=== PATIENT | female | born 1955 | race Caucasian/White ===

== ENCOUNTER 2016-04-28 10:25 | Inpatient (IN) | payer BC ==
[~2016-04-28] VITALS: Ht 157.5 cm; Wt 73.2 kg
[~2016-04-28 10:25] MED LIST: ALBU6.7H INH; CLEAPOW6 PO; GABA300C3 PO; IPRAAER INH; NORC7.5T PO; PERI8.6T PO; SYNT112T PO; VANC1CAP6 PO
[2016-04-28 10:29] VITALS: BP 138/64; PULSE 119; RESP 18; TEMP 98.4; O2SAT 96
[2016-04-28] MEDS ORDERED: SODIUM CHLOR 0.9% 1000 ML INJ 1,000 ML IV SCH (10:47)
[2016-04-28] MEDS ORDERED: ALBU6.7H INH (10:48)
[2016-04-28] MEDS ORDERED: HYDR-3583 PO (10:48)
[2016-04-28] MEDS ORDERED: GABA600T PO (10:48)
[2016-04-28] MEDS ORDERED: IPRAAER INH (10:48)
[2016-04-28] MEDS ORDERED: METH5TAB PO (10:50)
[2016-04-28] MEDS ORDERED: DRON5CAP PO (10:50)
[2016-04-28] MEDS ORDERED: METO10TA PO (10:52)
[2016-04-28] MEDS ORDERED: SODIUM CHLORIDE 0.9% FLUSH 5 ML FLUSH IVF PRN (11:00)
[2016-04-28] MEDS ORDERED: MORPHINE SULFATE 4 MG/ML INJ IV PUSH ONE ×2 (11:00→13:15)
[2016-04-28 11:21] LABS: AUTOMATED NEUTROPHIL # 7.4 TH/MM3 (1.8-7.7); BASOPHIL % 0.2 % (0.0-2.0); EOSINOPHIL % 0.1 % (0.0-4.0); HEMATOCRIT 32.6 % (35.0-46.0); HEMO FLAGS DIFF FINAL; LYMPHOCYTE # 0.2 TH/MM3 (1.0-4.8); MEAN CORPUSCULAR HEMOGLOBIN 25.9 PG (27.0-34.0); MEAN CORPUSCULAR HGB CONC 31.6 % (32.0-36.0); MONO % 1.8 % (0.0-8.0); NEUT % 94.9 % (16.0-70.0); PLATELET COUNT 318 TH/MM3 (150-450); RED BLOOD COUNT 3.97 MIL/MM3 (4.00-5.30); RED CELL DISTRIBUTION WIDTH 20.2 % (11.6-17.2); WHITE BLOOD COUNT 7.8 TH/MM3 (4.0-11.0)
[2016-04-28 11:37] LABS: APTT (PATIENT) 33.4 SEC (24.3-30.1); INTERNATIONAL NORMALIZED RATIO 1.2 RATIO; PROTHROMBIN TIME - PATIENT 13.6 SEC (9.8-11.6)
[2016-04-28 11:38] LABS: ANION GAP 11 MEQ/L (5-15); AST (GOT) 115 U/L (15-37); BICARBONATE 22.8 MEQ/L (21.0-32.0); BLOOD UREA NITROGEN 36 MG/DL (7-18); CHLORIDE 109 MEQ/L (98-107); GLOMERULAR FILTRATION RATE 67 ML/MIN (>89); POTASSIUM 3.8 MEQ/L (3.5-5.1); SODIUM (NA) 143 MEQ/L (136-145)
[2016-04-28 11:41] LABS: ALKALINE PHOSPHATASE 460 U/L (45-117); ALT (GPT) 17 U/L (10-53); TOTAL BILIRUBIN ADULT 0.6 MG/DL (0.2-1.0)
--- NOTE | 2016-04-28 11:47 | PD ---
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 Pires as well as Dr. Lawrence, here for evaluation of abdominal pain. The patient reports chronic abdominal pain, however pain has worsened today. Pain is diffuse, constant, severe. She has had nausea but no vomiting. She has had several episodes of loose bowel movements. She was recently diagnosed with C. difficile colitis and recently finished her course of oral vancomycin. No fevers. History of bowel distraction with colonic stent. 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) Cardiovascular Problems: Yes (HTN) Chemotherapy: Yes (04/25/16) COPD: Yes Cerebrovascular Accident: No Diabetes: No Diminished Hearing: No Endocrine: Yes (HYPOTHYROIDISM) Gastrointestinal Disorders: No GERD: No Glaucoma: No Genitourinary: Yes Hepatitis: No Hiatal Hernia: No Hypertension: No Immune Disorder: No Implanted Vascular Access Dvce: Yes Kidney Stones: No Musculoskeletal: No Neurologic: Yes (NEUROPATHY POST CHEMO) Psychiatric: No Reproductive: No Respiratory: Yes (COPD) Migraines: No Radiation Therapy: No Renal Failure: Yes (ACUTE RENAL FAILURE) Seizures: No Sleep Apnea: No Thyroid Disease: Yes (HYPO) Tetanus Vaccination: Unknown Influenza Vaccination: No ?: Not Tubal Ligation: Yes Past Surgical History Abdominal Surgery: Yes (INCISIONAL HERNIA REPAIR 11/2007, exp lap c lysis of adhesions) AICD: No Arteriovenous Shunt: No Body Medical Devices: INFUSAPORT R CHEST Cardiac Surgery: No Ear Surgery: No Endocrine Surgery: No Eye Surgery: No Genitourinary Surgery: Yes (BIALTERAL URETERAL STENT PLACEMENT) Gynecologic Surgery: Yes (HYSTERECTOMY WITH BEATRIZ S & O - 2005, pelvic tumor removal) Hysterectomy: Yes Insulin Pump: No Joint Replacement: No Neurologic Surgery: No Oral Surgery: No Pacemaker: No Thoracic Surgery: No Other Surgery: Yes (BTL, HERNIA REPAIR(), LYMHNODECTOMY AUG 11, drain placed, removed abd '16) Social History Alcohol Use: No Tobacco Use: No Substance Use: No Allergies-Medications (Allergen,Severity, Reaction): Coded Allergies: Carboplatin (Verified Allergy, Severe, RASH WITH ITCHING, RED FACE, POUNDING IN EARS, 04/28/16) Cisplatin (Verified Allergy, Severe, RASH, ITCHING, RED FACE,DIFFICULTY BREATHING, 04/28/16) Penicillin (Verified Allergy, Severe, SWELLING in joints, 04/28/16) Joint pain *MDRO Multi-Drug Resistant Organism (Verified Adverse Reaction, Unknown, 04/28/16) MRSA (abdomen wound) - 2005 MRSA PCR negative 07/09/2015 & 07/14/15. Cleared per Infection Control. Reported Meds & Prescriptions Reported Meds & Active Scripts Active Reported Metoclopramide (Metoclopramide HCl) 10 Mg Tab 10 Mg PO Q8HR Methadone (Methadone HCl) 5 Mg Tab 5 Mg PO BID Dronabinol 5 Mg Cap 5 Mg PO BID Hydrocodone-Acetaminophen 10-325 mg Tab 1 Tab PO Q4H PRN Gabapentin 600 Mg Tab 600 Mg PO TID PRN Combivent Respimat Inh (Ipratropium-Albuterol Inh) 20-100 Longterm/Act Aero 2 Puff INH BID Proventil Hfa 6.7 GM Inh (Albuterol Sulfate) 90 Mcg/Act Aer 1 Puff INH Q4H PRN Review of Systems Except as stated in HPI: all other systems reviewed are Neg Physical Exam Narrative GENERAL: Well-developed, well-nourished, no acute distress. SKIN: Warm and dry. HEAD: Atraumatic. Normocephalic. EYES: Pupils equal and round. No scleral icterus. No injection or drainage. ENT: Mucous membranes pink and dry. NECK: Trachea midline. No JVD. CARDIOVASCULAR: Regular rate and rhythm. RESPIRATORY: No accessory muscle use. Clear to auscultation. Breath sounds equal bilaterally. GASTROINTESTINAL: Abdomen soft, mildly distended, diffusely tender without peritoneal signs. MUSCULOSKELETAL: No obvious deformities. No clubbing. No cyanosis. No edema. NEUROLOGICAL: Awake and alert. No obvious cranial nerve deficits. Motor grossly within normal limits. Normal speech. PSYCHIATRIC: Appropriate mood and affect; insight and judgment normal. Data Data Last Documented VS Vital Signs Date Time Temp Pulse Resp B/P Pulse Ox O2 Delivery O2 Flow Rate FiO2 04/28/16 10:29 98.4 119 18 138/64 96 Orders Complete Blood Count With Diff (04/28/16 10:47) Comprehensive Metabolic Panel (04/28/16 10:47) Lipase (04/28/16 10:47) Lactic Acid (04/28/16 10:47) Prothrombin Time / Inr (Pt) (04/28/16 10:47) Act Partial Throm Time (Ptt) (04/28/16 10:47) Urinalysis - C+S If Indicated (04/28/16 10:47) Ct Abd/Pel W Iv Contrast(Rout) (04/28/16 10:47) Iv Access Insert/Monitor (04/28/16 10:47) Ecg Monitoring (04/28/16 10:47) Oximetry (04/28/16 10:47) Morphine Inj (Morphine Inj) (04/28/16 11:00) Sodium Chlor 0.9% 1000 Ml Inj (Ns 1000 M (04/28/16 10:47) Sodium Chloride 0.9% Flush (Ns Flush) (04/28/16 11:00) C Diff Toxin Pcr (04/28/16 10:47) Iohexol 350 Inj (Omnipaque 350 Inj) (04/28/16 12:31) Morphine Inj (Morphine Inj) (04/28/16 13:15) Labs Laboratory Tests Test 04/28/16 11:05 White Blood Count 7.8 TH/MM3 Red Blood Count 3.97 MIL/MM3 Hemoglobin 10.3 GM/DL Hematocrit 32.6 % Mean Corpuscular Volume 82.0 FL Mean Corpuscular Hemoglobin 25.9 PG Mean Corpuscular Hemoglobin 31.6 % Concent Red Cell Distribution Width 20.2 % Platelet Count 318 TH/MM3 Mean Platelet Volume 7.5 FL Neutrophils (%) (Auto) 94.9 % Lymphocytes (%) (Auto) 3.0 % Monocytes (%) (Auto) 1.8 % Eosinophils (%) (Auto) 0.1 % Basophils (%) (Auto) 0.2 % Neutrophils # (Auto) 7.4 TH/MM3 Lymphocytes # (Auto) 0.2 TH/MM3 Monocytes # (Auto) 0.1 TH/MM3 Eosinophils # (Auto) 0.0 TH/MM3 Basophils # (Auto) 0.0 TH/MM3 CBC Comment DIFF FINAL Differential Comment Prothrombin Time 13.6 SEC Prothromb Time International 1.2 RATIO Ratio Activated Partial 33.4 SEC Thromboplast Time Sodium Level 143 MEQ/L Potassium Level 3.8 MEQ/L Chloride Level 109 MEQ/L Carbon Dioxide Level 22.8 MEQ/L Anion Gap 11 MEQ/L Blood Urea Nitrogen 36 MG/DL Creatinine 0.86 MG/DL Estimat Glomerular Filtration 67 ML/MIN Rate Random Glucose 77 MG/DL Lactic Acid Level 1.0 mmol/L Calcium Level 7.5 MG/DL Total Bilirubin 0.6 MG/DL Aspartate Amino Transf 115 U/L (AST/SGOT) Alanine Aminotransferase 17 U/L (ALT/SGPT) Alkaline Phosphatase 460 U/L Total Protein 5.1 GM/DL Albumin 1.5 GM/DL Lipase 51 U/L [facility] Medical Decision Making Medical Screen Exam Complete: Yes Emergency Medical Condition: Yes Differential Diagnosis Acute on chronic abdominal pain, bowel obstruction, intra-abdominal infection Narrative Course Initial vital signs show heart rate 119, blood pressure 138/64, pulse ox 98% on room air, oral temp of 98.4F. CBC shows WBC 7.8, hemoglobin 10.3, hematocrit 32.6, platelets 318, neutrophils 94.9%. CMP is remarkable for alkaline phosphatase 460, AST 115, otherwise essentially unremarkable. Lactic acid is 1.0. CT abdomen pelvis: CONCLUSION: 1. Worsening of hepatic metastatic disease since January 21. 2. Increasing size of right middle lobe metastatic lung nodule. 3. Increasing size of pelvic mass just below the expandable sigmoid stent. 4. Development of moderate left hydronephrosis with left ureteral stent remaining in place. 5. Development of anasarca. 6. Slight increase in biliary ductal dilatation. The patient was made aware of all findings. She was given 2 doses of pain medication and is still having abdominal pain. She will be admitted for overnight observation for intractable abdominal pain. Case discussed with hospitalist Dr. Hall who will admit the patient to her service. Diagnosis Primary Impression: Intractable abdominal pain Additional Impression: Metastatic disease Admitting Information Admitting Physician Requests: Jeffry Perez MD Apr 28, 2016 11:47
[2016-04-28] MEDS ORDERED: IOHEXOL 350 MG/ML 10 ML VIAL (for RAD DIAG) IV ONE (12:31)
--- NOTE | 2016-04-28 12:53 | RADRPT ---
EXAM DATE/TIME: 04/28/2016 12:16 [facility] COMPARISON: CT ABDOMEN & PELVIS W CONTRAST, January 22, 2016, 23:52. INDICATIONS : Abdominal pain,ovarian cancer IV CONTRAST: 85 cc Omnipaque 350 (iohexol) IV ORAL CONTRAST: No oral contrast ingested. RADIATION DOSE: 12.07 CTDIvol (mGy) MEDICAL HISTORY : Carcinoma, ovarian. Cardiovascular disease Renal failure, acute. SURGICAL HISTORY : Hysterectomy. colonic stents ENCOUNTER: Initial ACUITY: 1 day PAIN SCALE: 7/10 LOCATION: Abdomen TECHNIQUE: Volumetric scanning of the abdomen and pelvis was performed. Using automated exposure control and ad justment of the mA and/or kV according to patient size, radiation dose was kept as low as reasonably achievable to obtain optimal diagnostic quality images. FINDINGS: There is progression of disease since January 22, 2016. Metastatic disease in the liver has worsened w ith a large mass in the dome of the left side now measuring 9.9 cm in diameter compared with previous measurement of 5.1 cm. There is also development of slight worsening of biliary ductal dilatation wi th common bile duct measuring 17 mm. Calcified gallstone is present in the gallbladder. Nodule in right middle lobe has increased in size 6.5 mm to 9 mm characteristic of worsening metastat ic disease. Spleen, adrenals and pancreas unchanged. Right kidney stable. There is an atrophic left kidney with d evelopment of moderate hydronephrosis. Left renal stent is seen passing from left kidney into bladder . Diffuse anasarca has developed. Pelvic mass has increased in size from about 6.9 cm in transverse val meter to about 9.4 cm in transverse diameter. Expandable sigmoid stent remains present. There is mild constipation. No small bowel obstruction identified. Previous laparotomy. CONCLUSION: 1. Worsening of hepatic metastatic disease since January 21. 2. Increasing size of right middle lobe metastatic lung nodule. 3. Increasing size of pelvic mass just below the expandable sigmoid stent. 4. Development of moderate left hydronephrosis with left ureteral stent remaining in place. 5. Development of anasarca. 6. Slight increase in biliary ductal dilatation. Edgardo Lockhart MD on April 28, 2016 at 12:44 Board Certified Radiologist. This report was verified electronically.
[2016-04-28 13:37] VITALS: BP 109/53; PULSE 103; RESP 14; O2SAT 96
[2016-04-28] MEDS ORDERED: SENNOSIDES 8.6 MG TAB PO PRN (14:30)
[2016-04-28] MEDS ORDERED: HYDROmorphone HCL PF 1 MG/ML VIAL IV PUSH PRN (14:30)
[2016-04-28] MEDS ORDERED: GABAPENTIN 300 MG CAP PO PRN (14:30)
--- NOTE | 2016-04-28 14:39 | HHI.HP ---
[facility] Non-Staff Admission Diagnosis intractable abdominal pain, metastatic disease Diagnoses: Chief Complaint: Abdominal pain Travel History International Travel<30 Days: No Contact w/Intl Traveler <30 Da: No Traveled to Known Affected Are: No History of Present Illness A 61-year-old female with chronic abdominal pain due to metastatic ovarian cancer who is currently in palliative chemotherapy. Patient comes emergency room with acute onset of severe abdominal pain rated 10 out of 10 occurring overnight and not relieved with it not, 5 mg of methadone or Lortab which she had at home per her oncology office. Patient came to the emergency room for further evaluation. Pain was relieved with IV morphine. Patient reports spasmodic abdominal discomfort which is quite severe. She also reports vaginal discharge which has been chronic and been followed by her oncology team. Patient has previously been evaluated by the palliative care team in the hospital. Patient has a repeat CT of the abdomen and pelvis done compared with previous evaluation here in December. It does show my review worsening metastatic disease despite her current chemotherapy regimen. Patient is poorly ambulatory, poorly functioning, with poor appetite and now with increased edema on the left lower extremity which has been treated with antibiotics per her oncologist. Patient has not had any fevers or chills and no nausea and vomiting but mostly she has been in the bed asleep. Per the family and they would like some relief from the pain and a realistic expectation on their current prognosis. For these reasons the patient is recommended for further evaluation in the hospital Review of Systems Constitutional: COMPLAINS OF: Fatigue, Change in appetite Endocrine: DENIES: Abnorml menstrual pattern, Heat/cold intolerance, Polydipsia , Polyuria, Polyphagia Eyes: DENIES: Blurred vision, Diplopia, Eye inflammation, Eye pain, Vision loss , Photosensitivity, Double Vision Ears, nose, mouth, throat: DENIES: Tinnitus, Hearing loss, Vertigo, Nasal discharge, Oral lesions, Throat pain, Hoarseness, Ear Pain, Running Nose, Epistaxis, Sinus Pain, Toothache, Odynophagia Cardiovascular: COMPLAINS OF: Lower Extremity Edema, DENIES: Chest pain, Palpitations, Syncope, Dyspnea on Exertion, PND, Orthopnea, Claudication Gastrointestinal: COMPLAINS OF: Abdominal pain, Diarrhea, DENIES: Black stools , Bloody stools, Constipation, Nausea, Vomiting, Difficulty Swallowing, Anorexia Genitourinary: COMPLAINS OF: Vaginal discharge, DENIES: Abnormal vaginal bleeding, Dysmenorrhea, Dyspareunia, Sexual dysfunction, Urinary frequency, Urinary incontinence, Urgency, Hematuria, Dysuria, Nocturia Musculoskeletal: DENIES: Joint pain, Muscle aches, Stiffness, Joint Swelling, Back pain, Neck pain Integumentary: DENIES: Abnormal pigmentation, Pruritus, Rash, Nail changes, Breast masses, Breast skin changes, Nipple discharge Hematologic/lymphatic: DENIES: Bruising, Lymphadenopathy Immunologic/allergic: DENIES: Eczema, Urticaria Neurologic: COMPLAINS OF: Abnormal gait, DENIES: Headache, Localized weakness , Paresthesias, Seizures, Speech Problems, Tremor, Poor Balance Psychiatric: DENIES: Anxiety, Confusion, Mood changes, Depression, Hallucinations, Agitation, Suicidal Ideation, Homicidal Ideation, Delusions Past Family Social History Past Medical History Ovarian cancer, metastatic currently in palliative chemotherapy with Taxol Hypertension Hypothyroidism Neuropathy secondary to chemotherapy Renal insufficiency secondary to hydronephrosis related to the mass Past Surgical History Hysterectomy Salpingo-oophorectomy and tumor resection Ureteral stents bilaterally 99 right chest port Hernia repair Exploratory laparotomy Reported Medications Reviewed in the medical record patient reports poor adherence with methadone and recent increased to fentanyl 100 g Allergies: Coded Allergies: Carboplatin (Verified Allergy, Severe, RASH WITH ITCHING, RED FACE, POUNDING IN EARS, 04/28/16) Cisplatin (Verified Allergy, Severe, RASH, ITCHING, RED FACE,DIFFICULTY BREATHING, 04/28/16) Penicillin (Verified Allergy, Severe, SWELLING in joints, 04/28/16) Joint pain *MDRO Multi-Drug Resistant Organism (Verified Adverse Reaction, Unknown, 04/28/16) MRSA (abdomen wound) - 2005 MRSA PCR negative 07/09/2015 & 07/14/15. Cleared per Infection Control. Active Ordered Medications Reviewed in the medical record Family History Hypertension Social History This with family, no tobacco or alcohol dependency Physical Exam Vital Signs Vital Signs Date Time Temp Pulse Resp B/P Pulse Ox O2 Delivery O2 Flow Rate FiO2 04/28/16 13:37 103 14 109/53 96 Room Air 04/28/16 10:29 98.4 119 18 138/64 96 Physical Exam GENERAL: This is a frail female who appears older than stated age, complaining of pain SKIN: Diffuse erythema and scaling in both extremities left greater than right and erythema and the left thigh HEAD: Atraumatic. Normocephalic. No temporal or scalp tenderness. EYES: Pupils equal round and reactive. Extraocular motions intact. No scleral icterus. No injection or drainage. ENT: Nose without bleeding, purulent drainage or septal hematoma. Throat without erythema, tonsillar hypertrophy or exudate. Uvula midline. Airway patent. NECK: Trachea midline. No JVD or lymphadenopathy. Supple, nontender, no meningeal signs. CARDIOVASCULAR: Regular rate and rhythm without murmurs, gallops, or rubs. RESPIRATORY: Clear to auscultation. Breath sounds equal bilaterally. No wheezes , rales, or rhonchi. GASTROINTESTINAL: Abdomen soft, hypoactive, tender, nondistended MUSCULOSKELETAL: Extremities without clubbing, cyanosis, but there is +3 edema in the left leg no joint tenderness, effusion, or edema noted. No calf tenderness. Negative Homans sign bilaterally. NEUROLOGICAL: Awake and alert. Cranial nerves II through XII intact. Motor and sensory grossly within normal limits. Five out of 5 muscle strength in all muscle groups. Normal speech. Laboratory Laboratory Tests Test 04/28/16 11:05 White Blood Count 7.8 Red Blood Count 3.97 Hemoglobin 10.3 Hematocrit 32.6 Mean Corpuscular Volume 82.0 Mean Corpuscular Hemoglobin 25.9 Mean Corpuscular Hemoglobin 31.6 Concent Red Cell Distribution Width 20.2 Platelet Count 318 Mean Platelet Volume 7.5 Neutrophils (%) (Auto) 94.9 Lymphocytes (%) (Auto) 3.0 Monocytes (%) (Auto) 1.8 Eosinophils (%) (Auto) 0.1 Basophils (%) (Auto) 0.2 Neutrophils # (Auto) 7.4 Lymphocytes # (Auto) 0.2 Monocytes # (Auto) 0.1 Eosinophils # (Auto) 0.0 Basophils # (Auto) 0.0 CBC Comment DIFF FINAL Differential Comment Prothrombin Time 13.6 Prothromb Time International 1.2 Ratio Activated Partial 33.4 Thromboplast Time Sodium Level 143 Potassium Level 3.8 Chloride Level 109 Carbon Dioxide Level 22.8 Anion Gap 11 Blood Urea Nitrogen 36 Creatinine 0.86 Estimat Glomerular Filtration 67 Rate Random Glucose 77 Lactic Acid Level 1.0 Calcium Level 7.5 Total Bilirubin 0.6 Aspartate Amino Transf 115 (AST/SGOT) Alanine Aminotransferase 17 (ALT/SGPT) Alkaline Phosphatase 460 Total Protein 5.1 Albumin 1.5 Lipase 51 Result Diagram: 04/28/16 1105 04/28/16 1105 Imaging Last Impressions Abdomen/Pelvis CT 04/28/16 1047 Signed Impressions: Service Date/Time: Thursday, April 28, 2016 12:16 - CONCLUSION: 1. Worsening of hepatic metastatic disease since January 21. 2. Increasing size of right middle lobe metastatic lung nodule. 3. Increasing size of pelvic mass just below the expandable sigmoid stent. 4. Development of moderate left hydronephrosis with left ureteral stent remaining in place. 5. Development of anasarca. 6. Slight increase in biliary ductal dilatation. Edgardo Lockhart MD Assessment and Plan Problem List: (1) Ovarian cancer ICD Code: C56.9 Status: Chronic Plan: Patient presented worsening metastasis that disease with increased pain from this as well as possible fistula. We'll continue with pain management and request palliative and oncology follow-up with the patient iv dilaudid Patient already taking but no patches on her micrograms every 3 days and Lortab. She was not taking the methadone at home and we will start this (2) Leg swelling ICD Code: M79.89 Status: Acute Plan: Cellulitis, rule out DVT. Patient recently had an ultrasound 2 weeks ago as an outpatient however reports the swelling has gotten worse Liebrty Hall MD Apr 28, 2016 14:39
[2016-04-28 16:00] VITALS: BP 123/56; PULSE 105; RESP 16; TEMP 98.7; O2SAT 95
[2016-04-28] MEDS ORDERED: METHADONE HCL 10 MG TAB PO SCH (16:00)
--- NOTE | 2016-04-28 16:40 | RADRPT ---
EXAM DATE/TIME: 04/28/2016 15:49 [facility] COMPARISON: No previous studies available for comparison. INDICATIONS : Left leg pain and swelling. MEDICAL HISTORY : Hypothyroidism. Chronic obstructive pulmonary disease. Neuropathy. Hypertention. Emphysema. Asthm a. Renal failure. Ovarian cancer. SURGICAL HISTORY : Hysterectomy. Tubal ligation. Hernia repair. Lymphnodectomy. Ureteral stents. Pelvic tumor removal. ENCOUNTER: Initial ACUITY: 3 months PAIN SCORE: 8/10 LOCATION: Left leg. TECHNIQUE: Venous ultrasound of the leg was performed from the inguinal ligament to the proximal calf. Real-kim e, color Doppler and spectral tracing, compression and augmentation techniques were used. FINDINGS: There is occlusive thrombus in the left iliac vein. Nonocclusive thrombus extends from the left commo n femoral vein through the superficial femoral vein and proximal greater saphenous vein. Popliteal ve in and peroneal vein and posterior tibial vein are patent. There is a popliteal cyst measuring 4.9-2. 6 x 2.3 cm. CONCLUSION: 1. Occlusive and nonocclusive deep venous thrombosis in the left lower extremity as above. Popliteal cyst also present. Edgardo Lockhart MD on April 28, 2016 at 16:36 Board Certified Radiologist. This report was verified electronically.
[2016-04-28] MEDS ORDERED: LORazepam 2 MG/ML VIAL IV PRN (18:15)
[2016-04-28] MEDS ORDERED: PILL SPLITTER OTHER PRN (18:30)
[2016-04-28] MEDS: fentaNYL 100 MCG/HR PATCH TD SCH (18:42)
--- NOTE | 2016-04-28 19:01 | PD.CONS ---
Consult Service Palliative Care . Consult Requested By Dr. Hall . Primary Care Physician Barbie Thao MD . Reason for Consultation a. To assist with evaluation and management of symptoms including: abdominal /pelvic pain. b. To assist medical decision maker(s) with: better understanding of current medical conditions; weighing benefits/burdens of medical treatment options; making medical treatment decisions. . HPI History of Present Illness Mrs. Jim is a 61 year old female with long history of recurrent ovarian cancer Stage IIIC diagnosed in 2005. She was admitted to [facility] in November 2015 with bowel obstruction secondary to tumor invading the colon, she underwent colonic stent. She has metastatic disease to liver and lung. She was admitted again in December 2015 with sepsis and C. diff colitis. Since the last admission she has been on weekly Taxol (Line 9) with completion of 3 cycles of this treatment under the direction of Dr. Pires. Review of oncology notes indicates the patient has had developed a rectovaginal fistula. She has also had left lower extremity edema diagnosed with vasculitis/cellulitis for which she was treated with vancomycin. She has had increasing fatigue which she attributed to her pain medication, though I suspect this was related to disease progression. She has also had significant pain in the vaginal/rectal area. Patient presented to [facility] emergency department with intractable abdominal/ pelvic pain. CT scan abdomen pelvis revealed worsening hepatic metastatic disease with disease increased from 5.1cm to 9.9cm, increased in mets lung nodule to 9mm from 4mm, increased pelvic mass to 9.4cm x 12cm increased from 6.9cm, moderate hydronephrosis with left stent in place, anasarca and increased biliary ductal dilatation. Ultrasound LE pending. Patient seen and examined in ER with daughters and sisters at bedside. Patient is screaming and writhing in pain. She reports pain as a sharp, stabbing pain deep in her pelvis. She reports pain to be constant over the past few days. Some relief with PRN Dilaudid, but only last 45 minutes. She screams when attempting to urinate. She leaks fecal content vaginally. Palliative care was consulted to assist with pain control and further clarification of treatment goals. Function/Cognitive Trajectory Patient has maintained a good quality of life considering ongoing treatment for her recurrent ovarian cancer over the past 10 years. Patient indicates that she has been essentially in bed most of the time, increased pain, decreased appetite, she appears to be losing weight. She is pale. Requiring blood transfusions. Overall declining functional status. . Review of Systems Constitutional: COMPLAINS OF: Fatigue, Weight loss, Change in appetite ( decreased), Pain (increase pain in the vaginal/rectal/abdominal areas rate 10 on 0 to 10 scale), Generalized weakness (increased weakness) Gastrointestinal: COMPLAINS OF: Abdominal pain, Nausea, Anorexia, Bloating Genitourinary: COMPLAINS OF: Urinary frequency, Urgency, Dysuria, Vaginal discharge (fecal content leaking from vagina) Hematologic/Lymphatics: COMPLAINS OF: Bruising Psychiatric: COMPLAINS OF: Anxiety Past Family Social History Coded Allergies: Carboplatin (Verified Allergy, Severe, RASH WITH ITCHING, RED FACE, POUNDING IN EARS, 04/28/16) Cisplatin (Verified Allergy, Severe, RASH, ITCHING, RED FACE,DIFFICULTY BREATHING, 04/28/16) Penicillin (Verified Allergy, Severe, SWELLING in joints, 04/28/16) Joint pain *MDRO Multi-Drug Resistant Organism (Verified Adverse Reaction, Unknown, 04/28/16) MRSA (abdomen wound) - 2005 MRSA PCR negative 07/09/2015 & 07/14/15. Cleared per Infection Control. Past Medical History Ovarian cancer, metastatic to liver, lung and pelvis. Recently completed 3rd cycle of palliative weekly Taxol chemotherapy Hypertension Hypothyroidism Neuropathy secondary to chemotherapy Renal insufficiency secondary to hydronephrosis related to the mass . Past Surgical History Exploratory laparotomy, radical debulking of intraperitoneal tumor, omentectomy , supracervical hysterectomy, bilateral sopping oophorectomy and lysis of adhesions (2005) Hernia repair Colonic stent placement Right port placement Tubal ligation . Reported Medications Reported Meds & Active Scripts Active Reported Metoclopramide (Metoclopramide HCl) 10 Mg Tab 10 Mg PO Q8HR Methadone (Methadone HCl) 5 Mg Tab 5 Mg PO BID Dronabinol 5 Mg Cap 5 Mg PO BID Hydrocodone-Acetaminophen 10-325 mg Tab 1 Tab PO Q4H PRN Gabapentin 600 Mg Tab 600 Mg PO TID PRN - oncology notes indicate frequency of BID, no dose indicated Combivent Respimat Inh (Ipratropium-Albuterol Inh) 20-100 Halfway/Act Aero 2 Puff INH BID Proventil Hfa 6.7 GM Inh (Albuterol Sulfate) 90 Mcg/Act Aer 1 Puff INH Q4H PRN . Current Medications Medications (Trade) Dose Ordered Sig/Perry Route Start Time Stop Time Status Last Admin (NS Flush) 2 ml UNSCH PRN FLUSH 04/28/16 14:30 (NS Flush) 2 ml BID FLUSH 04/28/16 21:00 (Tylenol) 650 mg Q4H PRN PO 04/28/16 14:30 (Zofran Inj) 4 mg Q6H PRN IVP 04/28/16 14:30 (Senokot) 17.2 mg Q12H PRN PO 04/28/16 14:30 (Miralax) 17 gm DAILY PO 04/29/16 09:00 (Proair Hfa Inh) 1 puff Q4H PRN INH 04/28/16 14:30 (Marinol) 5 mg BID PO 04/28/16 21:00 (Reglan) 10 mg Q8HR PO 04/28/16 22:00 (Duragesic 100 Mcg Patch.72 Hr) 1 patch Q3D TD 04/28/16 18:00 Miscellaneous Information 1 Q3D TD 05/01/16 18:00 (Dolophine) 5 mg Q8H PO 04/29/16 00:00 (Neurontin) 300 mg BID PO 04/28/16 21:00 (Dilaudid Pf Inj) 1.5 mg Q2H PRN IV PUSH 04/28/16 18:30 (Ativan Inj) 0.5 mg Q4H PRN IV 04/28/16 18:15 UNV . Family History Mother recently, unable to determine actual cause in discussing with family , mother had history of breast cancer. Brother aged 53 of seizure disorder. Sister alive and well. Father aged 62 of lung cancer. . Substance Use Quit smoking in 1999, previously smoked for 25 years. Occasional alcohol use. No drug use. . Psychosocial History . 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 Lives in [place], [place]. Has 2 adult daughters , Shey and Zelda. Has a local sister Yoli. . Spiritual/Cultural Factors Member [employer]. 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 . Living Will: Never completed Health Care Surrogate: Never completed Durable Power of Packager Machine: Never completed Health Care Surrogate(s): No written advance directives. According to [place] statutes health care proxy decision-making falls to her spouse. She indicates she would want her spouse to make medical decisions should she become incapacitated. . Today's verbally stated goals: Considering code status and goals of care. At this time she desires for pain controlled, prefers for pain to be adequately controlled even if this means that she is more lethargic. . Family/friends goals: Family supports patient goals. Remain hopeful for continued improvement, though realistic regarding the difficult nature of her current status. Family understands that the patient will likely due to her ovarian cancer and that treating this cancer has become increasingly difficult. Family also understands that there may not be any additional treatment options. . Ethical and Legal Issues No written advance directives. According to [place] statutes health care proxy decision-making falls to her spouse. She indicates she would want her spouse to make medical decisions should she become incapacitated. . Physical Exam Vital Signs Date Time Temp Pulse Resp B/P Pulse Ox O2 Delivery O2 Flow Rate FiO2 04/28/16 16:00 98.7 105 16 123/56 95 04/28/16 13:37 103 14 109/53 96 Room Air 04/28/16 10:29 98.4 119 18 138/64 96 Exam CONSTITUTIONAL/GENERAL: This is a frail, chronically ill patient, who appears older than her actual age, writhing in pain. TUBES/LINES/DRAINS: port. SKIN: pale. Diffuse erythema and scaling in both extremities. Bilateral lower extremity edema left > right. Erythema, tight skin left thigh and buttock area. HEAD: Atraumatic. Normocephalic. EYES: Pupils equal and round and reactive. Extraocular motions intact. No scleral icterus. No injection or drainage. Fundi not examined. ENT: Hearing grossly normal. Nose without bleeding or purulent drainage. Throat without visible erythema, exudates, masses, or lesions. NECK: Trachea midline. Supple, nontender. CARDIOVASCULAR: Regular rate and rhythm without murmurs, gallops, or rubs. RESPIRATORY/CHEST: Symmetric, unlabored respirations. Clear to auscultation. Breath sounds equal bilaterally. GASTROINTESTINAL: Abdomen soft, tender right upper and lower quadrant, mildly distended. Bowel sounds hypoactive. GENITOURINARY: Without palpable bladder distension. MUSCULOSKELETAL: Extremities without clubbing, cyanosis. 3+ edema in the left LE. No calf tenderness. Negative Homans sign bilaterally. LYMPHATICS: No palpable cervical or supraclavicular adenopathy. NEUROLOGICAL: Awake and alert. Motor and sensory grossly within normal limits. Follows commands. Cognitively sharp. Moves all extremities. PSYCHIATRIC: crying out in pain. . Diagnostic Tests Laboratory Laboratory Tests Test 04/28/16 11:05 White Blood Count 7.8 TH/MM3 (4.0-11.0) Red Blood Count 3.97 MIL/MM3 (4.00-5.30) Hemoglobin 10.3 GM/DL (11.6-15.3) Hematocrit 32.6 % (35.0-46.0) Mean Corpuscular Volume 82.0 FL (80.0-100.0) Mean Corpuscular Hemoglobin 25.9 PG (27.0-34.0) Mean Corpuscular Hemoglobin 31.6 % Concent (32.0-36.0) Red Cell Distribution Width 20.2 % (11.6-17.2) Platelet Count 318 TH/MM3 (150-450) Mean Platelet Volume 7.5 FL (7.0-11.0) Neutrophils (%) (Auto) 94.9 % (16.0-70.0) Lymphocytes (%) (Auto) 3.0 % (9.0-44.0) Monocytes (%) (Auto) 1.8 % (0.0-8.0) Eosinophils (%) (Auto) 0.1 % (0.0-4.0) Basophils (%) (Auto) 0.2 % (0.0-2.0) Neutrophils # (Auto) 7.4 TH/MM3 (1.8-7.7) Lymphocytes # (Auto) 0.2 TH/MM3 (1.0-4.8) Monocytes # (Auto) 0.1 TH/MM3 (0-0.9) Eosinophils # (Auto) 0.0 TH/MM3 (0-0.4) Basophils # (Auto) 0.0 TH/MM3 (0-0.2) CBC Comment DIFF FINAL Differential Comment Prothrombin Time 13.6 SEC (9.8-11.6) Prothromb Time International 1.2 RATIO Ratio Activated Partial 33.4 SEC Thromboplast Time (24.3-30.1) Sodium Level 143 MEQ/L (136-145) Potassium Level 3.8 MEQ/L (3.5-5.1) Chloride Level 109 MEQ/L (98-107) Carbon Dioxide Level 22.8 MEQ/L (21.0-32.0) Anion Gap 11 MEQ/L (5-15) Blood Urea Nitrogen 36 MG/DL (7-18) Creatinine 0.86 MG/DL (0.50-1.00) Estimat Glomerular Filtration 67 ML/MIN (>89) Rate Random Glucose 77 MG/DL (74-106) Lactic Acid Level 1.0 mmol/L (0.4-2.0) Calcium Level 7.5 MG/DL (8.5-10.1) Total Bilirubin 0.6 MG/DL (0.2-1.0) Aspartate Amino Transf 115 U/L (15-37) (AST/SGOT) Alanine Aminotransferase 17 U/L (10-53) (ALT/SGPT) Alkaline Phosphatase 460 U/L (45-117) Total Protein 5.1 GM/DL (6.4-8.2) Albumin 1.5 GM/DL (3.4-5.0) Lipase 51 U/L (73-393) Result Diagram: 04/28/16 1105 04/28/16 1105 Imaging Last Impressions Abdomen/Pelvis CT 04/28/16 1047 Signed Impressions: Service Date/Time: Thursday, April 28, 2016 12:16 - CONCLUSION: 1. Worsening of hepatic metastatic disease since January 21. 2. Increasing size of right middle lobe metastatic lung nodule. 3. Increasing size of pelvic mass just below the expandable sigmoid stent. 4. Development of moderate left hydronephrosis with left ureteral stent remaining in place. 5. Development of anasarca. 6. Slight increase in biliary ductal dilatation. Edgardo Lockhart MD Lower Extremity Ultrasound 04/28/16 0000 Signed Impressions: Service Date/Time: Thursday, April 28, 2016 15:49 - CONCLUSION: 1. Occlusive and nonocclusive deep venous thrombosis in the left lower extremity as above. Popliteal cyst also present. Edgardo Lockhart MD . Patient/Family Conference Present at Family Conference: Met with patient, 2 daughters Shey and Zelda, and sister Yoli at bedside. is out of town. . Family Conference Time (mins): 60 Family Conference Location: Bedside Issues Discussed: * Palliative care role, purpose, approach * Additional medical, psychosocial, and spiritual history * Patients general health, functional status, and cognitive changes in the months leading up to the current hospitalization * Patient/family understanding of the current medical problems * Patient/family understanding of prognosis * Patients goals of care as best understood from advance directives and/or conversations and/or values * Current medical treatment options and benefits/burdens of those options * Likely scenarios comparing ongoing aggressive care with a transition to comfort measures only * Questions answered to the best of my ability * Palliative care contact information provided In summary, reviewed CT scan results that show disease progression despite recent chemotherapy. Family is asking if there is any surgical procedure or anything that can be done to reverse the rectovaginal fistula - explained a colostomy might be considered however this may carry more risk than benefit as the patient will still likely have vaginal discharge secondary to disease progression. Patient is considering her wishes regarding CODE STATUS and goals. Patient and family agree to have additional conversation, palliative care will follow-up again 04/29/16 for further clarification of treatment goals. Advised family that her pain could be controlled. Discussed consideration of possible hospice support, will need to clarify goals further, they are not yet ready to make this decision. . Assessment and Plan Disease Oriented Problem List: (1) Ovarian cancer with mets to liver and lung (2) Anemia (3) COPD (chronic obstructive pulmonary disease) Symptom Scale: (1) Intractable pain 0-10 Scale: 10 Comment: secondary to metastatic ovarian cancer with disease progression despite recent chemotherapy, rectovaginal fistula, pelvic mass. (2) Nausea 0-10 Scale: 0 Comment: Denies during my visit, reports intermittent nausea, no vomiting (3) Dysuria 0-10 Scale: 10 Comment: Yelling out in pain with urination, recommend Lizama catheter. (4) Vaginal discharge 0-10 Scale: Unable to quantify Comment: Secondary to pelvic mass, rectovaginal fistula. Pertinent Non-Medical Issues Psychosocial: . Supported by her 2 daughters, Shey and Zelda. Also supported by her sister, Yoli. Lives in [place]. Spiritual: Member [employer]. 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 Legal:No written advance directives. According to [place] statutes health care proxy decision-making falls to her spouse. She indicates she would want her spouse to make medical decisions should she become incapacitated. Ethical issues impacting care: no known concerns at this time. . Important Contacts * Kevin Jim, spouse/HCP: [phone] (cell) or [phone] (home) * Shey Jim, daughter: [phone] cell or [phone] work * Zelda Fuentes, daughter: [phone] cell or [phone] work * Yoli Rosario, sister: [phone] cell or [phone] home . Prognosis Mrs. Jim has recurrent Ovarian cancer with Mets to liver and lung disease progression despite recent palliative chemotherapy admitted with abdominal and vaginal pain. Patient has had ovarian cancer undergoing treatment for the last 10 years, she is certainly hospice appropriate should she elect comfort focused care. Ovarian cancer is a terminal condition. . Code Status: Full Code Plan * Patient is currently capacitated to make her own health care decisions. No written advance directives. According to [place] statutes health care proxy decision-making falls to her spouse. She indicates she would want her spouse to make medical decisions should she become incapacitated.. * FULL CODE. * 06/28/15 - Met with pt and family: In summary, reviewed CT scan results that show disease progression despite recent chemotherapy. Family is asking if there is any surgical procedure or anything that can be done to reverse the rectovaginal fistula - explained a colostomy might be considered however this may carry more risk than benefit as the patient will still likely have vaginal discharge secondary to disease progression. Patient is considering her wishes regarding CODE STATUS and goals. Patient and family agree to have additional conversation.Advised family that her pain could be controlled, though disease cannot be cured. Discussed consideration of possible hospice support, will need to clarify goals further, they are not yet ready to make this decision. * Palliative care will follow up with pt/family 04/29/16 ~ 12noon. * Discussed with Dr. Pires, Dr. Crain and Dr. Hall. * SYMPTOMS: Intractable Pain: secondary to metastatic ovarian cancer with disease progression despite recent chemotherapy, rectovaginal fistula, pelvic mass. Medication adjustments include: Methadone 5 mg PO every 8 hours ATC. Increased Dilaudid 1.5 mg IV Q2 hours PRN breakthrough pain. Gabapentin 300 mg PO BID ATC. Dysuria: may benefit from Lizama catheter placement. Nausea: Reglan and Zofran available. Anxiety: may also be contributing to pain. Added Ativan 0.5 mg IV every 4 hours PRN anxiety. * Patient/ Family notified of medication adjustments, in agreement with plan of care. * Palliative care number provided. * Palliative care will continue to follow throughout hospital course to assist with symptom management and further clarification of treatment goals. . Thank you for the opportunity to participate in the care of Ms. Jim. Attestation To help prompt me to consider important information that might be impacting today's encounter and assessment, information from prior notes written by myself or my colleagues may have been "brought forward" into today's note. My signature on this note, however, is an attestation that I personally performed the exam, history, and/or decision-making noted today, and, unless otherwise indicated, the interactions with patient, family, and staff as well as the review of records all occurred today. I also attest that the listed assessment and stated plan reflect my best clinical judgment today based on the combination of historical information, prior notes, and today's exam/ interactions. When time spent is documented, it refers only to time spent today by the signer, or if indicated, combined time spent today by collaborating physician/nurse practitioner. NIEVES URRUTIA Apr 28, 2016 19:01
[2016-04-28 19:29] VITALS: BP 124/77; PULSE 109; RESP 16; TEMP 98.5; O2SAT 93
[2016-04-28] MEDS: HYDROmorphone HCL PF 1 MG/ML VIAL IV PUSH PRN ×2 (19:37→22:28)
[2016-04-28] MEDS ORDERED: HYDROmorphone HCL PF 2 MG/ML VIAL IV PUSH ONE (20:30)
[2016-04-28] MEDS: SODIUM CHLORIDE 0.9% FLUSH 5 ML FLUSH FLUSH SCH (21:00)
[2016-04-28] MEDS: DRONABINOL 5 MG CAP PO SCH ×2 (21:00→23:34)
[2016-04-28] MEDS: GABAPENTIN 300 MG CAP PO SCH (21:00)
[2016-04-28] MEDS: METOCLOPRAMIDE HCL 10 MG TAB PO SCH (22:00)
[2016-04-28] MEDS ORDERED: HYDROmorphone HCL PF 2 MG/ML VIAL SQ ONE (23:15)
[2016-04-28] MEDS: ENOXAPARIN SODIUM 60 MG/0.6 ML SYRINGE SQ SCH (23:33)
[2016-04-29] VITALS (7 sets, daily range): BP systolic 116–175; BP diastolic 57–101; PULSE 115–133; RESP 16–18; TEMP 96.6–99.9; O2SAT 91–94
[2016-04-29] MEDS: METHADONE HCL 10 MG TAB PO SCH ×3 (00:08→16:00)
[2016-04-29] MEDS: HYDROmorphone HCL PF 1 MG/ML VIAL SQ PRN ×3 (01:04→06:21)
[2016-04-29] MEDS: METOCLOPRAMIDE HCL 10 MG TAB PO SCH ×4 (04:37→20:09)
[2016-04-29] MEDS: ENOXAPARIN SODIUM 60 MG/0.6 ML SYRINGE SQ SCH ×3 (07:52→20:05)
[2016-04-29] MEDS ORDERED: HYDROmorphone HCL PF 2 MG/ML VIAL IV PUSH ONE (08:30)
[2016-04-29] MEDS: GABAPENTIN 300 MG CAP PO SCH ×2 (08:43→20:05)
[2016-04-29] MEDS: DRONABINOL 5 MG CAP PO SCH ×2 (08:43→20:04)
[2016-04-29] MEDS: LORazepam 2 MG/ML VIAL IV PUSH PRN ×3 (08:43→16:26)
--- NOTE | 2016-04-29 08:49 | MB ---
cc: ARMAIN LOUISE MD,DILLON PEREZ MD, M.D. CROSSMAN, ALEXANDRA A. MD DEVERAS, RUBY ANNE E. M.D. WILLIAMS, KATHLEEN M.D. DATE OF CONSULTATION: 04/29/2016 DIAGNOSIS Recurrent ovarian cancer. Linda Jim is well-known to us. She is seen and evaluated by me. Her findings are reviewed. She is counseled and examined by me in conjunction with our nurse practitioner (Briseida Marquez). I agree with her findings, assessment and plan of care. HISTORY OF PRESENT ILLNESS This is a 61-year-old female who was diagnosed with ovarian cancer, stage IIIC, approximately 10 years ago where she underwent her initial exploratory surgery, staging and cytoreduction. She completed postoperative Taxol and carboplatin chemotherapy and was in remission for a reasonable period of time but eventually showed recurrent disease which was treated again with chemotherapy. Over the years she has had multiple surgeries with re-excision of tumor. She has had multiple lines of chemotherapy and has done amazingly well and the tumor had repeatedly responded to chemotherapy until recent times. The recent months have been notable for multiple hospital admissions, new problems associated with persistent and/or progressive disease which include but are not limited to large bowel obstruction, ureteral obstruction, intractable pain, anorexia, decreased performance status, deep vein thrombosis, rectovaginal fistula, sepsis, diminished resistance with a profound shingles outbreak and others. She is admitted now to the hospital, extremely grateful for the care of all those involved and for the hospitalist care, with intractable pain, decreased oral intake, weight loss, marked edema of the lower extremities especially the left side and failure to thrive. PAST MEDICAL HISTORY Her past medical history is as previously outlined and documented. FAMILY HISTORY, SURGICAL HISTORY, MEDICAL HISTORY, MEDICATIONS AND REVIEW OF SYSTEMS: Are all reviewed as documented. I have nothing new to add to those findings. Her medical history is most recently noted for weekly Taxol and carboplatin. In December she had a CAT scan that showed significant progression of disease in the pelvis, abdomen, retroperitoneum, lung and liver. She underwent a stent placement to keep the colon dilated and has done satisfactory since the placement of the stent. Has been in-and-out of the hospital such that there were treatment delays because of her illnesses, but has had weekly Taxol chemotherapy. Repeat imaging was obtained at this admission. Imaging shows progression of disease. The pulmonary disease is more prominent. The liver metastases are more prominent, the largest one measuring 9 cm. The pelvic mass is increased now to approximately 9.4 cm and the tumor is distal to the expandable sigmoid stent. The left ureteral stent is in place. Atrophic changes to the left kidney are noted. Moderate hydronephrosis. Anasarca. PHYSICAL EXAMINATION VITAL SIGNS: Afebrile. Pulse ranging from 103-127, respirations 12-16, blood pressure 109-175/53-101, O2 saturations 92%. GENERAL: She is chronically ill, obviously lost additional weight, is uncomfortable, anxious, frustrated. LUNGS: The lungs are clear at the apices. CARDIOVASCULAR: Rapid regular rate and rhythm. ABDOMEN: Distended. Palpable fullness along the epigastrium and right upper quadrant. Abdomen is non-acute but that there is discomfort throughout and tenderness especially in the mid pelvic region. BACK: No overt CVA tenderness. 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 Recent exam suggested tumor recurrence growing to the vaginal apex with probable rectovaginal fistula. EXTREMITIES: Notable for profound edema, especially in the left leg with tense distension, erythema and venous stasis changes. New objective findings in addition to the CAT scan are that of a repeat Doppler ultrasound now shows an occlusive thrombus in the left lower extremity, left iliac vein. There is also non-occlusive thrombus extending from the left common femoral vein to the superficial femoral vein and proximal greater saphenous vein. Also, again noted is a popliteal cyst at 4.9 cm. Time is spent in discussion with Linda Jim. I am sorry that she is feeling poorly. This discussion is in follow-up to a long series of ongoing discussions. She saw our nurse practitioner (Briseida Marquez). She has also been seen by Helga Hemphill of palliative care. I reiterated the findings and the difficult nature of this disease. Unfortunately, despite efforts and treatment the disease has progressed. This is new and different than her previous 9 years or more of treatment where we could always seem to manage to get the tumor to respond to treatment and/or combination of surgery or chemotherapy were able to provide palliation and additional periods of time with good quality of life. Now, however, there is substantial metastatic disease most notably liver metastasis as well as the extensive pelvic and retroperitoneal disease which are causing secondary problems as noted above which include colonic obstruction, ureteral obstruction and overall diminished performance status. There is tumor compression on the veins and lymphatic system, marked lower extremity swelling, deep vein thrombosis and other problems. Given the multifocal extensive nature of the disease is not amenable to surgical resection and given the multiple lines of prior chemotherapy and the duration of the disease existence it is improbable that any significant response to treatment can be obtained at this point. A diverting colostomy may help palliate the symptoms of vaginal drainage from a fistulous communication, but there likely may be persistent bleeding and discharge from tumor. The issues of having a colostomy are again discussed and she as previously remains opposed to colostomy if this can be avoided. Whereas we continually support her wishes and will continue to fix anything that is fixable and reverse the problems that are reversible, there is an insurmountable collection of problems that are not reversible with additional treatment or surgery. I have encouraged her to strongly consider maximizing palliative care, supportive care, and I believe the time is right to consider hospice care. Included in our discussion is the encouragement to establish a [id number], [id number] status. All the ramifications of the aforementioned issues and discussions were considered. Ultimately this is her decision. We will continue to support her. At the present time she is not physically able to undergo any additional anticancer treatment, not a candidate for chemotherapy. She will take the pertinent aspects of our discussion and the discussion of others into consideration. At the present time efforts should be to address any problems that are reversible to maximize pain control and comfort measures and to provide ongoing child care counselor of supportive care. ASSESSMENT 1. Recurrent stage IIIC ovarian cancer. 2. Progression of disease, despite recent treatment. 3. Multiple medical issues either directly or indirectly related to underlying extensive progressive ovarian cancer. 4. Extensive discussion. PLAN 1. Continue supportive care, maximize comfort measures, address and reverse the reversible problems. 2. Ongoing discussion, encouragement and consideration of palliative care with transition to hospice care, maximize supportive measures. Thank for the consultation. Thank you very much for the excellent care. Will follow along. MD YAMILETH Chandra/JENNIFER /7:40 AM /8:14 AM
[2016-04-29] MEDS: SODIUM CHLORIDE 0.9% FLUSH 5 ML FLUSH FLUSH SCH ×2 (09:00→20:04)
[2016-04-29] MEDS: POLYETHYLENE GLYCOL 17 GM PKG PO SCH (09:00)
[2016-04-29] MEDS: HYDROmorphone HCL PF 2 MG/ML VIAL SQ PRN ×5 (11:09→22:13)
[2016-04-29] MEDS: NS + KCL 20 MEQ INJ 1,000 ML IV SCH (12:40)
[2016-04-29] MEDS ORDERED: LEVOFLOXACIN 500 MG PREMIX INJ 100 ML IV SCH (13:00)
--- NOTE | 2016-04-29 14:46 | HHI.HCPN ---
Reason for visit a. To assist with evaluation and management of symptoms including: abdominal /pelvic pain, anxiety, vaginal drainage. b. To assist medical decision maker(s) with: better understanding of current medical conditions; weighing benefits/burdens of medical treatment options; making medical treatment decisions. . Subjective/Interval History Patient seen and examined in ER with Shey wilson at bedside. Discussed with Dr. Piers and nurse. Attempting to see if patient can have epidural or nerve block for management of pelvic pain. Dr. Pires placed IR consult for possible nerve block, as anesthesia declined doing epidural at this time. Patient is screaming out in pain "Oh Larry it hurts. please help me." She reports sharp, stabbing pain in internal and external vaginal areas. She feels like a knife is stabbing her, increases with urination or BM. She is unable to concentrate or participate in conversation due to pain. She is crying and squeezing her daughters hand. She is begging for us to "make the pain stop." She is unsure if medication is helping. She is more lethargic. Her daughter reports she is having some intermittent periods of rest with meds, but the pain wakes her from a sound sleep and she starts screaming again. She has increased anxiety secondary to pain and fear of pain. Continued vaginal discharge with what appears to be fecal content leaking. Low grade temp 99.7. Tachycardic, rate 100-130. BP stable. No new labs. LE ultrasound positive occlusive and nonocclusive DVT in LLE. On Lovenox. Started on Levaquin. Discussed with Dr. Garzon, will transfer to [facility] (oncology unit) . . Family/friend interactions Spoke with Shey wilson at bedside x 2 (8:30am and 12noon). Medical update provided, explained attempt for possible nerve block - explained this would be provide temporary pain relief. Patient does not want Lizama as she is too painful , encouraged her to consider if pain improves. I was unable to further clarify goals with patient due to lethargy alternating with writhing pain. I suspect patient will continue to decline and decisions will be left to her family. I will meet with daughters, sister and hopefully speak with spouse again later today when they arrive. Shey indicates patient may be considering hospice, but DOES NOT want a care center. She wants to go home, I explained she cannot go home with this level of pain - offered consideration of inpt hospice in hospital to get pain under control before sending her home - will need to speak with pt and family to clarify option. Pt remains FULL CODE. 3:30pm: Met with 2 daughters, Shey and Zelda and sister, Yoli. Lengthy conversation regarding patient's condition, insurmountable problems without good therapeutic treatment options. She is not a candidate for surgery or additional chemotherapy. We discussed the limitations of nerve block and that this would only provide brief temporary relief. I also discussed my concern regarding the risk being greater than the benefit at this time. Family seems to have accepted that "this time is different." They verbalize tearfully that they understand she will not likely survive this time. They seem to have accepted the fact that she is dying. They are considering hospice services and NO CODE. 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 Family understands that she could have cardiac event or develop respiratory failure before arrives and they understand the ramifications of FULL CODE. I feel the family is realistic, but hopeful her can make it home before she dies. . Advance Directives Living Will: Never completed Health Care Surrogate: Never completed Durable Power of Auxiliary Equipment Operator: Never completed Advance Directive Specifics Health Care Surrogate(s): No written advance directives. According to [place] statutes health care proxy decision-making falls to her spouse. She indicates she would want her spouse to make medical decisions should she become incapacitated. . Significant change in goals: FULL CODE - awaiting to clarify with pt/family again. Goals remain aggressive, but desires adequate pain control. . Objective Vital Signs Date Time Temp Pulse Resp B/P Pulse Ox O2 Delivery O2 Flow Rate FiO2 04/29/16 11:19 97.4 119 16 136/60 92 04/29/16 08:06 97.7 115 18 118/57 93 04/29/16 05:57 99.7 127 18 175/101 92 04/29/16 05:21 12 04/29/16 00:12 99.6 125 16 121/59 94 04/28/16 19:29 98.5 109 16 124/77 93 04/28/16 16:00 98.7 105 16 123/56 95 Intake & Output 04/29/16 04/29/16 07:00 19:00 # Bowel Movements 2 Physical Exam CONSTITUTIONAL/GENERAL: This is a frail, chronically ill patient, who appears older than her actual age, writhing in pain. TUBES/LINES/DRAINS: port. SKIN: pale. Diffuse erythema and scaling in both extremities. Bilateral lower extremity edema left > right. Erythema, tight skin left thigh and buttock area. HEAD: Atraumatic. Normocephalic. EYES: Pupils equal and round and reactive. Extraocular motions intact. No scleral icterus. No injection or drainage. Fundi not examined. CARDIOVASCULAR: Regular rate and rhythm without murmurs, gallops, or rubs. RESPIRATORY/CHEST: Symmetric, unlabored respirations. Clear to auscultation. Breath sounds equal bilaterally. GASTROINTESTINAL: Abdomen soft, tender right upper and lower quadrant, mildly distended. Bowel sounds hypoactive. GENITOURINARY: Without palpable bladder distension. MUSCULOSKELETAL: Extremities without clubbing, cyanosis. 3+ edema in the left LE. NEUROLOGICAL: Lethargy alternating with screaming in pain. Moves all extremities. PSYCHIATRIC: crying out in pain. . Diagnostic Tests Laboratory Laboratory Tests Test 04/28/16 11:05 White Blood Count 7.8 TH/MM3 (4.0-11.0) Red Blood Count 3.97 MIL/MM3 (4.00-5.30) Hemoglobin 10.3 GM/DL (11.6-15.3) Hematocrit 32.6 % (35.0-46.0) Mean Corpuscular Volume 82.0 FL (80.0-100.0) Mean Corpuscular Hemoglobin 25.9 PG (27.0-34.0) Mean Corpuscular Hemoglobin 31.6 % Concent (32.0-36.0) Red Cell Distribution Width 20.2 % (11.6-17.2) Platelet Count 318 TH/MM3 (150-450) Mean Platelet Volume 7.5 FL (7.0-11.0) Neutrophils (%) (Auto) 94.9 % (16.0-70.0) Lymphocytes (%) (Auto) 3.0 % (9.0-44.0) Monocytes (%) (Auto) 1.8 % (0.0-8.0) Eosinophils (%) (Auto) 0.1 % (0.0-4.0) Basophils (%) (Auto) 0.2 % (0.0-2.0) Neutrophils # (Auto) 7.4 TH/MM3 (1.8-7.7) Lymphocytes # (Auto) 0.2 TH/MM3 (1.0-4.8) Monocytes # (Auto) 0.1 TH/MM3 (0-0.9) Eosinophils # (Auto) 0.0 TH/MM3 (0-0.4) Basophils # (Auto) 0.0 TH/MM3 (0-0.2) CBC Comment DIFF FINAL Differential Comment Prothrombin Time 13.6 SEC (9.8-11.6) Prothromb Time International 1.2 RATIO Ratio Activated Partial 33.4 SEC Thromboplast Time (24.3-30.1) Sodium Level 143 MEQ/L (136-145) Potassium Level 3.8 MEQ/L (3.5-5.1) Chloride Level 109 MEQ/L (98-107) Carbon Dioxide Level 22.8 MEQ/L (21.0-32.0) Anion Gap 11 MEQ/L (5-15) Blood Urea Nitrogen 36 MG/DL (7-18) Creatinine 0.86 MG/DL (0.50-1.00) Estimat Glomerular Filtration 67 ML/MIN (>89) Rate Random Glucose 77 MG/DL (74-106) Lactic Acid Level 1.0 mmol/L (0.4-2.0) Calcium Level 7.5 MG/DL (8.5-10.1) Total Bilirubin 0.6 MG/DL (0.2-1.0) Aspartate Amino Transf 115 U/L (15-37) (AST/SGOT) Alanine Aminotransferase 17 U/L (10-53) (ALT/SGPT) Alkaline Phosphatase 460 U/L (45-117) Total Protein 5.1 GM/DL (6.4-8.2) Albumin 1.5 GM/DL (3.4-5.0) Lipase 51 U/L (73-393) Result Diagram: 04/28/16 1105 04/28/16 1105 Imaging Last Impressions Abdomen/Pelvis CT 04/28/16 1047 Signed Impressions: Service Date/Time: Thursday, April 28, 2016 12:16 - CONCLUSION: 1. Worsening of hepatic metastatic disease since January 21. 2. Increasing size of right middle lobe metastatic lung nodule. 3. Increasing size of pelvic mass just below the expandable sigmoid stent. 4. Development of moderate left hydronephrosis with left ureteral stent remaining in place. 5. Development of anasarca. 6. Slight increase in biliary ductal dilatation. Edgardo Lockhart MD Lower Extremity Ultrasound 04/28/16 0000 Signed Impressions: Service Date/Time: Thursday, April 28, 2016 15:49 - CONCLUSION: 1. Occlusive and nonocclusive deep venous thrombosis in the left lower extremity as above. Popliteal cyst also present. Edgardo Lockhart MD . Assessment and Plan Disease Oriented Problem List: (1) Ovarian cancer with mets to liver and lung (2) Anemia (3) COPD (chronic obstructive pulmonary disease) Symptom Scale: (1) Intractable pain 0-10 Scale: 10 Comment: secondary to metastatic ovarian cancer with disease progression despite recent chemotherapy, rectovaginal fistula, pelvic mass. (2) Nausea 0-10 Scale: 0 Comment: Denies during my visit, reports intermittent nausea, no vomiting (3) Dysuria 0-10 Scale: 10 Comment: Yelling out in pain with urination, recommend Lizama catheter. (4) Vaginal discharge 0-10 Scale: Unable to quantify Comment: Secondary to pelvic mass, rectovaginal fistula. Pertinent Non-Medical Issues Psychosocial: . Supported by her 2 daughters, Shey and Zelda. Also supported by her sister, Yoli. Lives in [place]. Spiritual: Member [employer]. Declines pan devulcanizer helper visits at this time. Legal:No written advance directives. According to [place] statutes health care proxy decision-making falls to her spouse. She indicates she would want her spouse to make medical decisions should she become incapacitated. Ethical issues impacting care: no known concerns at this time. . Important Contacts * Kevin Jim, spouse/HCP: [phone] (cell) or [phone] (home) * Shey Jim, daughter: [phone] cell or [phone] work * Zelda Housererd, daughter: [phone] cell or [phone] work * Yoli oRsario, sister: [phone] cell or [phone] home . Prognosis Mrs. Jim has recurrent Ovarian cancer with Mets to liver and lung disease progression despite recent palliative chemotherapy admitted with abdominal and vaginal pain. Patient has had ovarian cancer undergoing treatment for the last 10 years, she is certainly hospice appropriate should she elect comfort focused care. Ovarian cancer is a terminal condition. . Code Status: Full Code Plan * Patient is currently capacitated to make her own health care decisions. No written advance directives. According to [place] statutes health care proxy decision-making falls to her spouse. She indicates she would want her spouse to make medical decisions should she become incapacitated.. * FULL CODE. * 04/29/16 - 3:30pm: Met with 2 daughters, Shey and Zelda and sister, Yoli. Lengthy conversation regarding my conversation with Dr. Pires, patient's condition, insurmountable problems without good therapeutic treatment options. She is not a candidate for surgery or additional chemotherapy. We discussed the limitations of nerve block and that this would only provide brief temporary relief. I also discussed my concern regarding the risk being greater than the benefit at this time. Family seems to have accepted that "this time is different." They verbalize tearfully that they understand she will not likely survive this time. They seem to have accepted the fact that she is dying. They are considering hospice services and NO CODE. 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 Family understands that she could have cardiac event or develop respiratory failure before arrives and they understand the ramifications of FULL CODE. I feel the family is realistic, but hopeful her can make it home before she dies. Family desires continued pain control. * Awaiting IR consult for consideration of nerve block for pain control. * SYMPTOMS: Intractable Pain: secondary to metastatic ovarian cancer with disease progression despite recent chemotherapy, rectovaginal fistula, pelvic mass. Medication adjustments include: Methadone 5 mg PO every 8 hours ATC. Increased Dilaudid 2 mg IV Q2 hours PRN breakthrough pain. Gabapentin 300 mg PO BID ATC. Added Licocaine gel to vaginal area PRN pain. Dysuria: may benefit from Lizama catheter placement. Nausea: Reglan and Zofran available. Anxiety: may also be contributing to pain. Added Ativan 1 mg IV every 2 hours PRN anxiety. * Palliative care will continue to follow throughout hospital course to assist with symptom management and further clarification of treatment goals. . Attestation To help prompt me to consider important information that might be impacting today's encounter and assessment, information from prior notes written by myself or my colleagues may have been "brought forward" into today's note. My signature on this note, however, is an attestation that I personally performed the exam, history, and/or decision-making noted today, and, unless otherwise indicated, the interactions with patient, family, and staff as well as the review of records all occurred today. I also attest that the listed assessment and stated plan reflect my best clinical judgment today based on the combination of historical information, prior notes, and today's exam/ interactions. When time spent is documented, it refers only to time spent today by the signer, or if indicated, combined time spent today by collaborating physician/nurse practitioner. NIEVES URRUTIA Apr 29, 2016 14:46
--- NOTE | 2016-04-29 16:19 | HHI.PR ---
Subjective Remarks Follow up for intractable abdominal pain with metastatic ovarian cancer and DVT of LLE. The patient is seen with her daughter at bedside, patient currently drowsy but able to stay awake for conversation and is oriented. The pain is improved with increased doses of pain medications, however still present. No reported nausea/vomiting. No fevers or chills. Family discussing possibly proceeding with hospice. No new medical complaints at this time. Objective Vitals Vital Signs Date Time Temp Pulse Resp B/P Pulse Ox O2 Delivery O2 Flow Rate FiO2 04/29/16 15:10 96.6 115 18 116/58 91 04/29/16 11:19 97.4 119 16 136/60 92 04/29/16 08:06 97.7 115 18 118/57 93 04/29/16 05:57 99.7 127 18 175/101 92 04/29/16 05:21 12 04/29/16 00:12 99.6 125 16 121/59 94 04/28/16 19:29 98.5 109 16 124/77 93 I/O 04/28/16 04/28/16 04/28/16 04/29/16 04/29/16 04/29/16 06:59 14:59 22:59 06:59 14:59 22:59 # Bowel Movements 3 1 Result Diagram: 04/28/16 1105 04/28/16 1105 Imaging Last Impressions Abdomen/Pelvis CT 04/28/16 1047 Signed Impressions: Service Date/Time: Thursday, April 28, 2016 12:16 - CONCLUSION: 1. Worsening of hepatic metastatic disease since January 21. 2. Increasing size of right middle lobe metastatic lung nodule. 3. Increasing size of pelvic mass just below the expandable sigmoid stent. 4. Development of moderate left hydronephrosis with left ureteral stent remaining in place. 5. Development of anasarca. 6. Slight increase in biliary ductal dilatation. Edgardo Lockhart MD Lower Extremity Ultrasound 04/28/16 0000 Signed Impressions: Service Date/Time: Thursday, April 28, 2016 15:49 - CONCLUSION: 1. Occlusive and nonocclusive deep venous thrombosis in the left lower extremity as above. Popliteal cyst also present. Edgardo Lockhart MD Objective Remarks GENERAL: Well-developed elderly female patient in NAD; drowsy however slightly tearful in pain at times. SKIN: Warm and dry. No rash. HEAD: Normocephalic. Atraumatic. NECK: Supple. Trachea midline. CARDIOVASCULAR: Regular rate and rhythm. S1, S2 noted. No murmur appreciated. RESPIRATORY: No accessory muscle use. Clear to auscultation. Breath sounds equal bilaterally. GASTROINTESTINAL: Abdomen soft, nondistended, diffuse TTP. Normoactive bowel sounds x4. MUSCULOSKELETAL: No obvious deformities. LLE erythematous, warm, edematous, TTP. RLE with trace edema, otherwise no erythema, nontender. NEUROLOGICAL: Drowsy. No obvious cranial nerve deficits. Motor grossly within normal limits. Moving all extremities spontaneously. Normal speech. PSYCHIATRIC: Appropriate mood and affect; insight and judgment normal. Medications and IVs Current Medications Medications (Trade) Dose Ordered Sig/Perry Route Start Time Stop Time Status Last Admin (NS Flush) 2 ml UNSCH PRN FLUSH 04/28/16 14:30 (NS Flush) 2 ml BID FLUSH 04/28/16 21:00 04/29/16 09:00 (Tylenol) 650 mg Q4H PRN PO 04/28/16 14:30 (Zofran Inj) 4 mg Q6H PRN IVP 04/28/16 14:30 (Senokot) 17.2 mg Q12H PRN PO 04/28/16 14:30 (Miralax) 17 gm DAILY PO 04/29/16 09:00 (Proair Hfa Inh) 1 puff Q4H PRN INH 04/28/16 14:30 (Marinol) 5 mg BID PO 04/28/16 21:00 04/29/16 08:43 (Reglan) 10 mg Q8HR PO 04/28/16 22:00 04/29/16 04:37 (Duragesic 100 Mcg Patch.72 Hr) 1 patch Q3D TD 04/28/16 18:00 04/28/16 18:42 Miscellaneous Information 1 Q3D TD 05/01/16 18:00 (Dolophine) 5 mg Q8H PO 04/29/16 00:00 04/29/16 07:49 (Neurontin) 300 mg BID PO 04/28/16 21:00 04/29/16 08:43 (Pill Splitter) 1 ea UNSCH PRN OTHER 04/28/16 18:30 (Lovenox Inj) 60 mg Q12H SQ 04/28/16 20:00 04/29/16 07:52 (Ativan Inj) 1 mg Q2H PRN IV PUSH 04/29/16 08:30 04/29/16 12:40 Hydromorphone HCl 2 mg 2 mg Q2H PRN SQ 04/29/16 10:30 04/29/16 14:38 Potassium Chloride/Sodium Chloride 1,000 ml @ 60 mls/hr [id number] IV 04/29/16 12:00 04/29/16 12:40 (Levaquin 500 Mg Premix Inj) 100 ml @ 100 mls/hr Q24H IV 04/29/16 13:00 04/29/16 12:40 (Xylocaine 2% Jelly) 1 applic Q2HR PRN TOPICAL 04/29/16 13:00 A/P Problem List: (1) Ovarian cancer ICD Code: C56.9 Status: Chronic (2) Leg swelling ICD Code: M79.89 Status: Acute Assessment and Plan 61-year-old female with recurrent ovarian cancer with metastatic disease to the liver and lung despite recent palliative chemotherapy, presents with intractable abdominal and vaginal pain Intractable Abdominal Pain: secondary to metastatic disease and rectovaginal fistula. Abd/pelvis CT shows worsening hepatic metastatic disease, increasing size of RML nodule, increasing pelvic mass, development of moderate left hydronephrosis with left ureteral stent; development of anasarca. S/p multiple doses of IV dilaudid. Now on methadone 5mg po q8h, Dilaudid 2mg sq q2h prn pain , as well as fentanyl patch, topical lidocaine, IV ativan prn. Appreciate palliative care assistance. Supportive treatment with IVF, zofran prn, reglan 10mg q8h, Miralax daily. Ovarian Cancer with Metastatic Disease to the Liver and Lung: Consult medical oncology Dr. Pires, recommends continuing supportive care, consider transition to hospice care. Palliative care consulting, appreciate assistance, patient does not want to go to hospice care center but to consider inpatient hospice for pain control then possibly home with hospice. Acute DVT of LLE: seen on Doppler U/S. Started on full strength lovenox 60mg bid for now. Anxiety: likely worsened by intractable pain. Continue IV ativan prn. Written by Judith Mcdaniels, acting as scribe for Dr. Garzon on 04/29/16 at 11: 50. The documentation accurately reflects the work performed [id number] by me on 04/29/16 at 1150. Discharge Planning Admit to inpatient. Transfer to oncology. Discussed with daughter, palliative care [employer], CDU RN, pillowcase cleaner. I spent 35 minutes [id number] with the patient or on the black discussing the patient's disposition, prognosis, and plan of care with his/her caregivers. Over half the time spent was devoted to counseling the patient regarding placement in coordinating care with caregivers and case management. Judith Mcdaniels PA-C Apr 29, 2016 16:19 Dean Garzon MD Apr 29, 2016 18:22
[2016-04-30] MEDS: HYDROmorphone HCL PF 2 MG/ML VIAL SQ PRN ×5 (00:45→22:39)
[2016-04-30 01:00] VITALS: BP 138/64; PULSE 117; RESP 10; TEMP 102.2; O2SAT 92
[2016-04-30] MEDS: ACETAMINOPHEN 1000 MG/100 ML VIAL IV PRN (01:53)
[2016-04-30] MEDS: cefTRIAXone INJ 2,000 MG in SODIUM CHLORIDE 0.9% INJ 100 ML IV SCH (03:12)
[2016-04-30 04:00] VITALS: BP 137/67; PULSE 116; RESP 16; TEMP 98.5; O2SAT 91
[2016-04-30] MEDS: NS + KCL 20 MEQ INJ 1,000 ML IV SCH ×2 (04:40→23:31)
[2016-04-30 05:43] LABS: AUTOMATED NEUTROPHIL # 2.2 TH/MM3 (1.8-7.7); BASOPHIL % 0.3 % (0.0-2.0); EOSINOPHIL % 0.2 % (0.0-4.0); HEMATOCRIT 26.5 % (35.0-46.0); HEMO FLAGS DIFF FINAL; LYMPHOCYTE # 0.3 TH/MM3 (1.0-4.8); MEAN CELL VOLUME 82.5 FL (80.0-100.0); MEAN CORPUSCULAR HEMOGLOBIN 26.8 PG (27.0-34.0); MEAN CORPUSCULAR HGB CONC 32.4 % (32.0-36.0); MONO % 4.2 % (0.0-8.0); NEUT % 84.3 % (16.0-70.0); PLATELET COUNT 235 TH/MM3 (150-450); RED BLOOD COUNT 3.21 MIL/MM3 (4.00-5.30); RED CELL DISTRIBUTION WIDTH 20.4 % (11.6-17.2); WHITE BLOOD COUNT 2.6 TH/MM3 (4.0-11.0)
[2016-04-30] MEDS: METOCLOPRAMIDE HCL 10 MG TAB PO SCH ×3 (06:00→22:36)
[2016-04-30 06:08] LABS: BICARBONATE 21.4 MEQ/L (21.0-32.0); MAGNESIUM 1.8 MG/DL (1.5-2.5); POTASSIUM 3.4 MEQ/L (3.5-5.1)
[2016-04-30 06:21] LABS: CALCIUM-PROTEIN CORRECTED 8.6 MG/DL (8.5-10.1)
[2016-04-30] MEDS: LIDOCAINE 2% JELLY 30 ML TUBE TOPICAL PRN ×2 (06:45→14:23)
[2016-04-30 08:00] VITALS: BP 116/56; PULSE 95; RESP 18; TEMP 97.3; O2SAT 93
--- NOTE | 2016-04-30 08:11 | PD.ONC.PN ---
Subjective Subjective Remarks sleeping in bed awakens to voice, easily falls back to sleep. family reports that she is drinking more fluids and more awake. Family states that they are going to meet with Palliative Care again today and they are grateful for the care that Mrs. Jim has been receiving. Objective Data Date Time Temp Pulse Resp B/P Pulse Ox O2 Delivery O2 Flow Rate FiO2 04/30/16 04:00 98.5 116 16 137/67 91 04/30/16 01:24 10 04/30/16 01:00 102.2 117 10 138/64 92 04/29/16 20:00 99.9 133 16 148/81 91 04/29/16 17:04 99.1 118 16 134/57 91 04/29/16 15:10 96.6 115 18 116/58 91 04/29/16 11:19 97.4 119 16 136/60 92 04/29/16 08:06 97.7 115 18 118/57 93 Result Diagram: 04/30/16 0518 04/30/16 0518 Laboratory Results Laboratory Tests Test 04/30/16 05:18 White Blood Count 2.6 TH/MM3 Red Blood Count 3.21 MIL/MM3 Hemoglobin 8.6 GM/DL Hematocrit 26.5 % Mean Corpuscular Volume 82.5 FL Mean Corpuscular Hemoglobin 26.8 PG Mean Corpuscular Hemoglobin 32.4 % Concent Red Cell Distribution Width 20.4 % Platelet Count 235 TH/MM3 Mean Platelet Volume 7.5 FL Neutrophils (%) (Auto) 84.3 % Lymphocytes (%) (Auto) 11.0 % Monocytes (%) (Auto) 4.2 % Eosinophils (%) (Auto) 0.2 % Basophils (%) (Auto) 0.3 % Neutrophils # (Auto) 2.2 TH/MM3 Lymphocytes # (Auto) 0.3 TH/MM3 Monocytes # (Auto) 0.1 TH/MM3 Eosinophils # (Auto) 0.0 TH/MM3 Basophils # (Auto) 0.0 TH/MM3 CBC Comment DIFF FINAL Differential Comment Sodium Level 147 MEQ/L Potassium Level 3.4 MEQ/L Chloride Level 115 MEQ/L Carbon Dioxide Level 21.4 MEQ/L Anion Gap 11 MEQ/L Blood Urea Nitrogen 40 MG/DL Creatinine 0.85 MG/DL Estimat Glomerular Filtration 68 ML/MIN Rate Random Glucose 73 MG/DL Calcium Level 7.1 MG/DL Protein Corrected Calcium 8.6 MG/DL Magnesium Level 1.8 MG/DL Total Protein 4.4 GM/DL Administered Medications Medications (Trade) Dose Ordered Sig/Perry Route PRN Reason Start Time Stop Time Status Last Admin Dose Admin IV Flush (NS Flush) 2 ml BID FLUSH 04/28/16 21:00 04/29/16 20:04 Dronabinol (Marinol) 5 mg BID PO 04/28/16 21:00 04/29/16 08:43 Metoclopramide HCl (Reglan) 10 mg Q8HR PO 04/28/16 22:00 04/29/16 04:37 Fentanyl (Duragesic 100 Mcg Patch.72 Hr) 1 patch Q3D TD 04/28/16 18:00 04/28/16 18:42 Methadone HCl (Dolophine) 5 mg Q8H PO 04/29/16 00:00 04/29/16 07:49 Gabapentin (Neurontin) 300 mg BID PO 04/28/16 21:00 04/29/16 08:43 Enoxaparin Sodium (Lovenox Inj) 60 mg Q12H SQ 04/28/16 20:00 04/29/16 07:52 Lorazepam (Ativan Inj) 1 mg Q2H PRN IV PUSH ANXIETY 04/29/16 08:30 04/29/16 16:26 Hydromorphone HCl 2 mg 2 mg Q2H PRN SQ pain greater than 5 04/29/16 10:30 04/30/16 00:45 Potassium Chloride/Sodium Chloride (NS + KCl 20 Meq Inj) 1,000 ml @ 60 mls/hr [id number] IV 04/29/16 12:00 04/30/16 04:40 Lidocaine HCl (Xylocaine 2% Jelly) 1 applic Q2HR PRN TOPICAL SEE LABEL COMMENTS 04/29/16 13:00 04/30/16 06:45 Acetaminophen 1000 mg 1,000 mg Q6H PRN IV fever > 100.4 04/30/16 01:30 04/30/16 01:53 Ceftriaxone Sodium/Sodium Chloride (Rocephin Inj/NS Inj) 100 ml @ 200 mls/hr Q24H IV 04/30/16 02:00 04/30/16 03:12 Objective Remarks GENERAL: frail SKIN: Warm and dry. HEAD: Normocephalic. EYES: No scleral icterus. No injection or drainage. EXTREMITIES: LLE with erythema and swelling MUSCULOSKELETAL: Adequate muscle tone. NEUROLOGICAL: sleepy PSYCHIATRIC: Appropriate mood Assessment/Plan Problem List: (1) Ovarian metastasis Status: Chronic Plan: Pt has been on 9 lines of chemotherapy over the past 10 years and despite recent treatment with weekly Taxol she has had advancement of disease per recent CT. Goal is for supportive care and transition to hospice as her ovarian cancer is terminal. She is not a candidate for any addition IV chemotherapy. Palliative Care is following and we appreciate their assistance with helping in pain management and clarifying goals. Problem Qualifiers (1) Ovarian metastasis: Qualified Code: C79.60 - Malignant neoplasm metastatic to ovary, unspecified laterality Briseida Marquez Apr 30, 2016 08:11
[2016-04-30] MEDS: ENOXAPARIN SODIUM 60 MG/0.6 ML SYRINGE SQ SCH ×2 (09:06→22:38)
[2016-04-30] MEDS: METHADONE HCL 10 MG TAB PO SCH ×3 (09:07→16:56)
[2016-04-30] MEDS: SODIUM CHLORIDE 0.9% FLUSH 5 ML FLUSH FLUSH SCH ×2 (09:07→22:38)
[2016-04-30] MEDS: GABAPENTIN 300 MG CAP PO SCH ×2 (09:08→21:00)
[2016-04-30] MEDS: POLYETHYLENE GLYCOL 17 GM PKG PO SCH (09:08)
[2016-04-30] MEDS: DRONABINOL 5 MG CAP PO SCH ×2 (10:21→22:37)
--- NOTE | 2016-04-30 10:39 | HHI.PR ---
Subjective Remarks Patient seen and evaluated in follow-up for worsening metastatic ovarian cancer and DVT. Patient with diarrhea. Improved oral intake per patient's family. Patient pain is well-controlled MAXIMUM TEMPERATURE 102.2 and patient's white blood count is a bit lower Objective Vitals Vital Signs Date Time Temp Pulse Resp B/P Pulse Ox O2 Delivery O2 Flow Rate FiO2 04/30/16 08:00 97.3 95 18 116/56 93 04/30/16 04:00 98.5 116 16 137/67 91 04/30/16 01:24 10 04/30/16 01:00 102.2 117 10 138/64 92 04/29/16 20:00 99.9 133 16 148/81 91 04/29/16 17:04 99.1 118 16 134/57 91 04/29/16 15:10 96.6 115 18 116/58 91 04/29/16 11:19 97.4 119 16 136/60 92 I/O 04/29/16 04/29/16 04/29/16 04/30/16 04/30/16 04/30/16 06:59 14:59 22:59 06:59 14:59 22:59 Intake Total 530 ml 580 ml Balance 530 ml 580 ml Intake Oral 50 ml 580 ml IV Total 480 ml # Voids 2 2 # Bowel Movements 3 3 2 Result Diagram: 04/30/1651704/30/16517 A/P Problem List: (1) Ovarian cancer ICD Code: C56.9 Status: Chronic Plan: Intractable Abdominal Pain: secondary to metastatic disease and rectovaginal fistula, increasing pelvic mass, development of moderate left hydronephrosis with left ureteral stent; development of anasarca. S/p multiple doses of IV dilaudid, methadone 5mg po q8h, Dilaudid 2mg sq q2h prn pain, as well as fentanyl patch, topical lidocaine, IV ativan prn. Considering Hospice as her ovarian cancer is terminal and she is not a candidate for any addition IV chemotherapy (2) Leg swelling ICD Code: M79.89 Status: Acute Plan: Cellulitis Rocephin DVT + Lovenox (3) Anemia ICD Code: D64.9 Status: Acute Plan: follow for any further transfusion needs (4) Fever ICD Code: R50.9 Status: Acute Plan: Rule out C. difficile, continue empiric Rocephin for now May be due to DVT Liberty Hall MD Apr 30, 2016 10:39
[2016-04-30 12:00] VITALS: BP 112/53; PULSE 81; RESP 16; TEMP 98.3; O2SAT 98
[2016-04-30] MEDS ORDERED: PATIENT OWN MEDICATION INH SCH (12:30)
[2016-04-30] MEDS: LORazepam 2 MG/ML VIAL IV PUSH PRN (14:11)
[2016-04-30 16:00] VITALS: BP 110/62; PULSE 79; RESP 18; TEMP 97.4; O2SAT 97
[2016-04-30] MEDS: TIOTROPIUM BROMIDE 18 MCG INH INH SCH (16:00)
--- NOTE | 2016-04-30 17:30 | HHI.HCPN ---
Reason for visit a. To assist with evaluation and management of symptoms including: abdominal /pelvic pain, anxiety, vaginal drainage. b. To assist medical decision maker(s) with: better understanding of current medical conditions; weighing benefits/burdens of medical treatment options; making medical treatment decisions. . Subjective/Interval History Patient seen and examined in room with 2 daughters, sister and grandson at bedside. Discussed with YOLI Krause and nurse. Patient appears more comfortable, more alert though lethargic falls off to sleep during conversation and confused. Family reports that she still has episodes of increased pain most notably during urination or bowel movements. Family is happy the patient has been taking in some oral fluids overnight. Intermittent episodes of pain with urination or bowel movements. Her pain reactions do not appear to be as severe as in the past 24 hours. Patient's face is relaxed. She is smiling intermittent during visit. Patient has received 2 doses of Ativan in the past 24 hours. She has received 6 doses of Dilaudid in the past 24 hours. PRN need appears to be decreasing. I suspect methadone is taking effect, if PRN need remains high will consider methadone adjustment in the next 24 48 hours. Family agrees with plan of care. Febrile overnight Tmax 102.2. Tachycardic. Otherwise vital signs stable. WBC 2.6 decreased from 7.8, hemoglobin 8.6, platelets 235. Total protein 4.4. Otherwise labs relatively stable. On Lovenox for DVT. . Family/friend interactions Spoke with patient and family. Patient remains very lethargic, does not seem to have any insight as to why she is in the hospital, reports she was on the floor, confused. Spoke with patient's 2 daughters and sister at bedside. They seem happy that patient's pain seems improved and that she is eating a little bit today. I explained to the patient's family that methadone is likely taking effect, hence seeing some decrease in her pain. Family desires continued pain control and understands she still has PRN Ativan and Dilaudid available. Reviewed again overall poor prognosis, family awaiting arrival of patient's spouse before making further CODE STATUS or hospice decisions. Spouse is expected to arrive home tonight. . Advance Directives Living Will: Never completed Health Care Surrogate: Never completed Durable Power of Press Tender: Never completed Advance Directive Specifics Health Care Surrogate(s): No written advance directives. According to [place] statutes health care proxy decision-making falls to her spouse. She indicates she would want her spouse to make medical decisions should she become incapacitated. . Significant change in goals: FULL CODE. Family awaiting arrival of the patient's spouse for further discussion regarding CODE STATUS and hospice decisions. . Objective Vital Signs Date Time Temp Pulse Resp B/P Pulse Ox O2 Delivery O2 Flow Rate FiO2 04/30/16 12:00 98.3 81 16 112/53 98 04/30/16 08:00 97.3 95 18 116/56 93 04/30/16 04:00 98.5 116 16 137/67 91 04/30/16 01:24 10 04/30/16 01:00 102.2 117 10 138/64 92 04/29/16 20:00 99.9 133 16 148/81 91 Intake & Output 04/30/16 04/30/16 07:00 19:00 Intake Total 1110 ml 1156 ml Balance 1110 ml 1156 ml Intake Oral 630 ml IV Total 480 ml 1156 ml # Voids 4 # Bowel Movements 4 Physical Exam CONSTITUTIONAL/GENERAL: This is a frail, chronically ill patient, who appears older than her actual age, writhing in pain. TUBES/LINES/DRAINS: port. SKIN: pale. Diffuse erythema and scaling in both extremities. Bilateral lower extremity edema left > right. Erythema, tight skin left thigh and buttock area. EYES: Pupils equal and round and reactive. CARDIOVASCULAR: tachycardic. RESPIRATORY/CHEST: Symmetric, unlabored respirations. Clear to auscultation. Breath sounds equal bilaterally. GASTROINTESTINAL: Abdomen soft, tender right upper and lower quadrant, mildly distended. Bowel sounds hypoactive. GENITOURINARY: Without palpable bladder distension. MUSCULOSKELETAL: Extremities without clubbing, cyanosis. 3+ edema in the left LE. NEUROLOGICAL: remains lethargic, intermittent episodes of more alert time. PSYCHIATRIC: lethargic, intermittent episodes of crying in pain, much less severe, is off to sleep easily. . Diagnostic Tests Laboratory Laboratory Tests Test 04/28/16 04/30/16 11:05 05:18 White Blood Count 7.8 TH/MM3 2.6 TH/MM3 (4.0-11.0) (4.0-11.0) Red Blood Count 3.97 MIL/MM3 3.21 MIL/MM3 (4.00-5.30) (4.00-5.30) Hemoglobin 10.3 GM/DL 8.6 GM/DL (11.6-15.3) (11.6-15.3) Hematocrit 32.6 % 26.5 % (35.0-46.0) (35.0-46.0) Mean Corpuscular Volume 82.0 FL 82.5 FL (80.0-100.0) (80.0-100.0) Mean Corpuscular Hemoglobin 25.9 PG 26.8 PG (27.0-34.0) (27.0-34.0) Mean Corpuscular Hemoglobin 31.6 % 32.4 % Concent (32.0-36.0) (32.0-36.0) Red Cell Distribution Width 20.2 % 20.4 % (11.6-17.2) (11.6-17.2) Platelet Count 318 TH/MM3 235 TH/MM3 (150-450) (150-450) Mean Platelet Volume 7.5 FL 7.5 FL (7.0-11.0) (7.0-11.0) Neutrophils (%) (Auto) 94.9 % 84.3 % (16.0-70.0) (16.0-70.0) Lymphocytes (%) (Auto) 3.0 % 11.0 % (9.0-44.0) (9.0-44.0) Monocytes (%) (Auto) 1.8 % (0.0-8.0) 4.2 % (0.0-8.0) Eosinophils (%) (Auto) 0.1 % (0.0-4.0) 0.2 % (0.0-4.0) Basophils (%) (Auto) 0.2 % (0.0-2.0) 0.3 % (0.0-2.0) Neutrophils # (Auto) 7.4 TH/MM3 2.2 TH/MM3 (1.8-7.7) (1.8-7.7) Lymphocytes # (Auto) 0.2 TH/MM3 0.3 TH/MM3 (1.0-4.8) (1.0-4.8) Monocytes # (Auto) 0.1 TH/MM3 0.1 TH/MM3 (0-0.9) (0-0.9) Eosinophils # (Auto) 0.0 TH/MM3 0.0 TH/MM3 (0-0.4) (0-0.4) Basophils # (Auto) 0.0 TH/MM3 0.0 TH/MM3 (0-0.2) (0-0.2) CBC Comment DIFF FINAL DIFF FINAL Differential Comment Prothrombin Time 13.6 SEC (9.8-11.6) Prothromb Time International 1.2 RATIO Ratio Activated Partial 33.4 SEC Thromboplast Time (24.3-30.1) Sodium Level 143 MEQ/L 147 MEQ/L (136-145) (136-145) Potassium Level 3.8 MEQ/L 3.4 MEQ/L (3.5-5.1) (3.5-5.1) Chloride Level 109 MEQ/L 115 MEQ/L (98-107) (98-107) Carbon Dioxide Level 22.8 MEQ/L 21.4 MEQ/L (21.0-32.0) (21.0-32.0) Anion Gap 11 MEQ/L (5-15) 11 MEQ/L (5-15) Blood Urea Nitrogen 36 MG/DL (7-18) 40 MG/DL (7-18) Creatinine 0.86 MG/DL 0.85 MG/DL (0.50-1.00) (0.50-1.00) Estimat Glomerular Filtration 67 ML/MIN (>89) 68 ML/MIN (>89) Rate Random Glucose 77 MG/DL 73 MG/DL (74-106) (74-106) Lactic Acid Level 1.0 mmol/L (0.4-2.0) Calcium Level 7.5 MG/DL 7.1 MG/DL (8.5-10.1) (8.5-10.1) Total Bilirubin 0.6 MG/DL (0.2-1.0) Aspartate Amino Transf 115 U/L (15-37) (AST/SGOT) Alanine Aminotransferase 17 U/L (10-53) (ALT/SGPT) Alkaline Phosphatase 460 U/L (45-117) Total Protein 5.1 GM/DL 4.4 GM/DL (6.4-8.2) (6.4-8.2) Albumin 1.5 GM/DL (3.4-5.0) Lipase 51 U/L (73-393) Protein Corrected Calcium 8.6 MG/DL (8.5-10.1) Magnesium Level 1.8 MG/DL (1.5-2.5) Result Diagram: 04/30/16 0518 04/30/16 0518 Imaging Last Impressions Abdomen/Pelvis CT 04/28/16 1047 Signed Impressions: Service Date/Time: Thursday, April 28, 2016 12:16 - CONCLUSION: 1. Worsening of hepatic metastatic disease since January 21. 2. Increasing size of right middle lobe metastatic lung nodule. 3. Increasing size of pelvic mass just below the expandable sigmoid stent. 4. Development of moderate left hydronephrosis with left ureteral stent remaining in place. 5. Development of anasarca. 6. Slight increase in biliary ductal dilatation. Edgardo Lockhart MD Lower Extremity Ultrasound 04/28/16 0000 Signed Impressions: Service Date/Time: Thursday, April 28, 2016 15:49 - CONCLUSION: 1. Occlusive and nonocclusive deep venous thrombosis in the left lower extremity as above. Popliteal cyst also present. Edgardo Lockhart MD . Assessment and Plan Disease Oriented Problem List: (1) Ovarian cancer with mets to liver and lung (2) Anemia (3) COPD (chronic obstructive pulmonary disease) Symptom Scale: (1) Intractable pain 0-10 Scale: 7 Comment: secondary to metastatic ovarian cancer with disease progression despite recent chemotherapy, rectovaginal fistula, pelvic mass. (2) Nausea 0-10 Scale: 0 Comment: Denies during my visit, reports intermittent nausea, no vomiting (3) Dysuria 0-10 Scale: Unable to quantify Comment: Cries in pain with urination, recommend Lizama catheter - patient has refused (4) Vaginal discharge 0-10 Scale: Unable to quantify Comment: Secondary to pelvic mass, rectovaginal fistula. Pertinent Non-Medical Issues Psychosocial: . Supported by her 2 daughters, Shey and Zelda. Also supported by her sister, Yoli. Lives in [place]. Spiritual: Member [employer]. 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 Legal:No written advance directives. According to [place] statutes health care proxy decision-making falls to her spouse. She indicates she would want her spouse to make medical decisions should she become incapacitated. Ethical issues impacting care: no known concerns at this time. . Important Contacts * Kevin Jim, spouse/HCP: [phone] (cell) or [phone] (home) * Shey Jim, daughter: [phone] cell or [phone] work * Zelda Fuentes, daughter: [phone] cell or [phone] work * Yoli Ninater, sister: [phone] cell or [phone] home . Prognosis Mrs. Jim has recurrent Ovarian cancer with Mets to liver and lung disease progression despite recent palliative chemotherapy admitted with abdominal and vaginal pain. Patient has had ovarian cancer undergoing treatment for the last 10 years, she is certainly hospice appropriate should she elect comfort focused care. Ovarian cancer is a terminal condition. . Code Status: Full Code Plan * Patient is currently capacitated to make her own health care decisions. No written advance directives. According to [place] statutes health care proxy decision-making falls to her spouse. She indicates she would want her spouse to make medical decisions should she become incapacitated.. * FULL CODE. * 04/30/16: Met with 2 daughters, Shey and Zelda and sister, Yoli. They are not yet ready to elect DNR/ hospice until her arrives from [place] night (he is a truck repair supervisor). Family understands that she could have cardiac event or develop respiratory failure before arrives and they understand the ramifications of FULL CODE. I feel the family is realistic, but hopeful her can make it home before she dies. Family desires continued pain control. * Palliative care will meet with family again 05/01/16 to further clarify treatment goals. * Awaiting IR consult for consideration of nerve block for pain control - at this time family feels pain is better controlled and does not want to consider nerve block. * SYMPTOMS: Intractable Pain: secondary to metastatic ovarian cancer with disease progression despite recent chemotherapy, rectovaginal fistula, pelvic mass. Medication adjustments include: Methadone 5 mg PO every 8 hours ATC. Dilaudid 2 mg IV Q2 hours PRN breakthrough pain. Gabapentin 300 mg PO BID ATC. Added Licocaine gel to vaginal area PRN pain. Dysuria: may benefit from Lizama catheter placement. Nausea: Reglan and Zofran available. Anxiety: may also be contributing to pain. Added Ativan 1 mg IV every 2 hours PRN anxiety. * Palliative care will continue to follow throughout hospital course to assist with symptom management and further clarification of treatment goals. . Attestation To help prompt me to consider important information that might be impacting today's encounter and assessment, information from prior notes written by myself or my colleagues may have been "brought forward" into today's note. My signature on this note, however, is an attestation that I personally performed the exam, history, and/or decision-making noted today, and, unless otherwise indicated, the interactions with patient, family, and staff as well as the review of records all occurred today. I also attest that the listed assessment and stated plan reflect my best clinical judgment today based on the combination of historical information, prior notes, and today's exam/ interactions. When time spent is documented, it refers only to time spent today by the signer, or if indicated, combined time spent today by collaborating physician/nurse practitioner. NIEVES URRUTIA Apr 30, 2016 17:30
[2016-04-30] MEDS: ALBUTEROL SULFATE 90 MCG/ACT HFA 18 GM INHALER INH SCH ×2 (18:00→23:13)
[2016-04-30 20:00] VITALS: BP 118/56; PULSE 103; RESP 16; TEMP 99; O2SAT 92
[2016-05-01] VITALS: BP 147/65; PULSE 109; RESP 18; TEMP 98.9; O2SAT 95
[2016-05-01] MEDS: METHADONE HCL 10 MG TAB PO SCH ×3 (00:29→17:41)
[2016-05-01] MEDS: HYDROmorphone HCL PF 2 MG/ML VIAL SQ PRN ×2 (02:00→05:20)
[2016-05-01] MEDS: cefTRIAXone INJ 2,000 MG in SODIUM CHLORIDE 0.9% INJ 100 ML IV SCH (02:19)
[2016-05-01] MEDS: METOCLOPRAMIDE HCL 10 MG TAB PO SCH ×3 (05:16→22:28)
[2016-05-01 05:57] VITALS: BP 155/75; PULSE 107; RESP 16; TEMP 98.1; O2SAT 93
[2016-05-01] MEDS: DRONABINOL 5 MG CAP PO SCH ×2 (08:41→22:28)
[2016-05-01] MEDS: ENOXAPARIN SODIUM 60 MG/0.6 ML SYRINGE SQ SCH ×2 (08:41→22:28)
[2016-05-01] MEDS: GABAPENTIN 300 MG CAP PO SCH ×2 (08:42→22:29)
[2016-05-01] MEDS: SODIUM CHLORIDE 0.9% FLUSH 5 ML FLUSH FLUSH SCH ×2 (08:42→21:00)
[2016-05-01] MEDS: HYDROmorphone HCL PF 2 MG/ML VIAL IV PUSH PRN ×5 (08:53→22:27)
[2016-05-01 08:54] VITALS: BP 140/63; PULSE 97; RESP 20; TEMP 99.1; O2SAT 94
[2016-05-01] MEDS: ALBUTEROL SULFATE 90 MCG/ACT HFA 18 GM INHALER INH SCH ×4 (09:00→21:00)
[2016-05-01] MEDS: TIOTROPIUM BROMIDE 18 MCG INH INH SCH (09:00)
[2016-05-01] MEDS: POLYETHYLENE GLYCOL 17 GM PKG PO SCH (09:00)
--- NOTE | 2016-05-01 09:57 | HHI.PR ---
Subjective Remarks Patient seen in follow-up for end-stage metastatic ovarian cancer. Abdominal pain is better controlled. No new complaints today. No further fever. Daughter at the bedside and plan of care is discussed with her Objective Vitals Vital Signs Date Time Temp Pulse Resp B/P Pulse Ox O2 Delivery O2 Flow Rate FiO2 05/01/16 08:54 99.1 97 20 140/63 94 05/01/16 05:57 98.1 107 16 155/75 93 05/01/16 00:00 98.9 109 18 147/65 95 04/30/16 23:13 12 04/30/16 20:00 99.0 103 16 118/56 92 04/30/16 16:00 97.4 79 18 110/62 97 04/30/16 12:00 98.3 81 16 112/53 98 I/O 04/30/16 04/30/16 04/30/16 05/01/16 05/01/16 05/01/16 07:00 15:00 23:00 07:00 15:00 23:00 Intake Total 580 ml 1156 ml 630 ml 480 ml Balance 580 ml 1156 ml 630 ml 480 ml Intake Oral 580 ml 150 ml IV Total 1156 ml 480 ml 480 ml # Voids 2 2 # Bowel Movements 2 2 Result Diagram: 04/30/1651704/30/1618 Objective Remarks GENERAL: This is a ill-appearing female with tired RESPIRATORY: Clear to auscultation. Breath sounds equal bilaterally. No wheezes , rales, or rhonchi. GASTROINTESTINAL: Abdomen soft, non-tender, nondistended. Normal active bowel sounds MUSCULOSKELETAL: Extremities without clubbing, cyanosis, or edema. NEURO: Alert & Oriented x4 to person, place, time, situation. Moves all ext x4 A/P Problem List: (1) Ovarian cancer ICD Code: C56.9 Status: Chronic Plan: Intractable Abdominal Pain: secondary to metastatic disease and rectovaginal fistula, increasing pelvic mass, development of moderate left hydronephrosis with left ureteral stent; development of anasarca. S/p multiple doses of IV dilaudid, methadone 5mg po q8h, Dilaudid 2mg sq q2h prn pain, as well as fentanyl patch, topical lidocaine, IV ativan prn. Considering Hospice as her ovarian cancer is terminal and she is not a candidate for any addition IV chemotherapy Family meeting with palliative today when spouse available (2) Leg swelling ICD Code: M79.89 Status: Acute Plan: Cellulitis Rocephin DVT positive, and continue Lovenox (3) Anemia ICD Code: D64.9 Status: Acute Plan: follow for any further transfusion needs CBC in a.m. (4) Fever ICD Code: R50.9 Status: Acute Plan: Appears resolved May be due to cellulitis, continue Rocephin May be due to DVT Continue Lovenox No further diarrhea Discharge Planning Appropriate for inpatient hospice Liberty Hall MD May 01, 2016 09:57
[2016-05-01 12:33] VITALS: BP 116/64; PULSE 100; RESP 20; TEMP 99.3; O2SAT 96
[2016-05-01] MEDS: NS + KCL 20 MEQ INJ 1,000 ML IV SCH (14:00)
[2016-05-01] MEDS: fentaNYL 100 MCG/HR PATCH TD SCH (16:52)
--- NOTE | 2016-05-01 17:20 | HHI.HCPN ---
Reason for visit a. To assist with evaluation and management of symptoms including: abdominal /pelvic pain, anxiety, vaginal drainage. b. To assist medical decision maker(s) with: better understanding of current medical conditions; weighing benefits/burdens of medical treatment options; making medical treatment decisions. . Subjective/Interval History Patient seen and examined in room with 2 daughters and grandchildren on at bedside. Discussed with nurse. Patient had "a rough night" per daughter who spent the night. Family indicates she is waking up in severe pain every 8-20 minutes since last night. She is relaxing more in between pain episodes. She cries in pain when awake. Her pain scales documented range from 7-10 in the past 24 hours. Family feels medications have improved her pain to some degree. Lengthy review with family regarding medications being used to control pain and rationale for each medication. I explained plan of care to increase Methadone based on continued PRN Dilaudid need. Patient has required Dilaudid 2mg IV x 7 doses in the past 24 hours (equals 280mg oral Morphine equivalent in 24 hours). Will increase Methadone to 7.5 mg PO/SL every 8 hours ATC. All family in agreement with plan for symptom management. Explained to family and nursing staff that Methadone should not be held for lethargy as this is controlling her severe neuropathic pain. I do not want her to have additional pain crisis as this has been extremely difficult to get under control and has been very distressing for family to watch. Patient previously told me and family she prefers to have her pain adequately controlled even if it causes her to be more asleep. I have reviewed my prior conversations with Dr. Pires with family. Family understands there are no additional treatment options in regards to her cancer. Family understands she is dying. They are considering transition to comfort focused care with hospice support and code status in the coming days (possibly after son arrives from out of town over the weekend). Desires FULL CODE for now until son arrives. I have had lengthy conversation that she has a terminal condition, would be unlikely to survive a CODE and family may be left to make a decision to withdrawal of life support should she be intubated. Family verbalizes "we know things are different this time." Patient's face is relaxed when asleep, grimaces and cries when awake. Drinking some PO fluids today. She is confused, she does not have insight or judgement to the reason for hospitalization or extent of cancer or DVT. Patient has received 1 dose of Ativan in the past 24 hours. Tmax 99.3. Intermittent tachycardia. Otherwise vital signs stable. No new labs or imaging. . Family/friend interactions see interval note. . Advance Directives Living Will: Never completed Health Care Surrogate: Never completed Durable Power of Brush Maker: Never completed Advance Directive Specifics Health Care Surrogate(s): No written advance directives. According to [place] statutes health care proxy decision-making falls to her spouse. She indicates she would want her spouse to make medical decisions should she become incapacitated. . Significant change in goals: FULL CODE for now. Family considering transition to comfort with hospice support possibly over the weekend after son arrives. . Objective Vital Signs Date Time Temp Pulse Resp B/P Pulse Ox O2 Delivery O2 Flow Rate FiO2 05/01/16 12:33 99.3 100 20 116/64 96 05/01/16 08:54 99.1 97 20 140/63 94 05/01/16 05:57 98.1 107 16 155/75 93 05/01/16 00:00 98.9 109 18 147/65 95 04/30/16 23:13 12 04/30/16 20:00 99.0 103 16 118/56 92 Intake & Output 05/01/16 05/01/16 07:00 19:00 Intake Total 1110 ml 518 ml Balance 1110 ml 518 ml Intake Oral 150 ml 30 ml IV Total 960 ml 488 ml # Voids 2 3 # Bowel Movements 2 1 Physical Exam CONSTITUTIONAL/GENERAL: This is a frail, chronically ill patient, who appears older than her actual age, writhing in pain. TUBES/LINES/DRAINS: port, PIV. SKIN: pale. Diffuse erythema and scaling in both extremities. Bilateral lower extremity edema left > right. Erythema, tight skin left thigh and buttock area. EYES: Pupils equal and round and reactive. CARDIOVASCULAR: tachycardic. RESPIRATORY/CHEST: Symmetric, unlabored respirations. Clear to auscultation. Breath sounds equal bilaterally. GASTROINTESTINAL: Abdomen soft, tender right upper and lower quadrant, mildly distended. Bowel sounds hypoactive. GENITOURINARY: Without palpable bladder distension. MUSCULOSKELETAL: Extremities without clubbing, cyanosis. 3+ edema in the left LE. NEUROLOGICAL: remains lethargic, intermittent episodes of more alert time. PSYCHIATRIC: lethargic, intermittent episodes of crying in pain, much less severe, is off to sleep easily. . Diagnostic Tests Laboratory Laboratory Tests Test 04/30/16 05:18 White Blood Count 2.6 TH/MM3 (4.0-11.0) Red Blood Count 3.21 MIL/MM3 (4.00-5.30) Hemoglobin 8.6 GM/DL (11.6-15.3) Hematocrit 26.5 % (35.0-46.0) Mean Corpuscular Volume 82.5 FL (80.0-100.0) Mean Corpuscular Hemoglobin 26.8 PG (27.0-34.0) Mean Corpuscular Hemoglobin 32.4 % Concent (32.0-36.0) Red Cell Distribution Width 20.4 % (11.6-17.2) Platelet Count 235 TH/MM3 (150-450) Mean Platelet Volume 7.5 FL (7.0-11.0) Neutrophils (%) (Auto) 84.3 % (16.0-70.0) Lymphocytes (%) (Auto) 11.0 % (9.0-44.0) Monocytes (%) (Auto) 4.2 % (0.0-8.0) Eosinophils (%) (Auto) 0.2 % (0.0-4.0) Basophils (%) (Auto) 0.3 % (0.0-2.0) Neutrophils # (Auto) 2.2 TH/MM3 (1.8-7.7) Lymphocytes # (Auto) 0.3 TH/MM3 (1.0-4.8) Monocytes # (Auto) 0.1 TH/MM3 (0-0.9) Eosinophils # (Auto) 0.0 TH/MM3 (0-0.4) Basophils # (Auto) 0.0 TH/MM3 (0-0.2) CBC Comment DIFF FINAL Differential Comment Sodium Level 147 MEQ/L (136-145) Potassium Level 3.4 MEQ/L (3.5-5.1) Chloride Level 115 MEQ/L (98-107) Carbon Dioxide Level 21.4 MEQ/L (21.0-32.0) Anion Gap 11 MEQ/L (5-15) Blood Urea Nitrogen 40 MG/DL (7-18) Creatinine 0.85 MG/DL (0.50-1.00) Estimat Glomerular Filtration 68 ML/MIN (>89) Rate Random Glucose 73 MG/DL (74-106) Calcium Level 7.1 MG/DL (8.5-10.1) Protein Corrected Calcium 8.6 MG/DL (8.5-10.1) Magnesium Level 1.8 MG/DL (1.5-2.5) Total Protein 4.4 GM/DL (6.4-8.2) Result Diagram: 04/30/16 0518 04/30/16 0518 Imaging Last Impressions Abdomen/Pelvis CT 04/28/16 1047 Signed Impressions: Service Date/Time: Thursday, April 28, 2016 12:16 - CONCLUSION: 1. Worsening of hepatic metastatic disease since January 21. 2. Increasing size of right middle lobe metastatic lung nodule. 3. Increasing size of pelvic mass just below the expandable sigmoid stent. 4. Development of moderate left hydronephrosis with left ureteral stent remaining in place. 5. Development of anasarca. 6. Slight increase in biliary ductal dilatation. Edgardo Lockhart MD Lower Extremity Ultrasound 04/28/16 0000 Signed Impressions: Service Date/Time: Thursday, April 28, 2016 15:49 - CONCLUSION: 1. Occlusive and nonocclusive deep venous thrombosis in the left lower extremity as above. Popliteal cyst also present. Edgardo Lockhart MD . Assessment and Plan Disease Oriented Problem List: (1) Ovarian cancer with mets to liver and lung (2) Anemia (3) COPD (chronic obstructive pulmonary disease) Symptom Scale: (1) Intractable pain 0-10 Scale: 7 Comment: secondary to metastatic ovarian cancer with disease progression despite recent chemotherapy, rectovaginal fistula, pelvic mass. (2) Nausea 0-10 Scale: 0 Comment: Denies during my visit, reports intermittent nausea, no vomiting (3) Dysuria 0-10 Scale: Unable to quantify Comment: Cries in pain with urination, recommend Lizama catheter - patient has refused (4) Vaginal discharge 0-10 Scale: Unable to quantify Comment: Secondary to pelvic mass, rectovaginal fistula. Pertinent Non-Medical Issues Psychosocial: . Supported by her 2 daughters, Shey and Zelda. Also supported by her sister, Yoli. Lives in [place]. Spiritual: Member [employer]. Declines mind reader visits at this time. Legal:No written advance directives. According to [place] statutes health care proxy decision-making falls to her spouse. She indicates she would want her spouse to make medical decisions should she become incapacitated. Ethical issues impacting care: no known concerns at this time. . Important Contacts * Kevin Jim, spouse/HCP: [phone] (cell) or [phone] (home) * Shey Jim, daughter: [phone] cell or [phone] work * Zelda Fuentes, daughter: [phone] cell or [phone] work * Yoli Rosario, sister: [phone] cell or [phone] home . Prognosis Mrs. Jim has recurrent Ovarian cancer with Mets to liver and lung disease progression despite recent palliative chemotherapy admitted with abdominal and vaginal pain. Patient has had ovarian cancer undergoing treatment for the last 10 years, she is certainly hospice appropriate should she elect comfort focused care. Ovarian cancer is a terminal condition. . Code Status: Full Code Plan * Patient is currently capacitated to make her own health care decisions. No written advance directives. According to [place] statutes health care proxy decision-making falls to her spouse. She indicates she would want her spouse to make medical decisions should she become incapacitated.. * FULL CODE. * 05/01/16: I have reviewed my prior conversations with Dr. Pires with family. Family understands there are no additional treatment options in regards to her cancer. Family understands she is dying. They are considering transition to comfort focused care with hospice support and code status in the coming days ( possibly after son arrives from out of town over the weekend). Desires FULL CODE for now until son arrives. I have had lengthy conversation that she has a terminal condition, would be unlikely to survive a CODE and family may be left to make a decision to withdrawal of life support should she be intubated. Family verbalizes "we know things are different this time." * SYMPTOMS: Intractable Pain: secondary to metastatic ovarian cancer with disease progression despite recent chemotherapy, rectovaginal fistula, pelvic mass. Medication adjustments include: Methadone 7.5 mg PO every 8 hours ATC. Dilaudid 2 mg IV Q2 hours PRN breakthrough pain. Gabapentin 300 mg PO BID ATC. Licocaine gel to vaginal area PRN pain. Dysuria: pt has refused Lizama catheter placement. Nausea: Reglan and Zofran available. Improved. Anxiety: may also be contributing to pain. Added Ativan 1 mg IV every 2 hours PRN anxiety. * Palliative care will continue to follow throughout hospital course to assist with symptom management and further clarification of treatment goals. . Attestation To help prompt me to consider important information that might be impacting today's encounter and assessment, information from prior notes written by myself or my colleagues may have been "brought forward" into today's note. My signature on this note, however, is an attestation that I personally performed the exam, history, and/or decision-making noted today, and, unless otherwise indicated, the interactions with patient, family, and staff as well as the review of records all occurred today. I also attest that the listed assessment and stated plan reflect my best clinical judgment today based on the combination of historical information, prior notes, and today's exam/ interactions. When time spent is documented, it refers only to time spent today by the signer, or if indicated, combined time spent today by collaborating physician/nurse practitioner. . NIEVES URRUTIA May 01, 2016 17:20
[2016-05-01 17:30] VITALS: BP 118/60; PULSE 102; RESP 20; TEMP 98.1; O2SAT 95
[2016-05-01] MEDS: REMOVE OLD DURAGESIC (FENTANYL) PATCH TD SCH (18:00)
[2016-05-01 20:00] VITALS: BP 133/61; PULSE 68; RESP 16; TEMP 98.5; O2SAT 92
[2016-05-01 22:41] LABS: C. DIFF EPI 027 PRESUMPTIVE POSITIVE (NEGATIVE); C. DIFF TOXIN PCR POSITIVE (NEGATIVE)
[2016-05-02] VITALS: BP 128/65; PULSE 64; RESP 16; TEMP 98.8; O2SAT 93
[2016-05-02] MEDS: METHADONE HCL 10 MG/10 ML ORAL SOLUTION PO SCH ×3 (00:59→16:26)
[2016-05-02] MEDS: HYDROmorphone HCL PF 2 MG/ML VIAL IV PUSH PRN ×4 (01:00→19:44)
[2016-05-02] MEDS: cefTRIAXone INJ 2,000 MG in SODIUM CHLORIDE 0.9% INJ 100 ML IV SCH (03:39)
[2016-05-02 04:00] VITALS: BP 116/59; PULSE 99; RESP 9; TEMP 98.1; O2SAT 93
[2016-05-02 05:25] LABS: HEMATOCRIT 26.9 % (35.0-46.0); MEAN CELL VOLUME 83.1 FL (80.0-100.0); MEAN CORPUSCULAR HEMOGLOBIN 26.3 PG (27.0-34.0); MEAN CORPUSCULAR HGB CONC 31.7 % (32.0-36.0); PLATELET COUNT 207 TH/MM3 (150-450); RED BLOOD COUNT 3.24 MIL/MM3 (4.00-5.30); RED CELL DISTRIBUTION WIDTH 19.7 % (11.6-17.2); REVIEW FLAG FINAL; WHITE BLOOD COUNT 3.9 TH/MM3 (4.0-11.0)
[2016-05-02 05:52] LABS: BICARBONATE 19.8 MEQ/L (21.0-32.0); POTASSIUM 3.5 MEQ/L (3.5-5.1)
[2016-05-02] MEDS: METOCLOPRAMIDE HCL 10 MG TAB PO SCH ×3 (05:57→22:21)
[2016-05-02 06:09] LABS: CALCIUM-PROTEIN CORRECTED 8.4 MG/DL (8.5-10.1)
[2016-05-02 07:50] VITALS: BP 123/64; PULSE 99; RESP 12; TEMP 97.4; O2SAT 98
--- NOTE | 2016-05-02 08:37 | MB ---
cc: ARMANI LOUISE MD,DILLON PEREZ MD, M.D. MEYERS, JOHN W. M.D. CROSSMAN, ALEXANDRA A. MD WILLIAMS, KATHLEEN M.D. DATE OF CONSULTATION: 05/02/2016 DIAGNOSIS Recurrent metastatic ovarian cancer. This note is in follow-up and represents a synopsis of ongoing discussions with Linda Jim and her family members, reviewing the findings in her case to date. It has been a long arthur and journey for over 10 years since her diagnosis of ovarian cancer. Previously there has always been some objective and subjective response to treatment and/or she has been a candidate for surgical intervention, or other potential steps that have provided palliation and suppression of disease and has allowed her to have good quality of life. However, in recent months the situation has changed. It is reiterated that she has been in and out of the hospital many times with problems that are either directly or indirectly related to advancing tumor. Despite treatment tumor has progressed. I again reiterated recent CAT scan findings showing progression of disease including extensive liver metastasis, intraperitoneal and retroperitoneal tumor. Associated problems include ureteral obstruction large bowel obstruction, admissions for sepsis, dehydration, failure to thrive, intractable pain, malnutrition, electrolyte abnormalities and others. We are pleased to see that she is less uncomfortable and making some progress with palliating her significant pain. It is again reiterated with the family that in order to alleviate her pain to a significant extent she may be sedated a good portion of the time. It is explained again that there is no realistic chance of any sustained or significant response to additional treatment. She is not a candidate for surgical intervention and unfortunately this is the point in the disease process where everything that is likely to provide benefit has been done and now emphasis should be placed on suppressing symptomatology, palliative care and supportive care. I have again encouraged consideration in our efforts of trying to help her, to not be cruel. I think it would be improper and possibly unkind to keep her code status as full code. If she were ever to go on a ventilator I do not believe she would come off it and may be just prolonging the inevitable. I have encouraged them as have others to consider making her a [id number], [id number], and to shift towards Hospice care for palliation. Discussion ensued. Questions were answered. They are grateful for all the care provided. They are taking the pertinent aspects of our discussion into consideration as the discussions provided by the palliative care team and primary care team and others. We will continue to provide supportive care, but I believe it is in her best interest, and the kindest thing to do is to maximize comfort measures with no additional heroic intervention methods. MD YAMILETH Chandra/JENNIFER /8:01 AM /8:21 AM
[2016-05-02] MEDS: TIOTROPIUM BROMIDE 18 MCG INH INH SCH (09:00)
[2016-05-02] MEDS: SODIUM CHLORIDE 0.9% FLUSH 5 ML FLUSH FLUSH SCH ×2 (09:00→22:21)
[2016-05-02] MEDS: ALBUTEROL SULFATE 90 MCG/ACT HFA 18 GM INHALER INH SCH ×4 (09:00→20:45)
[2016-05-02] MEDS: POLYETHYLENE GLYCOL 17 GM PKG PO SCH (09:00)
[2016-05-02] MEDS: DRONABINOL 5 MG CAP PO SCH ×2 (09:53→19:42)
[2016-05-02] MEDS: ENOXAPARIN SODIUM 60 MG/0.6 ML SYRINGE SQ SCH ×2 (09:53→19:42)
[2016-05-02] MEDS: NS + KCL 20 MEQ INJ 1,000 ML IV SCH (10:26)
[2016-05-02] MEDS: GABAPENTIN 300 MG CAP PO SCH ×2 (10:27→19:42)
[2016-05-02] MEDS: metroNIDAZOLE 500 MG INJ 100 ML IV SCH ×3 (10:27→22:22)
[2016-05-02 11:46] VITALS: BP 117/56; PULSE 102; RESP 16; TEMP 98.5; O2SAT 95
--- NOTE | 2016-05-02 14:01 | HHI.PR ---
Subjective Remarks She was seen and evaluated today in follow-up for end-of-life care. Family still would like to consider full CODE STATUS at this time despite multiple conversations with the palliative care team as well as the gynecological oncology team as to the poor overall prognosis and life expectancy of this patient who is terminally ill. The spouse and daughter and sister and grandchildren are all in the room today and quite adamant that no one had discussed CODE STATUS. The patient is unsure as to what her desires are. This time her diarrhea is improved her pain is improved she was no fevers. Care plan discussed with nursing team, case management. Objective Vitals Vital Signs Date Time Temp Pulse Resp B/P Pulse Ox O2 Delivery O2 Flow Rate FiO2 05/02/16 11:46 98.5 102 16 117/56 95 05/02/16 07:50 97.4 99 12 123/64 98 05/02/16 04:00 98.1 99 9 116/59 93 05/02/16 00:00 98.8 64 16 128/65 93 05/01/16 20:00 98.5 68 16 133/61 92 05/01/16 17:30 98.1 102 20 118/60 95 I/O 05/01/16 05/01/16 05/01/16 05/02/16 05/02/16 05/02/16 07:00 15:00 23:00 07:00 15:00 23:00 Intake Total 480 ml 518 ml 250 ml 200 ml Balance 480 ml 518 ml 250 ml 200 ml Intake Oral 30 ml 250 ml 200 ml IV Total 480 ml 488 ml # Voids 3 2 2 # Bowel Movements 1 2 2 Result Diagram: 05/02/1639905/02/16 0400 Objective Remarks GENERAL: This is a ill-appearing female who is tired, RESPIRATORY: Clear to auscultation. Breath sounds equal bilaterally. No wheezes , rales, or rhonchi. GASTROINTESTINAL: Abdomen soft, non-tender, nondistended. Normal active bowel sounds MUSCULOSKELETAL: Extremities without clubbing, cyanosis, or edema. NEURO: Alert & Oriented x4 to person, place, time, situation. Moves all ext x4 A/P Problem List: (1) Ovarian cancer ICD Code: C56.9 Status: Chronic Plan: Intractable Abdominal Pain: secondary to metastatic disease and rectovaginal fistula, increasing pelvic mass, development of moderate left hydronephrosis with left ureteral stent; development of anasarca. S/p multiple doses of IV dilaudid, methadone 5mg po q8h, Dilaudid 2mg sq q2h prn pain, as well as fentanyl patch, topical lidocaine, IV ativan prn. Considering Hospice as her ovarian cancer is terminal and she is not a candidate for any addition IV chemotherapy Family meeting with palliative Very concerned about DNR and do not with this to be final at this time; still full code per spouse and all family members in the room who have many objections to a DNR at this time (2) Leg swelling ICD Code: M79.89 Status: Acute (3) Anemia ICD Code: D64.9 Status: Acute Plan: follow for any further transfusion needs Hg stable (4) Fever ICD Code: R50.9 Status: Acute Plan: Appears resolved May be due to cellulitis or cdiff, continue Rocephin/Metronidazole May be due to DVT Continue Lovenox Discharge Planning Appropriate for inpatient hospice Liberty Hall MD May 02, 2016 14:01
--- NOTE | 2016-05-02 14:15 | HHI.HCPN ---
Met with patient and family (sister and niece) at bedside initially, FIRE HOSE CURER in providing care. Ms. Jim awake, alert, unable to assess her appropriateness in conversation as she was receiving care. Per progress notes and palliative ELECTRICAL SYSTEM SPECIALIST visit yesterday Ms. Jim has remained confused and not able to understand medical condition or weigh benefits and burdens of ongoing medical condition. Stepped out of room to speak with sister and niece in hallway per their request. They both immediately expressed concerns including plan of care, antibiotic treatment, and optimizing treatment for c-diff. Report hospice nurse in to visit earlier but they desire to meet with hospice another day due to their concern of patient becoming upset. Informed hospice to follow-up in coming days per their request. Spoke with palliative ELECTRICAL SYSTEM SPECIALIST. It should be noted Ms. Jim's legal decision maker is her , Kevin, supported by the patient's daughters and sisters. He was not present during my visit. Informed attending MD, Dr. Hall of concerns expressed by family. Palliative care SW contact information provided. Palliative care will continue to follow throughout hospitalization. Joy Guzman PATIENT EDUCATOR, SAFETY TEACHER May 02, 2016 14:15
[2016-05-02 15:52] VITALS: BP 122/62; PULSE 93; RESP 8; TEMP 98.9; O2SAT 93
[2016-05-02] MEDS: ONDANSETRON HCL 4 MG/2 ML VIAL IVP PRN (19:47)
[2016-05-02 20:00] VITALS: BP 121/62; PULSE 90; RESP 18; TEMP 98.1; O2SAT 94
[2016-05-03] VITALS: BP 112/60; PULSE 90; RESP 16; TEMP 98.3; O2SAT 94
[2016-05-03] MEDS: METHADONE HCL 10 MG/10 ML ORAL SOLUTION PO SCH ×3 (01:03→17:01)
[2016-05-03] MEDS: cefTRIAXone INJ 2,000 MG in SODIUM CHLORIDE 0.9% INJ 100 ML IV SCH (01:04)
[2016-05-03 04:00] VITALS: BP 114/56; PULSE 88; RESP 16; TEMP 97.6; O2SAT 95
[2016-05-03] MEDS: METOCLOPRAMIDE HCL 10 MG TAB PO SCH (06:10)
[2016-05-03] MEDS: metroNIDAZOLE 500 MG INJ 100 ML IV SCH ×3 (06:11→17:02)
[2016-05-03 08:00] VITALS: BP 121/56; PULSE 83; RESP 18; TEMP 96.8; O2SAT 96
[2016-05-03] MEDS: ENOXAPARIN SODIUM 60 MG/0.6 ML SYRINGE SQ SCH ×2 (08:58→21:13)
[2016-05-03] MEDS: TIOTROPIUM BROMIDE 18 MCG INH INH SCH (08:58)
[2016-05-03] MEDS: ALBUTEROL SULFATE 90 MCG/ACT HFA 18 GM INHALER INH SCH ×4 (08:58→21:13)
[2016-05-03] MEDS: DRONABINOL 5 MG CAP PO SCH ×3 (08:59→22:36)
[2016-05-03] MEDS: SODIUM CHLORIDE 0.9% FLUSH 5 ML FLUSH FLUSH SCH ×2 (08:59→21:00)
[2016-05-03] MEDS: POLYETHYLENE GLYCOL 17 GM PKG PO SCH (09:00)
[2016-05-03] MEDS: GABAPENTIN 300 MG CAP PO SCH (09:00)
--- NOTE | 2016-05-03 10:46 | HHI.PR ---
Subjective Remarks Patient seen in room in follow-up for C. difficile colitis and for end-stage ovarian cancer with metastases. Discussed with family at bedside. Patient nauseated overnight but did come have improvement in pain regimen. Care plan also discussed with Juan BILL. She is still with quite a bit of stool output. Objective Vitals Vital Signs Date Time Temp Pulse Resp B/P Pulse Ox O2 Delivery O2 Flow Rate FiO2 05/03/16 08:00 96.8 83 18 121/56 96 05/03/16 04:00 97.6 88 16 114/56 95 05/03/16 02:03 20 05/03/16 00:00 98.3 90 16 112/60 94 05/02/16 20:14 18 05/02/16 20:00 98.1 90 18 121/62 94 05/02/16 15:52 98.9 93 8 122/62 93 05/02/16 11:46 98.5 102 16 117/56 95 I/O 05/02/16 05/02/16 05/02/16 05/03/16 05/03/16 05/03/16 07:00 15:00 23:00 07:00 15:00 23:00 Intake Total 200 ml 875 ml 240 ml 428 ml Output Total 5 ml 800 ml Balance 200 ml 870 ml 240 ml -372 ml Intake Oral 200 ml 600 ml 240 ml IV Total 275 ml 428 ml Output Urine Total 2 ml 600 ml Stool Total 3 ml Emesis 200 ml # Voids 2 # Bowel Movements 2 2 8 Result Diagram: 05/02/1639905/02/160 Objective Remarks GENERAL: This is a ill-appearing female who is tired, RESPIRATORY: Clear to auscultation. Breath sounds equal bilaterally. No wheezes , rales, or rhonchi. GASTROINTESTINAL: Abdomen soft, non-tender, nondistended. Normal active bowel sounds MUSCULOSKELETAL: Extremities without clubbing, cyanosis, or edema. NEURO: Alert & Oriented x4 to person, place, time, situation. Moves all ext x4 A/P Problem List: (1) Ovarian cancer ICD Code: C56.9 Status: Chronic Plan: Intractable Abdominal Pain: secondary to metastatic disease and rectovaginal fistula, increasing pelvic mass, development of moderate left hydronephrosis with left ureteral stent; development of anasarca. S/p multiple doses of IV dilaudid, methadone 5mg po q8h, Dilaudid 2mg sq q2h prn pain, as well as fentanyl patch, topical lidocaine, IV ativan prn. Considering Hospice as her ovarian cancer is terminal and she is not a candidate for any addition IV chemotherapy Family meeting with palliative Very concerned about DNR and do not with this to be final at this time; still full code per spouse and all family members in the room who have many objections to a DNR at this time (2) Leg swelling ICD Code: M79.89 Status: Acute Plan: Patient with cellulitis previously treated and has completed antibiotic therapy Also with DVT currently on Lovenox twice daily. Overall improved (3) Anemia ICD Code: D64.9 Status: Acute Plan: Of chronic disease follow for any further transfusion needs Hg stable (4) Fever ICD Code: R50.9 Status: Acute Plan: Appears resolved Multifactorial due to cellulitis, DVT and CHF. (5) Diarrhea ICD Code: R19.7 Status: Acute Plan: Secondary to C. difficile colitis. Continue Flagyl 500 mg IV every 8 hours standard of care therapy. No indication for vancomycin at this time DC MiraLAX and Reglan and follow output Continue antiemetics Discharge Planning Appropriate for inpatient hospice Liberty Hall MD May 03, 2016 10:46
[2016-05-03 12:00] VITALS: BP 130/59; PULSE 86; RESP 16; TEMP 96.9; O2SAT 96
[2016-05-03] MEDS: HYDROmorphone HCL PF 2 MG/ML VIAL IV PUSH PRN (13:23)
[2016-05-03] MEDS: ONDANSETRON HCL 4 MG/2 ML VIAL IVP PRN ×2 (13:31→22:36)
[2016-05-03 16:00] VITALS: BP 126/60; PULSE 84; RESP 16; TEMP 96.7; O2SAT 95
[2016-05-03] MEDS ORDERED: HYDROmorphone HCL PF 1 MG/ML VIAL IV PRN (17:00)
[2016-05-03 20:00] VITALS: BP 109/55; PULSE 81; RESP 16; TEMP 98.5; O2SAT 98
[2016-05-03] MEDS: LIDOCAINE 2% JELLY 30 ML TUBE TOPICAL PRN (22:00)
[2016-05-04] VITALS: BP 114/57; PULSE 81; RESP 16; TEMP 98; O2SAT 96
[2016-05-04] MEDS: METHADONE HCL 10 MG/10 ML ORAL SOLUTION PO SCH ×4 (00:02→23:23)
[2016-05-04] MEDS: metroNIDAZOLE 500 MG INJ 100 ML IV SCH ×3 (01:45→17:01)
[2016-05-04 04:00] VITALS: BP 121/58; PULSE 81; RESP 16; TEMP 97.1; O2SAT 96
--- NOTE | 2016-05-04 07:37 | HHI.PR ---
Subjective Remarks Patient seen and evaluated today in follow-up for palliative comfort care and for treatment of C. difficile. No new events. No new complaints. Resting well. Diarrhea improved. Objective Vitals Vital Signs Date Time Temp Pulse Resp B/P Pulse Ox O2 Delivery O2 Flow Rate FiO2 05/04/16 04:00 97.1 81 16 121/58 96 05/04/16 00:00 98.0 81 16 114/57 96 05/03/16 20:00 98.5 81 16 109/55 98 05/03/16 16:00 96.7 84 16 126/60 95 05/03/16 12:00 96.9 86 16 130/59 96 05/03/16 08:00 96.8 83 18 121/56 96 I/O 05/03/16 05/03/16 05/03/16 05/04/16 05/04/16 05/04/16 07:00 15:00 23:00 07:00 15:00 23:00 Intake Total 428 ml 1085 ml 240 ml 240 ml Output Total 800 ml Balance -372 ml 1085 ml 240 ml 240 ml Intake Oral 960 ml 240 ml 240 ml IV Total 428 ml 125 ml Output Urine Total 600 ml Emesis 200 ml # Voids 4 2 6 # Bowel Movements 8 4 2 6 Result Diagram: 05/02/16 04005/02/16399 Objective Remarks GENERAL: This is a ill-appearing female who is tired, RESPIRATORY: Clear to auscultation. Breath sounds equal bilaterally. No wheezes , rales, or rhonchi. GASTROINTESTINAL: Abdomen soft, non-tender, nondistended. Normal active bowel sounds MUSCULOSKELETAL: Extremities without clubbing, cyanosis, or edema. NEURO: Alert & Oriented x4 to person, place, time, situation. Moves all ext x4 A/P Problem List: (1) Ovarian cancer ICD Code: C56.9 Status: Chronic Plan: Hospice appropriate; palliative care following Continue pain management, comfort care Very concerned about DNR and do not with this to be final at this time; still full code per spouse and all family members in the room who have many objections to a DNR at this time (2) Leg swelling ICD Code: M79.89 Status: Acute Plan: Also with DVT currently on Lovenox twice daily. Overall improved (3) Anemia ICD Code: D64.9 Status: Acute Plan: Anemia Of chronic disease follow for any further transfusion needs Hg stable (4) Diarrhea ICD Code: R19.7 Status: Acute Plan: Secondary to C. difficile colitis. Continue Flagyl 500 mg IV every 8 hours standard of care therapy. Improved Continue antiemetics Discharge Planning Appropriate for inpatient hospice Awaiting family decision Liberty Hall MD May 04, 2016 07:36
[2016-05-04 07:48] LABS: HEMATOCRIT 27.2 % (35.0-46.0); MEAN CELL VOLUME 82.7 FL (80.0-100.0); MEAN CORPUSCULAR HEMOGLOBIN 26.2 PG (27.0-34.0); MEAN CORPUSCULAR HGB CONC 31.7 % (32.0-36.0); PLATELET COUNT 232 TH/MM3 (150-450); RED BLOOD COUNT 3.28 MIL/MM3 (4.00-5.30); RED CELL DISTRIBUTION WIDTH 19.7 % (11.6-17.2); REVIEW FLAG FINAL
[2016-05-04] MEDS: ONDANSETRON HCL 4 MG/2 ML VIAL IVP PRN ×2 (07:56→22:29)
[2016-05-04] MEDS: ENOXAPARIN SODIUM 60 MG/0.6 ML SYRINGE SQ SCH ×2 (07:57→19:39)
[2016-05-04 08:00] VITALS: BP 126/57; PULSE 82; RESP 18; TEMP 97.9; O2SAT 96
[2016-05-04] MEDS: SODIUM CHLORIDE 0.9% FLUSH 5 ML FLUSH FLUSH SCH ×2 (08:02→19:39)
[2016-05-04] MEDS: TIOTROPIUM BROMIDE 18 MCG INH INH SCH (08:02)
[2016-05-04] MEDS: ALBUTEROL SULFATE 90 MCG/ACT HFA 18 GM INHALER INH SCH ×4 (08:02→19:39)
[2016-05-04 08:26] LABS: BICARBONATE 19.6 MEQ/L (21.0-32.0)
[2016-05-04 08:31] LABS: POTASSIUM 2.9 MEQ/L (3.5-5.1)
[2016-05-04 08:47] LABS: CALCIUM-PROTEIN CORRECTED 8.7 MG/DL (8.5-10.1)
[2016-05-04] MEDS ORDERED: POTASSIUM PHOSPHATE INJ 30 MMOL in SODIUM CHLOR 0.9% 250 ML INJ 250 ML IV ONE (10:00)
[2016-05-04] MEDS: DRONABINOL 5 MG CAP PO SCH ×2 (11:05→19:39)
[2016-05-04 12:00] VITALS: BP 142/63; PULSE 84; RESP 16; TEMP 97.4; O2SAT 96
[2016-05-04 16:00] VITALS: BP 110/57; PULSE 80; RESP 16; TEMP 97.8; O2SAT 96
[2016-05-04] MEDS: REMOVE OLD DURAGESIC (FENTANYL) PATCH TD SCH (16:58)
[2016-05-04] MEDS: fentaNYL 100 MCG/HR PATCH TD SCH (16:59)
[2016-05-04 20:00] VITALS: BP 110/55; PULSE 82; RESP 16; TEMP 98.1; O2SAT 96
[2016-05-05] VITALS (7 sets, daily range): BP systolic 100–137; BP diastolic 53–67; PULSE 83–98; RESP 8–20; TEMP 97.9–98.9; O2SAT 95–99
[2016-05-05] MEDS: metroNIDAZOLE 500 MG INJ 100 ML IV SCH ×2 (01:52→09:31)
[2016-05-05 08:26] LABS: CALCIUM-PROTEIN CORRECTED 8.7 MG/DL (8.5-10.1)
[2016-05-05] MEDS: TIOTROPIUM BROMIDE 18 MCG INH INH SCH (09:00)
[2016-05-05] MEDS: ALBUTEROL SULFATE 90 MCG/ACT HFA 18 GM INHALER INH SCH ×4 (09:00→21:00)
[2016-05-05] MEDS: METHADONE HCL 10 MG/10 ML ORAL SOLUTION PO SCH ×3 (09:30→23:58)
[2016-05-05] MEDS: DRONABINOL 5 MG CAP PO SCH ×2 (09:30→20:36)
[2016-05-05] MEDS: ENOXAPARIN SODIUM 60 MG/0.6 ML SYRINGE SQ SCH ×2 (09:31→20:36)
[2016-05-05] MEDS: SODIUM CHLORIDE 0.9% FLUSH 5 ML FLUSH FLUSH SCH ×2 (09:31→20:36)
[2016-05-05] MEDS ORDERED: POTASSIUM CL 40 MEQ/30 ML LIQ UDC PO ONE (09:45)
--- NOTE | 2016-05-05 11:05 | HHI.PR ---
Subjective Remarks Patient laying in bed, I attended a discussion between the patient, and the palliative care MATERIALS ASSISTANT, while family was at the bedside Patient feeling sad as well as the family, but they seemed to be more accepting the fact of the advanced condition, When I tried to examine the patient she stated "no need for now " Patient is afebrile, she reported still having watery bowel movement, I left the room awaiting result of discussion with the patient and her family and the palliative care, possible hospice Objective Vitals Vital Signs Date Time Temp Pulse Resp B/P Pulse Ox O2 Delivery O2 Flow Rate FiO2 05/05/16 08:00 98.3 86 20 118/53 95 05/05/16 04:00 97.9 92 16 127/62 96 05/05/16 00:00 98.7 87 18 100/61 97 05/05/16 00:00 98.7 89 18 100/61 97 05/04/16 20:00 98.1 82 16 110/55 96 05/04/16 16:00 97.8 80 16 110/57 96 05/04/16 12:00 97.4 84 16 142/63 96 I/O 05/04/16 05/04/16 05/04/16 05/05/16 05/05/16 05/05/16 07:00 15:00 23:00 07:00 15:00 23:00 Intake Total 240 ml 642 ml 480 ml Balance 240 ml 642 ml 480 ml Intake Oral 240 ml 480 ml 480 ml IV Total 162 ml # Voids 6 6 # Bowel Movements 6 6 4 Result Diagram: 05/04/16 0649 05/05/16 0517 Objective Remarks GENERAL: This is a well-nourished, well-developed patient, in no apparent distress. CARDIOVASCULAR: Regular rate and rhythm without murmurs, gallops, or rubs. RESPIRATORY: Fair air entry bilaterally. No wheezes, rales, or rhonchi. GASTROINTESTINAL: Abdomen reveal generalized tenderness on the lower abdomen with fullness to palpation throughout, especially on the right upper quadrant nondistended. Appreciated some bowel sounds MUSCULOSKELETAL: Extremities +1 edema. Pedal pulses appreciated NEUROLOGICAL: Awake and alert. Moves all extremity. Normal speech.no focal neurological deficit A/P Problem List: (1) Ovarian cancer ICD Code: C56.9 Status: Chronic (2) Leg swelling ICD Code: M79.89 Status: Acute (3) Anemia ICD Code: D64.9 Status: Acute (4) Diarrhea ICD Code: R19.7 Status: Acute Assessment and Plan (1) advanced Ovarian cancer Hospice appropriate; palliative care following Continue pain management, comfort care Patient and family seems to be more accepting the fact of the advanced condition , hospice and DNR however not confirmed yet (2) DVT with Leg swelling on Lovenox twice daily. Overall improved (3) Anemia Mostly of chronic disease, continue monitoring H&H, has been stable (4) C. difficile Diarrhea Patient reporting no improvement with diarrhea. On Flagyl 500 mg IV every 8 hours , will try to switch to oral if if tolerated Continue antiemetics Scarlett Damon MD May 05, 2016 11:04
[2016-05-05] MEDS ORDERED: POTASSIUM PHOSPHATE INJ 30 MMOL in SODIUM CHLOR 0.9% 250 ML INJ 250 ML IV ONE (12:00)
[2016-05-05] MEDS: LORazepam 2 MG/ML VIAL IV PUSH PRN (12:01)
[2016-05-05] MEDS: ONDANSETRON HCL 4 MG/2 ML VIAL IVP PRN (12:20)
--- NOTE | 2016-05-05 12:36 | HHI.HCPN ---
Reason for visit a. To assist with evaluation and management of symptoms including: abdominal /pelvic pain, reflux, anxiety. b. To assist medical decision maker(s) with: better understanding of current medical conditions; weighing benefits/burdens of medical treatment options; making medical treatment decisions. . Subjective/Interval History Patient seen and examined in room with at bedside. Discussed with nurse manager of photography (Federico), Dr. Damon, hospice admission nurse (Venus), Dr. Pires and YOLI Krause. Afebrile. Vital signs stable. Labs stable. No new imaging. Patient tested positive for C. DIff toxin 027, on Flagyl PO every 6 hours. She has had some nausea, Flagyl may be contributing to nausea. Rates pain 5 - 8 in the past 24 hours. She reports continued episodes of deep, sharp, stabbing pain in lower abdomen/ pelvis. She also has a dull ache in the abdomen. She also reports reflux. She has only had 1 dose of PRN Dilaudid 1 mg in the past 24 hours. She has not had any PRN Ativan for the past few days. She has some anxiety related to pain, hospitalization and disease progression. Encouraged her to ask for PRN Lorazepam as needed for anxiety. reports an episode of respiratory depression with RR of 3 over the weekend, I cannot find confirmation of this. She has reportedly been more alert and pain medications are unlikely to cause respiratory depression in a patient who is awake and alert. I have encouraged patient to use PRN Dilaudid for pain control. I will convert to oral Dilaudid in hopes she will be able to return home in the coming days, she and her spouse are in agreement. . . Family/friend interactions Patient is more alert today, intermittently confused. She is asking questions about her cancer, fistula, blood clot, etc. I have reviewed the recent CT scan results that revealed disease progression despite recent chemotherapy, blood clot in LLE and C. Diff positive results. I advised her and her of my prior conversations with Dr. Pires, that there are no additional therapy options for the cancer and that there are no surgical options to repair the fistula. We discussed her hopes to return home, I reviewed that I would recommend hospice support at home. Dr. Damno present during a portion of my visit. I did not readdress CODE STATUS with the patient during this visit as she is (appropriately) tearful/upset regarding the medical update that she seems to be comprehending today. She seems open to going home with hospice. I explained she can continue treatment for C. Diff. on hospice as this certainly contributes to her comfort. We talked about her hopes for the future including her hopes to go home, spend time with family, have pain controlled and to get her affairs in order. We hope for comfort and quality now. I think she and family need to discuss more how they will be able to divide the care she will need when she returns home and in speaking with staff some of the family members may not be accepting that she will need hospice now that she is more alert. I have offered a family meeting with all family including , sister and children to provide medical update , review prognosis and further clarify goals of care and review plan for symptom management. Mr. Jim will let me know when he can gather family. For now, continue aggressive treatment of C. Diff., FULL CODE. I will convert IV Dilaudid to PO in an effort to ensure pain is adequately controlled prior to DC. I suspect she will elect to go home with hospice in the coming days, though she can family are not ready to make this decision today. . Advance Directives Living Will: Never completed Health Care Surrogate: Never completed Durable Power of Medic Technician: Never completed Advance Directive Specifics Health Care Surrogate(s): No written advance directives. According to [place] statutes health care proxy decision-making falls to her spouse. She indicates she would want her spouse to make medical decisions should she become incapacitated. . Significant change in goals: For now, continue aggressive treatment of C. Diff., FULL CODE. I will convert IV Dilaudid to PO in an effort to ensure pain is adequately controlled prior to DC. I suspect she will elect to go home with hospice in the coming days, though she can family are not ready to make this decision today. . Objective Vital Signs Date Time Temp Pulse Resp B/P Pulse Ox O2 Delivery O2 Flow Rate FiO2 05/05/16 11:08 98.3 83 20 108/59 95 05/05/16 08:00 98.3 86 20 118/53 95 05/05/16 04:00 97.9 92 16 127/62 96 05/05/16 00:00 98.7 87 18 100/61 97 05/05/16 00:00 98.7 89 18 100/61 97 05/04/16 20:00 98.1 82 16 110/55 96 05/04/16 16:00 97.8 80 16 110/57 96 Intake & Output 05/05/16 05/05/16 07:00 19:00 Intake Total 480 ml Balance 480 ml Intake Oral 480 ml # Bowel Movements 4 Physical Exam CONSTITUTIONAL/GENERAL: This is a frail, chronically ill patient, who appears older than her actual age, writhing in pain. TUBES/LINES/DRAINS: port, PIV. SKIN: pale. Diffuse erythema and scaling in both extremities. Bilateral lower extremity edema left > right. Erythema LLE and thigh, decreased slightly from prior. EYES: Pupils equal and round and reactive. CARDIOVASCULAR: RRR. RESPIRATORY/CHEST: Symmetric, unlabored respirations. Clear to auscultation. Breath sounds equal bilaterally. GASTROINTESTINAL: Abdomen soft, tender right upper and lower quadrant, mildly distended. Bowel sounds active. GENITOURINARY: Without palpable bladder distension. MUSCULOSKELETAL: Extremities without clubbing, cyanosis. 3+ edema in the left LE. NEUROLOGICAL: Awake and alert, intermittently confused. Follows commands. PSYCHIATRIC: Awake and alert, self reports some anxiety. . Diagnostic Tests Laboratory Laboratory Tests Test 05/04/16 05/05/16 06:49 05:17 White Blood Count 3.0 TH/MM3 (4.0-11.0) Red Blood Count 3.28 MIL/MM3 (4.00-5.30) Hemoglobin 8.6 GM/DL (11.6-15.3) Hematocrit 27.2 % (35.0-46.0) Mean Corpuscular Volume 82.7 FL (80.0-100.0) Mean Corpuscular Hemoglobin 26.2 PG (27.0-34.0) Mean Corpuscular Hemoglobin 31.7 % Concent (32.0-36.0) Red Cell Distribution Width 19.7 % (11.6-17.2) Platelet Count 232 TH/MM3 (150-450) Mean Platelet Volume 8.9 FL (7.0-11.0) Sodium Level 142 MEQ/L 140 MEQ/L (136-145) (136-145) Potassium Level 2.9 MEQ/L 3.0 MEQ/L (3.5-5.1) (3.5-5.1) Chloride Level 113 MEQ/L 111 MEQ/L (98-107) (98-107) Carbon Dioxide Level 19.6 MEQ/L 18.0 MEQ/L (21.0-32.0) (21.0-32.0) Anion Gap 9 MEQ/L (5-15) 11 MEQ/L (5-15) Blood Urea Nitrogen 20 MG/DL (7-18) 18 MG/DL (7-18) Creatinine 0.78 MG/DL 0.76 MG/DL (0.50-1.00) (0.50-1.00) Estimat Glomerular Filtration 75 ML/MIN (>89) 77 ML/MIN (>89) Rate Random Glucose 81 MG/DL 69 MG/DL (74-106) (74-106) Calcium Level 7.2 MG/DL 7.2 MG/DL (8.5-10.1) (8.5-10.1) Protein Corrected Calcium 8.7 MG/DL 8.7 MG/DL (8.5-10.1) (8.5-10.1) Total Protein 4.4 GM/DL 4.5 GM/DL (6.4-8.2) (6.4-8.2) Magnesium Level 1.6 MG/DL (1.5-2.5) Result Diagram: 05/04/16 0649 05/05/16 0517 Imaging Last Impressions Abdomen/Pelvis CT 04/28/16 1047 Signed Impressions: Service Date/Time: Thursday, April 28, 2016 12:16 - CONCLUSION: 1. Worsening of hepatic metastatic disease since January 21. 2. Increasing size of right middle lobe metastatic lung nodule. 3. Increasing size of pelvic mass just below the expandable sigmoid stent. 4. Development of moderate left hydronephrosis with left ureteral stent remaining in place. 5. Development of anasarca. 6. Slight increase in biliary ductal dilatation. Edgardo Lockhart MD Lower Extremity Ultrasound 04/28/16 0000 Signed Impressions: Service Date/Time: Thursday, April 28, 2016 15:49 - CONCLUSION: 1. Occlusive and nonocclusive deep venous thrombosis in the left lower extremity as above. Popliteal cyst also present. Edgardo Lockhart MD Assessment and Plan Disease Oriented Problem List: (1) Ovarian cancer with mets to liver and lung (2) Anemia (3) COPD (chronic obstructive pulmonary disease) Symptom Scale: (1) Intractable pain 0-10 Scale: 7 Comment: secondary to metastatic ovarian cancer with disease progression despite recent chemotherapy, rectovaginal fistula, pelvic mass. (2) Nausea 0-10 Scale: 0 Comment: Denies during my visit, reports intermittent nausea, no vomiting (3) Vaginal discharge 0-10 Scale: Unable to quantify Comment: Secondary to pelvic mass, rectovaginal fistula. (4) Reflux esophagitis 0-10 Scale: Unable to quantify (5) Diarrhea 0-10 Scale: Unable to quantify Pertinent Non-Medical Issues Psychosocial: . Supported by her 2 daughters, Shey and Zelda. Also supported by her sister, Yoli. Lives in [place]. Spiritual: [employer]. Declines case assembler visits at this time. Legal:No written advance directives. [facility] to [place] [facility] health care proxy decision-making falls to her spouse. She indicates she would want her spouse to make medical decisions should she become incapacitated. Ethical issues impacting care: no known concerns at this time. . Important Contacts * Kevin Jim, spouse/HCP: [phone] (cell) or [phone] (home) * Shey Jim, daughter: [phone] cell or [phone] work * Zelda Fuentes, daughter: [phone] cell or [phone] work * Yoli Rosario, sister: [phone] cell or [phone] home . Prognosis Mrs. Jim has recurrent Ovarian cancer with Mets to liver and lung disease progression despite recent palliative chemotherapy admitted with abdominal and vaginal pain. Patient has had ovarian cancer undergoing treatment for the last 10 years, she is certainly hospice appropriate should she elect comfort focused care. Ovarian cancer is a terminal condition. . Code Status: Full Code Plan * Patient is currently capacitated to make her own health care decisions. No written advance directives. [facility] to [place] [facility] health care proxy decision-making falls to her spouse. She indicates she would want her spouse to make medical decisions should she become incapacitated.. * FULL CODE. * 05/05/16: For now, continue aggressive treatment of C. Diff., FULL CODE. I will convert IV Dilaudid to PO in an effort to ensure pain is adequately controlled prior to DC. I suspect she will elect to go home with hospice in the coming days, though she can family are not ready to make this decision today. I have asked hospice NOT to follow up until family is definitively ready to make this decision. * Discussed with Dr. Damon, Dr. Pires, YOLI Krause, infantry unit leader and hospice admission nurse, Venus. * SYMPTOMS: Intractable Pain: secondary to metastatic ovarian cancer with disease progression despite recent chemotherapy, rectovaginal fistula, pelvic mass. Continue Methadone 7.5 mg PO every 8 hours ATC. Convert IV Dilaudid to Dilaudid 4 mg PO Q3 hours PRN breakthrough pain. Gabapentin 300 mg PO BID ATC. Licocaine gel to vaginal area PRN pain. Nausea: Reglan and Zofran available. Improved. Anxiety: may also be contributing to pain. Added Ativan 1 mg IV every 2 hours PRN anxiety. Reflux: Maalox 30 mL every 6 hours PRN indigestion/ reflux. * Palliative care will continue to follow throughout hospital course to assist with symptom management and further clarification of treatment goals. . Attestation To help prompt me to consider important information that might be impacting today's encounter and assessment, information from prior notes written by myself or my colleagues may have been "brought forward" into today's note. My signature on this note, however, is an attestation that I personally performed the exam, history, and/or decision-making noted today, and, unless otherwise indicated, the interactions with patient, family, and staff as well as the review of records all occurred today. I also attest that the listed assessment and stated plan reflect my best clinical judgment today based on the combination of historical information, prior notes, and today's exam/ interactions. When time spent is documented, it refers only to time spent today by the signer, or if indicated, combined time spent today by collaborating physician/nurse practitioner. NIEVES URRUTIA May 05, 2016 12:36
[2016-05-05] MEDS: metroNIDAZOLE 500 MG TAB PO SCH ×2 (15:00→20:36)
[2016-05-05] MEDS ORDERED: LORazepam 0.5 MG TAB PO PRN (15:15)
[2016-05-05] MEDS: REMOVE OLD DURAGESIC (FENTANYL) PATCH TD SCH (17:50)
--- NOTE | 2016-05-05 20:05 | HHI.HCPN ---
Brinda was called for respiratory rate of 8 at 1511. She had been given a dose of Ativan 1mg IV at 1201. Methadone was held at 1600. Patient was arousable upon my arrival. I advised nurse not to administer Narcan. As her narcotic need has decreased significantly over the weekend. She has been stable on Methadone 7.5mg PO every 8 hours ATC, Fentanyl 100mcg patch. Bother meds she has been on prior to admission. She has only had 1 dose of PRN Dilaudid 1mg in the past 24 hours, last dose being given 05/04/16 at 11:08. It is unlikely that respiratory suppression it related to narcotics as she is arousable and speaking. Patient was transferred to [facility] for closer monitoring. Met with her daughter, Shey to review findings. I later met with spouse, 2 daughters, son, sister and 2 grandchildren at bedside. Patient is awake and alert, falls off to sleep easily. We reviewed the patient previously verbalized goal of getting home. We reviewed the need for hospice support when she returns home. Patient and family agree. Hospice services reviewed. Patient endorses FULL CODE during my visit and tells me she trusts her family to make the best decision for her. Palliative care will continue to follow to further clarify goals. NIEVES URRUTIA May 05, 2016 20:05
[2016-05-05] MEDS: ALUMINUM/MAGNESIUM/SIMETH 30 ML CUP PO PRN (20:36)
[2016-05-06] VITALS: BP 117/58; PULSE 100; RESP 14; TEMP 99.1; O2SAT 98
[2016-05-06] MEDS: metroNIDAZOLE 500 MG TAB PO SCH ×4 (03:27→21:15)
[2016-05-06 04:00] VITALS: BP 89/52; PULSE 90; RESP 15; TEMP 98.7; O2SAT 96
[2016-05-06] MEDS: HYDROmorphone HCL 4 MG TAB PO PRN ×3 (04:55→17:49)
[2016-05-06] MEDS: METHADONE HCL 10 MG/10 ML ORAL SOLUTION PO SCH ×2 (07:50→15:33)
[2016-05-06] MEDS: ENOXAPARIN SODIUM 60 MG/0.6 ML SYRINGE SQ SCH ×2 (07:51→21:14)
[2016-05-06] MEDS: ALBUTEROL SULFATE 90 MCG/ACT HFA 18 GM INHALER INH SCH ×4 (07:51→21:15)
[2016-05-06] MEDS: TIOTROPIUM BROMIDE 18 MCG INH INH SCH (07:51)
[2016-05-06] MEDS: SODIUM CHLORIDE 0.9% FLUSH 5 ML FLUSH FLUSH SCH ×2 (07:51→21:15)
[2016-05-06] MEDS: DRONABINOL 5 MG CAP PO SCH ×2 (07:51→21:15)
[2016-05-06 08:00] VITALS: BP 102/54; PULSE 88; RESP 19; TEMP 98.5; O2SAT 99
[2016-05-06 12:00] VITALS: BP 103/52; PULSE 86; RESP 16; TEMP 97.9; O2SAT 99
--- NOTE | 2016-05-06 14:13 | HHI.HCPN ---
Reason for visit a. To assist with evaluation and management of symptoms including: abdominal /pelvic pain, diarrhea. b. To assist medical decision maker(s) with: better understanding of current medical conditions; weighing benefits/burdens of medical treatment options; making medical treatment decisions. . Subjective/Interval History Patient seen and examined in room with , sister, BEATRIZ and friend at bedside. Discussed with charge nurse. Also present YOLI Coronado. Tmax 99.1. Vital signs stable. No new labs or imaging. Patient tested positive for C. DIff toxin 027, on Flagyl PO every 6 hours. Will add oral Vancomycin as she has complicated, recurrent C. Diff with continued frequent diarrhea (10-12 per day), no clinical improvement with Flagyl alone. Rates pain 6 during visit, hopes for pain level 0. She has not had any PRN Dilaudid in the past 24 hours, family remains fearful of medication causing respiratory depression. I again reviewed concern that lethargy is related to disease, liver mets, progression/ infection. SisterYoli is asking about cutting back on Methadone. / HCP DOES NOT want Methadone decreased as he does not want her to be in pain. I explained Fentanyl patch was DCd on 05/05/16 after Halicat was called. Discussed with Dr. Damon. . . . Family/friend interactions See interval note. . Advance Directives Living Will: Never completed Health Care Surrogate: Never completed Durable Power of Molder Machine Tender: Never completed Advance Directive Specifics Health Care Surrogate(s): No written advance directives. According to [place] statutes health care proxy decision-making falls to her spouse. She indicates she would want her spouse to make medical decisions should she become incapacitated. . Significant change in goals: FULL CODE. Goals remain aggressive, though family continues to verbalize desire to get her home with hospice "but are in no shields." I do not foresee family making any significant change in goals at least until patient becomes unresponsive. . Objective Vital Signs Date Time Temp Pulse Resp B/P Pulse Ox O2 Delivery O2 Flow Rate FiO2 05/06/16 04:00 98.7 90 15 89/52 96 05/06/16 00:00 99.1 100 14 117/58 98 05/05/16 20:00 98.4 98 14 121/58 99 05/05/16 16:00 98.4 93 20 137/67 99 05/05/16 15:11 98.9 89 8 126/61 98 Intake & Output 05/06/16 05/06/16 07:00 19:00 Intake Total 962 ml Balance 962 ml Intake Oral 960 ml IV Total 2 ml # Voids 5 # Bowel Movements 6 Physical Exam CONSTITUTIONAL/GENERAL: This is a frail, chronically ill patient, who appears older than her actual age, writhing in pain. TUBES/LINES/DRAINS: port, PIV. SKIN: pale. Diffuse erythema and scaling in both extremities. Bilateral lower extremity edema left > right. Erythema LLE and thigh, decreased slightly from prior. EYES: Pupils equal and round and reactive. CARDIOVASCULAR: RRR. RESPIRATORY/CHEST: Symmetric, unlabored respirations. Clear to auscultation. Breath sounds equal bilaterally. GASTROINTESTINAL: Abdomen soft, tender right upper and lower quadrant, mildly distended. Bowel sounds active. GENITOURINARY: Without palpable bladder distension. MUSCULOSKELETAL: Extremities without clubbing, cyanosis. 3+ edema in the left LE. NEUROLOGICAL: Awake and alert, intermittently confused. Follows commands. PSYCHIATRIC: Awake and alert, self reports some anxiety. . Diagnostic Tests Laboratory Laboratory Tests Test 05/04/16 05/05/16 05/05/16 06:49 05:17 17:46 White Blood Count 3.0 TH/MM3 (4.0-11.0) Red Blood Count 3.28 MIL/MM3 (4.00-5.30) Hemoglobin 8.6 GM/DL (11.6-15.3) Hematocrit 27.2 % (35.0-46.0) Mean Corpuscular Volume 82.7 FL (80.0-100.0) Mean Corpuscular Hemoglobin 26.2 PG (27.0-34.0) Mean Corpuscular Hemoglobin 31.7 % Concent (32.0-36.0) Red Cell Distribution Width 19.7 % (11.6-17.2) Platelet Count 232 TH/MM3 (150-450) Mean Platelet Volume 8.9 FL (7.0-11.0) Sodium Level 142 MEQ/L 140 MEQ/L (136-145) (136-145) Potassium Level 2.9 MEQ/L 3.0 MEQ/L (3.5-5.1) (3.5-5.1) Chloride Level 113 MEQ/L 111 MEQ/L (98-107) (98-107) Carbon Dioxide Level 19.6 MEQ/L 18.0 MEQ/L (21.0-32.0) (21.0-32.0) Anion Gap 9 MEQ/L (5-15) 11 MEQ/L (5-15) Blood Urea Nitrogen 20 MG/DL (7-18) 18 MG/DL (7-18) Creatinine 0.78 MG/DL 0.76 MG/DL (0.50-1.00) (0.50-1.00) Estimat Glomerular Filtration 75 ML/MIN (>89) 77 ML/MIN (>89) Rate Random Glucose 81 MG/DL 69 MG/DL (74-106) (74-106) Calcium Level 7.2 MG/DL 7.2 MG/DL (8.5-10.1) (8.5-10.1) Protein Corrected Calcium 8.7 MG/DL 8.7 MG/DL (8.5-10.1) (8.5-10.1) Total Protein 4.4 GM/DL 4.5 GM/DL (6.4-8.2) (6.4-8.2) Magnesium Level 1.6 MG/DL (1.5-2.5) Nasal Screen MRSA (PCR) NEGATIVE (NEGATIVE) Result Diagram: 05/04/16 0649 05/05/16 0521 Assessment and Plan Disease Oriented Problem List: (1) Ovarian cancer with mets to liver and lung (2) Anemia (3) COPD (chronic obstructive pulmonary disease) Symptom Scale: (1) Intractable pain 0-10 Scale: 7 Comment: secondary to metastatic ovarian cancer with disease progression despite recent chemotherapy, rectovaginal fistula, pelvic mass. (2) Nausea 0-10 Scale: 0 Comment: Denies during my visit, reports intermittent nausea, no vomiting (3) Vaginal discharge 0-10 Scale: Unable to quantify Comment: Secondary to pelvic mass, rectovaginal fistula. (4) Reflux esophagitis 0-10 Scale: Unable to quantify (5) Diarrhea 0-10 Scale: Unable to quantify Pertinent Non-Medical Issues Psychosocial: . Supported by her 2 daughters, Shey and Zelda. Also supported by her sister, Yoli. Lives in [place]. Spiritual: Member [employer]. Declines auto wash buffer visits at this time. Legal:No written advance directives. [facility] [place] [facility] proxy decision-making falls to her spouse. She indicates she would want her spouse to make medical decisions should she become incapacitated. Ethical issues impacting care: no known concerns at this time. . Important Contacts * Kevin Jim, spouse/HCP: [phone] (cell) or [phone] (home) * Shey Jim, daughter: [phone] cell or [phone] work * Zelda Fuentes, daughter: [phone] cell or [phone] work * Yoli Rosario, sister: [phone] cell or [phone] home . Prognosis Mrs. Jim has recurrent Ovarian cancer with Mets to liver and lung disease progression despite recent palliative chemotherapy admitted with abdominal and vaginal pain. Patient has had ovarian cancer undergoing treatment for the last 10 years, she is certainly hospice appropriate should she elect comfort focused care. Ovarian cancer is a terminal condition. . Code Status: Full Code Plan * Patient is currently capacitated to make her own health care decisions. No written advance directives. According to [facility] health care proxy decision-making falls to her spouse. She indicates she would want her spouse to make medical decisions should she become incapacitated.. * FULL CODE. * 05/06/16: FULL CODE. Goals remain aggressive, though family continues to verbalize desire to get her home with hospice "but are in no shields." I do not foresee family making any significant change in goals at least until patient becomes unresponsive. * Discussed with Dr. Damon. * Consulted PT for eval/ treat. Family will require education in how to transfer / move pt if ever DCd. * SYMPTOMS: Intractable Pain: secondary to metastatic ovarian cancer with disease progression despite recent chemotherapy, rectovaginal fistula, pelvic mass. Continue Methadone 7.5 mg PO every 8 hours ATC. Convert IV Dilaudid to Dilaudid 4 mg PO Q3 hours PRN breakthrough pain. Fentanyl patch was DCd on 05/05 (after Halicat). Licocaine gel to vaginal area PRN pain. Nausea: Reglan and Zofran available. Denies today, Anxiety: may also be contributing to pain. Ativan 0.25mg PO every 4 hours PRN anxiety. Family will likely refuse if at bedside, fearful causing resp. suppression and decline. Reflux: Maalox 30 mL every 6 hours PRN indigestion/ reflux. Diarrhea: Will add oral Vancomycin as she has recurrent, complicated C. Diff with no clinical improvement with Flagyl. * Palliative care will continue to follow throughout hospital course to assist with symptom management and further clarification of treatment goals. . Attestation To help prompt me to consider important information that might be impacting today's encounter and assessment, information from prior notes written by myself or my colleagues may have been "brought forward" into today's note. My signature on this note, however, is an attestation that I personally performed the exam, history, and/or decision-making noted today, and, unless otherwise indicated, the interactions with patient, family, and staff as well as the review of records all occurred today. I also attest that the listed assessment and stated plan reflect my best clinical judgment today based on the combination of historical information, prior notes, and today's exam/ interactions. When time spent is documented, it refers only to time spent today by the signer, or if indicated, combined time spent today by collaborating physician/nurse practitioner. NIEVES URRUTIA May 06, 2016 14:12
--- NOTE | 2016-05-06 14:47 | HHI.PR ---
Subjective Remarks Patient had slow her breathing tachybradycardia, she was transferred to the ICU , however she is doing better today I saw her she was in bed, sister and cousin at the bedside I already discussed with palliative care SAXOPHONE PLAYER, informed me that patient still endorsing full code, the sister wanted to reduce the pain medication however the who is the decision maker did not want to change the current dose Patient is emotional, I tried to lightly discuss and summarized the situation, she seems to be understanding the poor prognosis however she is not decisive about DNR are going with hospice at this point Objective Vitals Vital Signs Date Time Temp Pulse Resp B/P Pulse Ox O2 Delivery O2 Flow Rate FiO2 05/06/16 04:00 98.7 90 15 89/52 96 05/06/16 00:00 99.1 100 14 117/58 98 05/05/16 20:00 98.4 98 14 121/58 99 05/05/16 16:00 98.4 93 20 137/67 99 05/05/16 15:11 98.9 89 8 126/61 98 I/O 05/05/16 05/05/16 05/05/16 05/06/16 05/06/16 05/06/16 06:59 14:59 22:59 06:59 14:59 22:59 Intake Total 482 ml 480 ml Balance 482 ml 480 ml Intake Oral 480 ml 480 ml IV Total 2 ml # Voids 3 2 3 # Bowel Movements 3 2 4 Result Diagram: 05/04/16 0649 05/05/16 0517 Objective Remarks GENERAL: This is a well-nourished, well-developed patient, in no apparent distress. CARDIOVASCULAR: Regular rate and rhythm without murmurs, gallops, or rubs. RESPIRATORY: Fair air entry bilaterally. No wheezes, rales, or rhonchi. GASTROINTESTINAL: Abdomen reveal generalized tenderness on the lower abdomen with fullness to palpation throughout, especially on the right upper quadrant nondistended. Appreciated some bowel sounds MUSCULOSKELETAL: Extremities +1 edema. Pedal pulses appreciated NEUROLOGICAL: Awake and alert. Moves all extremity. Normal speech.no focal neurological deficit A/P Problem List: (1) Ovarian cancer ICD Code: C56.9 Status: Chronic (2) Leg swelling ICD Code: M79.89 Status: Acute (3) Anemia ICD Code: D64.9 Status: Acute (4) Diarrhea ICD Code: R19.7 Status: Acute Assessment and Plan 05/06:D/W palliative care, patient, her sister, currently still wants to be full code, managing pain , added vancomycin po, since this is the third episode, continue effort with palliative care A/P: (1) advanced Ovarian cancer Hospice appropriate; palliative care following Continue pain management, comfort care Patient and family seems to be more accepting the fact of the advanced condition , hospice and DNR however not confirmed yet (2) DVT with Leg swelling on Lovenox twice daily. Overall improved (3) Anemia Mostly of chronic disease, continue monitoring H&H, has been stable (4) C. difficile Diarrhea Patient reporting no improvement with diarrhea. Per record's to be the third episode, agree with adding vancomycin by mouth Continue antiemetics Scarlett Damon MD May 06, 2016 14:47
[2016-05-06 16:00] VITALS: BP 126/59; PULSE 88; RESP 16; TEMP 98.1; O2SAT 100
[2016-05-06 16:49] LABS: BICARBONATE 19.7 MEQ/L (21.0-32.0); POTASSIUM 3.3 MEQ/L (3.5-5.1)
[2016-05-06 17:13] LABS: CALCIUM-PROTEIN CORRECTED 8.4 MG/DL (8.5-10.1)
[2016-05-06] MEDS: VANCOMYCIN 500 MG VIAL (FOR ORAL USE ONLY) PO SCH ×2 (17:50→21:15)
[2016-05-06 20:00] VITALS: BP 114/56; PULSE 77; RESP 19; TEMP 98; O2SAT 97
[2016-05-07] VITALS (11 sets, daily range): BP systolic 86–130; BP diastolic 49–78; PULSE 70–85; RESP 8–16; TEMP 97.8–98.6; O2SAT 97–100
[2016-05-07] MEDS: METHADONE HCL 10 MG/10 ML ORAL SOLUTION PO SCH ×4 (00:09→23:12)
[2016-05-07] MEDS: metroNIDAZOLE 500 MG TAB PO SCH ×2 (02:50→08:44)
[2016-05-07 04:19] LABS: BICARBONATE 20.3 MEQ/L (21.0-32.0); POTASSIUM 3.1 MEQ/L (3.5-5.1)
[2016-05-07 04:34] LABS: CALCIUM-PROTEIN CORRECTED 8.7 MG/DL (8.5-10.1)
[2016-05-07] MEDS: HYDROmorphone HCL 4 MG TAB PO PRN ×4 (05:24→23:45)
[2016-05-07] MEDS: ENOXAPARIN SODIUM 60 MG/0.6 ML SYRINGE SQ SCH ×2 (08:43→19:52)
[2016-05-07] MEDS: TIOTROPIUM BROMIDE 18 MCG INH INH SCH (08:43)
[2016-05-07] MEDS: SODIUM CHLORIDE 0.9% FLUSH 5 ML FLUSH FLUSH SCH ×2 (08:43→20:10)
[2016-05-07] MEDS: ONDANSETRON HCL 4 MG/2 ML VIAL IVP PRN ×2 (08:44→16:24)
[2016-05-07] MEDS: DRONABINOL 5 MG CAP PO SCH ×2 (08:44→20:09)
[2016-05-07] MEDS: ALBUTEROL SULFATE 90 MCG/ACT HFA 18 GM INHALER INH SCH ×2 (08:44→13:15)
[2016-05-07] MEDS: VANCOMYCIN 500 MG VIAL (FOR ORAL USE ONLY) PO SCH ×4 (08:44→20:09)
--- NOTE | 2016-05-07 09:05 | PD.ONC.PN ---
Subjective Subjective Remarks Mrs. Jim is resting in bed, states that she slept OK last night. She had Dilaudid 2mg at 5:30am and although she is in pain she is concerned about taking more Dilaudid. I explained that the respiratory depression that she experienced was the natural progression of disease, it was not related to narcotic use. I emphasized that we want Brooke to be comfortable and move her towards going home with Hospice, because that is what she has expressed on multiple occasions is her wish, to be home. I asked her if there was anything we could do for her and she stated " apparently not"...I said that I wish there was...but now it is all about her and what she wants and we need to move forward with making that happen (getting her home with Hospice) Hospice can make sure she has everything she needs in her home. At the end of our conversation she asked for more Dilaudid. I spoke with her RN. Mrs. Jim was too painful last night with spasms so physical therapy was unable to see her. They were asked to see Mrs. Jim to help educate family. Objective Data Date Time Temp Pulse Resp B/P Pulse Ox O2 Delivery O2 Flow Rate FiO2 05/07/16 04:00 97.8 85 16 103/54 98 05/07/16 00:15 110/52 05/07/16 00:00 98.4 82 12 86/49 98 05/06/16 20:00 98.0 77 19 114/56 97 05/06/16 16:00 98.1 88 16 126/59 100 05/06/16 12:00 97.9 86 16 103/52 99 05/06/16 12:00 97.9 86 16 103/52 99 Result Diagram: 05/04/16 0649 05/07/16 0300 Laboratory Results Laboratory Tests Test 05/06/16 05/07/16 15:12 03:00 Sodium Level 139 MEQ/L 141 MEQ/L Potassium Level 3.3 MEQ/L 3.1 MEQ/L Chloride Level 111 MEQ/L 112 MEQ/L Carbon Dioxide Level 19.7 MEQ/L 20.3 MEQ/L Anion Gap 8 MEQ/L 9 MEQ/L Blood Urea Nitrogen 15 MG/DL 14 MG/DL Creatinine 0.81 MG/DL 0.71 MG/DL Estimat Glomerular Filtration 71 ML/MIN 83 ML/MIN Rate Random Glucose 91 MG/DL 77 MG/DL Calcium Level 7.0 MG/DL 6.9 MG/DL Protein Corrected Calcium 8.4 MG/DL 8.7 MG/DL Total Protein 4.5 GM/DL 3.9 GM/DL Administered Medications Medications (Trade) Dose Ordered Sig/[place]ry Route PRN Reason Start Time Stop Time Status Last Admin Dose Admin IV Flush (NS Flush) 2 ml BID FLUSH 04/28/16 21:00 05/07/16 08:43 Ondansetron HCl (Zofran Inj) 4 mg Q6H PRN IVP NAUSEA OR VOMITING 04/28/16 14:30 05/07/16 08:44 Dronabinol (Marinol) 5 mg BID PO 04/28/16 21:00 05/07/16 08:44 Fentanyl (Duragesic 100 Mcg Patch.72 Hr) 1 patch Q3D TD 04/28/16 18:00 05/04/16 16:59 Miscellaneous Information 1 Q3D TD 05/01/16 18:00 05/05/16 17:50 Gabapentin (Neurontin) 300 mg BID PO 04/28/16 21:00 Hold 05/02/16 19:42 Enoxaparin Sodium (Lovenox Inj) 60 mg Q12H SQ 04/28/16 20:00 05/07/16 08:43 Lidocaine HCl (Xylocaine 2% Jelly) 1 applic Q2HR PRN TOPICAL SEE LABEL COMMENTS 04/29/16 13:00 05/03/16 22:00 Acetaminophen (Ofirmev Inj) 1,000 mg Q6H PRN IV fever > 100.4 04/30/16 01:30 04/30/16 01:53 Tiotropium [place] (Spiriva Inh) 18 mcg DAILY INH 04/30/16 16:00 05/07/16 08:43 Albuterol Sulfate (Ventolin Hfa Inh) 2 puff QID INH 04/30/16 18:00 05/07/16 08:44 Methadone HCl 7.5 mg 7.5 mg Q8H PO 05/02/16 00:00 05/07/16 08:43 Metronidazole (Flagyl 500 Mg Inj) 100 ml @ 100 mls/hr Q8H IV 05/03/16 18:00 Hold 05/05/16 09:31 Metronidazole (Flagyl) 500 mg Q6H PO 05/05/16 15:00 05/07/16 08:44 Hydromorphone HCl (Dilaudid) 4 mg Q3H PRN PO PAIN SCALE 1 TO 10 05/05/16 12:30 05/07/16 08:45 Al Hydrox/Mg Hydrox/Simethicone (Mag-Al Plus Susp Liq) 30 ml Q6H PRN PO indigestion/ reflux 05/05/16 14:30 05/05/16 20:36 Vancomycin HCl (VANCOMYCIN for oral use only) 125 mg QID PO 05/06/16 18:00 05/07/16 08:44 Objective Remarks GENERAL: frail, SKIN: Warm and dry. HEAD: Normocephalic. EYES: No scleral icterus. No injection or drainage. CARDIOVASCULAR: Regular rate and rhythm NEUROLOGICAL: No obvious focal deficit. Awake, alert PSYCHIATRIC: Appropriate mood and affect. Assessment/Plan Problem List: (1) Ovarian metastasis Status: Chronic Plan: Mrs. Jim expressed that she still wished to go home....our goal is to continue to work towards that goal. supportive care with pain control PT to help educate family Palliative Care is following and we appreciate everything that YOLI De Anda has done to help educate family and supportive care/pain control unfortunately despite recent treatment with taxol Mrs. Jim has had advancement of her ovarian cancer. Goal is for her to transition to Hospice care and return home with Hopsice, but the family still has not been comfortable to make her DNR/DNI. Problem Qualifiers (1) Ovarian metastasis: Qualified Code: C79.60 - Malignant neoplasm metastatic to ovary, unspecified laterality Briseida Marquez May 07, 2016 09:05
[2016-05-07] MEDS ORDERED: POTASSIUM CHLOR 20 MEQ PREMIX 100 ML IV ONE (13:00)
[2016-05-07] MEDS ORDERED: POTASSIUM CHLORIDE 20 MEQ CONTROLLED RELEASE TAB PO ONE (13:00)
--- NOTE | 2016-05-07 13:39 | HHI.PR ---
Subjective Remarks Patient sitting on the chair resting comfortably Family at the bedside, she did not change her mind, still aiming for full code Still having diarrhea, she is on Flagyl and Vancopo Objective Vitals Vital Signs Date Time Temp Pulse Resp B/P Pulse Ox O2 Delivery O2 Flow Rate FiO2 05/07/16 12:00 74 05/07/16 12:00 98.6 74 15 92/55 97 05/07/16 10:00 70 05/07/16 08:00 74 05/07/16 08:00 98.3 76 10 97/52 98 05/07/16 04:00 97.8 85 16 103/54 98 05/07/16 00:15 110/52 05/07/16 00:00 98.4 82 12 86/49 98 05/06/16 20:00 98.0 77 19 114/56 97 05/06/16 16:00 98.1 88 16 126/59 100 I/O 05/06/16 05/06/16 05/06/16 05/07/16 05/07/16 05/07/16 06:59 14:59 22:59 06:59 14:59 22:59 Intake Total 480 ml 602 ml 242 ml 250 ml Balance 480 ml 602 ml 242 ml 250 ml Intake Oral 480 ml 600 ml 240 ml 240 ml IV Total 2 ml 2 ml 10 ml # Voids 3 3 3 3 # Bowel Movements 4 3 3 4 Result Diagram: 05/04/16 0649 05/07/16 0300 Objective Remarks GENERAL: This is a well-nourished, well-developed patient, in no apparent distress. CARDIOVASCULAR: Regular rate and rhythm without murmurs, gallops, or rubs. RESPIRATORY: Fair air entry bilaterally. No wheezes, rales, or rhonchi. GASTROINTESTINAL: Abdomen reveal generalized tenderness on the lower abdomen with fullness to palpation throughout, especially on the right upper quadrant nondistended. Appreciated some bowel sounds MUSCULOSKELETAL: Extremities +1 edema. Pedal pulses appreciated NEUROLOGICAL: Awake and alert. Moves all extremity. Normal speech.no focal neurological deficit A/P Problem List: (1) Ovarian cancer ICD Code: C56.9 Status: Chronic (2) Leg swelling ICD Code: M79.89 Status: Acute (3) Anemia ICD Code: D64.9 Status: Acute (4) Diarrhea ICD Code: R19.7 Status: Acute Assessment and Plan 05/06:D/W palliative care, patient, her sister, currently still wants to be full code, managing pain , added vancomycin po, since this is the third episode, continue effort with palliative care 05/07: Continue current management, Flagyl I.V., by mouth vancomycin, continue with palliative care, a fourth for transition to hospice if patient agree currently full code A/P: (1) advanced Ovarian cancer Hospice appropriate; palliative care following Continue pain management, comfort care Patient and family seems to be more accepting the fact of the advanced condition , hospice and DNR however not confirmed yet (2) DVT with Leg swelling on Lovenox twice daily. Overall improved (3) Anemia Mostly of chronic disease, continue monitoring H&H, has been stable (4) C. difficile Diarrhea Patient reporting no improvement with diarrhea. Per record's to be the third episode, agree with adding vancomycin by mouth Continue antiemetics Scarlett Damon MD May 07, 2016 13:39
--- NOTE | 2016-05-07 15:51 | HHI.HCPN ---
Reason for visit a. To assist with evaluation and management of symptoms including: abdominal /pelvic pain, diarrhea. b. To assist medical decision maker(s) with: better understanding of current medical conditions; weighing benefits/burdens of medical treatment options; making medical treatment decisions. . (NIEVES URRUTIA) Subjective/Interval History Patient seen and examined in room with and other family at bedside. Discussed with nurse. Also present YOLI Coronado. Afebrile. Vital signs stable. Potassium 3.1. Total protein 3.9. Patient verbalizes no appetite. She is eating bites and sips of some meals, max 25% of meals recorded. No new imaging. Continues to have diarrhea 10 stools in past 24 hours. On Flagyl IV and oral vancomycin for C. Diff 027 +. Patient was able to ambulate a few steps in room with walker and PT. She sat in recliner for a period of time. She was very happy about this. Appreciate PT evaluation and education for family. Rates pain 8 during visit, was just medicated with Dilaudid 4mg PO. She has had 4 doses of PRN Dilaudid 4mg PO in the past 24 hours. Remains on Methadone 7.5mg PO every 8 hours ATC. Fentanyl patch was DCd on 05/05/16 after Halicat was called. I suspect increase need for PRN Dilaudid is related to Fentanyl being stopped. Will monitor. Patient and family are comfortable with current medication regimen, no new recommendations today. Family request PRN Ativan 0.25mg PO every 4 hours be DCd even though she has not had any Ativan since 05/05. Family remains concerned about the risk of respiratory depression. Additionally they read online about interactions between Methadone and Ativan in dementia patients. Will DC per their request. Discussed with nurse. Appreciate oncology and medicine conversations with patient to reinforce education regrading disease progression and symptom management. Patient again verbalizes desire to return home. Family is not yet ready to bring her home. Goals still do not appear comfort oriented. Will approach conversation regarding hospice again 05/08/16. Family has palliative care number. . . Family/friend interactions See interval note. (NIEVES URRUTIA) Advance Directives Living Will: Never completed Health Care Surrogate: Never completed Durable Power of Federal Law Clerk: Never completed (NIEVES URRUTIA) Advance Directive Specifics Health Care Surrogate(s): No written advance directives. According to [place] statutes health care proxy decision-making falls to her spouse. She indicates she would want her spouse to make medical decisions should she become incapacitated. . Significant change in goals: FULL CODE. Goals remain aggressive. Patient hopes to return home, family is not ready. . (NIEVES URRUTIA) Objective Vital Signs Date Time Temp Pulse Resp B/P Pulse Ox O2 Delivery O2 Flow Rate FiO2 05/07/16 12:00 74 05/07/16 12:00 98.6 74 15 92/55 97 05/07/16 10:00 70 05/07/16 08:00 74 05/07/16 08:00 98.3 76 10 97/52 98 05/07/16 04:00 97.8 85 16 103/54 98 05/07/16 00:15 110/52 05/07/16 00:00 98.4 82 12 86/49 98 05/06/16 20:00 98.0 77 19 114/56 97 05/06/16 16:00 98.1 88 16 126/59 100 Intake & Output 05/07/16 05/07/16 06:59 18:59 Intake Total 492 ml 240 ml Balance 492 ml 240 ml Intake Oral 480 ml 240 ml IV Total 12 ml 0 ml # Voids 6 3 # Bowel Movements 7 4 Physical Exam CONSTITUTIONAL/GENERAL: This is a frail, chronically ill patient, who appears older than her actual age, writhing in pain. TUBES/LINES/DRAINS: port, PIV. SKIN: pale. Diffuse erythema and scaling in both extremities. Bilateral lower extremity edema left > right. Erythema LLE and thigh, decreased slightly from prior. CARDIOVASCULAR: RRR. RESPIRATORY/CHEST: Symmetric, unlabored respirations. Clear to auscultation. Breath sounds equal bilaterally. GASTROINTESTINAL: Abdomen soft, tender right upper and lower quadrant, mildly distended. Bowel sounds active. GENITOURINARY: Without palpable bladder distension. MUSCULOSKELETAL: Extremities increased bilateral LE edema, left > right. NEUROLOGICAL: Awake and alert, intermittently confused. Follows commands. PSYCHIATRIC: Awake and alert, self reports some anxiety. . (NIEVES URRUTIA) Diagnostic Tests Laboratory Laboratory Tests Test 05/05/16 05/05/16 05/06/16 05/07/16 05:17 17:46 15:12 03:00 Sodium Level 140 MEQ/L 139 MEQ/L 141 MEQ/L (136-145) (136-145) (136-145) Potassium Level 3.0 MEQ/L 3.3 MEQ/L 3.1 MEQ/L (3.5-5.1) (3.5-5.1) (3.5-5.1) Chloride Level 111 MEQ/L 111 MEQ/L 112 MEQ/L (98-107) (98-107) (98-107) Carbon Dioxide Level 18.0 MEQ/L 19.7 MEQ/L 20.3 MEQ/L (21.0-32.0) (21.0-32.0) (21.0-32.0) Anion Gap 11 MEQ/L (5-15) 8 MEQ/L (5-15) 9 MEQ/L (5-15) Blood Urea Nitrogen 18 MG/DL (7-18) 15 MG/DL (7-18) 14 MG/DL (7-18) Creatinine 0.76 MG/DL 0.81 MG/DL 0.71 MG/DL (0.50-1.00) (0.50-1.00) (0.50-1.00) Estimat Glomerular Filtration 77 ML/MIN (>89) 71 ML/MIN (>89) 83 ML/MIN (>89) Rate Random Glucose 69 MG/DL 91 MG/DL 77 MG/DL (74-106) (74-106) (74-106) Calcium Level 7.2 MG/DL 7.0 MG/DL 6.9 MG/DL (8.5-10.1) (8.5-10.1) (8.5-10.1) Protein Corrected Calcium 8.7 MG/DL 8.4 MG/DL 8.7 MG/DL (8.5-10.1) (8.5-10.1) (8.5-10.1) Magnesium Level 1.6 MG/DL (1.5-2.5) Total Protein 4.5 GM/DL 4.5 GM/DL 3.9 GM/DL (6.4-8.2) (6.4-8.2) (6.4-8.2) Nasal Screen MRSA (PCR) NEGATIVE (NEGATIVE) (NIEVES URRUTIA) Result Diagram: 05/04/16 0649 05/07/16 0300 Imaging Last Impressions Abdomen/Pelvis CT 04/28/16 1047 Signed Impressions: Service Date/Time: Thursday, April 28, 2016 12:16 - CONCLUSION: 1. Worsening of hepatic metastatic disease since January 21. 2. Increasing size of right middle lobe metastatic lung nodule. 3. Increasing size of pelvic mass just below the expandable sigmoid stent. 4. Development of moderate left hydronephrosis with left ureteral stent remaining in place. 5. Development of anasarca. 6. Slight increase in biliary ductal dilatation. Edgardo Lockhart MD Lower Extremity Ultrasound 04/28/16 0000 Signed Impressions: Service Date/Time: Thursday, April 28, 2016 15:49 - CONCLUSION: 1. Occlusive and nonocclusive deep venous thrombosis in the left lower extremity as above. Popliteal cyst also present. Edgardo Lockhart MD (NIEVES URRUTIA) Assessment and Plan Disease Oriented Problem List: (1) Ovarian cancer with mets to liver and lung (2) Anemia (3) COPD (chronic obstructive pulmonary disease) Symptom Scale: (1) Intractable pain 0-10 Scale: 8 Comment: secondary to metastatic ovarian cancer with disease progression despite recent chemotherapy, rectovaginal fistula, pelvic mass. (2) Nausea 0-10 Scale: 0 Comment: Denies during my visit, reports intermittent nausea, no vomiting. Relieved with meds. (3) Vaginal discharge 0-10 Scale: Unable to quantify Comment: Secondary to pelvic mass, rectovaginal fistula. (4) Reflux esophagitis 0-10 Scale: 0 (5) Diarrhea 0-10 Scale: Unable to quantify Pertinent Non-Medical Issues Psychosocial: . Supported by her 2 daughters, Shey and Zelda. Also supported by her sister, Yoli. Lives in [place]. Spiritual: Member [employer]. 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 Legal:No written advance directives. According to [place] statutes health care proxy decision-making falls to her spouse. She indicates she would want her spouse to make medical decisions should she become incapacitated. Ethical issues impacting care: no known concerns at this time. . Important Contacts * Kevin Jim, spouse/HCP: [phone] (cell) or [phone] (home) * Shey Jim, daughter: [phone] cell or [phone] work * Zelda Fuentes, daughter: [phone] cell or [phone] work * Yoli Rosario, sister: [phone] cell or [phone] home . Prognosis Mrs. Jim has recurrent Ovarian cancer with Mets to liver and lung disease progression despite recent palliative chemotherapy admitted with abdominal and vaginal pain. Patient has had ovarian cancer undergoing treatment for the last 10 years, she is certainly hospice appropriate should she elect comfort focused care. Ovarian cancer is a terminal condition. . Code Status: Full Code Plan * No written advance directives. According to [place] statutes health care proxy decision-making falls to her spouse. She indicates she would want her spouse to make medical decisions should she become incapacitated. Recommend shared decision making given her intermittent confusion. * FULL CODE. * 05/07/16: FULL CODE. Goals remain aggressive, though patient continues to want to go home, family supports this but are not ready to take her home. Will attempt to discuss plan for DC/ Hospice again 05/08/16. * SYMPTOMS: Intractable Pain: secondary to metastatic ovarian cancer with disease progression despite recent chemotherapy, rectovaginal fistula, pelvic mass. Continue Methadone 7.5 mg PO every 8 hours ATC. Dilaudid 4 mg PO Q3 hours PRN breakthrough pain, has had 4 doses in 24 hours. Fentanyl patch was DCd on 05/05/16 (after Halicat). Licocaine gel to vaginal area PRN pain. Nausea: Reglan and Zofran available with relief. Anxiety: may also be contributing to pain. Family wants Ativan discontinued, done per their request. Reflux: Maalox 30 mL every 6 hours PRN indigestion/ reflux. Diarrhea: On Flagyl and Vancomycin as she has recurrent, complicated C. Diff with no clinical improvement with Flagyl. * Palliative care will continue to follow throughout hospital course to assist with symptom management and further clarification of treatment goals. . (NIEVES URRUTIA) Attestation To help prompt me to consider important information that might be impacting today's encounter and assessment, information from prior notes written by myself or my colleagues may have been "brought forward" into today's note. My signature on this note, however, is an attestation that I personally performed the exam, history, and/or decision-making noted today, and, unless otherwise indicated, the interactions with patient, family, and staff as well as the review of records all occurred today. I also attest that the listed assessment and stated plan reflect my best clinical judgment today based on the combination of historical information, prior notes, and today's exam/ interactions. When time spent is documented, it refers only to time spent today by the signer, or if indicated, combined time spent today by collaborating physician/nurse practitioner. (NIEVES URRUTIA) Collaborating MD Comments Chart reviewed. Case discussed with palliative care BLOOD BANK ATTENDANT. Above note reviewed and I concur. . (Anthony Crain MD) NIEVES URRUTIA May 07, 2016 15:51 Anthony Crain MD Jun 12, 2016 17:18
[2016-05-07] MEDS: metroNIDAZOLE 500 MG INJ 100 ML IV SCH ×2 (16:23→23:12)
[2016-05-07] MEDS: REMOVE OLD DURAGESIC (FENTANYL) PATCH TD SCH (18:00)
[2016-05-07] MEDS: fentaNYL 100 MCG/HR PATCH TD SCH (18:04)
[2016-05-08] VITALS (11 sets, daily range): BP systolic 89–116; BP diastolic 51–58; PULSE 72–120; RESP 11–18; TEMP 97.6–98.7; O2SAT 95–98
[2016-05-08] MEDS: ACETAMINOPHEN 1000 MG/100 ML VIAL IV PRN (02:21)
[2016-05-08] MEDS: HYDROmorphone HCL 4 MG TAB PO PRN ×4 (02:21→21:54)
[2016-05-08] MEDS: metroNIDAZOLE 500 MG INJ 100 ML IV SCH ×3 (06:08→23:05)
[2016-05-08] MEDS: TIOTROPIUM BROMIDE 18 MCG INH INH SCH (09:00)
[2016-05-08] MEDS: ALBUTEROL SULFATE 90 MCG/ACT HFA 18 GM INHALER INH SCH ×4 (09:00→20:13)
[2016-05-08] MEDS: ENOXAPARIN SODIUM 60 MG/0.6 ML SYRINGE SQ SCH ×2 (09:16→20:12)
[2016-05-08] MEDS: SODIUM CHLORIDE 0.9% FLUSH 5 ML FLUSH FLUSH SCH ×2 (09:16→20:13)
[2016-05-08] MEDS: ONDANSETRON HCL 4 MG/2 ML VIAL IVP PRN (09:16)
[2016-05-08] MEDS: VANCOMYCIN 500 MG VIAL (FOR ORAL USE ONLY) PO SCH ×4 (11:14→20:12)
[2016-05-08] MEDS: METHADONE HCL 10 MG/10 ML ORAL SOLUTION PO SCH ×3 (11:14→23:05)
[2016-05-08] MEDS: DRONABINOL 5 MG CAP PO SCH ×2 (11:14→20:12)
[2016-05-08] MEDS ORDERED: METOCLOPRAMIDE HCL 10 MG/2 ML VIAL IV ONE (14:00)
[2016-05-08] MEDS ORDERED: HYDROmorphone HCL PF 1 MG/ML VIAL IV PUSH ONE (14:00)
[2016-05-08] MEDS ORDERED: KETOROLAC TROMETHAMINE 30 MG/ML (IVP) VIAL IV PUSH ONE (14:00)
--- NOTE | 2016-05-08 15:25 | HHI.HCPN ---
Reason for visit a. To assist with evaluation and management of symptoms including: abdominal /pelvic pain, diarrhea. b. To assist medical decision maker(s) with: better understanding of current medical conditions; weighing benefits/burdens of medical treatment options; making medical treatment decisions. . (NIEVES URRUTIA) Subjective/Interval History Patient seen and examined in room with sister at bedside. Discussed with nurse. Also present YOLI Coronado. Afebrile. Vital signs stable. Patient again verbalizes no appetite. She is eating bites and sips of some meals. No new imaging. Continues to have diarrhea 8 stools in past 24 hours. On Flagyl IV and oral vancomycin for C. Diff 027 +. Rates pain 8 during visit, family reports they are giving her only half of oral Dilaudid because they are afraid it will slow her breathing again. Remains on Methadone 7.5mg PO every 8 hours ATC. Fentanyl patch was DCd on 05/05/16 after Halicat was called. I suspect increase need for PRN Dilaudid is related to Fentanyl being stopped. Family remains resistant to increasing pain meds. Goals still do not appear comfort oriented. She again wants adequate pain control, but family is scared to medicate her. Patient wants to go home, but "does not feel ready." She expects to be back on her feet, feeling stronger, without diarrhea and eating better. I advised we will likely never get her back to her baseline functional status prior to admission given disease progression and resistant, recurrent C. diff that may never go away. She has things she wants to do at home, but I do not foresee she or family being ready for DC in the coming days. She again is open to hospice support on DC but her goals of level of functioning upon DC do not seem realistic. I think they understand she will have further decline and will from her cancer, but somehow still feel she will get better again (as she has always done in the past). . . . Family/friend interactions see interval note. (NIEVES URRUTIA) Advance Directives Living Will: Never completed Health Care Surrogate: Never completed Durable Power of Supervisor Wet Pour: Never completed (NIEVES URRUTIA) Advance Directive Specifics Health Care Surrogate(s): No written advance directives. According to [place] statutes health care proxy decision-making falls to her spouse. She indicates she would want her spouse to make medical decisions should she become incapacitated. . Significant change in goals: FULL CODE. Goals still do not appear comfort oriented. She again wants adequate pain control, but family is scared to medicate her. Patient wants to go home, but "does not feel ready." She expects to be back on her feet, feeling stronger , without diarrhea and eating better. I advised we will likely never get her back to her baseline functional status prior to admission given disease progression and resistant, recurrent C. diff that may never go away. She has things she wants to do at home, but I do not foresee she or family being ready for DC in the coming days. She again is open to hospice support on DC but her goals of level of functioning upon DC do not seem realistic. I think they understand she will have further decline and will from her cancer, but somehow still feel she will get better again (as she has always done in the past ). . (NIEVES URRUTIA) Objective Vital Signs Date Time Temp Pulse Resp B/P Pulse Ox O2 Delivery O2 Flow Rate FiO2 05/08/16 12:00 76 05/08/16 12:00 97.6 76 12 113/56 98 05/08/16 10:00 72 05/08/16 08:00 76 05/08/16 08:00 98.2 76 14 102/58 98 05/08/16 06:00 72 05/08/16 04:00 72 05/08/16 04:00 98.5 72 12 98/54 96 05/08/16 02:00 80 05/08/16 00:00 86 05/08/16 00:00 98.4 86 15 116/56 98 05/07/16 22:00 80 05/07/16 20:00 76 05/07/16 20:00 98.6 76 12 130/78 98 05/07/16 18:00 82 05/07/16 16:00 75 05/07/16 16:00 98.4 75 8 100/52 100 Intake & Output 05/08/16 05/08/16 07:00 19:00 Intake Total 785 ml Balance 785 ml Intake Oral 300 ml IV Total 485 ml # Voids 3 # Bowel Movements 4 Physical Exam CONSTITUTIONAL/GENERAL: This is a frail, chronically ill patient, who appears older than her actual age, writhing in pain. TUBES/LINES/DRAINS: port, PIV. SKIN: pale. Diffuse erythema and scaling in both extremities. Bilateral lower extremity edema left > right. Erythema LLE and thigh, decreased slightly from prior. CARDIOVASCULAR: RRR. RESPIRATORY/CHEST: Symmetric, unlabored respirations. Clear to auscultation. Breath sounds equal bilaterally. GASTROINTESTINAL: Abdomen soft, tender right upper and lower quadrant, mildly distended. Bowel sounds active. GENITOURINARY: Without palpable bladder distension. MUSCULOSKELETAL: Extremities increased bilateral LE edema, left > right. NEUROLOGICAL: Awake and alert, intermittently confused. Follows commands. PSYCHIATRIC: Awake and alert, self reports some anxiety. . (NIEVES URRUTIAP-Sylvester) Diagnostic Tests Laboratory Laboratory Tests Test 05/05/16 05/06/16 05/07/16 17:46 15:12 03:00 Nasal Screen MRSA (PCR) NEGATIVE (NEGATIVE) Sodium Level 139 MEQ/L 141 MEQ/L (136-145) (136-145) Potassium Level 3.3 MEQ/L 3.1 MEQ/L (3.5-5.1) (3.5-5.1) Chloride Level 111 MEQ/L 112 MEQ/L (98-107) (98-107) Carbon Dioxide Level 19.7 MEQ/L 20.3 MEQ/L (21.0-32.0) (21.0-32.0) Anion Gap 8 MEQ/L (5-15) 9 MEQ/L (5-15) Blood Urea Nitrogen 15 MG/DL (7-18) 14 MG/DL (7-18) Creatinine 0.81 MG/DL 0.71 MG/DL (0.50-1.00) (0.50-1.00) Estimat Glomerular Filtration 71 ML/MIN (>89) 83 ML/MIN (>89) Rate Random Glucose 91 MG/DL 77 MG/DL (74-106) (74-106) Calcium Level 7.0 MG/DL 6.9 MG/DL (8.5-10.1) (8.5-10.1) Protein Corrected Calcium 8.4 MG/DL 8.7 MG/DL (8.5-10.1) (8.5-10.1) Total Protein 4.5 GM/DL 3.9 GM/DL (6.4-8.2) (6.4-8.2) (NIEVES URRUTIA) Result Diagram: 05/04/16 0649 05/07/16 0300 Assessment and Plan Disease Oriented Problem List: (1) Ovarian cancer with mets to liver and lung (2) Anemia (3) COPD (chronic obstructive pulmonary disease) Symptom Scale: (1) Intractable pain 0-10 Scale: 8 Comment: secondary to metastatic ovarian cancer with disease progression despite recent chemotherapy, rectovaginal fistula, pelvic mass. (2) Nausea 0-10 Scale: 0 Comment: Denies during my visit, reports intermittent nausea, no vomiting. Relieved with meds. (3) Vaginal discharge 0-10 Scale: Unable to quantify Comment: Secondary to pelvic mass, rectovaginal fistula. (4) Reflux esophagitis 0-10 Scale: 0 (5) Diarrhea 0-10 Scale: Unable to quantify Pertinent Non-Medical Issues Psychosocial: . Supported by her 2 daughters, Shey and Zelda. Also supported by her sister, Yoli. Lives in [place]. Spiritual: Member [employer]. 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 Legal:No written advance directives. According to [place] statutes health care proxy decision-making falls to her spouse. She indicates she would want her spouse to make medical decisions should she become incapacitated. Ethical issues impacting care: no known concerns at this time. . Important Contacts * Kevin Jim, spouse/HCP: [phone] (cell) or [phone] (home) * Shey Jim, daughter: [phone] cell or [phone] work * Zelda Fuentes, daughter: [phone] cell or [phone] work * Yoli Ninater, sister: [phone] cell or [phone] home . Prognosis Mrs. Jim has recurrent Ovarian cancer with Mets to liver and lung disease progression despite recent palliative chemotherapy admitted with abdominal and vaginal pain. Patient has had ovarian cancer undergoing treatment for the last 10 years, she is certainly hospice appropriate should she elect comfort focused care. Ovarian cancer is a terminal condition. . Code Status: Full Code Plan * No written advance directives. According to [place] statutes health care proxy decision-making falls to her spouse. She indicates she would want her spouse to make medical decisions should she become incapacitated. Recommend shared decision making given her intermittent confusion. * FULL CODE. * Discussed with Dr. Damon, plan to transfer out of ICU. * 05/08/16: FULL CODE. Goals still do not appear comfort oriented. Patient again wants adequate pain control, but family is scared to medicate her. Patient wants to go home, but "does not feel ready." She expects to be back on her feet , feeling stronger, without diarrhea and eating better. I advised we will likely never get her back to her baseline functional status prior to admission given disease progression and resistant, recurrent C. diff that may never go away. She has things she wants to do at home, but I do not foresee she or family being ready for DC in the coming days. She again is open to hospice support on DC but her goals of level of functioning upon DC do not seem realistic. I think they understand she will have further decline and will from her cancer, but somehow still feel she will get better again (as she has always done in the past). * SYMPTOMS: Intractable Pain: secondary to metastatic ovarian cancer with disease progression despite recent chemotherapy, rectovaginal fistula, pelvic mass. Continue Methadone 7.5 mg PO every 8 hours ATC. Dilaudid 4 mg PO Q3 hours PRN breakthrough pain, has had 4 doses in 24 hours. Fentanyl patch was DCd on 05/05/16 (after Halicat). Licocaine gel to vaginal area PRN pain. Nausea: Reglan and Zofran available with relief. Anxiety: may also be contributing to pain. Family wants Ativan discontinued, done per their request. Reflux: Maalox 30 mL every 6 hours PRN indigestion/ reflux. Diarrhea: On Flagyl and Vancomycin as she has recurrent, complicated C. Diff with no clinical improvement with Flagyl. * Palliative care will continue to follow throughout hospital course to assist with symptom management and further clarification of treatment goals. . (NIEVES URRUTIA) Attestation To help prompt me to consider important information that might be impacting today's encounter and assessment, information from prior notes written by myself or my colleagues may have been "brought forward" into today's note. My signature on this note, however, is an attestation that I personally performed the exam, history, and/or decision-making noted today, and, unless otherwise indicated, the interactions with patient, family, and staff as well as the review of records all occurred today. I also attest that the listed assessment and stated plan reflect my best clinical judgment today based on the combination of historical information, prior notes, and today's exam/ interactions. When time spent is documented, it refers only to time spent today by the signer, or if indicated, combined time spent today by collaborating physician/nurse practitioner. (NIEVES URRUTIA) Collaborating MD Comments Chart reviewed. Case discussed with palliative care LINE SERVER. Above note reviewed and I concur. . (Anthony Crain MD) NIEVES URRUTIA May 08, 2016 15:24 Anthony Crain MD Jun 12, 2016 17:28
[2016-05-08] MEDS ORDERED: SODIUM CHLORID 0.9% 500 ML INJ 500 ML IV ONE (19:30)
[2016-05-08] MEDS ORDERED: KETOROLAC TROMETHAMINE 30 MG/ML (IVP) VIAL IV PUSH PRN (20:00)
[2016-05-08] MEDS: SODIUM CHLOR 0.9% 1000 ML INJ 1,000 ML IV SCH (21:54)
--- NOTE | 2016-05-08 23:22 | HHI.PR ---
Subjective Remarks Patient in bed with family at the bedside Stated she feels tired, lower abdominal pain still there, she feels nauseated, still with diarrhea No plan to consider DNR at this time, I extensively discussed with the patient' s family and with palliative care Patient had episodes of hypotension, bradypnea, need to be cautious with narcotic Objective Vitals Vital Signs Date Time Temp Pulse Resp B/P Pulse Ox O2 Delivery O2 Flow Rate FiO2 05/08/16 20:00 93 05/08/16 20:00 98.6 100 11 99/51 95 05/08/16 18:00 96 05/08/16 16:00 100 05/08/16 16:00 98.7 100 18 89/52 97 05/08/16 14:00 120 05/08/16 12:00 76 05/08/16 12:00 97.6 76 12 113/56 98 05/08/16 10:00 72 05/08/16 08:00 76 05/08/16 08:00 98.2 76 14 102/58 98 05/08/16 06:00 72 05/08/16 04:00 72 05/08/16 04:00 98.5 72 12 98/54 96 05/08/16 02:00 80 05/08/16 00:00 86 05/08/16 00:00 98.4 86 15 116/56 98 I/O 05/07/16 05/07/16 05/07/16 05/08/16 05/08/16 05/08/16 07:00 15:00 23:00 07:00 15:00 23:00 Intake Total 250 ml 240 ml 525 ml 260 ml 284 ml Output Total 100 ml Balance 250 ml 240 ml 525 ml 260 ml 184 ml Intake Oral 240 ml 240 ml 180 ml 120 ml IV Total 10 ml 0 ml 345 ml 140 ml 284 ml Emesis 100 ml # Voids 3 3 1 2 2 # Bowel Movements 4 4 1 3 2 Result Diagram: 05/04/16 0649 05/07/16 0300 Objective Remarks GENERAL: This is a well-nourished, well-developed patient, in no apparent distress. CARDIOVASCULAR: Regular rate and rhythm without murmurs, gallops, or rubs. RESPIRATORY: Fair air entry bilaterally. No wheezes, rales, or rhonchi. GASTROINTESTINAL: Abdomen reveal generalized tenderness on the lower abdomen with fullness to palpation throughout, especially on the right upper quadrant nondistended. Appreciated some bowel sounds MUSCULOSKELETAL: Extremities +1 edema. Pedal pulses appreciated NEUROLOGICAL: Awake and alert. Moves all extremity. Normal speech.no focal neurological deficit A/P Problem List: (1) Ovarian cancer ICD Code: C56.9 Status: Chronic (2) Leg swelling ICD Code: M79.89 Status: Acute (3) Anemia ICD Code: D64.9 Status: Acute (4) Diarrhea ICD Code: R19.7 Status: Acute Assessment and Plan 05/06:D/W palliative care, patient, her sister, currently still wants to be full code, managing pain , added vancomycin po, since this is the third episode, continue effort with palliative care 05/07: Continue current management, Flagyl I.V., by mouth vancomycin, continue with palliative care, a fourth for transition to hospice if patient agree currently full code 05/08: Continue current management, episodes of hypotension and slow breathing with narcotic, no plan for DNR, requesting goal of treatment is full A/P: (1) advanced Ovarian cancer Hospice appropriate; palliative care following Continue pain management, comfort care Patient and family seems to be more accepting the fact of the advanced condition , hospice and DNR however not confirmed yet (2) DVT with Leg swelling on Lovenox twice daily. Overall improved (3) Anemia Mostly of chronic disease, continue monitoring H&H, has been stable (4) C. difficile Diarrhea Patient reporting no improvement with diarrhea. Per record's to be the third episode, agree with adding vancomycin by mouth Continue antiemetics Scarlett Damon MD May 08, 2016 23:22
[2016-05-09] VITALS (10 sets, daily range): BP systolic 91–107; BP diastolic 49–57; PULSE 73–87; RESP 8–21; TEMP 97.8–98.8; O2SAT 96–100
[2016-05-09] MEDS: ALUMINUM/MAGNESIUM/SIMETH 30 ML CUP PO PRN ×2 (02:45→14:01)
[2016-05-09] MEDS: metroNIDAZOLE 500 MG INJ 100 ML IV SCH ×3 (06:04→22:49)
[2016-05-09] MEDS: ONDANSETRON HCL 4 MG/2 ML VIAL IV PRN ×2 (06:18→15:16)
--- NOTE | 2016-05-09 06:57 | MB ---
cc: SCARLETT DAMON MD, KELLY L. MD DATE OF CONSULTATION 05/08/[address] Scarlett Damon REASON FOR CONSULTATION Visit with the family of Linda Jim and visit with Linda Jim. I had the opportunity to sit down with Linda Jim's family, , daughters, family friend reiterating and re-discussing issues that had been addressed in a series of ongoing discussions by myself and others. Whereas they all verbalized that they know that her condition is terminal and that she is dying, they remain undecided and were not uniformly in agreement with coming under the care of hospice. They state their goals are to get home, but they do not want her home in such a debilitated condition. The refer to have her undergo physical therapy and they ask about a rehab facility after discharge from the hospital where physical therapy could be considered to help her maintain whatever strength and independent functioning is possible. I explained that it is improbable that she will ever improved significantly and they need to understand that she will not have any significant recovery from her current condition nor would she have any significant improvement in her performance status. Her overall status disease has progressed. It is so significant in its presence again reiterating widely metastatic recurrent disease no longer responsive to treatment with extensive liver metastasis, intraperitoneal/retroperitoneal disease, intermittent bowel obstructions, kidney obstructions, rectovaginal fistula, overall debilitation, electrolyte abnormalities and recurrent infections, performance status diminished and other problems either directly or indirectly related to this underlying disease. I had an extensive discussion last week with Linda iJm with her and daughter present. She stated that she did not want to be placed on the ventilator. Did not want to be kept alive by artificial means and at that discussion, she was in favor of establishing a do not intubate, do not resuscitate order and was in favor of considering moving toward home Hospice. However, due to disagreement amongst the family shortly thereafter, they demanded that DNR/DNI order be rescinded so there is ongoing issues within the family in that they are not consistent in their understanding and expectations and very grateful for the care of others including and especially the palliative care team further ongoing help in this regard. At the time of discussion today, they remain undecided regarding code status or Hospice. At their request, I will ask case management if there is a rehab facility for which she would be eligible that would accept the patient knowing that they are terminal and still work with them from a physical therapy standpoint and would provide some care as they favor this as opposed to her going home in her current condition under hospice care and I will leave that into the capable hands of the case reviewer and the palliative care team. I then saw Linda Jim. She is more alert now. She had an episode earlier where she was quite anxious with nausea and vomiting, but with medication, her symptoms seem to have resolved and she is actually was relatively comfortable at the time of our discussion. She wants the family to do whatever they think is best and she states that she knows they will do the right thing and I believes she is also now somewhat reluctant to make a definitive decision regarding code status or Hospice as she feels that she may disappoint family members or this may be opposed to their wishes and so ongoing counseling and efforts to skilled nursing facility counselor with the family will be necessary and helpful. We will continue to honor her wishes and treat things that are treatable and reverse things that are reversible and provide supportive care and symptomatic relief for those things that are not able to be changed. MD YAMILETH Chandra/SUNITA /6:29 AM /6:43 AM
[2016-05-09] MEDS: SODIUM CHLOR 0.9% 1000 ML INJ 1,000 ML IV SCH ×2 (07:25→21:01)
[2016-05-09] MEDS: DRONABINOL 5 MG CAP PO SCH ×2 (08:11→20:23)
[2016-05-09] MEDS: METHADONE HCL 10 MG/10 ML ORAL SOLUTION PO SCH ×3 (08:12→15:16)
[2016-05-09] MEDS: ENOXAPARIN SODIUM 60 MG/0.6 ML SYRINGE SQ SCH ×2 (08:12→20:24)
[2016-05-09] MEDS: VANCOMYCIN 500 MG VIAL (FOR ORAL USE ONLY) PO SCH ×4 (08:12→20:23)
[2016-05-09] MEDS: ALBUTEROL SULFATE 90 MCG/ACT HFA 18 GM INHALER INH SCH ×4 (09:00→21:01)
[2016-05-09] MEDS: TIOTROPIUM BROMIDE 18 MCG INH INH SCH (09:00)
[2016-05-09] MEDS: SODIUM CHLORIDE 0.9% FLUSH 5 ML FLUSH FLUSH SCH ×2 (09:00→20:24)
--- NOTE | 2016-05-09 13:42 | HHI.PR ---
Subjective Remarks Stable, resting in bed, stated diarrhea is still there but slightly getting better Afebrile, still wants full goal of treatment D/W possibility of discharge to rehabilitation with hospice when diarrhea improved Objective Vitals Vital Signs Date Time Temp Pulse Resp B/P Pulse Ox O2 Delivery O2 Flow Rate FiO2 05/09/16 10:05 12 05/09/16 08:00 98.6 74 10 102/52 96 05/09/16 06:00 79 05/09/16 04:00 98.8 73 12 91/49 97 05/09/16 04:00 75 05/09/16 02:00 82 05/09/16 00:00 98.6 77 8 99/56 97 05/09/16 00:00 82 05/08/16 20:00 93 05/08/16 20:00 98.6 100 11 99/51 95 05/08/16 18:00 96 05/08/16 16:00 100 05/08/16 16:00 98.7 100 18 89/52 97 05/08/16 14:00 120 I/O 05/08/16 05/08/16 05/08/16 05/09/16 05/09/16 05/09/16 07:00 15:00 23:00 07:00 15:00 23:00 Intake Total 260 ml 284 ml 1214 ml 856 ml Output Total 100 ml 1 ml Balance 260 ml 184 ml 1214 ml 856 ml -1 ml Intake Oral 120 ml 120 ml 120 ml IV Total 140 ml 284 ml 1094 ml 736 ml Stool Total 1 ml Emesis 100 ml # Voids 2 2 2 1 # Bowel Movements 3 2 2 1 Result Diagram: 05/07/16 0300 Objective Remarks GENERAL: This is a well-nourished, well-developed patient, in no apparent distress. CARDIOVASCULAR: Regular rate and rhythm without murmurs, gallops, or rubs. RESPIRATORY: Fair air entry bilaterally. No wheezes, rales, or rhonchi. GASTROINTESTINAL: Abdomen reveal generalized tenderness on the lower abdomen with fullness to palpation throughout, especially on the right upper quadrant nondistended. Appreciated some bowel sounds MUSCULOSKELETAL: Extremities +1 edema. Pedal pulses appreciated NEUROLOGICAL: Awake and alert. Moves all extremity. Normal speech.no focal neurological deficit A/P Problem List: (1) Ovarian cancer ICD Code: C56.9 Status: Chronic (2) Leg swelling ICD Code: M79.89 Status: Acute (3) Anemia ICD Code: D64.9 Status: Acute (4) Diarrhea ICD Code: R19.7 Status: Acute Assessment and Plan 05/06:D/W palliative care, patient, her sister, currently still wants to be full code, managing pain , added vancomycin po, since this is the third episode, continue effort with palliative care 05/07: Continue current management, Flagyl I.V., by mouth vancomycin, continue with palliative care, a fourth for transition to hospice if patient agree currently full code 05/08: Continue current management, episodes of hypotension and slow breathing with narcotic, no plan for DNR, requesting goal of treatment is full 05/09: Still having diarrhea but slightly improved, hypotensive 95/58, she is on Dilaudid by mouth nightly, need to be cautious, hopefully be able to transfer to floor when blood pressure improved, and then to rehabilitation when diarrhea and C. difficile clinically improved A/P: (1) advanced Ovarian cancer Hospice appropriate; palliative care following Continue pain management, comfort care Patient and family seems to be more accepting the fact of the advanced condition , hospice and DNR however not confirmed yet (2) DVT with Leg swelling on Lovenox twice daily. Overall improved (3) Anemia Mostly of chronic disease, continue monitoring H&H, has been stable (4) C. difficile Diarrhea Patient reporting no improvement with diarrhea. Per record's to be the third episode, on Flagyl I.V. and vancomycin by mouth Continue antiemetics Scarlett Damon MD May 09, 2016 13:42
--- NOTE | 2016-05-09 14:29 | HHI.HCSW ---
Dental Internship Visit Cognitive Functioning Met with Ms. Jim who is currently sitting up in bed, daughter at bedside. Ms. Jim is alert, somewhat bright affect at times, and able to make her needs known. Closes eyes at times during discussion while verbalizing some discomfort and nausea which she attributes to the antibiotics. Tells me family is trying to get her to eat but she is currently unable to because of how she is feeling. Normalized feelings. Encouraged her to continue to try things she is comfortable with but not push herself for means of others. Daughter brings up physical therapy and possibly trying to work with them later today. Ms. Jim continues to verbalize nausea and being "afraid to even move because it comes in waves". Offered emotional support. . Significant Family/Friend Daughter at bedside. . Quality of Life Values/Goals Goals remain aggressive at this time. Ms. Jim has expressed desire to go home and attend to different affairs. Hospice at home has been discussed with patient and family although they are not ready to transition to comfort oriented goals. . Follow Up Visit Palliative care will continue to follow throughout hospitalization. SW will follow for emotional support. Joy Guzman, BUSINESS MANAGER [employer] May 09, 2016 14:29
--- NOTE | 2016-05-09 15:54 | HHI.HCPN ---
Reason for visit a. To assist with evaluation and management of symptoms including: abdominal /pelvic pain, diarrhea. b. To assist medical decision maker(s) with: better understanding of current medical conditions; weighing benefits/burdens of medical treatment options; making medical treatment decisions. . (NIEVES URRUTIA) Subjective/Interval History Patient seen and examined in room with daughterZelda at bedside. Discussed with nurse. Also present YOLI Coronado. Afebrile. BP stable systolic 90's. Now on IV fluids. She "feels weak and dizzy. " Patient again verbalizes no appetite and being afraid to eat for fear of making diarrhea worse. No new imaging or labs. Diarrhea appears to be decreasing , 5 stools in past 24 hours. Remains on Flagyl IV and oral vancomycin for C. Diff 027 +. Having some nausea, no vomiting. Rates pain 5 during visit, family reports they are giving her only half of oral Dilaudid and "it is working to divide the 4mg dose into 2 doses 1 hour apart. Remains on Methadone 7.5mg PO every 8 hours ATC. Fentanyl patch was DCd on after Halicat was called. I suspect increase need for PRN Dilaudid is related to Fentanyl being stopped. Family remains resistant to increasing pain meds. She had 1 dose of IV Dilaudid and Toradol on 05/08/16. Patient and family now considering transfer to rehab for continued PT and help "getting her stronger." Goals are not hospice appropriate at this time. Will continue to follow. . . . . Family/friend interactions see interval note. (NIEVES URRUTIA) Advance Directives Living Will: Never completed Health Care Surrogate: Never completed Durable Power of Installer Inspector Final: Never completed (NIEVES URRUTIA) Advance Directive Specifics Health Care Surrogate(s): No written advance directives. According to [place] statutes health care proxy decision-making falls to her spouse. She indicates she would want her spouse to make medical decisions should she become incapacitated. . Significant change in goals: FULL CODE. Goals remain aggressive, considering rehab for continued PT, they are not ready to consider comfort measures with hospice. . (NIEVES URRUTIA) Objective Vital Signs Date Time Temp Pulse Resp B/P Pulse Ox O2 Delivery O2 Flow Rate FiO2 05/09/16 10:05 12 05/09/16 08:00 98.6 74 10 102/52 96 05/09/16 06:00 79 05/09/16 04:00 98.8 73 12 91/49 97 05/09/16 04:00 75 05/09/16 02:00 82 05/09/16 00:00 98.6 77 8 99/56 97 05/09/16 00:00 82 05/08/16 20:00 93 05/08/16 20:00 98.6 100 11 99/51 95 05/08/16 18:00 96 05/08/16 16:00 100 05/08/16 16:00 98.7 100 18 89/52 97 Intake & Output 05/09/16 05/09/16 07:00 19:00 Intake Total 2070 ml 1043 ml Output Total 3 ml Balance 2070 ml 1040 ml Intake Oral 240 ml 300 ml IV Total 1830 ml 743 ml Stool Total 3 ml # Voids 3 # Bowel Movements 3 Physical Exam CONSTITUTIONAL/GENERAL: This is a frail, chronically ill patient, who appears older than her actual age, writhing in pain. TUBES/LINES/DRAINS: port, PIV. SKIN: pale. Diffuse erythema and scaling in both extremities. Bilateral lower extremity edema left > right. Erythema LLE and thigh, decreased slightly from prior. CARDIOVASCULAR: RRR. RESPIRATORY/CHEST: Symmetric, unlabored respirations. Clear to auscultation. Breath sounds equal bilaterally. GASTROINTESTINAL: Abdomen soft, tender right upper and lower quadrant, mildly distended. Bowel sounds active. GENITOURINARY: Without palpable bladder distension. MUSCULOSKELETAL: Extremities increased bilateral LE edema, left > right. NEUROLOGICAL: Awake and alert. Follows commands. PSYCHIATRIC: Awake and alert, self reports some anxiety. . (NIEVES URRUTIA) Diagnostic Tests Laboratory Laboratory Tests Test 05/07/16 03:00 Sodium Level 141 MEQ/L (136-145) Potassium Level 3.1 MEQ/L (3.5-5.1) Chloride Level 112 MEQ/L (98-107) Carbon Dioxide Level 20.3 MEQ/L (21.0-32.0) Anion Gap 9 MEQ/L (5-15) Blood Urea Nitrogen 14 MG/DL (7-18) Creatinine 0.71 MG/DL (0.50-1.00) Estimat Glomerular Filtration 83 ML/MIN (>89) Rate Random Glucose 77 MG/DL (74-106) Calcium Level 6.9 MG/DL (8.5-10.1) Protein Corrected Calcium 8.7 MG/DL (8.5-10.1) Total Protein 3.9 GM/DL (6.4-8.2) (NIEVES URRUTIA) Result Diagram: 05/07/16 0300 Imaging Last Impressions Abdomen/Pelvis CT 04/28/16 1047 Signed Impressions: Service Date/Time: Thursday, April 28, 2016 12:16 - CONCLUSION: 1. Worsening of hepatic metastatic disease since January 21. 2. Increasing size of right middle lobe metastatic lung nodule. 3. Increasing size of pelvic mass just below the expandable sigmoid stent. 4. Development of moderate left hydronephrosis with left ureteral stent remaining in place. 5. Development of anasarca. 6. Slight increase in biliary ductal dilatation. Edgardo Lockhart MD Lower Extremity Ultrasound 04/28/16 0000 Signed Impressions: Service Date/Time: Thursday, April 28, 2016 15:49 - CONCLUSION: 1. Occlusive and nonocclusive deep venous thrombosis in the left lower extremity as above. Popliteal cyst also present. Edgardo Lockhart MD . (NIEVES URRUTIA) Assessment and Plan Disease Oriented Problem List: (1) Ovarian cancer with mets to liver and lung (2) Anemia (3) COPD (chronic obstructive pulmonary disease) Symptom Scale: (1) Intractable pain 0-10 Scale: 8 Comment: secondary to metastatic ovarian cancer with disease progression despite recent chemotherapy, rectovaginal fistula, pelvic mass. (2) Nausea 0-10 Scale: 0 Comment: Denies during my visit, reports intermittent nausea, no vomiting. Relieved with meds. (3) Vaginal discharge 0-10 Scale: Unable to quantify Comment: Secondary to pelvic mass, rectovaginal fistula. (4) Reflux esophagitis 0-10 Scale: 0 (5) Diarrhea 0-10 Scale: Unable to quantify Pertinent Non-Medical Issues Psychosocial: . Supported by her 2 daughters, Shey and Zelda. Also supported by her sister, Yoli. Lives in [place]. Spiritual: Member [employer]. 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 Legal:No written advance directives. [place] to [place] [facility] health care proxy decision-making falls to her spouse. She indicates she would want her spouse to make medical decisions should she become incapacitated. Ethical issues impacting care: no known concerns at this time. . Important Contacts * Kevin Jim, spouse/HCP: [phone] (cell) or [phone] (home) * Shey Jim, daughter: [phone] cell or [phone] work * Zelda Fuentes, daughter: [phone] cell or [phone] work * Yoli Rosario, sister: [phone] cell or [phone] home . Prognosis Mrs. Jim has recurrent Ovarian cancer with Mets to liver and lung disease progression despite recent palliative chemotherapy admitted with abdominal and vaginal pain. Patient has had ovarian cancer undergoing treatment for the last 10 years, she is certainly hospice appropriate should she elect comfort focused care. Ovarian cancer is a terminal condition. . Code Status: Full Code Plan * No written advance directives. According to [place] [facility] health care proxy decision-making falls to her spouse. She indicates she would want her spouse to make medical decisions should she become incapacitated. Recommend shared decision making given her intermittent confusion. * FULL CODE. * 05/09/16: FULL CODE. Goals remain aggressive, considering rehab for continued PT, they are not ready to consider comfort measures with hospice. * SYMPTOMS: Intractable Pain: secondary to metastatic ovarian cancer with disease progression despite recent chemotherapy, rectovaginal fistula, pelvic mass. Continue Methadone 7.5 mg PO every 8 hours ATC. Dilaudid 4 mg PO Q3 hours PRN breakthrough pain, has had 4 doses in 24 hours. Fentanyl patch was DCd on 05/05/16 (after Halicat). Licocaine gel to vaginal area PRN pain. Nausea: Reglan and Zofran available with relief. Anxiety: may also be contributing to pain. Family wants Ativan discontinued, done per their request. Diarrhea: On Flagyl and Vancomycin as she has recurrent, complicated C. Diff, improving. * Palliative care will continue to follow throughout hospital course to assist with symptom management and further clarification of treatment goals. . (NIEVES URRUTIA) Attestation To help prompt me to consider important information that might be impacting today's encounter and assessment, information from prior notes written by myself or my colleagues may have been "brought forward" into today's note. My signature on this note, however, is an attestation that I personally performed the exam, history, and/or decision-making noted today, and, unless otherwise indicated, the interactions with patient, family, and staff as well as the review of records all occurred today. I also attest that the listed assessment and stated plan reflect my best clinical judgment today based on the combination of historical information, prior notes, and today's exam/ interactions. When time spent is documented, it refers only to time spent today by the signer, or if indicated, combined time spent today by collaborating physician/nurse practitioner. (NIEVES URRUTIA) Collaborating MD Comments Chart reviewed. Case discussed with palliative care BINDERY OPERATOR. Above note reviewed and I concur. . (Anthony Crain MD) NIEVES URRUTIA May 09, 2016 15:54 Anthony Crain MD Jun 12, 2016 17:27
[2016-05-09] MEDS: METOCLOPRAMIDE HCL 10 MG/2 ML VIAL IV PRN (18:29)
[2016-05-09] MEDS: HYDROmorphone HCL 4 MG TAB PO PRN (20:23)
[2016-05-10] VITALS (12 sets, daily range): BP systolic 92–142; BP diastolic 52–65; PULSE 75–86; RESP 6–19; TEMP 98–98.9; O2SAT 98–100
[2016-05-10] MEDS: metroNIDAZOLE 500 MG INJ 100 ML IV SCH ×3 (05:45→23:50)
[2016-05-10] MEDS: SODIUM CHLOR 0.9% 1000 ML INJ 1,000 ML IV SCH ×2 (08:33→19:10)
[2016-05-10] MEDS: DRONABINOL 5 MG CAP PO SCH ×2 (08:33→20:17)
[2016-05-10] MEDS: ENOXAPARIN SODIUM 60 MG/0.6 ML SYRINGE SQ SCH ×2 (08:33→20:17)
[2016-05-10] MEDS: ALBUTEROL SULFATE 90 MCG/ACT HFA 18 GM INHALER INH SCH ×4 (08:34→20:18)
[2016-05-10] MEDS: METHADONE HCL 10 MG/10 ML ORAL SOLUTION PO SCH ×4 (08:34→23:51)
[2016-05-10] MEDS: TIOTROPIUM BROMIDE 18 MCG INH INH SCH (08:34)
[2016-05-10] MEDS: VANCOMYCIN 500 MG VIAL (FOR ORAL USE ONLY) PO SCH ×4 (08:34→20:17)
[2016-05-10] MEDS: SODIUM CHLORIDE 0.9% FLUSH 5 ML FLUSH FLUSH SCH ×2 (08:34→20:17)
[2016-05-10] MEDS: HYDROmorphone HCL 4 MG TAB PO PRN ×2 (08:35→20:17)
[2016-05-10] MEDS: ONDANSETRON HCL 4 MG/2 ML VIAL IV PRN ×2 (08:40→21:35)
[2016-05-10] MEDS: METOCLOPRAMIDE HCL 10 MG/2 ML VIAL IV PRN (11:34)
--- NOTE | 2016-05-10 15:21 | HHI.PR ---
Subjective Remarks Only 2 bowel movements today, still watery, I confirmed with the nurse No abdominal pain, afebrile [facility] hopefully to rehabilitation in 1 or 2 days if diarrhea improved Objective Vitals Vital Signs Date Time Temp Pulse Resp B/P Pulse Ox O2 Delivery O2 Flow Rate FiO2 05/10/16 14:00 82 05/10/16 12:00 98.1 75 6 119/55 99 05/10/16 12:00 76 05/10/16 10:00 86 05/10/16 08:00 98.2 86 13 125/58 100 05/10/16 08:00 86 05/10/16 06:00 83 05/10/16 04:00 75 05/10/16 04:00 98.9 75 10 92/55 100 05/10/16 02:00 80 05/10/16 00:00 98.5 80 9 102/52 100 05/10/16 00:00 81 05/09/16 22:00 81 05/09/16 20:00 97.8 78 21 100/57 97 05/09/16 20:00 87 05/09/16 16:45 44 05/09/16 16:18 75 05/09/16 16:16 98.4 77 12 96/53 98 I/O 05/09/16 05/09/16 05/09/16 05/10/16 05/10/16 05/10/16 07:00 15:00 23:00 07:00 15:00 23:00 Intake Total 856 ml 1636 ml 624 ml 870 ml Output Total 1 ml 2 ml Balance 856 ml -1 ml 1634 ml 624 ml 870 ml Intake Oral 120 ml 330 ml 30 ml 240 ml IV Total 736 ml 1306 ml 594 ml 630 ml Stool Total 1 ml 2 ml # Voids 1 1 3 2 # Bowel Movements 1 1 3 2 Result Diagram: 05/07/16 0300 Objective Remarks GENERAL: This is a well-nourished, well-developed patient, in no apparent distress. CARDIOVASCULAR: Regular rate and rhythm without murmurs, gallops, or rubs. RESPIRATORY: Fair air entry bilaterally. No wheezes, rales, or rhonchi. GASTROINTESTINAL: Abdomen reveal generalized tenderness on the lower abdomen with fullness to palpation throughout, especially on the right upper quadrant nondistended. Appreciated some bowel sounds MUSCULOSKELETAL: Extremities +1 edema. Pedal pulses appreciated NEUROLOGICAL: Awake and alert. Moves all extremity. Normal speech.no focal neurological deficit A/P Problem List: (1) Ovarian cancer ICD Code: C56.9 Status: Chronic (2) Leg swelling ICD Code: M79.89 Status: Acute (3) Anemia ICD Code: D64.9 Status: Acute (4) Diarrhea ICD Code: R19.7 Status: Acute Assessment and Plan 05/06:D/W palliative care, patient, her sister, currently still wants to be full code, managing pain , added vancomycin po, since this is the third episode, continue effort with palliative care 05/07: Continue current management, Flagyl I.V., by mouth vancomycin, continue with palliative care, a fourth for transition to hospice if patient agree currently full code 05/08: Continue current management, episodes of hypotension and slow breathing with narcotic, no plan for DNR, requesting goal of treatment is full 05/09: Still having diarrhea but slightly improved, hypotensive 95/58, she is on Dilaudid by mouth nightly, need to be cautious, hopefully be able to transfer to floor when blood pressure improved, and then to rehabilitation when diarrhea and C. difficile clinically improved 05/10: Only 2 bowel movement today still watery, hopefully able to discharge to rehabilitation in 1-2 days if diarrhea improved, transfer to [facility] floor today , blood pressure improved A/P: (1) advanced Ovarian cancer Hospice appropriate; palliative care following Continue pain management, comfort care Patient and family seems to be more accepting the fact of the advanced condition , hospice and DNR however not confirmed yet (2) DVT with Leg swelling on Lovenox twice daily. Overall improved (3) Anemia Mostly of chronic disease, continue monitoring H&H, has been stable (4) C. difficile Diarrhea Patient reporting no improvement with diarrhea. Per record's to be the third episode, on Flagyl I.V. and vancomycin by mouth Continue antiemetics Scarlett Damon MD May 10, 2016 15:21
[2016-05-10] MEDS: fentaNYL 100 MCG/HR PATCH TD SCH (17:01)
[2016-05-10] MEDS: REMOVE OLD DURAGESIC (FENTANYL) PATCH TD SCH (17:02)
[2016-05-11] VITALS (7 sets, daily range): BP systolic 119–128; BP diastolic 54–79; PULSE 83–93; RESP 18–20; TEMP 97.3–98.1; O2SAT 94–100
[2016-05-11] MEDS: HYDROmorphone HCL 4 MG TAB PO PRN ×3 (03:58→21:27)
[2016-05-11] MEDS: metroNIDAZOLE 500 MG INJ 100 ML IV SCH (05:53)
[2016-05-11 06:30] LABS: BICARBONATE 17.5 MEQ/L (21.0-32.0); POTASSIUM 3.6 MEQ/L (3.5-5.1)
[2016-05-11 06:46] LABS: AUTOMATED NEUTROPHIL # 6.8 TH/MM3 (1.8-7.7); BASOPHIL # 0.1 TH/MM3 (0-0.2); BASOPHIL % 0.6 % (0.0-2.0); EOSINOPHIL % 0.5 % (0.0-4.0); HEMATOCRIT 25.6 % (35.0-46.0); HEMO FLAGS DIFF FINAL; LYMPH % 8.3 % (9.0-44.0); LYMPHOCYTE # 0.7 TH/MM3 (1.0-4.8); MEAN CELL VOLUME 82.9 FL (80.0-100.0); MEAN CORPUSCULAR HEMOGLOBIN 27.3 PG (27.0-34.0); MEAN CORPUSCULAR HGB CONC 32.9 % (32.0-36.0); MONO % 15.4 % (0.0-8.0); NEUT % 75.2 % (16.0-70.0); PLATELET COUNT 407 TH/MM3 (150-450); RED BLOOD COUNT 3.08 MIL/MM3 (4.00-5.30); RED CELL DISTRIBUTION WIDTH 19.5 % (11.6-17.2)
[2016-05-11 06:48] LABS: CALCIUM-PROTEIN CORRECTED 8.2 MG/DL (8.5-10.1)
[2016-05-11] MEDS: SODIUM CHLOR 0.9% 1000 ML INJ 1,000 ML IV SCH ×2 (07:05→19:00)
[2016-05-11] MEDS: ENOXAPARIN SODIUM 60 MG/0.6 ML SYRINGE SQ SCH ×2 (08:00→21:27)
[2016-05-11] MEDS: METHADONE HCL 10 MG/10 ML ORAL SOLUTION PO SCH ×3 (08:00→23:30)
[2016-05-11] MEDS: ALBUTEROL SULFATE 90 MCG/ACT HFA 18 GM INHALER INH SCH ×3 (09:00→21:00)
[2016-05-11] MEDS: DRONABINOL 5 MG CAP PO SCH ×2 (09:00→21:28)
[2016-05-11] MEDS: VANCOMYCIN 500 MG VIAL (FOR ORAL USE ONLY) PO SCH ×4 (09:00→21:28)
[2016-05-11] MEDS: TIOTROPIUM BROMIDE 18 MCG INH INH SCH (09:00)
[2016-05-11] MEDS: SODIUM CHLORIDE 0.9% FLUSH 5 ML FLUSH FLUSH SCH ×3 (09:00→21:29)
--- NOTE | 2016-05-11 13:56 | HHI.PR ---
Subjective Remarks Patient stated she only had 2 bowel movements today however with reviewing with the nurse patient seems to have 9-10 bowel movement over 24 hours, she wakes up in the night to go Still watery, to me doesn't seem to be significantly improving, she is on Flagyl I.V. and Vanco by mouth, she is afebrile Consult GI Objective Vitals Vital Signs Date Time Temp Pulse Resp B/P Pulse Ox O2 Delivery O2 Flow Rate FiO2 05/11/16 08:00 98.0 84 20 119/54 94 05/11/16 08:00 83 05/11/16 04:00 98.0 85 18 126/57 97 05/11/16 00:00 97.3 83 18 124/67 98 05/10/16 22:30 98.0 83 19 111/55 100 05/10/16 20:00 98.6 82 8 142/65 98 05/10/16 20:00 82 05/10/16 18:00 86 05/10/16 16:00 98.1 81 9 136/61 98 05/10/16 14:00 82 I/O 05/10/16 05/10/16 05/10/16 05/11/16 05/11/16 05/11/16 06:59 14:59 22:59 06:59 14:59 22:59 Intake Total 624 ml 870 ml 1118 ml 120 ml Balance 624 ml 870 ml 1118 ml 120 ml Intake Oral 30 ml 240 ml 120 ml 120 ml IV Total 594 ml 630 ml 998 ml # Voids 3 2 4 2 # Bowel Movements 3 2 4 3 Result Diagram: 05/11/16 0555 05/11/16 0555 Objective Remarks GENERAL: This is a well-nourished, well-developed patient, in no apparent distress. CARDIOVASCULAR: Regular rate and rhythm without murmurs, gallops, or rubs. RESPIRATORY: Fair air entry bilaterally. No wheezes, rales, or rhonchi. GASTROINTESTINAL: Abdomen less tenderness on the lower abdomen with fullness to palpation throughout,. Appreciated some bowel sounds MUSCULOSKELETAL: Extremities +1 edema. Pedal pulses appreciated NEUROLOGICAL: Awake and alert. Moves all extremity. Normal speech.no focal neurological deficit A/P Problem List: (1) Ovarian cancer ICD Code: C56.9 Status: Chronic (2) Leg swelling ICD Code: M79.89 Status: Acute (3) Anemia ICD Code: D64.9 Status: Acute (4) Diarrhea ICD Code: R19.7 Status: Acute Assessment and Plan 05/06:D/W palliative care, patient, her sister, currently still wants to be full code, managing pain , added vancomycin po, since this is the third episode, continue effort with palliative care 05/07: Continue current management, Flagyl I.V., by mouth vancomycin, continue with palliative care, a fourth for transition to hospice if patient agree currently full code 05/08: Continue current management, episodes of hypotension and slow breathing with narcotic, no plan for DNR, requesting goal of treatment is full 05/09: Still having diarrhea but slightly improved, hypotensive 95/58, she is on Dilaudid by mouth nightly, need to be cautious, hopefully be able to transfer to floor when blood pressure improved, and then to rehabilitation when diarrhea and C. difficile clinically improved 05/10: Only 2 bowel movement today still watery, hopefully able to discharge to rehabilitation in 1-2 days if diarrhea improved, [facility] , blood pressure improved 05/11: Basically patient had 9-10 bowel movement over 24 hours, after discussing with the nurse, still watery, patient wakes up in the night to go, consult GI A/P: (1) advanced Ovarian cancer Hospice appropriate; palliative care following Continue pain management, comfort care Patient and family seems to be more accepting the fact of the advanced condition , hospice and DNR however not confirmed yet (2) DVT with Leg swelling on Lovenox twice daily. Overall improved (3) Anemia Mostly of chronic disease, continue monitoring H&H, has been stable (4) C. difficile Diarrhea Still having diarrhea watery multiple episodes. Per record's to be the third episode, on Flagyl I.V. and vancomycin by mouth Continue antiemetics Scarlett Damon MD May 11, 2016 13:55
[2016-05-11] MEDS: CHOLESTYRAMINE 4 GM PACKET PO SCH ×2 (14:45→21:28)
[2016-05-11] MEDS: FIDAXOMICIN 200 MG TAB PO SCH ×2 (14:45→21:27)
--- NOTE | 2016-05-11 16:00 | MB ---
cc: EDWARD AGGARWAL M.D., KELLY L. MD ABANDO,DEAN William MD DATE OF CONSULTATION: 05/11/2016. REASON FOR CONSULTATION: Persistent, recurrent C. difficile infection. PATIENT OF: Dr. Dean Garzon. HISTORY OF PRESENT ILLNESS: Ms. Jim is a 61-year-old lady with metastatic ovarian cancer who is currently on palliative chemotherapy. She was admitted about ten days ago with abdominal pain and diarrhea and was found to have a C. difficile infection. This has been treated with a combination of Flagyl and vancomycin, apparently with not much symptomatic improvement. The GI service has been consulted for further recommendations. REVIEW OF SYSTEMS: The patient is tired and is having chronic diarrhea. She says the stools also come out through the fistula that she has. PAST MEDICAL HISTORY: 1. Ovarian cancer. 2. Hypertension. 3. Hypothyroidism. 4. Neuropathy. 5. Renal insufficiency due to a pelvic mass. PAST SURGICAL HISTORY: 1. Hysterectomy. 2. Salpingo-oophorectomy. 3. Ureteral stents. 4. Hiatal hernia surgery. 5. Exploratory laparotomy. ALLERGIES: 1. CISPLATIN. 2. PENICILLIN. FAMILY HISTORY: Noncontributory. SOCIAL HISTORY: No tobacco and no alcohol at this time. MEDICATIONS: Current medications include: 1. Flagyl. 2. Vancomycin. PHYSICAL EXAMINATION: GENERAL: The physical exam reveals a well-nourished lady in no apparent distress. VITAL SIGNS: Stable. HEAD AND NECK: Anicteric sclerae. CHEST: Bilateral air entry with rales. ABDOMEN: Abdomen is soft but somewhat distended. Tenderness to lower quadrant palpation. No guarding. No rigidity. F[employer] ASSEMBLY WORKER: Nonfocal. LABORATORY STUDIES: Labs reveal white cell count of 9000, hemoglobin 8.4. Creatinine is 0.95. IMPRESSION: Refractory C. Difficile. RECOMMENDATIONS: 1. Would recommend discontinuing Flagyl; the patient probably has a resistance to this. 2. Continue vancomycin. 3. Add Dificid 200 milligrams twice a day for a total of ten days. 4. Add cholestyramine 4 grams twice a day to present regimen. If this does not work, the patient may be a candidate for possible fecal transfer. This has been discussed with her. Will follow. Thank you for this referral. MD ERYN Man /3:15 PM /3:53 PM
[2016-05-11] MEDS: ONDANSETRON HCL 4 MG/2 ML VIAL IV PRN (19:51)
[2016-05-11] MEDS: METOCLOPRAMIDE HCL 10 MG/2 ML VIAL IV PRN (23:28)
[2016-05-11] MEDS: SODIUM CHLORIDE 0.9% FLUSH 5 ML FLUSH FLUSH PRN (23:31)
[2016-05-12] VITALS (7 sets, daily range): BP systolic 119–158; BP diastolic 56–76; PULSE 80–103; RESP 16–20; TEMP 97.5–98.2; O2SAT 96–100
[2016-05-12] MEDS: HYDROmorphone HCL 4 MG TAB PO PRN ×4 (00:28→18:33)
[2016-05-12] MEDS: ENOXAPARIN SODIUM 60 MG/0.6 ML SYRINGE SQ SCH ×2 (08:32→21:03)
[2016-05-12] MEDS: VANCOMYCIN 500 MG VIAL (FOR ORAL USE ONLY) PO SCH ×4 (08:32→22:15)
[2016-05-12] MEDS: METHADONE HCL 10 MG/10 ML ORAL SOLUTION PO SCH ×3 (08:33→23:47)
[2016-05-12] MEDS: DRONABINOL 5 MG CAP PO SCH ×2 (08:36→21:02)
[2016-05-12] MEDS: FIDAXOMICIN 200 MG TAB PO SCH ×2 (08:37→21:02)
[2016-05-12] MEDS: CHOLESTYRAMINE 4 GM PACKET PO SCH ×2 (08:37→21:03)
[2016-05-12] MEDS: ALBUTEROL SULFATE 90 MCG/ACT HFA 18 GM INHALER INH SCH ×4 (08:38→21:06)
[2016-05-12] MEDS: TIOTROPIUM BROMIDE 18 MCG INH INH SCH (08:38)
--- NOTE | 2016-05-12 08:41 | PD.ONC.PN ---
Subjective Subjective Remarks Mrs. Jim is laying in bed with her sister at bedside awake and alert this morning Her sister tells me that she has been working with P.T continues to have diarrhea, GI was consulted over weekend.\\ Her sister expressed concern about the swelling she is experiencing. I explained that her protein levels are so low that she will have swelling...any diuretics would not help much and possibly decrease her blood pressure. Mrs. Jim expressed to me that she wanted to know how we can get her home, which has always been her goal. I told her that with Hospice care we can get her home, they can give her the supportive care she needs and be there not only to help her but also her family. Mrs. Jim looked at me and said "really" wide eyed like she had never heard this before...although it is well documented by myself, Palliative care, her hospital team and Dr. Pires that we have explained this to her (and her family) on multiple occasions. Mrs. Jim tells me Hospice is not an option....Her sister tells me that they may have a rehab facility that will take her close to her home, they want to talk with case management in order to explore this as a possibility. Pranay Samuels wrote order for case management on Thursday. Objective Data Date Time Temp Pulse Resp B/P Pulse Ox O2 Delivery O2 Flow Rate FiO2 05/12/16 04:00 97.6 88 16 119/57 97 05/12/16 00:12 98.2 87 16 127/56 97 05/11/16 20:00 98.1 86 18 125/62 100 05/11/16 19:47 92 05/11/16 16:00 97.3 93 20 128/79 98 05/11/16 12:00 97.8 84 18 120/63 97 05/12/16 05/12/16 05/12/16 07:00 15:00 23:00 Intake Total 928 ml Output Total 300 ml Balance 628 ml Result Diagram: 05/11/16 0555 05/11/16 0555 Administered Medications Medications (Trade) Dose Ordered Sig/Perry Route PRN Reason Start Time Stop Time Status Last Admin Dose Admin IV Flush (NS Flush) 2 ml UNSCH PRN FLUSH FLUSH AFTER USING IV ACCESS 04/28/16 14:30 05/11/16 23:31 IV Flush (NS Flush) 2 ml BID FLUSH 04/28/16 21:00 05/11/16 21:29 Dronabinol (Marinol) 5 mg BID PO 04/28/16 21:00 05/11/16 21:28 Fentanyl (Duragesic 100 Mcg Patch.72 Hr) 1 patch Q3D TD 04/28/16 18:00 05/10/16 17:01 Miscellaneous Information 1 Q3D TD 05/01/16 18:00 05/10/16 17:02 Gabapentin (Neurontin) 300 mg BID PO 04/28/16 21:00 Hold 05/02/16 19:42 Enoxaparin Sodium (Lovenox Inj) 60 mg Q12H SQ 04/28/16 20:00 05/11/16 21:27 Lidocaine HCl (Xylocaine 2% Jelly) 1 applic Q2HR PRN TOPICAL SEE LABEL COMMENTS 04/29/16 13:00 05/03/16 22:00 Acetaminophen (Ofirmev Inj) 1,000 mg Q6H PRN IV fever > 100.4 04/30/16 01:30 05/08/16 02:21 Tiotropium [place] (Spiriva Inh) 18 mcg DAILY INH 04/30/16 16:00 05/10/16 08:34 Albuterol Sulfate (Ventolin Hfa Inh) 2 puff QID INH 04/30/16 18:00 05/11/16 21:00 Methadone HCl (Methadone Liq) 7.5 mg Q8H PO 05/02/16 00:00 05/11/16 23:30 Hydromorphone HCl (Dilaudid) 4 mg Q3H PRN PO PAIN SCALE 1 TO 10 05/05/16 12:30 05/12/16 06:07 Al Hydrox/Mg Hydrox/Simethicone (Mag-Al Plus Susp Liq) 30 ml Q6H PRN PO indigestion/ reflux 05/05/16 14:30 05/09/16 14:01 Vancomycin HCl (VANCOMYCIN for oral use only) 125 mg QID PO 05/06/16 18:00 05/11/16 21:28 Metoclopramide HCl (Reglan Inj) 10 mg Q4H PRN IV NAUSEA 05/08/16 18:00 05/11/16 23:28 Ondansetron HCl 8 mg 8 mg Q6H PRN IV NASAL CONGESTION 05/08/16 14:00 05/11/16 19:51 Sodium Chloride (NS 1000 ml Inj) 1,000 ml @ 84 mls/hr [id number] IV 05/08/16 19:30 05/11/16 19:00 Fidaxomicin (Dificid) 200 mg BID PO 05/11/16 14:45 05/11/16 21:27 Cholestyramine Resin (Questran 4 Gm Pkt) 4 gm Q12HR PO 05/11/16 14:45 05/11/16 21:28 Objective Remarks GENERAL: frail SKIN: Warm and dry. HEAD: Normocephalic. EYES: No scleral icterus. No injection or drainage. NEUROLOGICAL: No obvious focal deficit. Awake, alert, and oriented x3. PSYCHIATRIC: Appropriate mood and affect. Assessment/Plan Problem List: (1) Ovarian metastasis Status: Chronic Plan: Mrs. Jim expressed that she still wished to go home, although she states Hospice is not an option for her. she wishes to explore rehab near her home. It has been explained on multiple occasions that her condition is terminal and she will not regain the strength she had prior to this most recent hospitalization. She is appropriate for Hospice. Palliative Care is following and we appreciate everything that YOLI De Anda has done to help educate family and supportive care/pain control. unfortunately despite recent treatment with taxol Mrs. Jim has had advancement of her ovarian cancer. Goal is for her to transition to Hospice care and return home with Hospice, but the family still has not been comfortable to make her DNR/DNI. Her according to [place] law would be her health care proxy, decision maker if she becomes unable to make her own decisions. Problem Qualifiers (1) Ovarian metastasis: Qualified Code: C79.60 - Malignant neoplasm metastatic to ovary, unspecified laterality Briseida Marquez May 12, 2016 08:41
[2016-05-12] MEDS: METOCLOPRAMIDE HCL 10 MG/2 ML VIAL IV PRN ×2 (11:33→16:11)
[2016-05-12] MEDS: ALUMINUM/MAGNESIUM/SIMETH 30 ML CUP PO PRN (11:55)
--- NOTE | 2016-05-12 12:23 | HHI.GIFU ---
Subjective Remarks Resting in chair. Abdominal pain is slightly improved. Still with loose stools - 2-3 so far today, small amount of blood noted. Objective Vitals I&O Vital Signs Date Time Temp Pulse Resp B/P Pulse Ox O2 Delivery O2 Flow Rate FiO2 05/12/16 08:29 97.5 86 20 127/64 100 05/12/16 08:02 84 05/12/16 04:00 97.6 88 16 119/57 97 05/12/16 00:12 98.2 87 16 127/56 97 05/11/16 20:00 98.1 86 18 125/62 100 05/11/16 19:47 92 05/11/16 16:00 97.3 93 20 128/79 98 I/O 05/11/16 05/11/16 05/11/16 05/12/16 05/12/16 05/12/16 06:59 14:59 22:59 06:59 14:59 22:59 Intake Total 120 ml 480 ml 1988 ml 928 ml Output Total 375 ml 300 ml Balance 120 ml 480 ml 1613 ml 628 ml Intake Oral 120 ml 480 ml 240 ml 240 ml IV Total 1748 ml 688 ml Output Urine Total 375 ml 300 ml Bladder Scan Volume Amount 38 ml # Voids 2 4 1 # Bowel Movements 3 4 Imaging Last Impressions Abdomen/Pelvis CT 04/28/16 1047 Signed Impressions: Service Date/Time: Thursday, April 28, 2016 12:16 - CONCLUSION: 1. Worsening of hepatic metastatic disease since January 21. 2. Increasing size of right middle lobe metastatic lung nodule. 3. Increasing size of pelvic mass just below the expandable sigmoid stent. 4. Development of moderate left hydronephrosis with left ureteral stent remaining in place. 5. Development of anasarca. 6. Slight increase in biliary ductal dilatation. Edgardo Lockhart MD Lower Extremity Ultrasound 04/28/16 0000 Signed Impressions: Service Date/Time: Thursday, April 28, 2016 15:49 - CONCLUSION: 1. Occlusive and nonocclusive deep venous thrombosis in the left lower extremity as above. Popliteal cyst also present. Edgardo Lockhart MD Physical Exam HEENT: Normocephalic; atraumatic; no jaundice. CHEST: CTA CARDIAC: RRR ABDOMEN: Soft, mildly distended, mild diffuse tenderness; no hepatosplenomegaly ; bowel sounds are present in all four quadrants. EXTREMITIES: Generalized edema. SKIN: Normal; no rash; no jaundice. PACKAGE DELIVERY ROOM SERVICE RUNNER: No focal deficits; alert and oriented times three. Assessment and Plan Plan ASSESSMENT: - Refractory CDiff Colitis (027 +), 2nd episode (1st treated with oral vanco/ flagyl in December). Abdomen/Pelvis CT (04/28/16)----> 1. Worsening of hepatic metastatic disease since January 21. 2. Increasing size of right middle lobe metastatic lung nodule. 3. Increasing size of pelvic mass just below the expandable sigmoid stent. 4. Development of moderate left hydronephrosis with left ureteral stent remaining in place. 5. Development of anasarca. 6. Slight increase in biliary ductal dilatation. S/P Flagyl 05/07-. Oral Vanco/Dificid. Abdominal pain improved. Still with loose stool- 2-3 so far today, small amount of blood noted. Cholestyramine. Family would like Florastor added. This is not available at this facility but sister will bring in as home med and it will be verified by pharmacy. If no improvement, may need sigmoidoscopy. - Ovarian metastasis. 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 Oral Vanco - Cont. Dificid - Cont. Cholestyramine - Florastor i po BID as home med once brought in - Monitor stool output - Monitor labs - Supportive care - Further recommendations to follow based on results of above - Pt seen and examined by Dr. Beckman and myself and this note is written on her behalf Marlene Fitch May 12, 2016 12:23
--- NOTE | 2016-05-12 14:29 | HHI.PR ---
Subjective Remarks Patient thing diarrhea improving slightly Afebrile, no abdominal pain GI following for C. difficile,, if no improvement may consider fecal transplant Objective Vitals Vital Signs Date Time Temp Pulse Resp B/P Pulse Ox O2 Delivery O2 Flow Rate FiO2 05/12/16 12:00 97.6 94 16 148/75 97 05/12/16 08:29 97.5 86 20 127/64 100 05/12/16 08:02 84 05/12/16 04:00 97.6 88 16 119/57 97 05/12/16 00:12 98.2 87 16 127/56 97 05/11/16 20:00 98.1 86 18 125/62 100 05/11/16 19:47 92 05/11/16 16:00 97.3 93 20 128/79 98 I/O 05/11/16 05/11/16 05/11/16 05/12/16 05/12/16 05/12/16 07:00 15:00 23:00 07:00 15:00 23:00 Intake Total 120 ml 480 ml 1988 ml 928 ml Output Total 375 ml 300 ml Balance 120 ml 480 ml 1613 ml 628 ml Intake Oral 120 ml 480 ml 240 ml 240 ml IV Total 1748 ml 688 ml Output Urine Total 375 ml 300 ml Bladder Scan Volume Amount 38 ml # Voids 2 4 1 # Bowel Movements 3 4 Result Diagram: 05/11/16 0555 05/11/16 0555 Objective Remarks GENERAL: This is a well-nourished, well-developed patient, in no apparent distress. CARDIOVASCULAR: Regular rate and rhythm without murmurs, gallops, or rubs. RESPIRATORY: Fair air entry bilaterally. No wheezes, rales, or rhonchi. GASTROINTESTINAL: Abdomen less tenderness on the lower abdomen with fullness to palpation throughout,. Appreciated some bowel sounds MUSCULOSKELETAL: Extremities +1 edema. Pedal pulses appreciated NEUROLOGICAL: Awake and alert. Moves all extremity. Normal speech.no focal neurological deficit A/P Problem List: (1) Ovarian cancer ICD Code: C56.9 Status: Chronic (2) Leg swelling ICD Code: M79.89 Status: Acute (3) Anemia ICD Code: D64.9 Status: Acute (4) Diarrhea ICD Code: R19.7 Status: Acute Assessment and Plan 05/06:D/W palliative care, patient, her sister, currently still wants to be full code, managing pain , added vancomycin po, since this is the third episode, continue effort with palliative care 05/07: Continue current management, Flagyl I.V., by mouth vancomycin, continue with palliative care, a fourth for transition to hospice if patient agree currently full code 05/08: Continue current management, episodes of hypotension and slow breathing with narcotic, no plan for DNR, requesting goal of treatment is full 05/09: Still having diarrhea but slightly improved, hypotensive 95/58, she is on Dilaudid by mouth nightly, need to be cautious, hopefully be able to transfer to floor when blood pressure improved, and then to rehabilitation when diarrhea and C. difficile clinically improved 05/10: Only 2 bowel movement today still watery, hopefully able to discharge to rehabilitation in 1-2 days if diarrhea improved, [facility] , blood pressure improved 05/11: Basically patient had 9-10 bowel movement over 24 hours, after discussing with the nurse, still watery, patient wakes up in the night to go, consult GI 05/12: Slight improvement in diarrhea, appreciate GI consultation, stopped Flagyl continue Vanco, start Dificid and cholestyramine, monitor clinical improvement A/P: (1) advanced Ovarian cancer Hospice appropriate; palliative care following Continue pain management, comfort care Patient and family seems to be more accepting the fact of the advanced condition , hospice and DNR however not confirmed yet (2) DVT with Leg swelling on Lovenox twice daily. Overall improved (3) Anemia Mostly of chronic disease, continue monitoring H&H, has been stable (4) C. difficile Diarrhea Per record's to be the third episode, resistant to Flagyl, on vancomycin by mouth, Dificid, cholestyramine GI following Continue antiemetics Scarlett Damon MD May 12, 2016 14:29
[2016-05-12] MEDS: SODIUM CHLOR 0.9% 1000 ML INJ 1,000 ML IV SCH (16:13)
[2016-05-12] MEDS: FLORASTOR PO SCH (21:00)
[2016-05-13] VITALS (7 sets, daily range): BP systolic 118–136; BP diastolic 57–65; PULSE 83–100; RESP 16–20; TEMP 97.5–98.6; O2SAT 94–99
[2016-05-13] MEDS: HYDROmorphone HCL 4 MG TAB PO PRN (02:04)
[2016-05-13] MEDS: SODIUM CHLOR 0.9% 1000 ML INJ 1,000 ML IV SCH ×2 (03:13→17:46)
[2016-05-13] MEDS: METHADONE HCL 10 MG/10 ML ORAL SOLUTION PO SCH ×2 (08:34→17:44)
[2016-05-13] MEDS: SODIUM CHLORIDE 0.9% FLUSH 5 ML FLUSH FLUSH SCH ×2 (08:35→21:00)
[2016-05-13] MEDS: ENOXAPARIN SODIUM 60 MG/0.6 ML SYRINGE SQ SCH ×2 (08:35→20:00)
[2016-05-13] MEDS: TIOTROPIUM BROMIDE 18 MCG INH INH SCH (08:36)
[2016-05-13] MEDS: DRONABINOL 5 MG CAP PO SCH ×2 (08:37→21:00)
[2016-05-13] MEDS: FIDAXOMICIN 200 MG TAB PO SCH ×2 (08:37→21:00)
[2016-05-13] MEDS: ALBUTEROL SULFATE 90 MCG/ACT HFA 18 GM INHALER INH SCH ×4 (08:37→21:00)
[2016-05-13] MEDS: FLORASTOR PO SCH ×2 (08:38→21:00)
[2016-05-13] MEDS: VANCOMYCIN 500 MG VIAL (FOR ORAL USE ONLY) PO SCH ×4 (08:39→22:00)
--- NOTE | 2016-05-13 11:20 | HHI.GIFU ---
Subjective Remarks Getting washed up in bed. States no improvement in consistency of stools- had 3 -4 small loose/liquid stools with small amount of blood. Abdomen "sore" but no significant pain. No n/v, but decreased appetite. (Marlene Fitch) Objective Vitals I&O Vital Signs Date Time Temp Pulse Resp B/P Pulse Ox O2 Delivery O2 Flow Rate FiO2 05/13/16 08:00 97.9 92 18 130/61 97 05/13/16 04:00 97.5 95 18 127/65 98 05/13/16 00:00 97.7 100 16 122/59 98 05/12/16 20:00 98.0 103 18 158/76 100 05/12/16 20:00 80 05/12/16 16:18 98.2 91 20 138/72 96 05/12/16 12:00 97.6 94 16 148/75 97 I/O 05/12/16 05/12/16 05/12/16 05/13/16 05/13/16 05/13/16 07:00 15:00 23:00 07:00 15:00 23:00 Intake Total 928 ml 240 ml 120 ml 1379 ml Output Total 300 ml 300 ml 600 ml Balance 628 ml -60 ml 120 ml 779 ml Intake Oral 240 ml 240 ml 120 ml 120 ml IV Total 688 ml 1259 ml Output Urine Total 300 ml 300 ml 600 ml Bladder Scan Volume Amount 38 ml # Voids 1 1 # Bowel Movements 5 1 2 Imaging Last Impressions Abdomen/Pelvis CT 04/28/16 1047 Signed Impressions: Service Date/Time: Thursday, April 28, 2016 12:16 - CONCLUSION: 1. Worsening of hepatic metastatic disease since January 21. 2. Increasing size of right middle lobe metastatic lung nodule. 3. Increasing size of pelvic mass just below the expandable sigmoid stent. 4. Development of moderate left hydronephrosis with left ureteral stent remaining in place. 5. Development of anasarca. 6. Slight increase in biliary ductal dilatation. Edgardo Lockhart MD Lower Extremity Ultrasound 04/28/16 0000 Signed Impressions: Service Date/Time: Thursday, April 28, 2016 15:49 - CONCLUSION: 1. Occlusive and nonocclusive deep venous thrombosis in the left lower extremity as above. Popliteal cyst also present. Edgardo Lockhart MD Physical Exam HEENT: Normocephalic; atraumatic; no jaundice. CHEST: CTA CARDIAC: RRR ABDOMEN: Soft, mildly distended, mild diffuse tenderness; no hepatosplenomegaly ; bowel sounds are present in all four quadrants. EXTREMITIES: BLE, worse in LLE. LLE with erythema SKIN: Normal; no rash; no jaundice. ENGINE ROOM OPERATOR: No focal deficits; alert and oriented times three. 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 Abdomen/Pelvis CT (04/28/16)----> 1. Worsening of hepatic metastatic disease since January 21. 2. Increasing size of right middle lobe metastatic lung nodule. 3. Increasing size of pelvic mass just below the expandable sigmoid stent. 4. Development of moderate left hydronephrosis with left ureteral stent remaining in place. 5. Development of anasarca. 6. Slight increase in biliary ductal dilatation. S/P Flagyl 05/07-. Oral Vanco/Dificid. Abdominal pain improved. Still with loose stool- 2-3 so far today, small amount of blood noted. Cholestyramine. Family would like Florastor added. This is not available at this facility but sister will bring in as home med and it will be verified by pharmacy. No significant improvement. Still having liquid/loose stool with small amount of blood- no improvement in consistency. Had 3-4 so far today. - Ovarian metastasis. Per DIVER PUMPER/ONC PLAN: - MYRNA - Cont. Oral Vanco - Cont. Dificid - Cont. Cholestyramine - Florastor i po BID as home med once brought in - Monitor stool output - Monitor labs - Supportive care - ? Sigmoidoscopy - Further recommendations to follow based on results of above - Pt seen and examined by Dr. Beckman and myself and this note is written on her behalf (Marlene Fitch) Physician Comments seen, examined agree with above we will reevaluate in am if not better consider flexisigmoidoscopy (Leandra Beckman MD) Marlene Fitch May 13, 2016 11:20 Leandra Beckman MD May 13, 2016 18:47
[2016-05-13] MEDS: CHOLESTYRAMINE 4 GM PACKET PO SCH ×2 (13:38→20:00)
--- NOTE | 2016-05-13 15:26 | HHI.HCPN ---
Reason for visit a. To assist with evaluation and management of symptoms including: abdominal /pelvic pain, diarrhea. b. To assist medical decision maker(s) with: better understanding of current medical conditions; weighing benefits/burdens of medical treatment options; making medical treatment decisions. . Subjective/Interval History Patient seen and examined in room with and friend at bedside. Sister, Yoli on telephone during my visit. Discussed with Marlene Fitch, GI. Also present YOLI Coronado. She is "feeling better." She is eating small amounts. Some lower pelvic pain, rate 3 on average. She has some abdominal pain with bowel movements. She is getting up with PT ambulating short distances and sitting in chair periodically. LLE with increased redness, edema and warmth ? cellulitis. Afebrile. Vital signs stable.Hemoglobin stable 8.4. Small amount of bloody stool per GI. No new imaging. Diarrhea 8 stools recorded, though consistency appears to be bulking up per her report. On oral vancomycin, Dificid for C. Diff. Patient and family considering rehab for continued PT and help "getting her stronger." Goals are not hospice appropriate at this time. Will continue to follow. . . Family/friend interactions See interval note. Advance Directives Living Will: Never completed Health Care Surrogate: Never completed Durable Power of Network Control Technician: Never completed Advance Directive Specifics Health Care Surrogate(s): No written advance directives. According to [place] statutes health care proxy decision-making falls to her spouse. She indicates she would want her spouse to make medical decisions should she become incapacitated. . Significant change in goals: FULL CODE. Goals remains aggressive. Objective Vital Signs Date Time Temp Pulse Resp B/P Pulse Ox O2 Delivery O2 Flow Rate FiO2 05/13/16 08:00 97.9 92 18 130/61 97 05/13/16 04:00 97.5 95 18 127/65 98 05/13/16 00:00 97.7 100 16 122/59 98 05/12/16 20:00 98.0 103 18 158/76 100 05/12/16 20:00 80 05/12/16 16:18 98.2 91 20 138/72 96 Intake & Output 05/13/16 05/13/16 06:59 18:59 Intake Total 1499 ml Output Total 600 ml Balance 899 ml Intake Oral 240 ml IV Total 1259 ml Output Urine Total 600 ml # Voids 1 # Bowel Movements 3 Physical Exam CONSTITUTIONAL/GENERAL: This is a frail, chronically ill patient, who appears older than her actual age, writhing in pain. TUBES/LINES/DRAINS: port, PIV. SKIN: pale. Diffuse erythema and scaling in both extremities. Bilateral lower extremity edema left > right. Erythema LLE and thigh, decreased slightly from prior. CARDIOVASCULAR: RRR. RESPIRATORY/CHEST: Symmetric, unlabored respirations. Clear to auscultation. Breath sounds equal bilaterally. GASTROINTESTINAL: Abdomen soft, tender right upper and lower quadrant, mildly distended. Bowel sounds active. GENITOURINARY: Without palpable bladder distension. MUSCULOSKELETAL: Extremities bilateral LE edema, left > right. LLE with increased redness, edema and warmth ? cellulitis. NEUROLOGICAL: Awake and alert. Follows commands. PSYCHIATRIC: Awake and alert, self reports some anxiety. . Diagnostic Tests Laboratory Laboratory Tests Test 05/11/16 05:55 White Blood Count 9.0 TH/MM3 (4.0-11.0) Red Blood Count 3.08 MIL/MM3 (4.00-5.30) Hemoglobin 8.4 GM/DL (11.6-15.3) Hematocrit 25.6 % (35.0-46.0) Mean Corpuscular Volume 82.9 FL (80.0-100.0) Mean Corpuscular Hemoglobin 27.3 PG (27.0-34.0) Mean Corpuscular Hemoglobin 32.9 % Concent (32.0-36.0) Red Cell Distribution Width 19.5 % (11.6-17.2) Platelet Count 407 TH/MM3 (150-450) Mean Platelet Volume 8.4 FL (7.0-11.0) Neutrophils (%) (Auto) 75.2 % (16.0-70.0) Lymphocytes (%) (Auto) 8.3 % (9.0-44.0) Monocytes (%) (Auto) 15.4 % (0.0-8.0) Eosinophils (%) (Auto) 0.5 % (0.0-4.0) Basophils (%) (Auto) 0.6 % (0.0-2.0) Neutrophils # (Auto) 6.8 TH/MM3 (1.8-7.7) Lymphocytes # (Auto) 0.7 TH/MM3 (1.0-4.8) Monocytes # (Auto) 1.4 TH/MM3 (0-0.9) Eosinophils # (Auto) 0.0 TH/MM3 (0-0.4) Basophils # (Auto) 0.1 TH/MM3 (0-0.2) CBC Comment DIFF FINAL Differential Comment Sodium Level 140 MEQ/L (136-145) Potassium Level 3.6 MEQ/L (3.5-5.1) Chloride Level 113 MEQ/L (98-107) Carbon Dioxide Level 17.5 MEQ/L (21.0-32.0) Anion Gap 10 MEQ/L (5-15) Blood Urea Nitrogen 17 MG/DL (7-18) Creatinine 0.95 MG/DL (0.50-1.00) Estimat Glomerular Filtration 59 ML/MIN (>89) Rate Random Glucose 73 MG/DL (74-106) Calcium Level 6.8 MG/DL (8.5-10.1) Protein Corrected Calcium 8.2 MG/DL (8.5-10.1) Total Protein 4.4 GM/DL (6.4-8.2) Result Diagram: 05/11/16 0555 05/11/16 0555 Imaging Last Impressions Abdomen/Pelvis CT 04/28/16 1047 Signed Impressions: Service Date/Time: Thursday, April 28, 2016 12:16 - CONCLUSION: 1. Worsening of hepatic metastatic disease since January 21. 2. Increasing size of right middle lobe metastatic lung nodule. 3. Increasing size of pelvic mass just below the expandable sigmoid stent. 4. Development of moderate left hydronephrosis with left ureteral stent remaining in place. 5. Development of anasarca. 6. Slight increase in biliary ductal dilatation. Edgardo Lockhart MD Lower Extremity Ultrasound 04/28/16 0000 Signed Impressions: Service Date/Time: Thursday, April 28, 2016 15:49 - CONCLUSION: 1. Occlusive and nonocclusive deep venous thrombosis in the left lower extremity as above. Popliteal cyst also present. Edgardo Lockhart MD Assessment and Plan Disease Oriented Problem List: (1) Ovarian cancer with mets to liver and lung (2) Anemia (3) COPD (chronic obstructive pulmonary disease) Symptom Scale: (1) Intractable pain 0-10 Scale: 3 Comment: secondary to metastatic ovarian cancer with disease progression despite recent chemotherapy, rectovaginal fistula, pelvic mass. (2) Vaginal discharge 0-10 Scale: Unable to quantify Comment: Secondary to pelvic mass, rectovaginal fistula. (3) Diarrhea 0-10 Scale: Unable to quantify Pertinent Non-Medical Issues Psychosocial: . Supported by her 2 daughters, Shey and Zelda. Also supported by her sister, Yoli. Lives in [place]. Spiritual: Member [employer]. Declines prime minister visits at this time. Legal:No written advance directives. According to [place] [facility] health care proxy decision-making falls to her spouse. She indicates she would want her spouse to make medical decisions should she become incapacitated. Ethical issues impacting care: no known concerns at this time. . Important Contacts * Kevin Jim, spouse/HCP: [phone] (cell) or [phone] (home) * Shey Jim, daughter: [phone] cell or [phone] work * Zelda Fuentes, daughter: [phone] cell or [phone] work * Yoli Rosario, sister: [phone] cell or [phone] home . Prognosis Mrs. Jim has recurrent Ovarian cancer with Mets to liver and lung disease progression despite recent palliative chemotherapy admitted with abdominal and vaginal pain. Patient has had ovarian cancer undergoing treatment for the last 10 years, she is certainly hospice appropriate should she elect comfort focused care. Ovarian cancer is a terminal condition. . Code Status: Full Code Plan * No written advance directives. According to [facility] health care proxy decision-making falls to her spouse. She indicates she would want her spouse to make medical decisions should she become incapacitated. Recommend shared decision making given her intermittent confusion. * FULL CODE. * 05/13/16: FULL CODE. Goals remain aggressive, considering rehab for continued PT, they are not ready to consider comfort measures with hospice. * SYMPTOMS: Intractable Pain: secondary to metastatic ovarian cancer with disease progression despite recent chemotherapy, rectovaginal fistula, pelvic mass. Continue Methadone 7.5 mg PO every 8 hours ATC. Dilaudid 4 mg PO Q3 hours PRN breakthrough pain, has had 4 doses in 24 hours. Fentanyl patch was DCd on 05/05/16 (after Halicat). Licocaine gel to vaginal area PRN pain. Nausea: Reglan and Zofran available with relief. Diarrhea: On Vancomycin and Dificid. * Palliative care will continue to follow throughout hospital course to assist with symptom management and further clarification of treatment goals. . Attestation To help prompt me to consider important information that might be impacting today's encounter and assessment, information from prior notes written by myself or my colleagues may have been "brought forward" into today's note. My signature on this note, however, is an attestation that I personally performed the exam, history, and/or decision-making noted today, and, unless otherwise indicated, the interactions with patient, family, and staff as well as the review of records all occurred today. I also attest that the listed assessment and stated plan reflect my best clinical judgment today based on the combination of historical information, prior notes, and today's exam/ interactions. When time spent is documented, it refers only to time spent today by the signer, or if indicated, combined time spent today by collaborating physician/nurse practitioner. NIEVES URRUTIA May 13, 2016 15:26
--- NOTE | 2016-05-13 15:27 | HHI.PR ---
Subjective Remarks Patient trying to stay that the diarrhea getting better, further could seems to still have watery diarrhea, GI following possible sigmoidoscopy if no improvement No fever or chills, no significant abdominal pain Objective Vitals Vital Signs Date Time Temp Pulse Resp B/P Pulse Ox O2 Delivery O2 Flow Rate FiO2 05/13/16 08:00 97.9 92 18 130/61 97 05/13/16 04:00 97.5 95 18 127/65 98 05/13/16 00:00 97.7 100 16 122/59 98 05/12/16 20:00 98.0 103 18 158/76 100 05/12/16 20:00 80 05/12/16 16:18 98.2 91 20 138/72 96 I/O 05/12/16 05/12/16 05/12/16 05/13/16 05/13/16 05/13/16 06:59 14:59 22:59 06:59 14:59 22:59 Intake Total 928 ml 360 ml 1379 ml Output Total 300 ml 300 ml 600 ml Balance 628 ml 60 ml 779 ml Intake Oral 240 ml 360 ml 120 ml IV Total 688 ml 1259 ml Output Urine Total 300 ml 300 ml 600 ml Bladder Scan Volume Amount 38 ml # Voids 1 1 # Bowel Movements 6 2 Result Diagram: 05/11/16 0555 05/11/16 0555 Imaging Last Impressions Abdomen/Pelvis CT 04/28/16 1047 Signed Impressions: Service Date/Time: Thursday, April 28, 2016 12:16 - CONCLUSION: 1. Worsening of hepatic metastatic disease since January 21. 2. Increasing size of right middle lobe metastatic lung nodule. 3. Increasing size of pelvic mass just below the expandable sigmoid stent. 4. Development of moderate left hydronephrosis with left ureteral stent remaining in place. 5. Development of anasarca. 6. Slight increase in biliary ductal dilatation. Edgardo Lockhart MD Lower Extremity Ultrasound 04/28/16 0000 Signed Impressions: Service Date/Time: Thursday, April 28, 2016 15:49 - CONCLUSION: 1. Occlusive and nonocclusive deep venous thrombosis in the left lower extremity as above. Popliteal cyst also present. Edgardo Lockhart MD Objective Remarks GENERAL: This is a well-nourished, well-developed patient, in no apparent distress. CARDIOVASCULAR: Regular rate and rhythm without murmurs, gallops, or rubs. RESPIRATORY: Fair air entry bilaterally. No wheezes, rales, or rhonchi. GASTROINTESTINAL: Abdomen less tenderness on the lower abdomen with fullness to palpation throughout,. Appreciated some bowel sounds MUSCULOSKELETAL: Extremities +1 edema. Pedal pulses appreciated NEUROLOGICAL: Awake and alert. Moves all extremity. Normal speech.no focal neurological deficit A/P Problem List: (1) Ovarian cancer ICD Code: C56.9 Status: Chronic (2) Leg swelling ICD Code: M79.89 Status: Acute (3) Anemia ICD Code: D64.9 Status: Acute (4) Diarrhea ICD Code: R19.7 Status: Acute Assessment and Plan 05/06:D/W palliative care, patient, her sister, currently still wants to be full code, managing pain , added vancomycin po, since this is the third episode, continue effort with palliative care 05/07: Continue current management, Flagyl I.V., by mouth vancomycin, continue with palliative care, a fourth for transition to hospice if patient agree currently full code 05/08: Continue current management, episodes of hypotension and slow breathing with narcotic, no plan for DNR, requesting goal of treatment is full 05/09: Still having diarrhea but slightly improved, hypotensive 95/58, she is on Dilaudid by mouth nightly, need to be cautious, hopefully be able to transfer to floor when blood pressure improved, and then to rehabilitation when diarrhea and C. difficile clinically improved 05/10: Only 2 bowel movement today still watery, hopefully able to discharge to rehabilitation in 1-2 days if diarrhea improved, [facility] , blood pressure improved 05/11: Basically patient had 9-10 bowel movement over 24 hours, after discussing with the nurse, still watery, patient wakes up in the night to go, consult GI 05/12: Slight improvement in diarrhea, appreciate GI consultation, stopped Flagyl continue Vanco, start Dificid and cholestyramine, monitor clinical improvement 05/13: Doesn't seem to be significant improvement in the diarrhea, defer further workup for GI possible sigmoidoscopy, continue current management A/P: (1) advanced Ovarian cancer Hospice appropriate; palliative care following Continue pain management, comfort care Patient and family seems to be more accepting the fact of the advanced condition , hospice and DNR however not confirmed yet (2) DVT with Leg swelling on Lovenox twice daily. Overall improved (3) Anemia Mostly of chronic disease, continue monitoring H&H, has been stable (4) refractory C. difficile Diarrhea Per record's to be the third episode, resistant to Flagyl, on vancomycin by mouth, Dificid, cholestyramine GI following Continue antiemetics Scarlett Damon MD May 13, 2016 15:27
[2016-05-13] MEDS: fentaNYL 100 MCG/HR PATCH TD SCH (17:44)
[2016-05-13] MEDS: REMOVE OLD DURAGESIC (FENTANYL) PATCH TD SCH (17:46)
[2016-05-14] VITALS (8 sets, daily range): BP systolic 117–136; BP diastolic 58–69; PULSE 83–95; RESP 18–20; TEMP 97.1–98.6; O2SAT 94–98
[2016-05-14] MEDS: METHADONE HCL 10 MG/10 ML ORAL SOLUTION PO SCH ×4 (00:07→23:18)
[2016-05-14 05:21] LABS: AUTOMATED NEUTROPHIL # 7.5 TH/MM3 (1.8-7.7); BASOPHIL # 0.1 TH/MM3 (0-0.2); BASOPHIL % 0.9 % (0.0-2.0); EOSINOPHIL % 0.4 % (0.0-4.0); HEMATOCRIT 24.8 % (35.0-46.0); HEMO FLAGS DIFF FINAL; LYMPH % 10.7 % (9.0-44.0); LYMPHOCYTE # 1.1 TH/MM3 (1.0-4.8); MEAN CELL VOLUME 82.6 FL (80.0-100.0); MEAN CORPUSCULAR HEMOGLOBIN 27.5 PG (27.0-34.0); MEAN CORPUSCULAR HGB CONC 33.3 % (32.0-36.0); MONO % 12.5 % (0.0-8.0); NEUT % 75.5 % (16.0-70.0); PLATELET COUNT 516 TH/MM3 (150-450); RED CELL DISTRIBUTION WIDTH 19.7 % (11.6-17.2); WHITE BLOOD COUNT 9.9 TH/MM3 (4.0-11.0)
[2016-05-14 05:43] LABS: BICARBONATE 15.4 MEQ/L (21.0-32.0); POTASSIUM 3.6 MEQ/L (3.5-5.1)
[2016-05-14 06:01] LABS: CALCIUM-PROTEIN CORRECTED 8.1 MG/DL (8.5-10.1)
[2016-05-14] MEDS: SODIUM CHLOR 0.9% 1000 ML INJ 1,000 ML IV SCH ×2 (06:35→17:57)
--- NOTE | 2016-05-14 07:35 | PD.ONC.PN ---
Subjective Subjective Remarks Mrs. Jim was sleeping this morning during my visit I spoke with her sister about the possible sigmoidoscopy Her sister is concerned about Brooke's ability to tolerate the procedure and what could really be accomplished? I encouraged her to talk with GI about her concerns. Unfortunately despite all treatment she continues to have c diff. I explained that the increase in blood passing from the rectum is most likely tumor invading into the colon. Her sister asked if Neulasta can be given to help boost her immune system. I explained that the use in Brooke's situation would only be temporary and the potential side effects of that injection, in her compromised state, could be intolerable to her. I explained that our immune system is much more than just our WBC/ANC count and she is just too weak. Her sister understood and agreed. Objective Data Date Time Temp Pulse Resp B/P Pulse Ox O2 Delivery O2 Flow Rate FiO2 05/14/16 04:00 97.1 88 20 124/58 98 05/14/16 00:00 97.9 95 20 117/59 94 05/13/16 20:00 83 05/13/16 20:00 97.9 87 20 136/63 99 05/13/16 16:00 98.6 94 20 120/57 99 05/13/16 12:00 97.9 93 20 118/59 94 05/13/16 08:18 94 05/13/16 08:00 97.9 92 18 130/61 97 05/14/16 05/14/16 05/14/16 06:59 14:59 22:59 Intake Total 1629 ml Output Total 400 ml Balance 1229 ml Result Diagram: 05/14/16 0510 05/14/16 0510 Laboratory Results Laboratory Tests Test 05/14/16 05:10 White Blood Count 9.9 TH/MM3 Red Blood Count 3.00 MIL/MM3 Hemoglobin 8.3 GM/DL Hematocrit 24.8 % Mean Corpuscular Volume 82.6 FL Mean Corpuscular Hemoglobin 27.5 PG Mean Corpuscular Hemoglobin 33.3 % Concent Red Cell Distribution Width 19.7 % Platelet Count 516 TH/MM3 Mean Platelet Volume 7.4 FL Neutrophils (%) (Auto) 75.5 % Lymphocytes (%) (Auto) 10.7 % Monocytes (%) (Auto) 12.5 % Eosinophils (%) (Auto) 0.4 % Basophils (%) (Auto) 0.9 % Neutrophils # (Auto) 7.5 TH/MM3 Lymphocytes # (Auto) 1.1 TH/MM3 Monocytes # (Auto) 1.2 TH/MM3 Eosinophils # (Auto) 0.0 TH/MM3 Basophils # (Auto) 0.1 TH/MM3 CBC Comment DIFF FINAL Differential Comment Sodium Level 142 MEQ/L Potassium Level 3.6 MEQ/L Chloride Level 114 MEQ/L Carbon Dioxide Level 15.4 MEQ/L Anion Gap 13 MEQ/L Blood Urea Nitrogen 14 MG/DL Creatinine 0.91 MG/DL Estimat Glomerular Filtration 62 ML/MIN Rate Random Glucose 58 MG/DL Calcium Level 6.7 MG/DL Protein Corrected Calcium 8.1 MG/DL Total Protein 4.4 GM/DL Administered Medications Medications (Trade) Dose Ordered Sig/[place] Route PRN Reason Start Time Stop Time Status Last Admin Dose Admin IV Flush (NS Flush) 2 ml UNSCH PRN FLUSH FLUSH AFTER USING IV ACCESS 04/28/16 14:30 05/11/16 23:31 IV Flush (NS Flush) 2 ml BID FLUSH 04/28/16 21:00 05/11/16 21:29 Dronabinol (Marinol) 5 mg BID PO 04/28/16 21:00 05/13/16 21:00 Fentanyl (Duragesic 100 Mcg Patch.72 Hr) 1 patch Q3D TD 04/28/16 18:00 05/13/16 17:44 Miscellaneous Information 1 Q3D TD 05/01/16 18:00 05/13/16 17:46 Gabapentin (Neurontin) 300 mg BID PO 04/28/16 21:00 Hold 05/02/16 19:42 Enoxaparin Sodium (Lovenox Inj) 60 mg Q12H SQ 04/28/16 20:00 05/13/16 20:00 Lidocaine HCl (Xylocaine 2% Jelly) 1 applic Q2HR PRN TOPICAL SEE LABEL COMMENTS 04/29/16 13:00 05/03/16 22:00 Acetaminophen (Ofirmev Inj) 1,000 mg Q6H PRN IV fever > 100.4 04/30/16 01:30 05/08/16 02:21 Tiotropium [place] (Spiriva Inh) 18 mcg DAILY INH 04/30/16 16:00 05/13/16 08:36 Albuterol Sulfate (Ventolin Hfa Inh) 2 puff QID INH 04/30/16 18:00 05/13/16 21:00 Methadone HCl (Methadone Liq) 7.5 mg Q8H PO 05/02/16 00:00 05/14/16 00:07 Hydromorphone HCl (Dilaudid) 4 mg Q3H PRN PO PAIN SCALE 1 TO 10 05/05/16 12:30 05/13/16 02:04 Al Hydrox/Mg Hydrox/Simethicone (Mag-Al Plus Susp Liq) 30 ml Q6H PRN PO indigestion/ reflux 05/05/16 14:30 05/12/16 11:55 Metoclopramide HCl (Reglan Inj) 10 mg Q4H PRN IV NAUSEA 05/08/16 18:00 05/12/16 16:11 Ondansetron HCl 8 mg 8 mg Q6H PRN IV NASAL CONGESTION 05/08/16 14:00 05/11/16 19:51 Sodium Chloride (NS 1000 ml Inj) 1,000 ml @ 84 mls/hr [id number] IV 05/08/16 19:30 05/13/16 17:46 Fidaxomicin (Dificid) 200 mg BID PO 05/11/16 14:45 05/20/16 23:59 05/13/16 21:00 Patient Own Medication 1 ea BID PO 05/12/16 21:00 05/13/16 08:38 Cholestyramine Resin (Questran 4 Gm Pkt) 4 gm BID@11,20 PO 05/12/16 20:00 05/13/16 20:00 Vancomycin HCl (VANCOMYCIN for oral use only) 125 mg QID@09,13,18,22 PO 05/12/16 13:00 05/13/16 22:00 Objective Remarks GENERAL: sleeping frail HEAD: Normocephalic. Assessment/Plan Problem List: (1) Ovarian metastasis Status: Chronic Plan: Mrs. Jim was sleeping today but on multiple occasions has expressed that she still wished to go home. She/her family are not ready for Hospice at this time. She wishes to explore rehab near her home. It has been explained on multiple occasions that her condition is terminal and she will not regain the strength she had prior to this most recent hospitalization. Palliative Care is following and we appreciate everything that YOLI De Anda has done to help educate family and supportive care/pain control. unfortunately despite recent treatment with Taxol Mrs. Jim has had advancement of her ovarian cancer. Currently her sister describes worsening rectal bleeding and GI is following. According to [place] law, her , would be her health care proxy, decision maker if she becomes unable to make her own decisions. Problem Qualifiers (1) Ovarian metastasis: Qualified Code: C79.60 - Malignant neoplasm metastatic to ovary, unspecified laterality Briseida Marquez May 14, 2016 07:35
[2016-05-14] MEDS: SODIUM CHLORIDE 0.9% FLUSH 5 ML FLUSH FLUSH SCH ×2 (09:00→21:00)
[2016-05-14] MEDS: FLORASTOR PO SCH ×2 (09:00→21:00)
--- NOTE | 2016-05-14 09:10 | HHI.GIFU ---
Subjective Remarks Pt resting in bed. States she continues to have liquid/loose stool with small amount of bleeding. Daughter at bedside. Asking questions re: sigmoidoscopy. Would like to give mother a few more days to see how she responds to treatment and avoid invasive procedures unless absolutely necessary (Marlene Fitch) Objective Vitals I&O Vital Signs Date Time Temp Pulse Resp B/P Pulse Ox O2 Delivery O2 Flow Rate FiO2 05/14/16 08:00 98.0 83 18 136/62 98 05/14/16 04:00 97.1 88 20 124/58 98 05/14/16 00:00 97.9 95 20 117/59 94 05/13/16 20:00 83 05/13/16 20:00 97.9 87 20 136/63 99 05/13/16 16:00 98.6 94 20 120/57 99 05/13/16 12:00 97.9 93 20 118/59 94 I/O 05/13/16 05/13/16 05/13/16 05/14/16 05/14/16 05/14/16 06:59 14:59 22:59 06:59 14:59 22:59 Intake Total 1379 ml 1613 ml 120 ml 1629 ml Output Total 600 ml 400 ml Balance 779 ml 1613 ml 120 ml 1229 ml Intake Oral 120 ml 960 ml 120 ml 480 ml IV Total 1259 ml 653 ml 1149 ml Output Urine Total 600 ml 400 ml # Voids 11 4 # Bowel Movements 2 11 10 Laboratory Laboratory Tests Test 05/14/16 05:10 White Blood Count 9.9 Red Blood Count 3.00 Hemoglobin 8.3 Hematocrit 24.8 Mean Corpuscular Volume 82.6 Mean Corpuscular Hemoglobin 27.5 Mean Corpuscular Hemoglobin 33.3 Concent Red Cell Distribution Width 19.7 Platelet Count 516 Mean Platelet Volume 7.4 Neutrophils (%) (Auto) 75.5 Lymphocytes (%) (Auto) 10.7 Monocytes (%) (Auto) 12.5 Eosinophils (%) (Auto) 0.4 Basophils (%) (Auto) 0.9 Neutrophils # (Auto) 7.5 Lymphocytes # (Auto) 1.1 Monocytes # (Auto) 1.2 Eosinophils # (Auto) 0.0 Basophils # (Auto) 0.1 CBC Comment DIFF FINAL Differential Comment Sodium Level 142 Potassium Level 3.6 Chloride Level 114 Carbon Dioxide Level 15.4 Anion Gap 13 Blood Urea Nitrogen 14 Creatinine 0.91 Estimat Glomerular Filtration 62 Rate Random Glucose 58 Calcium Level 6.7 Protein Corrected Calcium 8.1 Total Protein 4.4 Imaging Last Impressions Abdomen/Pelvis CT 04/28/16 1047 Signed Impressions: Service Date/Time: Thursday, April 28, 2016 12:16 - CONCLUSION: 1. Worsening of hepatic metastatic disease since January 21. 2. Increasing size of right middle lobe metastatic lung nodule. 3. Increasing size of pelvic mass just below the expandable sigmoid stent. 4. Development of moderate left hydronephrosis with left ureteral stent remaining in place. 5. Development of anasarca. 6. Slight increase in biliary ductal dilatation. Edgardo Lockhart MD Lower Extremity Ultrasound 04/28/16 0000 Signed Impressions: Service Date/Time: Thursday, April 28, 2016 15:49 - CONCLUSION: 1. Occlusive and nonocclusive deep venous thrombosis in the left lower extremity as above. Popliteal cyst also present. Edgardo Lockhart MD Physical Exam HEENT: Normocephalic; atraumatic; no jaundice. CHEST: CTA CARDIAC: RRR ABDOMEN: Soft, mildly distended, mild diffuse tenderness; no hepatosplenomegaly ; bowel sounds are present in all four quadrants. EXTREMITIES: BLE, worse in LLE. LLE with erythema SKIN: Normal; no rash; no jaundice. TEMPLATE INSPECTOR: No focal deficits; alert and oriented times three. 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 Abdomen/Pelvis CT (04/28/16)----> 1. Worsening of hepatic metastatic disease since January 21. 2. Increasing size of right middle lobe metastatic lung nodule. 3. Increasing size of pelvic mass just below the expandable sigmoid stent. 4. Development of moderate left hydronephrosis with left ureteral stent remaining in place. 5. Development of anasarca. 6. Slight increase in biliary ductal dilatation. S/P Flagyl 05/07-. Oral Vanco/Dificid. Abdominal pain improved. Still with loose stool- 2-3 so far today, small amount of blood noted. Cholestyramine. Family would like Florastor added. This is not available at this facility but sister will bring in as home med and it will be verified by pharmacy. No significant improvement. Still having liquid/loose stool with small amount of blood. Daughter at bedside, asking questions about sigmoidoscopy, would like to hold off on this unless necessary. HH stable. - Ovarian metastasis. Per PROCESS VALIDATION ENGINEER/ONC PLAN: - MYRNA - Cont. Oral Vanco - Cont. Dificid - Cont. Cholestyramine - Florastor i po BID as home med once brought in - Monitor stool output - Monitor labs - Supportive care - ? CT Scan - Consider sigmoidoscopy if no improvement, daughter would like to hold off unless absolutely necessary - Further recommendations to follow based on results of above - Pt seen and examined by Dr. Beckman and myself and this note is written on her behalf (Marlene Fitch) Physician Comments agree with above (Leandra Beckman MD) Marlene Fitch May 14, 2016 09:10 Leandra Beckman MD May 14, 2016 18:14
[2016-05-14] MEDS: ENOXAPARIN SODIUM 60 MG/0.6 ML SYRINGE SQ SCH ×2 (09:36→23:33)
[2016-05-14] MEDS: METOCLOPRAMIDE HCL 10 MG/2 ML VIAL IV PRN (09:36)
[2016-05-14] MEDS: VANCOMYCIN 500 MG VIAL (FOR ORAL USE ONLY) PO SCH ×4 (09:36→23:17)
[2016-05-14] MEDS: FIDAXOMICIN 200 MG TAB PO SCH ×2 (09:36→23:18)
[2016-05-14] MEDS: DRONABINOL 5 MG CAP PO SCH ×2 (09:37→23:18)
[2016-05-14] MEDS: ALBUTEROL SULFATE 90 MCG/ACT HFA 18 GM INHALER INH SCH ×4 (09:44→21:00)
[2016-05-14] MEDS: TIOTROPIUM BROMIDE 18 MCG INH INH SCH (09:44)
[2016-05-14] MEDS: CHOLESTYRAMINE 4 GM PACKET PO SCH ×2 (12:45→23:13)
--- NOTE | 2016-05-14 18:45 | HHI.PR ---
Subjective Remarks Patient resting in bed, family at the bedside By discussing with them, still seems they are still pursuing goal of complete recovery, expecting patient to improve with physical therapy Diarrhea about the same, they refused sigmoidoscopy, they want treat medically for now, GI following Objective Vitals Vital Signs Date Time Temp Pulse Resp B/P Pulse Ox O2 Delivery O2 Flow Rate FiO2 05/14/16 16:00 97.4 89 18 127/59 98 05/14/16 12:00 98.6 89 18 133/69 98 05/14/16 08:00 98.0 83 18 136/62 98 05/14/16 04:00 97.1 88 20 124/58 98 05/14/16 00:00 97.9 95 20 117/59 94 05/13/16 20:00 83 05/13/16 20:00 97.9 87 20 136/63 99 I/O 05/13/16 05/13/16 05/13/16 05/14/16 05/14/16 05/14/16 06:59 14:59 22:59 06:59 14:59 22:59 Intake Total 1379 ml 1613 ml 120 ml 1629 ml 1932 ml Output Total 600 ml 400 ml 3 ml Balance 779 ml 1613 ml 120 ml 1229 ml 1929 ml Intake Oral 120 ml 960 ml 120 ml 480 ml 1100 ml IV Total 1259 ml 653 ml 1149 ml 832 ml Output Urine Total 600 ml 400 ml 3 ml # Voids 11 4 # Bowel Movements 2 11 10 7 Result Diagram: 05/14/16 0510 05/14/16 0510 Objective Remarks GENERAL: This is a well-nourished, well-developed patient, in no apparent distress. CARDIOVASCULAR: Regular rate and rhythm without murmurs, gallops, or rubs. RESPIRATORY: Fair air entry bilaterally. No wheezes, rales, or rhonchi. GASTROINTESTINAL: Abdomen less tenderness on the lower abdomen with fullness to palpation throughout,. Appreciated some bowel sounds MUSCULOSKELETAL: Extremities +1 edema. Pedal pulses appreciated NEUROLOGICAL: Awake and alert. Moves all extremity. Normal speech.no focal neurological deficit A/P Problem List: (1) Ovarian cancer ICD Code: C56.9 Status: Chronic (2) Leg swelling ICD Code: M79.89 Status: Acute (3) Anemia ICD Code: D64.9 Status: Acute (4) Diarrhea ICD Code: R19.7 Status: Acute Assessment and Plan 05/06:D/W palliative care, patient, her sister, currently still wants to be full code, managing pain , added vancomycin po, since this is the third episode, continue effort with palliative care 05/07: Continue current management, Flagyl I.V., by mouth vancomycin, continue with palliative care, a fourth for transition to hospice if patient agree currently full code 05/08: Continue current management, episodes of hypotension and slow breathing with narcotic, no plan for DNR, requesting goal of treatment is full 05/09: Still having diarrhea but slightly improved, hypotensive 95/58, she is on Dilaudid by mouth nightly, need to be cautious, hopefully be able to transfer to floor when blood pressure improved, and then to rehabilitation when diarrhea and C. difficile clinically improved 05/10: Only 2 bowel movement today still watery, hopefully able to discharge to rehabilitation in 1-2 days if diarrhea improved, transfer to [facility] floor today , blood pressure improved 05/11: Basically patient had 9-10 bowel movement over 24 hours, after discussing with the nurse, still watery, patient wakes up in the night to go, consult GI 05/12: Slight improvement in diarrhea, appreciate GI consultation, stopped Flagyl continue Vanco, start Dificid and cholestyramine, monitor clinical improvement 05/13: Doesn't seem to be significant improvement in the diarrhea, defer further workup for GI possible sigmoidoscopy, continue current management 05/14: Patient and family refused sigmoidoscopy as a workup for the refractory and C. difficile, continue medical management for now A/P: (1) advanced Ovarian cancer Hospice appropriate; palliative care following Continue pain management, comfort care Patient and family seems to be more accepting the fact of the advanced condition , hospice and DNR however not confirmed yet (2) DVT with Leg swelling on Lovenox twice daily. Overall improved (3) Anemia Mostly of chronic disease, continue monitoring H&H, has been stable (4) refractory C. difficile Diarrhea Per record's to be the third episode, resistant to Flagyl, on vancomycin by mouth, Dificid, cholestyramine GI following Continue antiemetics Scralett Damon MD May 14, 2016 18:45
[2016-05-14] MEDS: ALBUTEROL SULFATE 90 MCG/ACT HFA 8 GM INHALER INH PRN (23:30)
[2016-05-14 23:55] LABS: HEMATOCRIT 21.8 % (35.0-46.0); REVIEW FLAG FINAL
[2016-05-15] VITALS (9 sets, daily range): BP systolic 115–156; BP diastolic 57–70; PULSE 80–95; RESP 16–20; TEMP 97.5–98.6; O2SAT 94–99
[2016-05-15] MEDS: SODIUM CHLOR 0.9% 1000 ML INJ 1,000 ML IV SCH ×2 (03:06→18:27)
[2016-05-15 06:16] LABS: AUTOMATED NEUTROPHIL # 6.5 TH/MM3 (1.8-7.7); BASOPHIL % 0.4 % (0.0-2.0); EOSINOPHIL % 0.4 % (0.0-4.0); HEMO FLAGS DIFF FINAL; LYMPH % 12.6 % (9.0-44.0); LYMPHOCYTE # 1.1 TH/MM3 (1.0-4.8); MEAN CELL VOLUME 83.2 FL (80.0-100.0); MEAN CORPUSCULAR HEMOGLOBIN 26.6 PG (27.0-34.0); MONO % 11.7 % (0.0-8.0); NEUT % 74.9 % (16.0-70.0); PLATELET COUNT 414 TH/MM3 (150-450); RED BLOOD COUNT 2.65 MIL/MM3 (4.00-5.30); RED CELL DISTRIBUTION WIDTH 19.6 % (11.6-17.2); WHITE BLOOD COUNT 8.7 TH/MM3 (4.0-11.0)
[2016-05-15] MEDS: ALBUTEROL SULFATE 90 MCG/ACT HFA 18 GM INHALER INH SCH ×4 (08:43→21:00)
[2016-05-15] MEDS: FLORASTOR PO SCH ×2 (08:44→20:49)
[2016-05-15] MEDS: FIDAXOMICIN 200 MG TAB PO SCH ×2 (08:44→20:36)
[2016-05-15] MEDS: SODIUM CHLORIDE 0.9% FLUSH 5 ML FLUSH FLUSH SCH ×2 (08:46→21:00)
[2016-05-15] MEDS: METHADONE HCL 10 MG/10 ML ORAL SOLUTION PO SCH ×2 (08:46→16:17)
[2016-05-15] MEDS: VANCOMYCIN 500 MG VIAL (FOR ORAL USE ONLY) PO SCH ×4 (08:58→20:46)
[2016-05-15] MEDS: DRONABINOL 5 MG CAP PO SCH ×2 (08:58→20:36)
[2016-05-15] MEDS: TIOTROPIUM BROMIDE 18 MCG INH INH SCH (09:25)
[2016-05-15] MEDS: CHOLESTYRAMINE 4 GM PACKET PO SCH ×2 (12:08→20:47)
[2016-05-15] MEDS: METOCLOPRAMIDE HCL 10 MG/2 ML VIAL IV PRN (12:09)
--- NOTE | 2016-05-15 14:31 | HHI.PR ---
Subjective Remarks Feeling tired, still having diarrhea with blood as per the nurse, hemoglobin continue to dropped to 7 No nausea or vomiting, no abdominal pain Objective Vitals Vital Signs Date Time Temp Pulse Resp B/P Pulse Ox O2 Delivery O2 Flow Rate FiO2 05/15/16 12:00 98.1 91 20 156/70 97 05/15/16 09:15 85 05/15/16 08:00 97.5 87 18 124/57 94 05/15/16 05:30 98.6 87 17 126/65 97 05/15/16 00:00 97.7 80 19 115/60 96 05/14/16 21:00 98.6 89 19 118/59 97 05/14/16 20:00 88 05/14/16 16:00 97.4 89 18 127/59 98 I/O 05/14/16 05/14/16 05/14/16 05/15/16 05/15/16 05/15/16 07:00 15:00 23:00 07:00 15:00 23:00 Intake Total 1629 ml 1932 ml 800 ml 625 ml Output Total 400 ml 3 ml 300 ml Balance 1229 ml 1929 ml 800 ml 325 ml Intake Oral 480 ml 1100 ml 800 ml 625 ml IV Total 1149 ml 832 ml Output Urine Total 400 ml 3 ml 300 ml # Voids 2 3 # Bowel Movements 10 7 0 0 Result Diagram: 05/15/16 0555 05/14/16 0510 Objective Remarks GENERAL: This is a well-nourished, well-developed patient, in no apparent distress. CARDIOVASCULAR: Regular rate and rhythm without murmurs, gallops, or rubs. RESPIRATORY: Fair air entry bilaterally. No wheezes, rales, or rhonchi. GASTROINTESTINAL: Abdomen less tenderness on the lower abdomen with fullness to palpation throughout,. Appreciated some bowel sounds MUSCULOSKELETAL: Extremities +1 edema. Pedal pulses appreciated NEUROLOGICAL: Awake and alert. Moves all extremity. Normal speech.no focal neurological deficit A/P Problem List: (1) Ovarian cancer ICD Code: C56.9 Status: Chronic (2) Leg swelling ICD Code: M79.89 Status: Acute (3) Anemia ICD Code: D64.9 Status: Acute (4) Diarrhea ICD Code: R19.7 Status: Acute Assessment and Plan 05/06:D/W palliative care, patient, her sister, currently still wants to be full code, managing pain , added vancomycin po, since this is the third episode, continue effort with palliative care 05/07: Continue current management, Flagyl I.V., by mouth vancomycin, continue with palliative care, a fourth for transition to hospice if patient agree currently full code 05/08: Continue current management, episodes of hypotension and slow breathing with narcotic, no plan for DNR, requesting goal of treatment is full 05/09: Still having diarrhea but slightly improved, hypotensive 95/58, she is on Dilaudid by mouth nightly, need to be cautious, hopefully be able to transfer to floor when blood pressure improved, and then to rehabilitation when diarrhea and C. difficile clinically improved 05/10: Only 2 bowel movement today still watery, hopefully able to discharge to rehabilitation in 1-2 days if diarrhea improved, transfer to [facility] floor today , blood pressure improved 05/11: Basically patient had 9-10 bowel movement over 24 hours, after discussing with the nurse, still watery, patient wakes up in the night to go, consult GI 05/12: Slight improvement in diarrhea, appreciate GI consultation, stopped Flagyl continue Vanco, start Dificid and cholestyramine, monitor clinical improvement 05/13: Doesn't seem to be significant improvement in the diarrhea, defer further workup for GI possible sigmoidoscopy, continue current management 05/14: Patient and family refused sigmoidoscopy as a workup for the refractory and C. difficile, continue medical management for now 05/15: No significant improvement in that C. difficile diarrhea, now with hematochezia as per the nurse, hemoglobin continues to drop to 7 will transfuse 2 units of packed red blood cells patient looks pale and tired A/P: (1) advanced Ovarian cancer Hospice appropriate; palliative care following Continue pain management, comfort care Patient and family seems to be more accepting the fact of the advanced condition , hospice and DNR however not confirmed yet (2) DVT with Leg swelling on Lovenox twice daily. Overall improved (3) Anemia Mostly of chronic disease, continue monitoring H&H, has been stable (4) refractory C. difficile Diarrhea Per record's to be the third episode, resistant to Flagyl, on vancomycin by mouth, Dificid, cholestyramine GI following Continue antiemetics Scarlett Damon MD May 15, 2016 14:31
--- NOTE | 2016-05-15 17:05 | HHI.HCPN ---
Reason for visit a. To assist with evaluation and management of symptoms including: abdominal /pelvic pain, diarrhea. b. To assist medical decision maker(s) with: better understanding of current medical conditions; weighing benefits/burdens of medical treatment options; making medical treatment decisions. . Subjective/Interval History Patient seen and examined in room with at bedside. Also present YOLI Coronado. She is awake and alert. Denies SOB. She has intermittent pain in abdomen with bowel movements, otherwise pelvic pain well controlled. Rate 3 on average and is comfortable with this. She has been workign with PT, not today due to anemia and weakness. Afebrile. Vital signs stable.Hemoglobin 7.0. Still having bloody stool, recorded 21 BMs on 05/14/16. Patient declined sigmoidoscopy and does not seem concerned about this today. On oral vancomycin, Dificid for C. Diff. She complains about taste of liquid Methadone, will change to pill form. Patient and family considering rehab for continued PT and help "getting her stronger." Goals are not hospice appropriate at this time. Will continue to follow. . . Family/friend interactions See interval note, at bedside. . Advance Directives Living Will: Never completed Health Care Surrogate: Never completed Durable Power of Founder Chairman And Chief Creative Officer: Never completed Advance Directive Specifics Health Care Surrogate(s): No written advance directives. According to [place] statutes health care proxy decision-making falls to her spouse. She indicates she would want her spouse to make medical decisions should she become incapacitated. . Significant change in goals: FULL CODE. Goals remains aggressive . Objective Vital Signs Date Time Temp Pulse Resp B/P Pulse Ox O2 Delivery O2 Flow Rate FiO2 05/15/16 16:00 97.9 85 20 121/69 99 05/15/16 12:00 98.1 91 20 156/70 97 05/15/16 09:15 85 05/15/16 08:00 97.5 87 18 124/57 94 05/15/16 05:30 98.6 87 17 126/65 97 05/15/16 00:00 97.7 80 19 115/60 96 05/14/16 21:00 98.6 89 19 118/59 97 05/14/16 20:00 88 Intake & Output 05/15/16 05/15/16 07:00 19:00 Intake Total 1425 ml Output Total 300 ml Balance 1125 ml Intake Oral 1425 ml Output Urine Total 300 ml # Voids 5 # Bowel Movements 0 Physical Exam CONSTITUTIONAL/GENERAL: This is a frail, chronically ill patient, who appears older than her actual age, writhing in pain. TUBES/LINES/DRAINS: port. SKIN: pale. Diffuse erythema and scaling in both extremities. Bilateral lower extremity edema left > right. Erythema LLE and thigh, decreased slightly from prior. CARDIOVASCULAR: RRR. RESPIRATORY/CHEST: Symmetric, unlabored respirations. Clear to auscultation. Breath sounds equal bilaterally. GASTROINTESTINAL: Abdomen soft, tender right upper and lower quadrant, mildly distended. Bowel sounds active. GENITOURINARY: Without palpable bladder distension. MUSCULOSKELETAL: Extremities bilateral LE edema, left > right. LLE with slight redness and + edema. NEUROLOGICAL: Awake and alert. Follows commands. PSYCHIATRIC: Awake and alert, denies anxiety. . Diagnostic Tests Laboratory Laboratory Tests Test 05/14/16 05/14/16 05/15/16 05/15/16 05:10 23:52 02:09 05:55 White Blood Count 9.9 TH/MM3 8.7 TH/MM3 (4.0-11.0) (4.0-11.0) Red Blood Count 3.00 MIL/MM3 2.65 MIL/MM3 (4.00-5.30) (4.00-5.30) Hemoglobin 8.3 GM/DL 7.1 GM/DL 7.0 GM/DL (11.6-15.3) (11.6-15.3) (11.6-15.3) Hematocrit 24.8 % 21.8 % 22.0 % (35.0-46.0) (35.0-46.0) (35.0-46.0) Mean Corpuscular Volume 82.6 FL 83.2 FL (80.0-100.0) (80.0-100.0) Mean Corpuscular Hemoglobin 27.5 PG 26.6 PG (27.0-34.0) (27.0-34.0) Mean Corpuscular Hemoglobin 33.3 % 32.0 % Concent (32.0-36.0) (32.0-36.0) Red Cell Distribution Width 19.7 % 19.6 % (11.6-17.2) (11.6-17.2) Platelet Count 516 TH/MM3 414 TH/MM3 (150-450) (150-450) Mean Platelet Volume 7.4 FL 7.8 FL (7.0-11.0) (7.0-11.0) Neutrophils (%) (Auto) 75.5 % 74.9 % (16.0-70.0) (16.0-70.0) Lymphocytes (%) (Auto) 10.7 % 12.6 % (9.0-44.0) (9.0-44.0) Monocytes (%) (Auto) 12.5 % 11.7 % (0.0-8.0) (0.0-8.0) Eosinophils (%) (Auto) 0.4 % (0.0-4.0) 0.4 % (0.0-4.0) Basophils (%) (Auto) 0.9 % (0.0-2.0) 0.4 % (0.0-2.0) Neutrophils # (Auto) 7.5 TH/MM3 6.5 TH/MM3 (1.8-7.7) (1.8-7.7) Lymphocytes # (Auto) 1.1 TH/MM3 1.1 TH/MM3 (1.0-4.8) (1.0-4.8) Monocytes # (Auto) 1.2 TH/MM3 1.0 TH/MM3 (0-0.9) (0-0.9) Eosinophils # (Auto) 0.0 TH/MM3 0.0 TH/MM3 (0-0.4) (0-0.4) Basophils # (Auto) 0.1 TH/MM3 0.0 TH/MM3 (0-0.2) (0-0.2) CBC Comment DIFF FINAL DIFF FINAL Differential Comment Sodium Level 142 MEQ/L (136-145) Potassium Level 3.6 MEQ/L (3.5-5.1) Chloride Level 114 MEQ/L (98-107) Carbon Dioxide Level 15.4 MEQ/L (21.0-32.0) Anion Gap 13 MEQ/L (5-15) Blood Urea Nitrogen 14 MG/DL (7-18) Creatinine 0.91 MG/DL (0.50-1.00) Estimat Glomerular Filtration 62 ML/MIN (>89) Rate Random Glucose 58 MG/DL (74-106) Calcium Level 6.7 MG/DL (8.5-10.1) Protein Corrected Calcium 8.1 MG/DL (8.5-10.1) Total Protein 4.4 GM/DL (6.4-8.2) Blood Type A POSITIVE Antibody Screen NEGATIVE Test 05/15/16 14:31 Blood Type A POSITIVE Crossmatch Leukocyte-Reduced Red Blood Cells Blood Bank Comment Result Diagram: 05/15/16 0555 05/14/16 0510 Imaging Last Impressions Abdomen/Pelvis CT 04/28/16 1047 Signed Impressions: Service Date/Time: Thursday, April 28, 2016 12:16 - CONCLUSION: 1. Worsening of hepatic metastatic disease since January 21. 2. Increasing size of right middle lobe metastatic lung nodule. 3. Increasing size of pelvic mass just below the expandable sigmoid stent. 4. Development of moderate left hydronephrosis with left ureteral stent remaining in place. 5. Development of anasarca. 6. Slight increase in biliary ductal dilatation. Edgardo Lockhart MD Lower Extremity Ultrasound 04/28/16 0000 Signed Impressions: Service Date/Time: Thursday, April 28, 2016 15:49 - CONCLUSION: 1. Occlusive and nonocclusive deep venous thrombosis in the left lower extremity as above. Popliteal cyst also present. Edgardo Lockhart MD Assessment and Plan Disease Oriented Problem List: (1) Ovarian cancer with mets to liver and lung (2) Anemia (3) COPD (chronic obstructive pulmonary disease) Symptom Scale: (1) Intractable pain 0-10 Scale: 3 Comment: secondary to metastatic ovarian cancer with disease progression despite recent chemotherapy, rectovaginal fistula, pelvic mass. (2) Vaginal discharge 0-10 Scale: Unable to quantify Comment: Secondary to pelvic mass, rectovaginal fistula. (3) Diarrhea 0-10 Scale: Unable to quantify Pertinent Non-Medical Issues Psychosocial: . Supported by her 2 daughters, Shey and Zelda. Also supported by her sister, Yoli. Lives in [place]. Spiritual: Member [employer]. Declines food product inspector visits at this time. Legal:No written advance directives. According to [place] statutes health care proxy decision-making falls to her spouse. She indicates she would want her spouse to make medical decisions should she become incapacitated. Ethical issues impacting care: no known concerns at this time. . Important Contacts * Kevin Jim, spouse/HCP: [phone] (cell) or [phone] (home) * Shey Jim, daughter: [phone] cell or [phone] work * Zelda Fuentes, daughter: [phone] cell or [phone] work * Yoli Rosario, sister: [phone] cell or [phone] home . Prognosis Mrs. Jim has recurrent Ovarian cancer with Mets to liver and lung disease progression despite recent palliative chemotherapy admitted with abdominal and vaginal pain. Patient has had ovarian cancer undergoing treatment for the last 10 years, she is certainly hospice appropriate should she elect comfort focused care. Ovarian cancer is a terminal condition. . Code Status: Full Code Plan * No written advance directives. According to [place] statutes health care proxy decision-making falls to her spouse. She indicates she would want her spouse to make medical decisions should she become incapacitated. Recommend shared decision making given her intermittent confusion. * FULL CODE. * 05/15/16: FULL CODE. Goals remain aggressive, considering rehab for continued PT, they are not ready to consider comfort measures with hospice. * SYMPTOMS: Intractable Pain: secondary to metastatic ovarian cancer with disease progression despite recent chemotherapy, rectovaginal fistula, pelvic mass. Continue Methadone 7.5 mg PO every 8 hours ATC, will change to pill from per pt request. Dilaudid 4 mg PO Q3 hours PRN breakthrough pain, has had 4 doses in 24 hours. Fentanyl patch was DCd on 05/05/16 (after Halicat). Licocaine gel to vaginal area PRN pain. Nausea: Reglan and Zofran available with relief. Diarrhea: On Vancomycin and Dificid. * Palliative care will continue to follow throughout hospital course to assist with symptom management and further clarification of treatment goals. . Attestation To help prompt me to consider important information that might be impacting today's encounter and assessment, information from prior notes written by myself or my colleagues may have been "brought forward" into today's note. My signature on this note, however, is an attestation that I personally performed the exam, history, and/or decision-making noted today, and, unless otherwise indicated, the interactions with patient, family, and staff as well as the review of records all occurred today. I also attest that the listed assessment and stated plan reflect my best clinical judgment today based on the combination of historical information, prior notes, and today's exam/ interactions. When time spent is documented, it refers only to time spent today by the signer, or if indicated, combined time spent today by collaborating physician/nurse practitioner. NIEVES URRUTIA May 15, 2016 17:05
[2016-05-15] MEDS: METHADONE HCL 10 MG TAB PO SCH (20:38)
[2016-05-15] MEDS: ALBUTEROL SULFATE 90 MCG/ACT HFA 8 GM INHALER INH PRN (20:48)
[2016-05-16] VITALS (9 sets, daily range): BP systolic 115–153; BP diastolic 59–74; PULSE 85–101; RESP 16–20; TEMP 98–98.7; O2SAT 97–98
[2016-05-16] MEDS: HYDROmorphone HCL 4 MG TAB PO PRN (03:08)
[2016-05-16] MEDS: METHADONE HCL 10 MG TAB PO SCH ×3 (05:51→21:49)
[2016-05-16] MEDS: SODIUM CHLOR 0.9% 1000 ML INJ 1,000 ML IV SCH ×3 (06:02→21:52)
[2016-05-16 06:23] LABS: AUTOMATED NEUTROPHIL # 10.1 TH/MM3 (1.8-7.7); BASOPHIL # 0.1 TH/MM3 (0-0.2); BASOPHIL % 0.9 % (0.0-2.0); EOSINOPHIL % 0.2 % (0.0-4.0); HEMATOCRIT 29.8 % (35.0-46.0); LYMPH % 6.7 % (9.0-44.0); LYMPHOCYTE # 0.8 TH/MM3 (1.0-4.8); MEAN CELL VOLUME 83.6 FL (80.0-100.0); MEAN CORPUSCULAR HEMOGLOBIN 27.7 PG (27.0-34.0); MEAN CORPUSCULAR HGB CONC 33.2 % (32.0-36.0); MONO % 11.4 % (0.0-8.0); NEUT % 80.8 % (16.0-70.0); PLATELET COUNT 437 TH/MM3 (150-450); RED BLOOD COUNT 3.57 MIL/MM3 (4.00-5.30); RED CELL DISTRIBUTION WIDTH 17.7 % (11.6-17.2); WHITE BLOOD COUNT 12.5 TH/MM3 (4.0-11.0)
[2016-05-16 06:37] LABS: HEMO FLAGS AUTO DIFF
[2016-05-16 06:53] LABS: BICARBONATE 14.9 MEQ/L (21.0-32.0); POTASSIUM 3.7 MEQ/L (3.5-5.1)
[2016-05-16 07:05] LABS: CALCIUM-PROTEIN CORRECTED 8.5 MG/DL (8.5-10.1)
[2016-05-16 07:33] LABS: KERATOCYTES OCC (NORMAL); SCAN/DIFF AUTO DIFF CONFIRMED
[2016-05-16] MEDS: SODIUM CHLORIDE 0.9% FLUSH 5 ML FLUSH FLUSH SCH ×2 (08:40→21:50)
[2016-05-16] MEDS: TIOTROPIUM BROMIDE 18 MCG INH INH SCH (08:40)
[2016-05-16] MEDS: FIDAXOMICIN 200 MG TAB PO SCH ×2 (08:40→21:49)
[2016-05-16] MEDS: DRONABINOL 5 MG CAP PO SCH ×2 (08:40→21:50)
[2016-05-16] MEDS: FLORASTOR PO SCH ×2 (08:40→21:00)
[2016-05-16] MEDS: ALBUTEROL SULFATE 90 MCG/ACT HFA 18 GM INHALER INH SCH ×4 (08:40→21:51)
[2016-05-16] MEDS: VANCOMYCIN 500 MG VIAL (FOR ORAL USE ONLY) PO SCH ×4 (08:41→21:52)
[2016-05-16] MEDS: CHOLESTYRAMINE 4 GM PACKET PO SCH ×2 (11:18→20:00)
[2016-05-16] MEDS: METOCLOPRAMIDE HCL 10 MG/2 ML VIAL IV PRN (11:18)
--- NOTE | 2016-05-16 14:09 | HHI.PR ---
Subjective Remarks Patient seen and evaluated for diarrhea, rectal bleeding and generalized weakness and deconditioning from metastatic ovarian cancer. Patient more alert today than my previous exam. She is however complaining of left arm pain which is grossly swollen. No further bloody stools. Tolerating diet better Objective Vitals Vital Signs Date Time Temp Pulse Resp B/P Pulse Ox O2 Delivery O2 Flow Rate FiO2 05/16/16 12:00 98.0 91 18 127/59 97 05/16/16 08:49 91 05/16/16 08:00 98.4 89 18 115/70 98 05/16/16 04:00 98.6 88 18 146/66 98 05/16/16 01:23 85 05/16/16 01:23 98.6 88 20 137/73 97 05/16/16 01:18 98.6 93 20 138/74 97 05/16/16 00:00 98.3 92 19 149/69 98 05/15/16 20:00 98.1 95 18 125/67 98 05/15/16 17:15 97.9 94 16 115/59 96 05/15/16 16:49 98.4 91 18 119/58 96 05/15/16 16:00 97.9 85 20 121/69 99 I/O 05/15/16 05/15/16 05/15/16 05/16/16 05/16/16 05/16/16 07:00 15:00 23:00 07:00 15:00 23:00 Intake Total 625 ml 240 ml 1095 ml 1156 ml Output Total 300 ml Balance 325 ml 240 ml 1095 ml 1156 ml Intake Oral 625 ml 240 ml 125 ml 120 ml IV Total 970 ml 1036 ml Output Urine Total 300 ml # Voids 3 4 3 10 # Bowel Movements 0 4 1 Result Diagram: 05/16/16 0550 05/16/16 0550 Objective Remarks GENERAL: This is a ill-appearing female who is alert and oriented in no acute distress RESPIRATORY: Clear to auscultation. Breath sounds equal bilaterally. No wheezes , rales, or rhonchi. GASTROINTESTINAL: Abdomen soft, non-tender, nondistended. Normal active bowel sounds MUSCULOSKELETAL: Left upper extremity swollen and tender NEURO: Alert & Oriented x4 to person, place, time, situation. Moves all ext x4 A/P Problem List: (1) Ovarian cancer ICD Code: C56.9 Status: Chronic Plan: Continue full CODE STATUS with plans for aggressive rehabilitation at discharge No further offerings per gynecology (2) Leg swelling ICD Code: M79.89 Status: Acute Plan: With DVT Now with left upper extremity swelling, rule out DVT with ultrasound was on lovenox, held due to bleeding (3) Anemia ICD Code: D64.9 Status: Acute Plan: now with evidence of gastrointestinal bleeding likely from colitis. GI following. Family wishes to avoid any invasive procedures Follow hemoglobin for transfusion needs (4) Diarrhea ICD Code: R19.7 Status: Chronic Plan: Secondary to C. difficile colitis. Continue Flagyl/dificid/po vanco with gi bleed Continue antiemetics d/c reglan Discharge Planning Appropriate for inpatient hospice family has chosen SNfF eval with aggressive rehab plans Liberty Hall MD May 16, 2016 14:09
--- NOTE | 2016-05-16 16:12 | RADRPT ---
EXAM DATE/TIME: 05/16/2016 15:23 [facility] COMPARISON: No previous studies available for comparison. INDICATIONS : Swelling in left upper extremity. MEDICAL HISTORY : Hypothyroidism. Chronic obstructive pulmonary disease. Neuropathy. Hypertention. Emphysema. Asthma. R enal failure. Ovarian cancer. SURGICAL HISTORY : Hysterectomy. Tubal ligation. Hernia repair. Lymphnodectomy. Ureteral stents. Pelvic tumor removal. ENCOUNTER: Initial ACUITY: 1 day PAIN SCORE: 4/10 LOCATION: Left arm. FINDINGS: There is noncompressibility and absent color flow present within the midportion of the left brachial vein. Elsewhere, the vessels are patent. There is spontaneous flow documented in the basilic, cephali c, axillary, and subclavian veins. Direction of flow in the jugular vein is caudal. CONCLUSION: Partial left brachial vein DVT. Simeon Hart MD on May 16, 2016 at 16:09 Board Certified Radiologist. This report was verified electronically.
[2016-05-16] MEDS: fentaNYL 100 MCG/HR PATCH TD SCH (17:45)
[2016-05-16] MEDS: REMOVE OLD DURAGESIC (FENTANYL) PATCH TD SCH (17:51)
[2016-05-16] MEDS: ONDANSETRON HCL 4 MG/2 ML VIAL IV PRN (18:44)
--- NOTE | 2016-05-16 23:08 | HHI.PR ---
Addendum to Inpatient Note Addendum Reason: Additional Documentation Additional Information RN notified us that the patient has had 4 burgundy colored stools since she came on duty at 7 p.m. Will check stat H&H and follow results. Laverne Paiz May 16, 2016 23:08
[2016-05-16] MEDS: ACETAMINOPHEN 325 MG TAB PO PRN (23:10)
[2016-05-16 23:52] LABS: HEMATOCRIT 29.8 % (35.0-46.0); REVIEW FLAG FINAL
[2016-05-17] VITALS (7 sets, daily range): BP systolic 115–163; BP diastolic 58–80; PULSE 84–95; RESP 17–20; TEMP 97.5–98.4; O2SAT 95–99
[2016-05-17] MEDS: METHADONE HCL 10 MG TAB PO SCH ×3 (05:54→22:26)
[2016-05-17] MEDS: FLORASTOR PO SCH ×2 (09:00→21:00)
[2016-05-17] MEDS: SODIUM CHLORIDE 0.9% FLUSH 5 ML FLUSH FLUSH SCH ×2 (09:00→21:00)
[2016-05-17] MEDS: FIDAXOMICIN 200 MG TAB PO SCH ×2 (10:06→22:26)
[2016-05-17] MEDS: DRONABINOL 5 MG CAP PO SCH ×2 (10:06→22:26)
[2016-05-17] MEDS: ALBUTEROL SULFATE 90 MCG/ACT HFA 8 GM INHALER INH PRN (10:07)
[2016-05-17] MEDS: TIOTROPIUM BROMIDE 18 MCG INH INH SCH (10:07)
[2016-05-17] MEDS: VANCOMYCIN 500 MG VIAL (FOR ORAL USE ONLY) PO SCH ×4 (10:09→22:00)
[2016-05-17] MEDS: CHOLESTYRAMINE 4 GM PACKET PO SCH ×2 (11:00→20:00)
--- NOTE | 2016-05-17 12:28 | HHI.PR ---
Subjective Remarks Seen and evaluated in follow-up for end-stage metastatic ovarian cancer, C. difficile and generalized weakness. Now with second clots in left upper extremity while on anticoagulation. Patient is complaining of nausea and some bloody stools overnight D/W family Objective Vitals Vital Signs Date Time Temp Pulse Resp B/P Pulse Ox O2 Delivery O2 Flow Rate FiO2 05/17/16 08:00 97.5 91 18 163/76 99 05/17/16 04:00 97.7 88 18 144/68 95 05/17/16 00:00 98.1 94 17 161/80 97 05/16/16 20:00 98.7 90 18 128/67 98 05/16/16 16:00 98.0 101 16 153/73 98 I/O 05/16/16 05/16/16 05/16/16 05/17/16 05/17/16 05/17/16 06:59 14:59 22:59 06:59 14:59 22:59 Intake Total 1156 ml 360 ml 1650 ml 764 ml Balance 1156 ml 360 ml 1650 ml 764 ml Intake Oral 120 ml 360 ml 240 ml 100 ml IV Total 1036 ml 1410 ml 664 ml # Voids 10 6 3 2 # Bowel Movements 1 3 2 Result Diagram: 05/16/16 2330 05/16/16 0550 Objective Remarks GENERAL: This is a ill-appearing female who is alert and oriented in no acute distress RESPIRATORY: Clear to auscultation. Breath sounds equal bilaterally. No wheezes , rales, or rhonchi. GASTROINTESTINAL: Abdomen soft, non-tender, nondistended. Normal active bowel sounds MUSCULOSKELETAL: Left upper extremity swollen and tender NEURO: Alert & Oriented x4 to person, place, time, situation. Moves all ext x4 A/P Problem List: (1) Ovarian cancer ICD Code: C56.9 Status: Chronic Plan: Continue full CODE STATUS with plans for aggressive rehabilitation at discharge No further offerings per gynecology hospice appropriate (2) Leg swelling ICD Code: M79.89 Status: Acute Plan: With DVT Now with left upper extremity swelling,brachial DVT on US was on lovenox, held due to bleeding No anticoagulation due to bleeding, discussed with Hematology (3) Anemia ICD Code: D64.9 Status: Acute Plan: now with evidence of gastrointestinal bleeding likely from colitis. GI following. Family wishes to avoid any invasive procedures Follow hemoglobin for transfusion needs reglan dc'd due to diarrhea (4) Diarrhea ICD Code: R19.7 Status: Chronic Plan: Secondary to C. difficile colitis. Continue dificid/po vanco with gi bleeding HG stable Continue antiemetics d/c reglan Discharge Planning Appropriate for inpatient hospice family has chosen SNfF eval with aggressive rehab plans Liberty Hall MD May 17, 2016 12:28
[2016-05-17] MEDS: ONDANSETRON ODT 4 MG TAB PO SCH ×2 (12:30→18:16)
[2016-05-17] MEDS: ALBUTEROL SULFATE 90 MCG/ACT HFA 18 GM INHALER INH SCH ×4 (12:34→22:27)
[2016-05-17] MEDS: ONDANSETRON HCL 4 MG/2 ML VIAL IV PRN (12:44)
[2016-05-17] MEDS: SODIUM CHLOR 0.9% 1000 ML INJ 1,000 ML IV SCH (18:00)
--- NOTE | 2016-05-17 19:45 | HHI.GIFU ---
GI Follow-up Note Consult Follow-up Subjective: Patient laying in bed comfortably, feeling better.Reluctant to ahve any procedures.Awaiting ID input.States she does not eat too much, as evry time she eats she has to urinate .Edema . puffiness Objective: PHYSICAL EXAMINATION: Vitals signs stable No fever Vital Signs Date Time Temp Pulse Resp B/P Pulse Ox O2 Delivery O2 Flow Rate FiO2 05/17/16 16:00 97.7 94 20 126/58 97 05/17/16 15:28 20 05/17/16 12:00 98.2 95 19 137/76 98 HEENT: Pupils round and reactive to light; normocephalic; atraumatic; no jaundice. Throat is clear. NECK: Neck is supple, no JVD, no lymphadenopathy. CHEST: Chest is clear to auscultation and percussion. CARDIAC: Regular rate and rhythm with no murmur gallop or rubs. ABDOMEN: Soft, nondistended, nontender; no hepatosplenomegaly; bowel sounds are present in all four quadrants. EXTREMITIES: No clubbing, cyanosis, edema. SKIN: Normal; no rash; no jaundice. RADIATION PROTECTION TECHNICIAN: No focal deficits; alert and oriented times three. Available Data (labs, X- Rays, Procedues) : Laboratory Tests Test 05/16/16 05/16/16 05:50 23:30 White Blood Count 12.5 TH/MM3 Red Blood Count 3.57 MIL/MM3 Hemoglobin 9.9 GM/DL 9.8 GM/DL Hematocrit 29.8 % 29.8 % Mean Corpuscular Volume 83.6 FL Mean Corpuscular Hemoglobin 27.7 PG Mean Corpuscular Hemoglobin 33.2 % Concent Red Cell Distribution Width 17.7 % Platelet Count 437 TH/MM3 Mean Platelet Volume 7.6 FL Neutrophils (%) (Auto) 80.8 % Lymphocytes (%) (Auto) 6.7 % Monocytes (%) (Auto) 11.4 % Eosinophils (%) (Auto) 0.2 % Basophils (%) (Auto) 0.9 % Neutrophils # (Auto) 10.1 TH/MM3 Lymphocytes # (Auto) 0.8 TH/MM3 Monocytes # (Auto) 1.4 TH/MM3 Eosinophils # (Auto) 0.0 TH/MM3 Basophils # (Auto) 0.1 TH/MM3 CBC Comment AUTO DIFF Differential Comment AUTO DIFF CONFIRMED Keratocytes OCC Sodium Level 142 MEQ/L Potassium Level 3.7 MEQ/L Chloride Level 116 MEQ/L Carbon Dioxide Level 14.9 MEQ/L Anion Gap 11 MEQ/L Blood Urea Nitrogen 11 MG/DL Creatinine 0.98 MG/DL Estimat Glomerular Filtration 57 ML/MIN Rate Random Glucose 61 MG/DL Calcium Level 7.1 MG/DL Protein Corrected Calcium 8.5 MG/DL Total Protein 4.6 GM/DL ASSESSMENT/PLAN: refractory c diff-awaiting ID input gi bleeding secondary c diff colitis-not hemodynamically significant poor oral intake anasarca Recommendations await ID input flexisigmoidoscopy if not better-concerns about sedation.possible complication nutritional eval, consider albumin iv It was a pleasure seeing Linda Jim. Thank you for this consult. Entered by: Leandra Marrero MD May 17, 2016 19:45
[2016-05-17] MEDS: ALBUMIN HUMAN 25% 25 GM/100 ML BAGP IV SCH (22:25)
[2016-05-18] VITALS: BP 123/63; PULSE 96; RESP 18; TEMP 97.9; O2SAT 99
[2016-05-18] MEDS: ONDANSETRON ODT 4 MG TAB PO SCH ×5 (00:30→22:28)
[2016-05-18] MEDS: SODIUM CHLOR 0.9% 1000 ML INJ 1,000 ML IV SCH ×3 (00:36→22:28)
[2016-05-18 04:00] VITALS: BP 141/64; PULSE 93; RESP 18; TEMP 98.1; O2SAT 96
[2016-05-18] MEDS: METHADONE HCL 10 MG TAB PO SCH ×3 (05:59→22:27)
[2016-05-18 08:00] VITALS: BP 134/61; PULSE 92; PULSE 94; RESP 12; TEMP 98.2; O2SAT 96
[2016-05-18] MEDS: HYDROmorphone HCL 4 MG TAB PO PRN (08:19)
[2016-05-18] MEDS: FLORASTOR PO SCH ×2 (09:00→22:29)
[2016-05-18] MEDS: ALBUTEROL SULFATE 90 MCG/ACT HFA 18 GM INHALER INH SCH ×4 (09:32→22:25)
[2016-05-18] MEDS: FIDAXOMICIN 200 MG TAB PO SCH ×2 (09:32→22:25)
[2016-05-18] MEDS: DRONABINOL 5 MG CAP PO SCH ×2 (09:32→22:26)
[2016-05-18] MEDS: TIOTROPIUM BROMIDE 18 MCG INH INH SCH (09:33)
[2016-05-18] MEDS: SODIUM CHLORIDE 0.9% FLUSH 5 ML FLUSH FLUSH SCH ×2 (09:33→22:24)
[2016-05-18] MEDS: ALBUMIN HUMAN 25% 25 GM/100 ML BAGP IV SCH ×2 (09:37→22:21)
[2016-05-18] MEDS: VANCOMYCIN 500 MG VIAL (FOR ORAL USE ONLY) PO SCH ×4 (09:49→22:26)
[2016-05-18 12:00] VITALS: BP 117/57; PULSE 94; RESP 12; TEMP 97.5; O2SAT 95
[2016-05-18] MEDS: CHOLESTYRAMINE 4 GM PACKET PO SCH ×2 (13:23→22:36)
--- NOTE | 2016-05-18 14:18 | HHI.PR ---
Subjective Remarks Patient seen in follow up for DVT x2, CDIff, Metastatic Ovarian ca and Weakness. No events overnight. PO intake better Still with diarrhea Objective Vitals Vital Signs Date Time Temp Pulse Resp B/P Pulse Ox O2 Delivery O2 Flow Rate FiO2 05/18/16 12:00 97.5 94 12 117/57 95 05/18/16 09:38 18 05/18/16 08:00 92 05/18/16 08:00 98.2 94 12 134/61 96 05/18/16 04:00 98.1 93 18 141/64 96 05/18/16 00:00 97.9 96 18 123/63 99 05/17/16 20:00 98.4 84 20 115/60 99 05/17/16 19:59 88 05/17/16 16:00 97.7 94 20 126/58 97 05/17/16 15:28 20 I/O 05/17/16 05/17/16 05/17/16 05/18/16 05/18/16 05/18/16 07:00 15:00 23:00 07:00 15:00 23:00 Intake Total 764 ml 480 ml 1445 ml 805 ml Balance 764 ml 480 ml 1445 ml 805 ml Intake Oral 100 ml 480 ml 820 ml 100 ml IV Total 664 ml 625 ml 705 ml # Voids 2 1 2 # Bowel Movements 2 4 1 2 Result Diagram: 05/16/16 2330 05/16/16 0550 Objective Remarks GENERAL: This is a ill-appearing female who is alert and oriented in no acute distress RESPIRATORY: Clear to auscultation. Breath sounds equal bilaterally. No wheezes , rales, or rhonchi. GASTROINTESTINAL: Abdomen soft, non-tender, nondistended. Normal active bowel sounds MUSCULOSKELETAL: Left upper extremity swollen and tender NEURO: Alert & Oriented x4 to person, place, time, situation. Moves all ext x4 A/P Problem List: (1) Ovarian cancer ICD Code: C56.9 Status: Chronic Plan: Continue full CODE STATUS with plans for aggressive rehabilitation at discharge No further offerings per gynecology hospice appropriate (2) Leg swelling ICD Code: M79.89 Status: Acute Plan: With DVT Now with left upper extremity swelling,brachial DVT on US was on lovenox, held due to bleeding No anticoagulation due to bleeding, discussed with Hematology (3) Anemia ICD Code: D64.9 Status: Acute Plan: now with evidence of gastrointestinal bleeding likely from colitis. Hg stable GI following. Family wishes to avoid any invasive procedures Follow hemoglobin for transfusion needs reglan dc'd due to diarrhea (4) Diarrhea ICD Code: R19.7 Status: Chronic Plan: Secondary to C. difficile colitis. Continue dificid/po vanco with gi bleeding HG stable Continue antiemetics ID consult Assessment and Plan OOB as kym Discharge Planning Appropriate for inpatient hospice family has chosen SNfF eval with aggressive rehab plans Liberty Hall MD May 18, 2016 14:18
[2016-05-18 15:02] LABS: C. DIFF EPI 027 PRESUMPTIVE NEGATIVE (NEGATIVE); C. DIFF TOXIN PCR NEGATIVE (NEGATIVE)
[2016-05-18 16:00] VITALS: BP 107/58; PULSE 96; RESP 16; TEMP 98; O2SAT 96
--- NOTE | 2016-05-18 17:48 | PD.ID.CON ---
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 Primary Care Physician Non-Staff Diagnoses: History of Present Illness Mrs. Jim is a 61 y/o CF with PMHx significant for long standing history of recurrent ovarian cancer stage III diagnosed in 2005. She was admitted to [facility] in November 2015 with bowel obstruction secondary to tumor invading the colon, she underwent colonic stent. She has metastatic disease to liver and lung. She was admitted again in December 2015 with sepsis and C. diff colitis. Since the last admission she has been on weekly Taxol (Line 9) with completion of 3 cycles of this treatment under the direction of Dr. Pires. Review of notes indicate "she has widely metastatic recurrent disease no longer responsive to treatment with extensive liver metastasis, intraperitoneal/ retroperitoneal disease, intermittent bowel obstructions, kidney obstructions, rectovaginal fistula, overall debilitation, electrolyte abnormalities and recurrent infections, performance status diminished and other problems either directly or indirectly related to this underlying disease". Patient presented to [facility] emergency department with intractable abdominal/ pelvic pain. CT scan abdomen pelvis revealed worsening hepatic metastatic disease with disease increased from 5.1cm to 9.9cm, increased in mets lung nodule to 9mm from 4mm, increased pelvic mass to 9.4cm x 12cm increased from 6.9cm, moderate hydronephrosis with left stent in place, anasarca and increased biliary ductal dilatation. Patient reports that she has discharge and ? mass thru her vagina. She reports she pees urine mixed with stool and also reports stool leaking through her vagina. 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 ID is consulted for evaluation and Mment of recurrent UTIs and recurrent or relapsing Cdiff. Review of Systems ROS Limitations: Other (patient was uncomfortable with pain and spoke very little.) Past Family Social History Allergies: Coded Allergies: Carboplatin (Verified Allergy, Severe, RASH WITH ITCHING, RED FACE, POUNDING IN EARS, 04/28/16) Cisplatin (Verified Allergy, Severe, RASH, ITCHING, RED FACE,DIFFICULTY BREATHING, 04/28/16) Penicillin (Verified Allergy, Severe, SWELLING in joints, 04/28/16) Joint pain *MDRO Multi-Drug Resistant Organism (Verified Adverse Reaction, Unknown, 04/28/16) MRSA (abdomen wound) - 2005 MRSA PCR negative 07/09/2015 & 07/14/15. Cleared per Infection Control. Past Medical History Ovarian cancer, metastatic to liver, lung and pelvis. Recently completed 3rd cycle of palliative weekly Taxol chemotherapy Hypertension Hypothyroidism Neuropathy secondary to chemotherapy Renal insufficiency secondary to hydronephrosis related to the mass. Past Surgical History Exploratory laparotomy, radical debulking of intraperitoneal tumor, omentectomy , supracervical hysterectomy, bilateral sopping oophorectomy and lysis of adhesions (2005) Hernia repair Colonic stent placement Right port placement Tubal ligation Reported Medications Reported Meds & Active Scripts Active Reported Metoclopramide (Metoclopramide HCl) 10 Mg Tab 10 Mg PO Q8HR Methadone (Methadone HCl) 5 Mg Tab 5 Mg PO BID Dronabinol 5 Mg Cap 5 Mg PO BID Hydrocodone-Acetaminophen 10-325 mg Tab 1 Tab PO Q4H PRN Gabapentin 600 Mg Tab 600 Mg PO TID PRN Combivent Respimat Inh (Ipratropium-Albuterol Inh) 20-100 Residential/Act Aero 2 Puff INH BID Proventil Hfa 6.7 GM Inh (Albuterol Sulfate) 90 Mcg/Act Aer 1 Puff INH Q4H PRN Active Ordered Medications Current Medications Medications (Trade) Dose Ordered Sig/[place] Route Start Time Stop Time Status Last Admin (NS Flush) 2 ml UNSCH PRN FLUSH 04/28/16 14:30 05/11/16 23:31 (NS Flush) 2 ml BID FLUSH 04/28/16 21:00 05/18/16 22:24 (Tylenol) 650 mg Q4H PRN PO 04/28/16 14:30 05/16/16 23:10 (Senokot) 17.2 mg Q12H PRN PO 04/28/16 14:30 (Proair Hfa Inh) 1 puff Q4H PRN INH 04/28/16 14:30 05/17/16 10:07 (Marinol) 5 mg BID PO 04/28/16 21:00 05/18/16 22:26 (Duragesic 100 Mcg Patch.72 Hr) 1 patch Q3D TD 04/28/16 18:00 05/16/16 17:45 Miscellaneous Information 1 Q3D TD 05/01/16 18:00 05/16/16 17:51 (Neurontin) 300 mg BID PO 04/28/16 21:00 Hold 05/02/16 19:42 (Pill Splitter) 1 ea UNSCH PRN OTHER 04/28/16 18:30 (Lovenox Inj) 60 mg Q12H SQ 04/28/16 20:00 Hold 05/14/16 23:33 (Xylocaine 2% Jelly) 1 applic Q2HR PRN TOPICAL 04/29/16 13:00 05/03/16 22:00 (Ofirmev Inj) 1,000 mg Q6H PRN IV 04/30/16 01:30 05/08/16 02:21 (Spiriva Inh) 18 mcg DAILY INH 04/30/16 16:00 05/18/16 09:33 (Ventolin Hfa Inh) 2 puff QID INH 04/30/16 18:00 05/18/16 22:25 (Dilaudid) 4 mg Q3H PRN PO 05/05/16 12:30 05/18/16 08:19 (Mag-Al Plus Susp Liq) 30 ml Q6H PRN PO 05/05/16 14:30 05/12/16 11:55 (Zofran Inj) 8 mg Q6H PRN IV 05/08/16 14:00 05/17/16 12:44 (Dilaudid Pf Inj) 0.5 mg Q4H PRN IV PUSH 05/08/16 14:15 Alprazolam 0.5 mg 0.5 mg Q6H PRN PO 05/08/16 15:15 (NS 1000 ml Inj) 1,000 ml @ 84 mls/hr [id number] IV 05/08/16 19:30 05/18/16 22:28 (Dificid) 200 mg BID PO 05/11/16 14:45 05/20/16 23:59 05/18/16 22:25 Patient Own Medication 1 ea BID PO 05/12/16 21:00 05/18/16 22:29 (Questran 4 Gm Pkt) 4 gm BID@11,20 PO 05/12/16 20:00 05/18/16 22:36 (VANCOMYCIN for oral use only) 125 mg QID@09,13,18,22 PO 05/12/16 13:00 12/18/16 22:26 (Dolophine) 7.5 mg Q8HR PO 05/15/16 22:00 05/18/16 22:27 (Zofran Odt) 4 mg Q6H PO 05/17/16 12:30 05/18/16 22:28 (Albumin 25% Inj) 25 gm Q12H IV 05/17/16 20:00 05/18/16 22:21 Family History Mother recently, unable to determine actual cause in discussing with family , mother had history of breast cancer. Brother aged 53 of seizure disorder. Sister alive and well. Father aged 62 of lung cancer. Social History Quit smoking in 1999, previously smoked for 25 years. Occasional alcohol use. No drug use. . 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 Lives in [place], [place]. Has 2 adult daughters , Shey and Zelda. Has a local sister Yoli. Physical Exam Vital Signs Vital Signs Date Time Temp Pulse Resp B/P Pulse Ox O2 Delivery O2 Flow Rate FiO2 05/18/16 16:00 98.0 96 16 107/58 96 05/18/16 12:00 97.5 94 12 117/57 95 05/18/16 09:38 18 05/18/16 08:00 92 05/18/16 08:00 98.2 94 12 134/61 96 05/18/16 04:00 98.1 93 18 141/64 96 05/18/16 00:00 97.9 96 18 123/63 99 05/17/16 20:00 98.4 84 20 115/60 99 05/17/16 19:59 88 Physical Exam GENERAL: This is a well-nourished, well-developed patient, in no apparent distress. SKIN: No rashes, ecchymoses or lesions. Cool and dry. HEAD: Atraumatic. Normocephalic. No temporal or scalp tenderness. EYES: Pupils equal round and reactive. Extraocular motions intact. No scleral icterus. No injection or drainage. ENT: Nose without bleeding, purulent drainage or septal hematoma. Throat without erythema, tonsillar hypertrophy or exudate. Uvula midline. Airway patent. NECK: Trachea midline. Supple, nontender, no meningeal signs. CARDIOVASCULAR: HS audible. RESPIRATORY: Clear to auscultation. Breath sounds equal bilaterally. No wheezes , rales, or rhonchi. GASTROINTESTINAL: Abdomen soft, surgical scar ok, MUSCULOSKELETAL: Extremities without clubbing, cyanosis, or edema. No joint tenderness, effusion, or edema noted. No calf tenderness. Negative Homans sign bilaterally. NEUROLOGICAL: Awake and alert. Grossly non focal. : Mons pubic with swelling and bleeding noted. Psych: cooperative IV line sites with no e/o infection. Laboratory Laboratory Tests Test 05/18/16 13:38 Stool C. difficile Toxin (PCR) NEGATIVE Stl C. difficile Toxin PRESUMPTIVE Epiderm 027 NEGATIVE Result Diagram: 05/16/16 2330 05/16/16 0550 Imaging Last Impressions Upper Extremity Ultrasound 05/16/16 0000 Signed Impressions: Service Date/Time: Monday, May 16, 2016 15:23 - CONCLUSION: Partial left brachial vein DVT. Simeon Hart MD Abdomen/Pelvis CT 04/28/16 1047 Signed Impressions: Service Date/Time: Thursday, April 28, 2016 12:16 - CONCLUSION: 1. Worsening of hepatic metastatic disease since January 21. 2. Increasing size of right middle lobe metastatic lung nodule. 3. Increasing size of pelvic mass just below the expandable sigmoid stent. 4. Development of moderate left hydronephrosis with left ureteral stent remaining in place. 5. Development of anasarca. 6. Slight increase in biliary ductal dilatation. Edgardo Lockhart MD Lower Extremity Ultrasound 04/28/16 0000 Signed Impressions: Service Date/Time: Thursday, April 28, 2016 15:49 - CONCLUSION: 1. Occlusive and nonocclusive deep venous thrombosis in the left lower extremity as above. Popliteal cyst also present. 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 Ovarian cancer, metastatic to liver, lung and pelvis. Recently completed 3rd cycle of palliative weekly Taxol chemotherapy Hypertension Hypothyroidism Neuropathy secondary to chemotherapy Renal insufficiency secondary to hydronephrosis related to the mass. Recs: Continue Difficid for now (recurrent non responsive Cdiff in IC pt) Continue Vanco oral. Unfortunately, this patient is prone for recurrent infections (UTIs in particular due to rectovesical and rectovaginal fistula) and therefore antibiotic use related recurrent or relapsing Cdiff. I discussed with patient and spouse that she is not a candidate for FMT. I also discussed briefly her overall prognosis and goals of treatment. She said very bluntly that she has life plans and is not ready for hospice or end of life plans. Although the patient and family understand her overall prognosis they are not ready for hospice and would like aggressive medical management. I have nothing else to offer her at this point other than above regimen. I will be available should any other infectious disease issues arise otherwise I will be available prn. Charlene Bermudez MD May 18, 2016 17:48
[2016-05-18 20:00] VITALS: BP 141/71; PULSE 93; RESP 18; TEMP 98.2; O2SAT 97
[2016-05-19] VITALS (9 sets, daily range): BP systolic 108–149; BP diastolic 59–79; PULSE 88–106; RESP 12–18; TEMP 97.7–98.3; O2SAT 96–100
[2016-05-19] MEDS: ONDANSETRON ODT 4 MG TAB PO SCH ×4 (05:46→22:58)
[2016-05-19] MEDS: METHADONE HCL 10 MG TAB PO SCH ×3 (05:47→20:58)
[2016-05-19] MEDS: FIDAXOMICIN 200 MG TAB PO SCH ×2 (08:09→20:58)
[2016-05-19] MEDS: ALBUMIN HUMAN 25% 25 GM/100 ML BAGP IV SCH (08:11)
[2016-05-19] MEDS: FLORASTOR PO SCH ×2 (08:15→21:00)
[2016-05-19] MEDS: ALBUTEROL SULFATE 90 MCG/ACT HFA 18 GM INHALER INH SCH ×4 (08:16→21:52)
[2016-05-19] MEDS: TIOTROPIUM BROMIDE 18 MCG INH INH SCH (08:16)
[2016-05-19] MEDS: ALBUTEROL SULFATE 90 MCG/ACT HFA 8 GM INHALER INH PRN ×2 (08:16→13:36)
[2016-05-19] MEDS ORDERED: ONDANSETRON INJ 8 MG in DEXTROSE 5% IN WATER INJ 50 ML IV PUSH PRN ×2 (08:30)
[2016-05-19] MEDS: DRONABINOL 5 MG CAP PO SCH ×2 (08:47→20:57)
[2016-05-19] MEDS: VANCOMYCIN 500 MG VIAL (FOR ORAL USE ONLY) PO SCH ×4 (08:48→22:58)
[2016-05-19] MEDS: SODIUM CHLORIDE 0.9% FLUSH 5 ML FLUSH FLUSH SCH ×2 (08:51→20:59)
[2016-05-19] MEDS: HYDROmorphone HCL 4 MG TAB PO PRN (11:24)
[2016-05-19] MEDS: CHOLESTYRAMINE 4 GM PACKET PO SCH ×2 (11:25→21:52)
--- NOTE | 2016-05-19 12:52 | HHI.GIFU ---
Subjective Remarks Patient is sitting up in chair, reports mild nausea and abd pain, significant improvement with diarrhea. stools are beginning to form. (Omra Marks YOLI) Objective Vitals I&O Vital Signs Date Time Temp Pulse Resp B/P Pulse Ox O2 Delivery O2 Flow Rate FiO2 05/19/16 08:00 97.8 93 12 143/67 97 05/19/16 04:00 98.3 94 17 128/71 98 05/19/16 00:00 97.7 88 18 149/79 97 05/18/16 20:00 98.2 93 18 141/71 97 05/18/16 16:00 98.0 96 16 107/58 96 I/O 05/18/16 05/18/16 05/18/16 05/19/16 05/19/16 05/19/16 06:59 14:59 22:59 06:59 14:59 22:59 Intake Total 805 ml 240 ml 100 ml Balance 805 ml 240 ml 100 ml Intake Oral 100 ml 240 ml 100 ml IV Total 705 ml # Voids 2 5 2 # Bowel Movements 2 2 2 Laboratory Laboratory Tests Test 05/18/16 13:38 Stool C. difficile Toxin (PCR) NEGATIVE Stl C. difficile Toxin PRESUMPTIVE Epiderm 027 NEGATIVE Imaging Last Impressions Upper Extremity Ultrasound 05/16/16 0000 Signed Impressions: Service Date/Time: Monday, May 16, 2016 15:23 - CONCLUSION: Partial left brachial vein DVT. Simeon Hart MD Abdomen/Pelvis CT 04/28/16 1047 Signed Impressions: Service Date/Time: Thursday, April 28, 2016 12:16 - CONCLUSION: 1. Worsening of hepatic metastatic disease since January 21. 2. Increasing size of right middle lobe metastatic lung nodule. 3. Increasing size of pelvic mass just below the expandable sigmoid stent. 4. Development of moderate left hydronephrosis with left ureteral stent remaining in place. 5. Development of anasarca. 6. Slight increase in biliary ductal dilatation. Edgardo Lockhart MD Lower Extremity Ultrasound 04/28/16 0000 Signed Impressions: Service Date/Time: Thursday, April 28, 2016 15:49 - CONCLUSION: 1. Occlusive and nonocclusive deep venous thrombosis in the left lower extremity as above. Popliteal cyst also present. Edgardo Lockhart MD Physical Exam HEENT: Normocephalic; atraumatic; no jaundice. CHEST: CTA CARDIAC: RRR ABDOMEN: Soft, mildly distended, mild diffuse tenderness; no hepatosplenomegaly ; bowel sounds are present in all four quadrants. EXTREMITIES: BLE, worse in LLE. LLE with erythema SKIN: Normal; no rash; no jaundice. EYEGLASS INSPECTOR: No focal deficits; alert and oriented times three. 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 Stools are beginning to form, less frequent. Abdomen/Pelvis CT (04/28/16)----> 1. Worsening of hepatic metastatic disease since January 21. 2. Increasing size of right middle lobe metastatic lung nodule. 3. Increasing size of pelvic mass just below the expandable sigmoid stent. 4. Development of moderate left hydronephrosis with left ureteral stent remaining in place. 5. Development of anasarca. 6. Slight increase in biliary ductal dilatation. S/P Flagyl 05/07-. Oral Vanco/Dificid. Abdominal pain improved. Still with loose stool- 2-3 so far today, small amount of blood noted. Cholestyramine. about sigmoidoscopy, would like to hold off on this unless necessary. HH stable. - Ovarian metastasis. Per ROPING TENDER/ONC PLAN: - MYRNA - Cont. Oral Vanco - Cont. Dificid - Cont. Cholestyramine - Florastor i po BID as home med once brought in - Monitor labs - Okay to DC from GI stand point - Consider sigmoidoscopy as an OP if no improvement, daughter would like to hold off unless absolutely necessary - F/U with GI in 2 weeks - Pt seen and examined by Dr. Barger and myself and this note is written on his behalf (Omar Marks) Physician Comments Seen with thom Nelson as above. (Tobias Barger MD) Omar Marks May 19, 2016 12:52 Tobias Barger MD May 19, 2016 16:19
[2016-05-19] MEDS ORDERED: ACET325T PO (13:43)
[2016-05-19] MEDS ORDERED: DRON5CAP PO (13:43)
[2016-05-19] MEDS ORDERED: VANC500I3 PO (13:43)
[2016-05-19] MEDS ORDERED: DOLO10TA PO (13:43)
[2016-05-19] MEDS ORDERED: FENT100T TD (13:43)
[2016-05-19] MEDS ORDERED: DIFI200T PO (13:43)
[2016-05-19] MEDS ORDERED: ONDA4TAB7 PO (13:43)
[2016-05-19] MEDS ORDERED: SPIRCAP INH (13:43)
--- NOTE | 2016-05-19 13:44 | HHI.DCPOC ---
Discharge Care Plan Diagnosis: (1) Metabolic encephalopathy (2) Ovarian cancer Goals to Promote Your Health * To prevent worsening of your condition and complications * To maintain your health at the optimal level Directions to Meet Your Goals Take your medications as prescribed Follow your dietary instruction Follow activity as directed Keep your appointments as scheduled Take your immunizations and boosters as scheduled If your symptoms worsen call your PCP, if no PCP go to Urgent Care Center or Emergency Room Smoking is Dangerous to Your Health. Avoid second hand smoke Call the 24-hour hour crisis hotline for domestic abuse at [place] Hall MD May 19, 2016 13:44
[2016-05-19] MEDS ORDERED: DILA4TAB2 PO (13:47)
--- NOTE | 2016-05-19 13:53 | HHI.DS ---
Discharge Summary Admission Date Apr 29, 2016 at 12:10 Discharge Date: May 19, 2016 Admitting Diagnosis intractable abdominal pain, metastatic disease (1) Ovarian cancer ICD Code: C56.9 (2) Leg swelling ICD Code: M79.89 (3) Anemia ICD Code: D64.9 (4) Diarrhea ICD Code: R19.7 Procedures None Brief History - From Admission A 61-year-old female with chronic abdominal pain due to metastatic ovarian cancer who is currently in palliative chemotherapy. Patient comes emergency room with acute onset of severe abdominal pain rated 10 out of 10 occurring overnight and not relieved with it not, 5 mg of methadone or Lortab which she had at home per her oncology office. Patient came to the emergency room for further evaluation. Pain was relieved with IV morphine. Patient reports spasmodic abdominal discomfort which is quite severe. She also reports vaginal discharge which has been chronic and been followed by her oncology team. Patient has previously been evaluated by the palliative care team in the hospital. Patient has a repeat CT of the abdomen and pelvis done compared with previous evaluation here in December. It does show my review worsening metastatic disease despite her current chemotherapy regimen. Patient is poorly ambulatory, poorly functioning, with poor appetite and now with increased edema on the left lower extremity which has been treated with antibiotics per her oncologist. Patient has not had any fevers or chills and no nausea and vomiting but mostly she has been in the bed asleep. Per the family and they would like some relief from the pain and a realistic expectation on their current prognosis. For these reasons the patient is recommended for further evaluation in the hospital CBC/BMP: 05/16/16 2330 05/16/16 0550 Significant Findings Laboratory Tests Test 05/16/16 23:30 Hemoglobin 9.8 GM/DL (11.6-15.3) Hematocrit 29.8 % (35.0-46.0) Imaging Last Impressions Upper Extremity Ultrasound 05/16/16 0000 Signed Impressions: Service Date/Time: Monday, May 16, 2016 15:23 - CONCLUSION: Partial left brachial vein DVT. Simeon Hart MD Abdomen/Pelvis CT 04/28/16 1047 Signed Impressions: Service Date/Time: Thursday, April 28, 2016 12:16 - CONCLUSION: 1. Worsening of hepatic metastatic disease since January 21. 2. Increasing size of right middle lobe metastatic lung nodule. 3. Increasing size of pelvic mass just below the expandable sigmoid stent. 4. Development of moderate left hydronephrosis with left ureteral stent remaining in place. 5. Development of anasarca. 6. Slight increase in biliary ductal dilatation. Edgardo Lockhart MD Lower Extremity Ultrasound 04/28/16 0000 Signed Impressions: Service Date/Time: Thursday, April 28, 2016 15:49 - CONCLUSION: 1. Occlusive and nonocclusive deep venous thrombosis in the left lower extremity as above. Popliteal cyst also present. Edgardo Lockhart MD PE at Discharge GENERAL: This is a ill-appearing female who is alert and oriented in no acute distress RESPIRATORY: Clear to auscultation. Breath sounds equal bilaterally. No wheezes , rales, or rhonchi. GASTROINTESTINAL: Abdomen soft, non-tender, nondistended. Normal active bowel sounds MUSCULOSKELETAL: Left upper extremity swollen and tender NEURO: Alert & Oriented x4 to person, place, time, situation. Moves all ext x4 Pt update on day of discharge Patient seen today in follow-up for her C. difficile colitis and generalized deconditioning. Doing better. Out of bed to chair today. Discharge plans discussed with patient, daughter, GI team, [facility] nursing team and palliative care team. ID consultation appreciated Hospital Course The patient is a 61-year-old female who is seen and treated for metastatic end- stage ovarian cancer. The oncology team had nothing to offer this patient and in fact recommended palliative/hospice care which the patient's and her family did not want to pursue. Patient did have intractable pain, diarrhea and these are managed here in the hospital. 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 She did have positive stool studies for C. difficile and this was treated. She had some GI bleeding which is likely related to the colitis. She was seen by gastrointestinal doctors. He started on deficit and Flagyl and vancomycin. Her diarrhea improved. Patient was on a blood thinner to treat her left lower extremity DVT and this was discontinued. Once was discontinued and left upper extremity DVT was found however no anticoagulation was recommended per hematology given the gastric intestinal bleeding. Flexible sigmoidoscopy was recommended by the GI team but the family and the patient declined this initiative. Her Reglan was discontinued with some improvement in diarrhea. Patient was followed by the palliative care team in the hospital. She remains full CODE STATUS despite her terminal condition and has been discharged to rehabilitation to continue aggressive rehabilitation efforts Pt Condition on Discharge: Good Discharge Disposition: Discharge to SNF Discharge Time: > 30 minutes Discharge Instructions DIET: Follow Instructions for: As Tolerated, No Restrictions Activities you can perform: Regular-No Restrictions New Medications: Acetaminophen (Acetaminophen) 325 Mg Tab 650 MG PO Q4H PRN TEMP > 100.4 #93 TAB Dronabinol (Dronabinol) 5 Mg Cap 5 MG PO BID Pain Management #62 CAP Fentanyl Patch 72 HR (Duragesic Patch 72 HR) 100 Mcg/Hr Patch 1 PATCH TD Q3D Pain #10 BOX Fidaxomicin (Dificid) 200 Mg Tab 200 MG PO BID Infection #1 TAB Hydromorphone (Dilaudid) 4 Mg Tab 4 MG PO Q3H PRN PAIN SCALE 1 TO 10 #30 TAB Methadone (Dolophine) 10 Mg Tab 7.5 MG PO Q8HR Pain Management #93 TAB Ondansetron Odt (Ondansetron Odt) 4 Mg Tab 4 MG PO Q6H Nausea #90 TAB Tiotropium Inh (Spiriva Handihaler) 18 Mcg Cap 18 MCG INH DAILY breathing #31 CAP Vancomycin Inj (Vancomycin Inj) 500 Mg Inj 125 MG PO QID@09,13,18,22 oral for cdiff Infection #60 INJECTION Continued Medications: Albuterol 6.7 GM Inh (Proventil Hfa 6.7 GM Inh) 90 Mcg/Act Aer 1 PUFF INH Q4H PRN SHORTNESS OF BREATH #1 Ref 0 INHALER Ipratropium-Albuterol Inh (Combivent Respimat Inh) 20-100 Chcf/Act Aero 2 PUFF INH BID Asthma Management #1 Ref 0 INHALER Discontinued Medications: Dronabinol (Dronabinol) 5 Mg Cap 5 MG PO BID Ref 0 CAP Gabapentin (Gabapentin) 600 Mg Tab 600 MG PO TID PRN PAIN SCALE 1 TO 5 #90 Ref 0 TAB Hydrocodone-Acetaminophen (Hydrocodone-Acetaminophen) 10-325 mg Tab 1 TAB PO Q4H PRN PAIN Ref 0 TAB Methadone (Methadone) 5 Mg Tab 5 MG PO BID TAB Metoclopramide (Metoclopramide) 10 Mg Tab 10 MG PO Q8HR Nausea Ref 0 TAB Liberty Hall MD May 19, 2016 13:53
[2016-05-19] MEDS ORDERED: FUROSEMIDE 40 MG/4 ML VIAL ONE (18:00)
[2016-05-19] MEDS: REMOVE OLD DURAGESIC (FENTANYL) PATCH TD SCH (18:00)
[2016-05-19] MEDS: fentaNYL 100 MCG/HR PATCH TD SCH (18:00)
[2016-05-19 18:08] LABS: BLOOD GAS BASE EXCESS -13.3 mmol/L (-2-2); BLOOD GAS CARBOXYHEMOGLOBIN 0.9 % (0-4); BLOOD GAS HCO3 13 mmol/L (22-26); BLOOD GAS METHEMOGLOBIN 1.2 % (0-2); BLOOD GAS O2 HGB SATURATION 81 % (90-100); BLOOD GAS OXYGEN CONTENT 11.6 Vol % (12.0-20.0); BLOOD GAS PCO2 38 mmHg (38-42); BLOOD GAS PO2 56 mmHg (61-120); BLOOD GAS TOTAL HGB 10.2 G/DL (12.0-16.0); TEMP CORR TO 98.6
[2016-05-19 18:09] LABS: CRITICAL VALUE YES; DRAW SITE RT RADIAL; FIO2 100 %; NUMBER OF ARTERIAL PUNCTURES 1; STAT YES; ULNAR PULSE PRESENT
[2016-05-19] MEDS ORDERED: FUROSEMIDE 40 MG/4 ML VIAL IV PUSH ONE (18:15)
[2016-05-19] MEDS ORDERED: FUROSEMIDE 20 MG/2 ML VIAL IV PUSH ONE (18:15)
--- NOTE | 2016-05-19 18:35 | RADRPT ---
EXAM DATE/TIME: 05/19/2016 18:19 [facility] COMPARISON: CHEST SINGLE AP, January 23, 2016, 1:33. INDICATIONS : Short of breath. MEDICAL HISTORY : Hypothyroidism. Chronic obstructive pulmonary disease. Neuropathy. Hypertention. Emphysema. Asthma. R enal failure. Ovarian cancer. SURGICAL HISTORY : Ureteral stents. Pelvic tumor removal. Hysterectomy. Tubal ligation. Hernia repair. Lymphnodectomy. ENCOUNTER: Initial ACUITY: 1 day PAIN SCORE: Non-responsive. LOCATION: Bilateral chest FINDINGS: A single view of the chest demonstrates Cgwjrh-j-Kipt tip in superior vena cava. Mild basilar airspac e disease. No significant effusion. No pneumothorax. Heart size upper limits normal. CONCLUSION: 1. Right Ldqxuv-x-Kvtj in superior vena cava. Mild basilar airspace disease. No pneumothorax. Edgardo Lockhart MD on May 19, 2016 at 18:32 Board Certified Radiologist. This report was verified electronically.
--- NOTE | 2016-05-19 18:40 | HHI.FPPN ---
Addendum to progress note ADDENDUM Reason for addendum: Additonal documentation Additional information S: Residents responded to [facility] heard overhead at ~1845: Ms. Jim was reportedly found to have O2 sat in high 80's with tachypnea in 20' s. Patient was placed on nonrebreather with improvement in O2 sats. Per brief review of EMR, patient with metastatic ovarian cancer, recurrent C diff, recent DVT but Lovenox stopped due to gastric intestinal bleeding Patient was awake and oriented, not in distress at time of resident evaluation. O: O2 sat 98% on nonrebreather at 15L, HR 110's. BP normotensive (SBP ~130), RR <20 Gen: No acute distress CV: Tachycardic, 2+ Pitting edema, L calf larger Resp: bilateral congstion suggestive of fluid overload Skin: distal LLE more erythematous than RLE Neuro: No focal defects A/P: Respiratory distress in patient with fluid overload and DVT not recently treated due to GI bleed Impression: Fluid overload on exam. LLE DVT on exam. -ABG: pH 7.17, O2 55, CO2 37 non nonrebreather -CXR -Empiric Lasix 60mg IV x1 prior to CXR result since Cr ok and edema and pulm fluid on exam -Start Bipap -Transfer to C -EKG -CBC, BMP, BNP -Will assess on Bipap; if not improved on Bipap will consider CTA but strong suspicion of fluid overload as etiology at this time -Discussed with Dr. Hall, primary team Discussed with Rubén Sorto MD R2 May 19, 2016 18:40
[2016-05-19 19:07] LABS: AUTOMATED NEUTROPHIL # 15.1 TH/MM3 (1.8-7.7); BASOPHIL % 0.2 % (0.0-2.0); EOSINOPHIL % 0.1 % (0.0-4.0); HEMATOCRIT 30.6 % (35.0-46.0); HEMO FLAGS DIFF FINAL; LYMPH % 4.2 % (9.0-44.0); LYMPHOCYTE # 0.7 TH/MM3 (1.0-4.8); MEAN CELL VOLUME 85.7 FL (80.0-100.0); MEAN CORPUSCULAR HEMOGLOBIN 27.3 PG (27.0-34.0); MEAN CORPUSCULAR HGB CONC 31.9 % (32.0-36.0); MONO % 6.4 % (0.0-8.0); NEUT % 89.1 % (16.0-70.0); PLATELET COUNT 326 TH/MM3 (150-450); RED BLOOD COUNT 3.58 MIL/MM3 (4.00-5.30); RED CELL DISTRIBUTION WIDTH 18.9 % (11.6-17.2); WHITE BLOOD COUNT 16.9 TH/MM3 (4.0-11.0)
[2016-05-19 19:29] LABS: BICARBONATE 16.1 MEQ/L (21.0-32.0); POTASSIUM 3.3 MEQ/L (3.5-5.1)
[2016-05-19 19:42] LABS: CALCIUM-PROTEIN CORRECTED 8.3 MG/DL (8.5-10.1)
[2016-05-19] MEDS ORDERED: POTASSIUM CHLORIDE 25 MEQ EFFERVESCENT TAB PO ONE (22:15)
[2016-05-20] VITALS (11 sets, daily range): BP systolic 95–129; BP diastolic 53–64; PULSE 92–105; RESP 10–19; TEMP 97.2–99.6; O2SAT 97–100
[2016-05-20] MEDS: ONDANSETRON ODT 4 MG TAB PO SCH ×3 (05:58→17:19)
[2016-05-20] MEDS: METHADONE HCL 10 MG TAB PO SCH ×3 (05:59→22:02)
[2016-05-20] MEDS: HYDROmorphone HCL PF 1 MG/ML VIAL IV PUSH PRN ×2 (08:08→15:04)
[2016-05-20] MEDS: ALBUTEROL SULFATE 90 MCG/ACT HFA 18 GM INHALER INH SCH ×4 (08:08→21:00)
[2016-05-20] MEDS: TIOTROPIUM BROMIDE 18 MCG INH INH SCH (08:08)
[2016-05-20] MEDS: DRONABINOL 5 MG CAP PO SCH ×2 (08:08→22:03)
[2016-05-20] MEDS: FIDAXOMICIN 200 MG TAB PO SCH ×2 (08:08→22:10)
[2016-05-20] MEDS: VANCOMYCIN 500 MG VIAL (FOR ORAL USE ONLY) PO SCH ×4 (08:08→22:09)
[2016-05-20] MEDS: SODIUM CHLORIDE 0.9% FLUSH 5 ML FLUSH FLUSH SCH ×2 (08:08→21:00)
[2016-05-20] MEDS: FLORASTOR 250 MG PO SCH ×2 (08:08→22:03)
--- NOTE | 2016-05-20 08:16 | PD.ONC.PN ---
Subjective Subjective Remarks Mrs. Jim was seen in [facility] [place] on Bipap, no family at bedside She had an episode of decreased sats and tachypnea yesterday suspected fluid overload Lasix given and CXR RN reports that pt did well overnight without any episodes of low sats pt tells me that she is painful at this time Objective Data Date Time Temp Pulse Resp B/P Pulse Ox O2 Delivery O2 Flow Rate FiO2 05/20/16 07:26 100 40 05/20/16 04:02 97 40 05/20/16 04:00 98.0 103 16 102/57 98 05/20/16 01:02 100 40 05/20/16 00:00 97.8 99 16 101/59 100 05/19/16 20:39 100 40 05/19/16 20:00 97.8 106 16 108/59 97 05/19/16 18:45 100 60 05/19/16 14:00 98.0 96 12 138/65 98 05/19/16 12:00 97.8 95 12 124/69 96 05/19/16 08:00 97.8 93 12 143/67 97 05/20/16 05/20/16 05/20/16 06:59 14:59 22:59 Intake Total 100 ml Balance 100 ml Result Diagram: 05/19/16 1820 05/19/161819 Laboratory Results Laboratory Tests Test 05/19/16 05/19/16 18:03 18:20 Blood Gas Puncture Site RT RADIAL Blood Gas Patient Temperature 98.6 Blood Gas HCO3 13 mmol/L Blood Gas Base Excess -13.3 mmol/L Blood Gas Oxygen Saturation 81 % Arterial Blood pH 7.18 Arterial Blood Partial 38 mmHg Pressure CO2 Arterial Blood Partial 56 mmHg Pressure O2 Arterial Blood Oxygen Content 11.6 Vol % Arterial Blood 0.9 % Carboxyhemoglobin Arterial Blood Methemoglobin 1.2 % Blood Gas Hemoglobin 10.2 G/DL Oxygen Delivery Device Non-Rebreathing Mask Blood Gas Inspired Oxygen 100 % White Blood Count 16.9 TH/MM3 Red Blood Count 3.58 MIL/MM3 Hemoglobin 9.8 GM/DL Hematocrit 30.6 % Mean Corpuscular Volume 85.7 FL Mean Corpuscular Hemoglobin 27.3 PG Mean Corpuscular Hemoglobin 31.9 % Concent Red Cell Distribution Width 18.9 % Platelet Count 326 TH/MM3 Mean Platelet Volume 7.5 FL Neutrophils (%) (Auto) 89.1 % Lymphocytes (%) (Auto) 4.2 % Monocytes (%) (Auto) 6.4 % Eosinophils (%) (Auto) 0.1 % Basophils (%) (Auto) 0.2 % Neutrophils # (Auto) 15.1 TH/MM3 Lymphocytes # (Auto) 0.7 TH/MM3 Monocytes # (Auto) 1.1 TH/MM3 Eosinophils # (Auto) 0.0 TH/MM3 Basophils # (Auto) 0.0 TH/MM3 CBC Comment DIFF FINAL Differential Comment Sodium Level 145 MEQ/L Potassium Level 3.3 MEQ/L Chloride Level 118 MEQ/L Carbon Dioxide Level 16.1 MEQ/L Anion Gap 11 MEQ/L Blood Urea Nitrogen 11 MG/DL Creatinine 1.23 MG/DL Estimat Glomerular Filtration 44 ML/MIN Rate Random Glucose 86 MG/DL Calcium Level 7.3 MG/DL Protein Corrected Calcium 8.3 MG/DL Troponin I 0.03 NG/ML B-Type Natriuretic Peptide 488 PG/ML Total Protein 5.2 GM/DL Imaging Studies Last Impressions Chest X-Ray 05/19/16 0000 Signed Impressions: Service Date/Time: Thursday, May 19, 2016 18:19 - CONCLUSION: 1. Right Fasval-i-Wqvb in superior vena cava. Mild basilar airspace disease. No pneumothorax. Edgardo Lockhart MD Upper Extremity Ultrasound 05/16/16 0000 Signed Impressions: Service Date/Time: Monday, May 16, 2016 15:23 - CONCLUSION: Partial left brachial vein DVT. Simeon Hart MD Abdomen/Pelvis CT 04/28/16 1047 Signed Impressions: Service Date/Time: Thursday, April 28, 2016 12:16 - CONCLUSION: 1. Worsening of hepatic metastatic disease since January 21. 2. Increasing size of right middle lobe metastatic lung nodule. 3. Increasing size of pelvic mass just below the expandable sigmoid stent. 4. Development of moderate left hydronephrosis with left ureteral stent remaining in place. 5. Development of anasarca. 6. Slight increase in biliary ductal dilatation. Edgardo Lockhart MD Lower Extremity Ultrasound 04/28/16 0000 Signed Impressions: Service Date/Time: Thursday, April 28, 2016 15:49 - CONCLUSION: 1. Occlusive and nonocclusive deep venous thrombosis in the left lower extremity as above. Popliteal cyst also present. Edgardo Lockhart MD Administered Medications Medications (Trade) Dose Ordered Sig/Perry Route PRN Reason Start Time Stop Time Status Last Admin Dose Admin IV Flush (NS Flush) 2 ml UNSCH PRN FLUSH FLUSH AFTER USING IV ACCESS 04/28/16 14:30 05/11/16 23:31 IV Flush (NS Flush) 2 ml BID FLUSH 04/28/16 21:00 05/19/16 20:59 Acetaminophen (Tylenol) 650 mg Q4H PRN PO TEMP > 100.4 or pain 04/28/16 14:30 05/16/16 23:10 Albuterol Sulfate (Proair Hfa Inh) 1 puff Q4H PRN INH SHORTNESS OF BREATH 04/28/16 14:30 05/17/16 10:07 Dronabinol (Marinol) 5 mg BID PO 04/28/16 21:00 05/19/16 20:57 Fentanyl (Duragesic 100 Mcg Patch.72 Hr) 1 patch Q3D TD 04/28/16 18:00 05/19/16 18:00 Miscellaneous Information 1 Q3D TD 05/01/16 18:00 05/19/16 18:00 Gabapentin (Neurontin) 300 mg BID PO 04/28/16 21:00 Hold 05/02/16 19:42 Enoxaparin Sodium (Lovenox Inj) 60 mg Q12H SQ 04/28/16 20:00 Hold 05/14/16 23:33 Lidocaine HCl (Xylocaine 2% Jelly) 1 applic Q2HR PRN TOPICAL SEE LABEL COMMENTS 04/29/16 13:00 05/03/16 22:00 Acetaminophen (Ofirmev Inj) 1,000 mg Q6H PRN IV fever > 100.4 04/30/16 01:30 05/08/16 02:21 Tiotropium [place] (Spiriva Inh) 18 mcg DAILY INH 04/30/16 16:00 05/19/16 08:16 Albuterol Sulfate (Ventolin Hfa Inh) 2 puff QID INH 04/30/16 18:00 05/19/16 21:52 Hydromorphone HCl (Dilaudid) 4 mg Q3H PRN PO PAIN SCALE 1 TO 10 05/05/16 12:30 05/19/16 11:24 Al Hydrox/Mg Hydrox/Simethicone (Mag-Al Plus Susp Liq) 30 ml Q6H PRN PO indigestion/ reflux 05/05/16 14:30 05/12/16 11:55 Fidaxomicin (Dificid) 200 mg BID PO 05/11/16 14:45 05/20/16 23:59 05/19/16 20:58 Cholestyramine Resin (Questran 4 Gm Pkt) 4 gm BID@11,20 PO 05/12/16 20:00 05/19/16 21:52 Vancomycin HCl (VANCOMYCIN for oral use only) 125 mg QID@09,13,18,22 PO 05/12/16 13:00 05/19/16 22:58 Methadone HCl (Dolophine) 7.5 mg Q8HR PO 05/15/16 22:00 05/20/16 05:59 Ondansetron HCl 4 mg 4 mg Q6H PO 05/17/16 12:30 05/20/16 05:58 Ondansetron HCl/ Dextrose (Zofran Inj/D5W Inj) 54 ml @ 216 mls/hr Q6H PRN IV PUSH NAUSEA 05/19/16 08:30 05/19/16 08:51 Objective Remarks GENERAL: sick, frail SKIN: cool and dry HEAD: Normocephalic. EYES: No scleral icterus. No injection or drainage. CARDIOVASCULAR: Tachy without any MMRs RESPIRATORY: Bipap EXTREMITIES: Bilat LE edema MUSCULOSKELETAL: Adequate muscle tone. NEUROLOGICAL: No obvious focal deficit. Awake, alert, and oriented x3. Assessment/Plan Problem List: (1) Ovarian metastasis Status: Chronic Plan: Mrs. Jim, on multiple occasions, has expressed that she does not want Hospice. That she wishes to go to Rehab and then hopefully home. It has been explained to her and her family that she is a candidate for Hospice , unfortunately after 10 years of fighting ovarian cancer she has resistant disease despite resent treatment and her performance status is so poor that we are unable to continue any chemotherapy. Her condition is terminal. GI has been consulted for rectal bleeding (most likely tumor invasion) and resistant C diff infection. family has declined sigmoidoscopy ID was consulted and signed off with nothing further to offer. Most recently diagnosed with left brachial DVT, has not been on anticoagulation d/t bleeding. Palliative Care has been following to help with clarify goals and pain management. We thank them for their assistance. Recent onset of tachypnea and decreased sats..transferred to [facility] [place] on Bi pap. Lasix. Attending Statement Dr. Pires is in agreement with this plan. Problem Qualifiers (1) Ovarian metastasis: Qualified Code: C79.60 - Malignant neoplasm metastatic to ovary, unspecified laterality Briseida Marquez May 20, 2016 08:16
[2016-05-20 10:22] LABS: HEMATOCRIT 27.4 % (35.0-46.0); MEAN CELL VOLUME 86.3 FL (80.0-100.0); MEAN CORPUSCULAR HEMOGLOBIN 28.1 PG (27.0-34.0); MEAN CORPUSCULAR HGB CONC 32.5 % (32.0-36.0); PLATELET COUNT 260 TH/MM3 (150-450); RED BLOOD COUNT 3.17 MIL/MM3 (4.00-5.30); REVIEW FLAG FINAL; WHITE BLOOD COUNT 15.1 TH/MM3 (4.0-11.0)
[2016-05-20 10:55] LABS: BICARBONATE 16.3 MEQ/L (21.0-32.0); POTASSIUM 3.2 MEQ/L (3.5-5.1)
[2016-05-20 11:09] LABS: CALCIUM-PROTEIN CORRECTED 8.5 MG/DL (8.5-10.1)
[2016-05-20] MEDS: CHOLESTYRAMINE 4 GM PACKET PO SCH ×2 (11:38→22:01)
--- NOTE | 2016-05-20 14:11 | HHI.HCPN ---
Reason for visit a. To assist with evaluation and management of symptoms including: abdominal /pelvic pain, edema. b. To assist medical decision maker(s) with: better understanding of current medical conditions; weighing benefits/burdens of medical treatment options; making medical treatment decisions. . Subjective/Interval History Patient was transferred to ICU after she became tachypneic (rates 30s) and hypoxic (oxygen sat 80's) on 05/19/16. She had bilateral pulmonary congestion, tachycardia, tachypnea, BP stable and diffuse anasarca. Transferred to ICU placed on BiPAP was given Lasix 60mg IV. Nurse indicates breathing improved after diuretics. Now off BiPAP, tolerating NC. Oxygen sats stable. Patient seen and examined in ICU.No family at bedside. Also present YOLI Coronado. Discussed with nurse. She is awake and alert. She denies SOB. She is very edematous. She reports overall pain is well controlled, rates pelvic pain 3 on average and is comfortable with this. Her pain has been as high as 8 on 0-10 scale, relief with PRN Dilaudidd. She remains on Methadone 7.5mg PO every 8 hours ATC. She had one dose of Dilaudid 0.5mg IV this morning (sister is NOT happy about this) . Otherwise she has only had one dose of PO Dilaudid in the past 24 hours. Tmax 99.6. Vital signs stable. Diarrhea has improved per pt report, stool more formed. Repeat C. Diff negative. No bleeding reported. On Dificid, completes 10 day course 05/21/16. Chest xray with mild basilar airspace disease. Patient desires continued aggressive care with rehab placement. She still desires FULL CODE. Will continue to follow. . . Family/friend interactions No family at bedside. . Advance Directives Living Will: Never completed Health Care Surrogate: Never completed Durable Power of Mate First: Never completed Advance Directive Specifics Health Care Surrogate(s): No written advance directives. According to [place] statutes health care proxy decision-making falls to her spouse. She indicates she would want her spouse to make medical decisions should she become incapacitated. . Significant change in goals: FULL CODE. Goals remain aggressive. . Objective Vital Signs Date Time Temp Pulse Resp B/P Pulse Ox O2 Delivery O2 Flow Rate FiO2 05/20/16 12:00 99.6 105 12 113/53 98 05/20/16 11:35 97 Nasal Cannula 4.00 05/20/16 08:00 99.2 102 14 98/62 97 05/20/16 07:26 100 40 05/20/16 04:02 97 40 05/20/16 04:00 98.0 103 16 102/57 98 05/20/16 01:02 100 40 05/20/16 00:00 97.8 99 16 101/59 100 05/19/16 20:39 100 40 05/19/16 20:00 97.8 106 16 108/59 97 05/19/16 18:45 100 60 05/19/16 18:30 98 Non-Rebreather 15.00 05/19/16 14:00 98.0 96 12 138/65 98 Intake & Output 05/20/16 05/20/16 07:00 19:00 Intake Total 250 ml Balance 250 ml Intake Oral 250 ml # Voids 6 # Bowel Movements 6 Physical Exam CONSTITUTIONAL/GENERAL: This is a frail, chronically ill patient, who appears older than her actual age, writhing in pain. TUBES/LINES/DRAINS: port. SKIN: pale. Diffuse erythema and scaling in both extremities. Bilateral lower extremity edema left > right. Erythema LLE and thigh, decreased slightly from prior. CARDIOVASCULAR: tachycardic. RESPIRATORY/CHEST: Symmetric, unlabored respirations. Scattered crackles. GASTROINTESTINAL: Abdomen soft, tender right upper and lower quadrant, mildly distended. Bowel sounds active. GENITOURINARY: Without palpable bladder distension. MUSCULOSKELETAL: Diffuse edema 2-3 + pitting, her face is even edematous. NEUROLOGICAL: Awake and alert. Follows commands. PSYCHIATRIC: Awake and alert, denies anxiety. . Diagnostic Tests Laboratory Laboratory Tests Test 05/18/16 05/19/16 05/19/16 05/20/16 13:38 18:03 18:20 09:42 Stool C. difficile Toxin (PCR) NEGATIVE (NEGATIVE) Stl C. difficile Toxin PRESUMPTIVE Epiderm 027 NEGATIVE (NEGATIVE) Blood Gas Puncture Site RT RADIAL Blood Gas Patient Temperature 98.6 Blood Gas HCO3 13 mmol/L (22-26) Blood Gas Base Excess -13.3 mmol/L (-2-2) Blood Gas Oxygen Saturation 81 % (90-100) Arterial Blood pH 7.18 (7.380-7.420) Arterial Blood Partial 38 mmHg (38-42) Pressure CO2 Arterial Blood Partial 56 mmHg Pressure O2 (61-120) Arterial Blood Oxygen Content 11.6 Vol % (12.0-20.0) Arterial Blood 0.9 % (0-4) Carboxyhemoglobin Arterial Blood Methemoglobin 1.2 % (0-2) Blood Gas Hemoglobin 10.2 G/DL (12.0-16.0) Oxygen Delivery Device Non-Rebreathing Mask Blood Gas Inspired Oxygen 100 % White Blood Count 16.9 TH/MM3 15.1 TH/MM3 (4.0-11.0) (4.0-11.0) Red Blood Count 3.58 MIL/MM3 3.17 MIL/MM3 (4.00-5.30) (4.00-5.30) Hemoglobin 9.8 GM/DL 8.9 GM/DL (11.6-15.3) (11.6-15.3) Hematocrit 30.6 % 27.4 % (35.0-46.0) (35.0-46.0) Mean Corpuscular Volume 85.7 FL 86.3 FL (80.0-100.0) (80.0-100.0) Mean Corpuscular Hemoglobin 27.3 PG 28.1 PG (27.0-34.0) (27.0-34.0) Mean Corpuscular Hemoglobin 31.9 % 32.5 % Concent (32.0-36.0) (32.0-36.0) Red Cell Distribution Width 18.9 % 19.0 % (11.6-17.2) (11.6-17.2) Platelet Count 326 TH/MM3 260 TH/MM3 (150-450) (150-450) Mean Platelet Volume 7.5 FL 7.6 FL (7.0-11.0) (7.0-11.0) Neutrophils (%) (Auto) 89.1 % (16.0-70.0) Lymphocytes (%) (Auto) 4.2 % (9.0-44.0) Monocytes (%) (Auto) 6.4 % (0.0-8.0) Eosinophils (%) (Auto) 0.1 % (0.0-4.0) Basophils (%) (Auto) 0.2 % (0.0-2.0) Neutrophils # (Auto) 15.1 TH/MM3 (1.8-7.7) Lymphocytes # (Auto) 0.7 TH/MM3 (1.0-4.8) Monocytes # (Auto) 1.1 TH/MM3 (0-0.9) Eosinophils # (Auto) 0.0 TH/MM3 (0-0.4) Basophils # (Auto) 0.0 TH/MM3 (0-0.2) CBC Comment DIFF FINAL Differential Comment Sodium Level 145 MEQ/L 147 MEQ/L (136-145) (136-145) Potassium Level 3.3 MEQ/L 3.2 MEQ/L (3.5-5.1) (3.5-5.1) Chloride Level 118 MEQ/L 120 MEQ/L (98-107) (98-107) Carbon Dioxide Level 16.1 MEQ/L 16.3 MEQ/L (21.0-32.0) (21.0-32.0) Anion Gap 11 MEQ/L (5-15) 11 MEQ/L (5-15) Blood Urea Nitrogen 11 MG/DL (7-18) 11 MG/DL (7-18) Creatinine 1.23 MG/DL 1.12 MG/DL (0.50-1.00) (0.50-1.00) Estimat Glomerular Filtration 44 ML/MIN (>89) 49 ML/MIN (>89) Rate Random Glucose 86 MG/DL 64 MG/DL (74-106) (74-106) Calcium Level 7.3 MG/DL 7.1 MG/DL (8.5-10.1) (8.5-10.1) Protein Corrected Calcium 8.3 MG/DL 8.5 MG/DL (8.5-10.1) (8.5-10.1) Troponin I 0.03 NG/ML (0.02-0.05) B-Type Natriuretic Peptide 488 PG/ML (0-100) Total Protein 5.2 GM/DL 4.5 GM/DL (6.4-8.2) (6.4-8.2) Result Diagram: 05/20/16 0942 05/20/16 0942 Imaging Last Impressions Chest X-Ray 05/19/16 0000 Signed Impressions: Service Date/Time: Thursday, May 19, 2016 18:19 - CONCLUSION: 1. Right [id number] in superior vena cava. Mild basilar airspace disease. No pneumothorax. Edgardo Lockhart MD Upper Extremity Ultrasound 05/16/16 0000 Signed Impressions: Service Date/Time: Monday, May 16, 2016 15:23 - CONCLUSION: Partial left brachial vein DVT. Simeon Hart MD Abdomen/Pelvis CT 04/28/16 1047 Signed Impressions: Service Date/Time: Thursday, April 28, 2016 12:16 - CONCLUSION: 1. Worsening of hepatic metastatic disease since January 21. 2. Increasing size of right middle lobe metastatic lung nodule. 3. Increasing size of pelvic mass just below the expandable sigmoid stent. 4. Development of moderate left hydronephrosis with left ureteral stent remaining in place. 5. Development of anasarca. 6. Slight increase in biliary ductal dilatation. Edgardo Lockhart MD Lower Extremity Ultrasound 04/28/16 0000 Signed Impressions: Service Date/Time: Thursday, April 28, 2016 15:49 - CONCLUSION: 1. Occlusive and nonocclusive deep venous thrombosis in the left lower extremity as above. Popliteal cyst also present. Edgardo Lockhart MD . Assessment and Plan Disease Oriented Problem List: (1) Ovarian cancer with mets to liver and lung (2) Anemia (3) COPD (chronic obstructive pulmonary disease) Symptom Scale: (1) Intractable pain 0-10 Scale: 3 Comment: secondary to metastatic ovarian cancer with disease progression despite recent chemotherapy, rectovaginal fistula, pelvic mass. (2) Vaginal discharge 0-10 Scale: Unable to quantify Comment: Secondary to pelvic mass, rectovaginal fistula. (3) Edema 0-10 Scale: Unable to quantify (4) Dyspnea 0-10 Scale: Unable to quantify Pertinent Non-Medical Issues Psychosocial: . Supported by her 2 daughters, Shey and Zelda. Also supported by her sister, Yoli. Lives in [place]. Spiritual: Member [employer]. 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 Legal:No written advance directives. According to [place] statutes health care proxy decision-making falls to her spouse. She indicates she would want her spouse to make medical decisions should she become incapacitated. Ethical issues impacting care: no known concerns at this time. . Important Contacts * Kevin Jim, spouse/HCP: [phone] (cell) or [phone] (home) * Shey Jim, daughter: [phone] cell or [phone] work * Zelda Fuentes, daughter: [phone] cell or [phone] work * Yoli Rosario, sister: [phone] cell or [phone] home . Prognosis Mrs. Jim has recurrent Ovarian cancer with Mets to liver and lung disease progression despite recent palliative chemotherapy admitted with abdominal and vaginal pain. Patient has had ovarian cancer undergoing treatment for the last 10 years, she is certainly hospice appropriate should she elect comfort focused care. Ovarian cancer is a terminal condition. . Code Status: Full Code Plan * No written advance directives. According to [place] statutes health care proxy decision-making falls to her spouse. She indicates she would want her spouse to make medical decisions should she become incapacitated. Recommend shared decision making given her intermittent confusion. * FULL CODE. * 05/20/16: FULL CODE. Goals remain aggressive. Patient wants to go to rehab for continued PT, they are not ready to consider comfort measures with hospice. * SYMPTOMS: Intractable Pain: secondary to metastatic ovarian cancer with disease progression despite recent chemotherapy, rectovaginal fistula, pelvic mass. Continue Methadone 7.5 mg PO every 8 hours ATC, will change to pill from per pt request. Dilaudid 4 mg PO Q3 hours PRN breakthrough pain, has had 4 doses in 24 hours. Fentanyl patch was DCd on 05/05/16 (after Halicat). Licocaine gel to vaginal area PRN pain. Nausea: Reglan and Zofran available with relief. Diarrhea: On Vancomycin and Dificid. Improved. Dyspnea: episode of SOB, decreased O2 sat and transfer to ICU, was on BiPAP now tolerating NC. Edema : likely CHF. * Palliative care will continue to follow throughout hospital course to assist with symptom management and further clarification of treatment goals. . Attestation To help prompt me to consider important information that might be impacting today's encounter and assessment, information from prior notes written by myself or my colleagues may have been "brought forward" into today's note. My signature on this note, however, is an attestation that I personally performed the exam, history, and/or decision-making noted today, and, unless otherwise indicated, the interactions with patient, family, and staff as well as the review of records all occurred today. I also attest that the listed assessment and stated plan reflect my best clinical judgment today based on the combination of historical information, prior notes, and today's exam/ interactions. When time spent is documented, it refers only to time spent today by the signer, or if indicated, combined time spent today by collaborating physician/nurse practitioner. NIEVES URRUTIA May 20, 2016 14:11
--- NOTE | 2016-05-20 14:15 | HHI.PR ---
Subjective Remarks voiding well diarrhea decreased breathing improved Objective Vitals Vital Signs Date Time Temp Pulse Resp B/P Pulse Ox O2 Delivery O2 Flow Rate FiO2 05/20/16 12:00 99.6 105 12 113/53 98 05/20/16 11:35 97 Nasal Cannula 4.00 05/20/16 08:00 99.2 102 14 98/62 97 05/20/16 07:26 100 40 05/20/16 04:02 97 40 05/20/16 04:00 98.0 103 16 102/57 98 05/20/16 01:02 100 40 05/20/16 00:00 97.8 99 16 101/59 100 05/19/16 20:39 100 40 05/19/16 20:00 97.8 106 16 108/59 97 05/19/16 18:45 100 60 05/19/16 18:30 98 Non-Rebreather 15.00 I/O 05/19/16 05/19/16 05/19/16 05/20/16 05/20/16 05/20/16 07:00 15:00 23:00 07:00 15:00 23:00 Intake Total 340 ml 150 ml 100 ml Balance 340 ml 150 ml 100 ml Intake Oral 340 ml 150 ml 100 ml # Voids 5 2 4 # Bowel Movements 2 2 4 Result Diagram: 05/20/16 0942 05/20/16 0942 Imaging Last Impressions Chest X-Ray 05/19/16 0000 Signed Impressions: Service Date/Time: Thursday, May 19, 2016 18:19 - CONCLUSION: 1. Right Vnwauo-x-Xkul in superior vena cava. Mild basilar airspace disease. No pneumothorax. Edgardo Lockhart MD Upper Extremity Ultrasound 05/16/16 0000 Signed Impressions: Service Date/Time: Monday, May 16, 2016 15:23 - CONCLUSION: Partial left brachial vein DVT. Simeon Hart MD Abdomen/Pelvis CT 04/28/16 1047 Signed Impressions: Service Date/Time: Thursday, April 28, 2016 12:16 - CONCLUSION: 1. Worsening of hepatic metastatic disease since January 21. 2. Increasing size of right middle lobe metastatic lung nodule. 3. Increasing size of pelvic mass just below the expandable sigmoid stent. 4. Development of moderate left hydronephrosis with left ureteral stent remaining in place. 5. Development of anasarca. 6. Slight increase in biliary ductal dilatation. Edgardo Lockhart MD Lower Extremity Ultrasound 04/28/16 0000 Signed Impressions: Service Date/Time: Thursday, April 28, 2016 15:49 - CONCLUSION: 1. Occlusive and nonocclusive deep venous thrombosis in the left lower extremity as above. Popliteal cyst also present. Edgardo Lockhart MD Objective Remarks awake and alert, oriented x 3 Sats 97% at 2 LNC, desaturates easily though anicteric decreased breath sounds bilaterally regular rhythm abdomen- slightly tense, + fluid wave extremities ++ pitting edema neuro exam- non focal Procedures None A/P Problem List: (1) Ovarian cancer ICD Code: C56.9 Status: Chronic Plan: Continue full CODE STATUS with plans for aggressive rehabilitation at discharge seen by Gyne- oncology. hospice appropriate- patient refused- palliative care on board (2) Leg swelling ICD Code: M79.89 Status: Acute Plan: With DVT Now with left upper extremity swelling,brachial DVT on US was on lovenox, held due to bleeding No anticoagulation due to bleeding, discussed with Hematology (3) Acute congestive heart failure ICD Code: I50.9 Status: Acute Plan: continue IV diuresis get 2 D echo clinically looks like generalized anasarca- - check US rule out ascites- may be malignant ascites frm ovarian ca and will need therapeutic paracentesis (4) Anemia ICD Code: D64.9 Status: Acute Plan: now with evidence of gastrointestinal bleeding likely from colitis. Hg stable GI following. Family wishes to avoid any invasive procedures Follow hemoglobin for transfusion needs reglan dc'd due to diarrhea (5) Diarrhea ICD Code: R19.7 Status: Chronic Plan: Secondary to C. difficile colitis. Continue dificid/po vanco HG stable Discharge Planning some family dynamics going on- undecided on Hospice Hermilo Walsh MD May 20, 2016 14:15
--- NOTE | 2016-05-20 14:31 | EKG ---
Date Performed: 05/19/2016 Time Performed: 19:47:45 PTAGE: 61 years EKG: SINUS TACHYCARDIA LOW QRS VOLTAGE ANTEROSEPTAL MYOCARDIAL INFARCTION , OF INDETERMINATE AGE PROLONGED CORRECTED QT INTERVAL Compared to previous tracing, Q waves are now present in lead V3, V4 . ABNORMAL ECG PREVIOUS TRACING : 01/23/2016 16.58 DOCTOR: Rivera Mayer Interpretating Date/Time 05/20/2016 14:30:52
[2016-05-20] MEDS: FUROSEMIDE 40 MG/4 ML VIAL IV PUSH SCH ×2 (14:56→22:01)
[2016-05-20] MEDS ORDERED: POTASSIUM CHLORIDE 10 MEQ CONTROLLED RELEASE TAB PO ONE (15:00)
[2016-05-20] MEDS: ACETAMINOPHEN 1000 MG/100 ML VIAL IV PRN (16:22)
--- NOTE | 2016-05-20 16:26 | RADRPT ---
EXAM DATE/TIME: 05/20/2016 15:19 [facility] COMPARISON: No previous studies available for comparison. INDICATIONS : Ascites. MEDICAL HISTORY : Hypothyroidism. Hypertension. COPD. Dyspnea. Acute renal failure. Ovarian cancer. SURGICAL HISTORY : Hysterectomy. Tubal ligation. Bilateral ureteral placement. Pelvic tumor removal. ENCOUNTER: Initial ACUITY: 1 day PAIN SCORE: 7/10 LOCATION: Abdomen. AREA EVALUATED: Quadrants. FINDINGS: There is no significant ascites. Multiple metastases are seen in the liver. CONCLUSION: Negative for ascites. Moshe Nam MD FACR on May 20, 2016 at 16:23 Board Certified Radiologist. This report was verified electronically.
[2016-05-20] MEDS: POTASSIUM CHLORIDE 20 MEQ CONTROLLED RELEASE TAB PO SCH (22:01)
[2016-05-21] VITALS (9 sets, daily range): BP systolic 109–137; BP diastolic 58–77; PULSE 89–104; RESP 11–16; TEMP 97.2–98.8; O2SAT 96–100
[2016-05-21] MEDS: ONDANSETRON ODT 4 MG TAB PO SCH ×4 (00:48→18:23)
[2016-05-21] MEDS: METHADONE HCL 10 MG TAB PO SCH ×3 (05:57→21:58)
[2016-05-21] MEDS: HYDROmorphone HCL PF 1 MG/ML VIAL IV PUSH PRN ×2 (07:34→22:44)
[2016-05-21 08:15] LABS: HEMATOCRIT 29.2 % (35.0-46.0); MEAN CELL VOLUME 85.4 FL (80.0-100.0); MEAN CORPUSCULAR HEMOGLOBIN 27.7 PG (27.0-34.0); MEAN CORPUSCULAR HGB CONC 32.4 % (32.0-36.0); PLATELET COUNT 281 TH/MM3 (150-450); RED BLOOD COUNT 3.42 MIL/MM3 (4.00-5.30); RED CELL DISTRIBUTION WIDTH 18.8 % (11.6-17.2); WHITE BLOOD COUNT 17.7 TH/MM3 (4.0-11.0)
[2016-05-21 08:22] LABS: REVIEW FLAG FINAL
[2016-05-21 08:25] LABS: POTASSIUM 3.4 MEQ/L (3.5-5.1)
[2016-05-21 08:40] LABS: CALCIUM-PROTEIN CORRECTED 8.5 MG/DL (8.5-10.1)
[2016-05-21] MEDS: POTASSIUM CHLORIDE 20 MEQ CONTROLLED RELEASE TAB PO SCH ×2 (08:44→21:58)
[2016-05-21] MEDS: TIOTROPIUM BROMIDE 18 MCG INH INH SCH (08:44)
[2016-05-21] MEDS: DRONABINOL 5 MG CAP PO SCH ×2 (08:44→21:58)
[2016-05-21] MEDS: SODIUM CHLORIDE 0.9% FLUSH 5 ML FLUSH FLUSH SCH ×2 (08:44→22:05)
[2016-05-21] MEDS: FUROSEMIDE 40 MG/4 ML VIAL IV PUSH SCH (08:44)
[2016-05-21] MEDS: ALBUTEROL SULFATE 90 MCG/ACT HFA 18 GM INHALER INH SCH ×4 (08:44→21:00)
[2016-05-21] MEDS: FLORASTOR 250 MG PO SCH ×2 (08:45→21:58)
[2016-05-21] MEDS: VANCOMYCIN 500 MG VIAL (FOR ORAL USE ONLY) PO SCH ×4 (08:46→22:01)
[2016-05-21] MEDS: CHOLESTYRAMINE 4 GM PACKET PO SCH ×2 (08:46→22:01)
[2016-05-21] MEDS ORDERED: ALBUMIN HUMAN 25% 25 GM/100 ML BAGP IV ONE (09:15)
[2016-05-21] MEDS ORDERED: SODIUM CHLOR 0.9% 1000 ML INJ 1,000 ML IV ONE (09:15)
[2016-05-21 09:43] LABS: HEMATOCRIT 28.8 % (35.0-46.0); REVIEW FLAG FINAL
--- NOTE | 2016-05-21 09:48 | HHI.PR ---
Subjective Remarks vaginal bleeding- light red on sheets SBP dropped to 80s- rebounded right away with fluids Objective Vitals Vital Signs Date Time Temp Pulse Resp B/P Pulse Ox O2 Delivery O2 Flow Rate FiO2 05/21/16 08:00 98.2 97 11 130/58 97 05/21/16 07:47 97 Nasal Cannula 3.00 05/21/16 04:00 97.8 100 16 124/60 100 05/21/16 00:00 97.2 96 16 109/60 100 05/20/16 21:02 98 Nasal Cannula 3.00 05/20/16 20:00 97.2 92 19 95/59 99 05/20/16 16:00 98.0 101 10 129/64 97 05/20/16 12:00 99.6 105 12 113/53 98 05/20/16 11:35 97 Nasal Cannula 4.00 I/O 05/20/16 05/20/16 05/20/16 05/21/16 05/21/16 05/21/16 07:00 15:00 23:00 07:00 15:00 23:00 Intake Total 100 ml 400 ml 200 ml 200 ml Balance 100 ml 400 ml 200 ml 200 ml Intake Oral 100 ml 400 ml 200 ml 200 ml IV Total 0 ml # Voids 4 2 2 4 # Bowel Movements 4 1 2 4 Result Diagram: 05/21/16 0740 05/21/16 0740 Imaging Last Impressions Abdomen Ultrasound 05/20/16 1443 Signed Impressions: Service Date/Time: Friday, May 20, 2016 15:19 - CONCLUSION: Negative for ascites. Moshe Nam MD FACR Chest X-Ray 05/19/16 0000 Signed Impressions: Service Date/Time: Thursday, May 19, 2016 18:19 - CONCLUSION: 1. Right [id number]-g-Wrjo in superior vena cava. Mild basilar airspace disease. No pneumothorax. Edgardo Lockhart MD Upper Extremity Ultrasound 05/16/16 0000 Signed Impressions: Service Date/Time: Monday, May 16, 2016 15:23 - CONCLUSION: Partial left brachial vein DVT. Simeon Hart MD Abdomen/Pelvis CT 04/28/16 1047 Signed Impressions: Service Date/Time: Thursday, April 28, 2016 12:16 - CONCLUSION: 1. Worsening of hepatic metastatic disease since January 21. 2. Increasing size of right middle lobe metastatic lung nodule. 3. Increasing size of pelvic mass just below the expandable sigmoid stent. 4. Development of moderate left hydronephrosis with left ureteral stent remaining in place. 5. Development of anasarca. 6. Slight increase in biliary ductal dilatation. Edgardo Lockhart MD Lower Extremity Ultrasound 04/28/16 0000 Signed Impressions: Service Date/Time: Thursday, April 28, 2016 15:49 - CONCLUSION: 1. Occlusive and nonocclusive deep venous thrombosis in the left lower extremity as above. Popliteal cyst also present. Edgardo Lockhart MD Objective Remarks awake and alert, oriented x 3 Sats 97% at 2 LNC, anicteric decreased breath sounds bilaterally regular rhythm abdomen- slightly tense, + fluid wave extremities ++ pitting edema neuro exam- non focal Procedures None A/P Assessment and Plan (1) Ovarian cancer ICD Code: C56.9 Status: Chronic Plan: Continue full CODE STATUS with plans for aggressive rehabilitation at discharge seen by Gyne- oncology. + vaginal bleeding- - sheets light red. check H and H. transfuse if Hemoglobin less than 8.5 hospice appropriate- patient refused- palliative care on board (2) Leg swelling ICD Code: M79.89 Status: Acute Plan: With DVT Now with left upper extremity swelling,brachial DVT on US was on lovenox, held due to bleeding No anticoagulation due to bleeding, discussed with Hematology (3) Acute congestive heart failure ICD Code: I50.9 Status: Acute Plan: continue IV diuresis get 2 D echo clinically looks like generalized anasarca- - check US rule out ascites- may be malignant ascites frm ovarian ca and will need therapeutic paracentesis (4) Anemia ICD Code: D64.9 Status: Acute Plan: now with evidence of gastrointestinal bleeding likely from colitis. Hg stable GI following. Family wishes to avoid any invasive procedures Follow hemoglobin for transfusion needs reglan dc'd due to diarrhea transfuse if Hemoglobin less than 8.5 (5) Diarrhea ICD Code: R19.7 Status: Chronic Plan: Secondary to C. difficile colitis. Continue dificid/po vanco HG stable Discharge Planning I spoke with - who seems realistic about her condition there are 2 sisters- that I have yet to meet- I will come and talk to them when they arrives I spoke with Ingrid from our palliative care service some family- sisters seems to want to take her on a trip.- seemed to be unaware of this plan we also have to address code status Hermilo Walsh MD May 21, 2016 09:48
[2016-05-21] MEDS ORDERED: POTASSIUM CHLORIDE 10 MEQ CONTROLLED RELEASE TAB PO ONE (11:00)
[2016-05-21 15:09] LABS: HEMATOCRIT 26.4 % (35.0-46.0)
--- NOTE | 2016-05-21 17:06 | EC ---
Study Study Date:05/21/2016 STUDY CONCLUSIONS SUMMARY - Procedure narrative: Transthoracic echocardiography. Image quality was adequate. Scanning was performed from the parasternal, apical, and subcostal acoustic windows. - Left ventricle: The cavity size was normal. Wall thickness was normal. Systolic function was normal. The estimated ejection fraction was in the range of 55% to 60%. Wall motion was normal; there were no regional wall motion abnormalities. - Mitral valve: Trace to mild regurgitation. - Tricuspid valve: Trace to mild regurgitation. - Pulmonary arteries: PA peak pressure: 48mm Hg (S). If LV function is below 40, please consider prescribing an ACEI or ARB or document rationale for non-use. PROCEDURE DATA STUDY STATUS: Elective. Procedure: Transthoracic echocardiography. Image quality was adequate. Scanning was performed from the parasternal, apical, and subcostal acoustic windows. Study completion: The patient tolerated the procedure well. Transthoracic echocardiography. M-mode, complete 2D, complete spectral Doppler, and color Doppler. Height: Height: 62in. Weight: Weight: 200.6lb. Body mass index: BMI: 36.8kg/m^2. Body surface area: BSA: 1.92m^2. Patient status: Inpatient. CARDIAC ANATOMY LEFT VENTRICLE: The cavity size was normal. Wall thickness was normal. Systolic function was normal. The estimated ejection fraction was in the range of 55% to 60%. Wall motion was normal; there were no regional wall motion abnormalities. AORTIC VALVE: Trileaflet; normal thickness leaflets. Doppler: Transvalvular velocity was within the normal range. There was no stenosis. No regurgitation. AORTA: Aortic root: The aortic root was normal in size. MITRAL VALVE: Structurally normal valve. Doppler: Transvalvular velocity was within the normal range. There was no evidence for stenosis. Trace to mild regurgitation. Peak gradient: 5mm Hg (D). LEFT ATRIUM: The atrium was normal in size. RIGHT VENTRICLE: The cavity size was normal. Wall thickness was normal. PULMONIC VALVE: Doppler: Transvalvular velocity was within the normal range. There was no evidence for stenosis. No regurgitation. TRICUSPID VALVE: Structurally normal valve. Doppler: Transvalvular velocity was within the normal range. Trace to mild regurgitation. PULMONARY ARTERY: The main pulmonary artery was normal-sized. Systolic pressure was within the normal range. RIGHT ATRIUM: The atrium was normal in size. PERICARDIUM: There was no pericardial effusion. SYSTEMIC VEINS: Inferior vena cava: The vessel was normal in size. Patient weight: 200.6lb _Ejection fraction:_ 65-75% _Fractional shortening:_ 32% up to 5Kg 5-11.5Kg 11.6-22.9Kg 23-45Kg 45-57Kg Aortic Root 7-13 <17 13-22 17-27 17-27 LA diam 6-13 <23 24-38 33-47 37-40 RVID 10-17 7-15 7-15 7-18 8-17 LVIDd 12-22 <32 24-38 33-47 37-40 LVPW 2-4 3-6 5-7 6-8 7-8 IVS 2-4 3-6 5-7 6-8 7-8 BASIC MEASUREMENTS ADULT NORMAL Left ventricle LV internal dimension, ED, chordal level, *42 mm 43-52 PLAX LV posterior wall thickness, ED 11 mm IVS/LVPW ratio, ED 1.01 <1.3 Ventricular septum Septal thickness, ED 11.1 mm Aortic valve Leaflet separation 18 mm 15-26 Aorta Root diameter, ED 31 mm Left atrium Anterior-posterior dimension 29 mm Anterior-posterior dimension index 1.51 cm/m^2 <2.2 Right ventricle RV internal dimension, ED, PLAX 21 mm 19-38 BASIC MEASUREMENTS ADULT NORMAL Aortic valve Leaflet separation 18 mm 15-26 DOPPLER MEASUREMENTS ADULT NORMAL Main pulmonary artery Pressure, S *48 mm Hg =30 Mitral valve Peak E-wave velocity 112 cm/s Peak A-wave velocity 115 cm/s Deceleration time 153 ms 150-230 Peak gradient, D 5 mm Hg Peak E/A ratio 1 Tricuspid valve Regurgitant peak velocity 309 cm/s Peak RV-RA gradient, S 38 mm Hg Maximal regurgitant velocity 309 cm/s Systemic veins Estimated CVP 10 mm Hg Right ventricle RV pressure, S *48 mm Hg <30 LEGEND: Mean values are shown as u=mean value. Asterisk (*) cardenas values outside specified normal range. Prepared and signed by Tima Lubin [id number]
--- NOTE | 2016-05-21 17:42 | HHI.HCPN ---
Reason for visit a. To assist with evaluation and management of symptoms including: abdominal /pelvic pain, edema, dyspnea, confusion. b. To assist medical decision maker(s) with: better understanding of current medical conditions; weighing benefits/burdens of medical treatment options; making medical treatment decisions. . Subjective/Interval History Patient seen and examined in ICU. at bedside. Also present YOLI Coronado. Discussed with Dr. Walsh and nurse. Nurse reports significant amount of vaginal bleeding. Hemoglobin 9.4 this morning. Repeat hemoglobin pending. On oxygen via NC 3 LPM, no BiPAP overnight. Patient is awake and intermittently confused. She is having trouble finding her words. Attempts to answer questions, but not always making sense. was telling patient she was "chasing rabbits" yesterday. She reports overall pain is well controlled, rates pelvic pain 3 on average and is comfortable with this. Her pain has been as high as 8 on 0-10 scale, relief with PRN Dilaudidd. She remains on Methadone 7.5mg PO every 8 hours ATC. She had 3 doses of Dilaudid 0.5mg IV in the past 24 hours. Afebrile. Vital signs stable. Completed course of Dificid, on Vancomycin per ID recommendations to continue. C. Diff negative. Echocardiogram being done, results pending. Patient and family desires continued aggressive care with rehab placement. She still desires FULL CODE. GOALS ARE NOT HOSPICE APPROPRIATE. Will continue to follow. . . Family/friend interactions Ingrid and I met with Mr. Jim (spouse), Shey and Zelda (daughters), son and Yoli (sister) 1.5 hours. Also present family manager maintenance and friend. Medical update provided after allowing family to voice their frustrations and concerns. They are displeased with recent CHF exacerbation and are thankful patient was not DC'd to rehab. Family feels the "patient is a fighter and wants to go down fighting." Family verbalizes they "understand she is terminal and know her prognosis, but they feel she still is viable and has life in her." Family desires FULL CODE (and they feel she still wants this) and continued aggressive in hopes she will "get stronger and be able to return home." I explained given mets progressive ovarian not being treated will only cause further decline and weakness, she will not get stronger. tells me she wants to go home, she told him "don't let me here." I explained she can go home with hospice anytime. They DO NOT want hospice. Dr. Walsh update family desires continued aggressive care. Family requests no further interaction with Dr. Hall during this admission. . Advance Directives Living Will: Never completed Health Care Surrogate: Never completed Durable Power of Thread Milling Machine Set Up Operator: Never completed Advance Directive Specifics Health Care Surrogate(s): No written advance directives. According to [place] statutes health care proxy decision-making falls to her spouse. She indicates she would want her spouse to make medical decisions should she become incapacitated. . Significant change in goals: FULL CODE. Desires continued aggressive care. . Objective Vital Signs Date Time Temp Pulse Resp B/P Pulse Ox O2 Delivery O2 Flow Rate FiO2 05/21/16 16:00 98.3 104 14 137/68 96 05/21/16 12:00 98.8 92 12 132/77 97 05/21/16 08:06 97 Nasal Cannula 3.00 05/21/16 08:00 98.2 97 11 130/58 97 05/21/16 07:47 97 Nasal Cannula 3.00 05/21/16 04:00 97.8 100 16 124/60 100 05/21/16 00:00 97.2 96 16 109/60 100 05/20/16 21:02 98 Nasal Cannula 3.00 05/20/16 20:00 97.2 92 19 95/59 99 Intake & Output 05/21/16 05/21/16 06:59 18:59 Intake Total 400 ml 250 ml Balance 400 ml 250 ml Intake Oral 400 ml 250 ml # Voids 6 4 # Bowel Movements 6 4 Physical Exam CONSTITUTIONAL/GENERAL: This is a frail, chronically ill patient, who appears older than her actual age, writhing in pain. TUBES/LINES/DRAINS: port. SKIN: pale. Diffuse erythema and scaling in both extremities. Bilateral lower extremity edema left > right. Erythema LLE and thigh, decreased slightly from prior. CARDIOVASCULAR: tachycardic. RESPIRATORY/CHEST: Symmetric, unlabored respirations. Scattered crackles, expiratory wheezing. GASTROINTESTINAL: Abdomen soft, tender right upper and lower quadrant, mildly distended. Bowel sounds active. GENITOURINARY: Without palpable bladder distension. MUSCULOSKELETAL: Diffuse edema 2-3 + pitting, her face is even edematous. NEUROLOGICAL: Awake and alert. Follows commands. PSYCHIATRIC: Awake and alert, denies anxiety. . Diagnostic Tests Laboratory Laboratory Tests Test 05/19/16 05/19/16 05/20/16 05/21/16 18:03 18:20 09:42 07:40 Blood Gas Puncture Site RT RADIAL Blood Gas Patient Temperature 98.6 Blood Gas HCO3 13 mmol/L (22-26) Blood Gas Base Excess -13.3 mmol/L (-2-2) Blood Gas Oxygen Saturation 81 % (90-100) Arterial Blood pH 7.18 (7.380-7.420) Arterial Blood Partial 38 mmHg (38-42) Pressure CO2 Arterial Blood Partial 56 mmHg Pressure O2 (61-120) Arterial Blood Oxygen Content 11.6 Vol % (12.0-20.0) Arterial Blood 0.9 % (0-4) Carboxyhemoglobin Arterial Blood Methemoglobin 1.2 % (0-2) Blood Gas Hemoglobin 10.2 G/DL (12.0-16.0) Oxygen Delivery Device Non-Rebreathing Mask Blood Gas Inspired Oxygen 100 % White Blood Count 16.9 TH/MM3 15.1 TH/MM3 17.7 TH/MM3 (4.0-11.0) (4.0-11.0) (4.0-11.0) Red Blood Count 3.58 MIL/MM3 3.17 MIL/MM3 3.42 MIL/MM3 (4.00-5.30) (4.00-5.30) (4.00-5.30) Hemoglobin 9.8 GM/DL 8.9 GM/DL 9.5 GM/DL (11.6-15.3) (11.6-15.3) (11.6-15.3) Hematocrit 30.6 % 27.4 % 29.2 % (35.0-46.0) (35.0-46.0) (35.0-46.0) Mean Corpuscular Volume 85.7 FL 86.3 FL 85.4 FL (80.0-100.0) (80.0-100.0) (80.0-100.0) Mean Corpuscular Hemoglobin 27.3 PG 28.1 PG 27.7 PG (27.0-34.0) (27.0-34.0) (27.0-34.0) Mean Corpuscular Hemoglobin 31.9 % 32.5 % 32.4 % Concent (32.0-36.0) (32.0-36.0) (32.0-36.0) Red Cell Distribution Width 18.9 % 19.0 % 18.8 % (11.6-17.2) (11.6-17.2) (11.6-17.2) Platelet Count 326 TH/MM3 260 TH/MM3 281 TH/MM3 (150-450) (150-450) (150-450) Mean Platelet Volume 7.5 FL 7.6 FL 7.3 FL (7.0-11.0) (7.0-11.0) (7.0-11.0) Neutrophils (%) (Auto) 89.1 % (16.0-70.0) Lymphocytes (%) (Auto) 4.2 % (9.0-44.0) Monocytes (%) (Auto) 6.4 % (0.0-8.0) Eosinophils (%) (Auto) 0.1 % (0.0-4.0) Basophils (%) (Auto) 0.2 % (0.0-2.0) Neutrophils # (Auto) 15.1 TH/MM3 (1.8-7.7) Lymphocytes # (Auto) 0.7 TH/MM3 (1.0-4.8) Monocytes # (Auto) 1.1 TH/MM3 (0-0.9) Eosinophils # (Auto) 0.0 TH/MM3 (0-0.4) Basophils # (Auto) 0.0 TH/MM3 (0-0.2) CBC Comment DIFF FINAL Differential Comment Sodium Level 145 MEQ/L 147 MEQ/L 148 MEQ/L (136-145) (136-145) (136-145) Potassium Level 3.3 MEQ/L 3.2 MEQ/L 3.4 MEQ/L (3.5-5.1) (3.5-5.1) (3.5-5.1) Chloride Level 118 MEQ/L 120 MEQ/L 120 MEQ/L (98-107) (98-107) (98-107) Carbon Dioxide Level 16.1 MEQ/L 16.3 MEQ/L 16.0 MEQ/L (21.0-32.0) (21.0-32.0) (21.0-32.0) Anion Gap 11 MEQ/L (5-15) 11 MEQ/L (5-15) 12 MEQ/L (5-15) Blood Urea Nitrogen 11 MG/DL (7-18) 11 MG/DL (7-18) 14 MG/DL (7-18) Creatinine 1.23 MG/DL 1.12 MG/DL 1.29 MG/DL (0.50-1.00) (0.50-1.00) (0.50-1.00) Estimat Glomerular Filtration 44 ML/MIN (>89) 49 ML/MIN (>89) 42 ML/MIN (>89) Rate Random Glucose 86 MG/DL 64 MG/DL 78 MG/DL (74-106) (74-106) (74-106) Calcium Level 7.3 MG/DL 7.1 MG/DL 7.3 MG/DL (8.5-10.1) (8.5-10.1) (8.5-10.1) Protein Corrected Calcium 8.3 MG/DL 8.5 MG/DL 8.5 MG/DL (8.5-10.1) (8.5-10.1) (8.5-10.1) Troponin I 0.03 NG/ML (0.02-0.05) B-Type Natriuretic Peptide 488 PG/ML (0-100) Total Protein 5.2 GM/DL 4.5 GM/DL 4.9 GM/DL (6.4-8.2) (6.4-8.2) (6.4-8.2) Test 05/21/16 05/21/16 09:29 14:36 Hemoglobin 9.4 GM/DL 8.6 GM/DL (11.6-15.3) (11.6-15.3) Hematocrit 28.8 % 26.4 % (35.0-46.0) (35.0-46.0) Result Diagram: 05/21/16 1436 05/21/16 0740 Imaging Last Impressions Abdomen Ultrasound 05/20/16 1443 Signed Impressions: Service Date/Time: Friday, May 20, 2016 15:19 - CONCLUSION: Negative for ascites. Moshe Nam MD FACR Chest X-Ray 05/19/16 0000 Signed Impressions: Service Date/Time: Thursday, May 19, 2016 18:19 - CONCLUSION: 1. Right Hlhhya-y-Chqu in superior vena cava. Mild basilar airspace disease. No pneumothorax. Edgardo Lockhart MD Upper Extremity Ultrasound 05/16/16 0000 Signed Impressions: Service Date/Time: Monday, May 16, 2016 15:23 - CONCLUSION: Partial left brachial vein DVT. Simeon Hart MD Abdomen/Pelvis CT 04/28/16 1047 Signed Impressions: Service Date/Time: Thursday, April 28, 2016 12:16 - CONCLUSION: 1. Worsening of hepatic metastatic disease since January 21. 2. Increasing size of right middle lobe metastatic lung nodule. 3. Increasing size of pelvic mass just below the expandable sigmoid stent. 4. Development of moderate left hydronephrosis with left ureteral stent remaining in place. 5. Development of anasarca. 6. Slight increase in biliary ductal dilatation. Edgardo Lockhart MD Lower Extremity Ultrasound 04/28/16 0000 Signed Impressions: Service Date/Time: Thursday, April 28, 2016 15:49 - CONCLUSION: 1. Occlusive and nonocclusive deep venous thrombosis in the left lower extremity as above. Popliteal cyst also present. Edgardo Lockhart MD . Assessment and Plan Disease Oriented Problem List: (1) Ovarian cancer with mets to liver and lung (2) Anemia (3) COPD (chronic obstructive pulmonary disease) Symptom Scale: (1) Intractable pain 0-10 Scale: 3 Comment: secondary to metastatic ovarian cancer with disease progression despite recent chemotherapy, rectovaginal fistula, pelvic mass. (2) Vaginal discharge 0-10 Scale: Unable to quantify Comment: Secondary to pelvic mass, rectovaginal fistula. (3) Edema 0-10 Scale: Unable to quantify (4) Dyspnea 0-10 Scale: Unable to quantify Pertinent Non-Medical Issues Psychosocial: . Supported by her 2 daughters, Shey and Zelda. Also supported by her sister, Yoli. Lives in [place]. Spiritual: Member [employer]. Declines medical apparatus model maker visits at this time. Legal:No written advance directives. According to [place] statutes health care proxy decision-making falls to her spouse. She indicates she would want her spouse to make medical decisions should she become incapacitated. Ethical issues impacting care: no known concerns at this time. . Important Contacts * Kevin Jim, spouse/HCP: [phone] (cell) or [phone] (home) * Shey Jim, daughter: [phone] cell or [phone] work * Zelda Housererd, daughter: [phone] cell or [phone] work * Yoli Rosario, sister: [phone] cell or [phone] home . Prognosis Mrs. Jim has recurrent Ovarian cancer with Mets to liver and lung disease progression despite recent palliative chemotherapy admitted with abdominal and vaginal pain. Patient has had ovarian cancer undergoing treatment for the last 10 years, she is certainly hospice appropriate should she elect comfort focused care. Ovarian cancer is a terminal condition. . Code Status: Full Code Plan * No written advance directives. According to [place] statutes health care proxy decision-making falls to her spouse. She indicates she would want her spouse to make medical decisions should she become incapacitated. Recommend shared decision making given her intermittent confusion. * FULL CODE. * 05/21/16: Ingrid and I met with Mr. Jim (spouse), Shey and Zelda (daughters) , son and Yoli (sister). Also present family manager maintenance and friend. Medical update provided after allowing family to voice their frustrations and concerns. They are displeased with recent CHF exacerbation and are thankful patient was not DC'd to rehab. Family feels the "patient is a fighter and wants to go down fighting." Family verbalizes they "understand she is terminal and know her prognosis, but they feel she still is viable and has life in her." Family desires FULL CODE (and they feel she still wants this) and continued aggressive in hopes she will "get stronger and be able to return home." I explained given mets progressive ovarian not being treated will only cause further decline and weakness, she will not get stronger. tells me she wants to go home, she told him "don't let me here." I explained she can go home with hospice anytime. They DO NOT want hospice. * Dr. Walsh updated. Family requests no further interaction with Dr. Hall during this admission. * SYMPTOMS: Intractable Pain: secondary to metastatic ovarian cancer with disease progression despite recent chemotherapy, rectovaginal fistula, pelvic mass. Continue Methadone 7.5 mg PO every 8 hours ATC, will change to pill from per pt request. Dilaudid 4 mg PO Q3 hours PRN breakthrough pain, pain controlled with current meds. Fentanyl patch was DCd on 05/05/16 (after Halicat) . Licocaine gel to vaginal area PRN pain. Nausea: Reglan and Zofran available with relief. Diarrhea: On Vancomycin, Dificid completed, C, Diff negative. Diarrhea improved. Dyspnea: some SOB at rest, now tolerating NC. Edema: CHF. * Palliative care will continue to follow throughout hospital course to assist with symptom management and further clarification of treatment goals. . Attestation To help prompt me to consider important information that might be impacting today's encounter and assessment, information from prior notes written by myself or my colleagues may have been "brought forward" into today's note. My signature on this note, however, is an attestation that I personally performed the exam, history, and/or decision-making noted today, and, unless otherwise indicated, the interactions with patient, family, and staff as well as the review of records all occurred today. I also attest that the listed assessment and stated plan reflect my best clinical judgment today based on the combination of historical information, prior notes, and today's exam/ interactions. When time spent is documented, it refers only to time spent today by the signer, or if indicated, combined time spent today by collaborating physician/nurse practitioner. NIEVES URRUTIA May 21, 2016 17:42
[2016-05-22] VITALS (9 sets, daily range): BP systolic 113–136; BP diastolic 58–73; PULSE 93–110; RESP 10–18; TEMP 97.6–98.7; O2SAT 96–100
[2016-05-22] MEDS: ONDANSETRON ODT 4 MG TAB PO SCH ×5 (00:40→23:34)
[2016-05-22] MEDS: METHADONE HCL 10 MG TAB PO SCH ×3 (06:57→20:32)
[2016-05-22] MEDS: SODIUM CHLORIDE 0.9% FLUSH 5 ML FLUSH FLUSH SCH ×2 (07:54→20:31)
[2016-05-22] MEDS: ALBUTEROL SULFATE 90 MCG/ACT HFA 18 GM INHALER INH SCH ×4 (08:51→20:31)
[2016-05-22] MEDS: VANCOMYCIN 500 MG VIAL (FOR ORAL USE ONLY) PO SCH ×4 (08:51→20:34)
[2016-05-22] MEDS: POTASSIUM CHLORIDE 20 MEQ CONTROLLED RELEASE TAB PO SCH ×2 (08:51→20:31)
[2016-05-22] MEDS: FLORASTOR 250 MG PO SCH ×2 (08:51→20:31)
[2016-05-22] MEDS: TIOTROPIUM BROMIDE 18 MCG INH INH SCH (08:51)
[2016-05-22] MEDS: HYDROmorphone HCL PF 1 MG/ML VIAL IV PUSH PRN ×3 (09:18→23:35)
[2016-05-22] MEDS: DRONABINOL 5 MG CAP PO SCH ×3 (10:17→21:00)
[2016-05-22] MEDS: CHOLESTYRAMINE 4 GM PACKET PO SCH ×2 (11:00→20:30)
[2016-05-22] MEDS: fentaNYL 100 MCG/HR PATCH TD SCH (17:33)
[2016-05-22] MEDS: REMOVE OLD DURAGESIC (FENTANYL) PATCH TD SCH (17:33)
--- NOTE | 2016-05-22 18:45 | HHI.PR ---
Subjective Remarks no vaginal bleeding today so far pain moans in pain with minimal movement no nausea or vomiting Objective Vitals Vital Signs Date Time Temp Pulse Resp B/P Pulse Ox O2 Delivery O2 Flow Rate FiO2 05/22/16 16:00 98.3 98 10 129/63 99 05/22/16 12:00 98.4 104 10 124/58 99 05/22/16 08:00 98.3 100 11 136/73 98 05/22/16 04:00 98.0 102 14 120/63 100 05/22/16 00:00 97.6 98 14 113/59 99 05/21/16 20:20 97 Nasal Cannula 3.00 05/21/16 20:00 98.4 89 14 130/65 98 I/O 05/21/16 05/21/16 05/21/16 05/22/16 05/22/16 05/22/16 06:59 14:59 22:59 06:59 14:59 22:59 Intake Total 200 ml 250 ml 300 ml 200 ml 960 ml Balance 200 ml 250 ml 300 ml 200 ml 960 ml Intake Oral 200 ml 250 ml 300 ml 200 ml 960 ml # Voids 4 4 2 4 3 # Bowel Movements 4 4 2 4 2 Result Diagram: 05/21/16 1436 05/21/16 0740 Imaging Last Impressions Abdomen Ultrasound 05/20/16 1443 Signed Impressions: Service Date/Time: Friday, May 20, 2016 15:19 - CONCLUSION: Negative for ascites. Moshe Nam MD FACR Chest X-Ray 05/19/16 0000 Signed Impressions: Service Date/Time: Thursday, May 19, 2016 18:19 - CONCLUSION: 1. Right Evorur-z-Cujz in superior vena cava. Mild basilar airspace disease. No pneumothorax. Edgardo Lockhart MD Upper Extremity Ultrasound 05/16/16 0000 Signed Impressions: Service Date/Time: Monday, May 16, 2016 15:23 - CONCLUSION: Partial left brachial vein DVT. Simeon Hart MD Abdomen/Pelvis CT 04/28/16 1047 Signed Impressions: Service Date/Time: Thursday, April 28, 2016 12:16 - CONCLUSION: 1. Worsening of hepatic metastatic disease since January 21. 2. Increasing size of right middle lobe metastatic lung nodule. 3. Increasing size of pelvic mass just below the expandable sigmoid stent. 4. Development of moderate left hydronephrosis with left ureteral stent remaining in place. 5. Development of anasarca. 6. Slight increase in biliary ductal dilatation. Edgardo Lockhart MD Lower Extremity Ultrasound 04/28/16 0000 Signed Impressions: Service Date/Time: Thursday, April 28, 2016 15:49 - CONCLUSION: 1. Occlusive and nonocclusive deep venous thrombosis in the left lower extremity as above. Popliteal cyst also present. Edgardo Lockhart MD Objective Remarks awake and alert, oriented x 3 Sats 97% at 2 LNC, anicteric decreased breath sounds bilaterally regular rhythm abdomen- soft, + bowel sounds extremities ++ pitting edema neuro exam- non focal Procedures None Urinary Catheter: Yes Assessment to: Continue Lizama insert reason: Prolonged Immobilization A/P Problem List: (1) Acute vaginal bleeding Status: Acute (2) Anemia ICD Code: D64.9 Status: Acute (3) Ovarian cancer ICD Code: C56.9 Status: Chronic (4) Leg swelling ICD Code: M79.89 Status: Acute (5) Acute congestive heart failure ICD Code: I50.9 Status: Acute (6) Diarrhea ICD Code: R19.7 Status: Chronic (7) Acute renal insufficiency ICD Code: N28.9 Status: Acute Assessment and Plan (1) Ovarian cancer ICD Code: C56.9 Status: Chronic Plan: Continue full CODE STATUS with plans for aggressive rehabilitation at discharge seen by Gyne- oncology. + vaginal bleeding- - sheets light red-none today re check H and H. transfuse if Hemoglobin less than 8.5 hospice appropriate- patient refused- palliative care on board (2) Leg swelling ICD Code: M79.89 Status: Acute Plan: With DVT Now with left upper extremity swelling,brachial DVT on US was on lovenox, held due to bleeding No anticoagulation due to bleeding, discussed with Hematology (3) Acute congestive heart failure ICD Code: I50.9 Status: Acute Plan: continue IV diuresis. US no ascites (4) Anemia ICD Code: D64.9 Status: Acute Plan: now with evidence of gastrointestinal bleeding likely from colitis. Hg stable GI following. Family wishes to avoid any invasive procedures Follow hemoglobin for transfusion needs reglan dc'd due to diarrhea transfuse if Hemoglobin less than 8.5 (5) Diarrhea ICD Code: R19.7 Status: Chronic Plan: Secondary to C. difficile colitis. Continue dificid/po vanco HG stable Discharge Planning I spoke with - who seems realistic about her condition there are 2 sisters- that I have yet to meet- I will come and talk to them when they arrives I spoke with Ingrid from our palliative care service some family- sisters seems to want to take her on a trip.- seemed to be unaware of this plan code status - full Hermilo Walsh MD May 22, 2016 18:45
[2016-05-22] MEDS ORDERED: FUROSEMIDE 40 MG/4 ML VIAL IV PUSH ONE (19:00)
[2016-05-22] MEDS ORDERED: ALBUMIN HUMAN 25% 25 GM/100 ML BAGP IV ONE (19:00)
[2016-05-23] VITALS (14 sets, daily range): BP systolic 113–127; BP diastolic 54–63; PULSE 87–102; RESP 10–14; TEMP 98–99.3; O2SAT 95–100
[2016-05-23] MEDS: HYDROmorphone HCL PF 1 MG/ML VIAL IV PUSH PRN ×4 (04:07→21:46)
[2016-05-23 05:16] LABS: AUTOMATED NEUTROPHIL # 8.1 TH/MM3 (1.8-7.7); BASOPHIL % 0.2 % (0.0-2.0); EOSINOPHIL # 0.1 TH/MM3 (0-0.4); EOSINOPHIL % 0.8 % (0.0-4.0); HEMATOCRIT 26.5 % (35.0-46.0); HEMO FLAGS DIFF FINAL; LYMPH % 5.9 % (9.0-44.0); LYMPHOCYTE # 0.6 TH/MM3 (1.0-4.8); MEAN CELL VOLUME 85.1 FL (80.0-100.0); MEAN CORPUSCULAR HEMOGLOBIN 27.2 PG (27.0-34.0); MONO % 8.9 % (0.0-8.0); NEUT % 84.2 % (16.0-70.0); PLATELET COUNT 235 TH/MM3 (150-450); RED BLOOD COUNT 3.12 MIL/MM3 (4.00-5.30); RED CELL DISTRIBUTION WIDTH 18.6 % (11.6-17.2); WHITE BLOOD COUNT 9.6 TH/MM3 (4.0-11.0)
[2016-05-23 05:37] LABS: BICARBONATE 19.1 MEQ/L (21.0-32.0); POTASSIUM 3.3 MEQ/L (3.5-5.1)
[2016-05-23] MEDS: ONDANSETRON ODT 4 MG TAB PO SCH ×3 (06:02→17:23)
[2016-05-23] MEDS: METHADONE HCL 10 MG TAB PO SCH ×3 (06:02→20:40)
[2016-05-23] MEDS: SODIUM CHLORIDE 0.9% FLUSH 5 ML FLUSH FLUSH SCH ×2 (08:32→20:43)
[2016-05-23] MEDS: FLORASTOR 250 MG PO SCH ×2 (09:00→20:44)
[2016-05-23] MEDS: ALBUTEROL SULFATE 90 MCG/ACT HFA 18 GM INHALER INH SCH ×4 (09:00→20:43)
[2016-05-23] MEDS: POTASSIUM CHLORIDE 20 MEQ CONTROLLED RELEASE TAB PO SCH ×2 (09:00→20:42)
[2016-05-23] MEDS: TIOTROPIUM BROMIDE 18 MCG INH INH SCH (09:00)
[2016-05-23] MEDS: VANCOMYCIN 500 MG VIAL (FOR ORAL USE ONLY) PO SCH ×4 (09:54→20:42)
[2016-05-23] MEDS: CHOLESTYRAMINE 4 GM PACKET PO SCH ×2 (11:00→21:13)
--- NOTE | 2016-05-23 11:23 | HHI.PR ---
Subjective Remarks patient up on the chair today resting- appears comfortable states pain medicines helped with pain Objective Vitals Vital Signs Date Time Temp Pulse Resp B/P Pulse Ox O2 Delivery O2 Flow Rate FiO2 05/23/16 10:00 98 05/23/16 08:00 93 05/23/16 08:00 98.0 93 10 127/54 97 05/23/16 07:04 8 05/23/16 06:00 93 05/23/16 05:45 13 05/23/16 04:00 90 05/23/16 04:00 98.1 90 11 125/58 100 05/23/16 02:00 91 05/23/16 00:00 98.2 87 10 117/60 100 05/23/16 00:00 87 05/22/16 22:00 93 05/22/16 20:26 99 Nasal Cannula 3.00 05/22/16 20:00 98.7 96 18 117/58 96 05/22/16 20:00 110 05/22/16 16:00 98.3 98 10 129/63 99 05/22/16 12:00 98.4 104 10 124/58 99 I/O 05/22/16 05/22/16 05/22/16 05/23/16 05/23/16 05/23/16 06:59 14:59 22:59 06:59 14:59 22:59 Intake Total 200 ml 960 ml 980 ml 120 ml Balance 200 ml 960 ml 980 ml 120 ml Intake Oral 200 ml 960 ml 480 ml 120 ml Albumin 500 ml # Voids 4 3 3 4 # Bowel Movements 4 2 3 4 Result Diagram: 05/23/16 0441 05/23/16 0441 Imaging Last Impressions Abdomen Ultrasound 05/20/16 1443 Signed Impressions: Service Date/Time: Friday, May 20, 2016 15:19 - CONCLUSION: Negative for ascites. Moshe Nam MD FACR Chest X-Ray 05/19/16 0000 Signed Impressions: Service Date/Time: Thursday, May 19, 2016 18:19 - CONCLUSION: 1. Right Ptacca-v-Rurm in superior vena cava. Mild basilar airspace disease. No pneumothorax. Edgardo Lockhart MD Upper Extremity Ultrasound 05/16/16 0000 Signed Impressions: Service Date/Time: Monday, May 16, 2016 15:23 - CONCLUSION: Partial left brachial vein DVT. Simeon Hart MD Abdomen/Pelvis CT 04/28/16 1047 Signed Impressions: Service Date/Time: Thursday, April 28, 2016 12:16 - CONCLUSION: 1. Worsening of hepatic metastatic disease since January 21. 2. Increasing size of right middle lobe metastatic lung nodule. 3. Increasing size of pelvic mass just below the expandable sigmoid stent. 4. Development of moderate left hydronephrosis with left ureteral stent remaining in place. 5. Development of anasarca. 6. Slight increase in biliary ductal dilatation. Edgardo Lockhart MD Lower Extremity Ultrasound 04/28/16 0000 Signed Impressions: Service Date/Time: Thursday, April 28, 2016 15:49 - CONCLUSION: 1. Occlusive and nonocclusive deep venous thrombosis in the left lower extremity as above. Popliteal cyst also present. Edgardo Lockhart MD Objective Remarks awake and alert, oriented x 3, weak Sats 97% at 2 LNC, anicteric decreased breath sounds bilaterally regular rhythm abdomen- soft, + bowel sounds extremities ++ pitting edema neuro exam- non focal Procedures None A/P Problem List: (1) Acute vaginal bleeding Status: Acute (2) Anemia ICD Code: D64.9 Status: Acute (3) Ovarian cancer ICD Code: C56.9 Status: Chronic (4) Leg swelling ICD Code: M79.89 Status: Acute (5) Acute congestive heart failure ICD Code: I50.9 Status: Acute (6) Diarrhea ICD Code: R19.7 Status: Chronic (7) Acute renal insufficiency ICD Code: N28.9 Status: Acute Assessment and Plan (1) Ovarian cancer ICD Code: C56.9 Status: Chronic Plan: Continue full CODE STATUS with plans for aggressive rehabilitation at discharge seen by Gyne- oncology. no reported bleeding re check H and H. transfuse if Hemoglobin less than 8.5 hospice appropriate- patient refused- palliative care on board (2) Leg swelling ICD Code: M79.89 Status: Acute Plan: With DVT Now with left upper extremity swelling,brachial DVT on US was on lovenox, held due to bleeding No anticoagulation due to bleeding, discussed with Hematology (3) Acute congestive heart failure ICD Code: I50.9 Status: Acute Plan: continue IV diuresis. US no ascites. Albumin + Lasix dose daily sats improve (4) Anemia ICD Code: D64.9 Status: Acute Plan: now with evidence of gastrointestinal bleeding likely from colitis. Hg stable GI following. Family wishes to avoid any invasive procedures Follow hemoglobin for transfusion needs reglan dc'd due to diarrhea transfuse if Hemoglobin less than 8.5 (5) Diarrhea ICD Code: R19.7 Status: Chronic Plan: Secondary to C. difficile colitis. Continue dificid/po vanco HG stable Discharge Planning I spoke with - who seems realistic about her condition there are 2 sisters- that I have yet to meet- I will come and talk to them when they arrives I spoke with Ingrid from our palliative care service some family- sisters seems to want to take her on a trip.- seemed to be unaware of this plan code status - full Hermilo Walsh MD May 23, 2016 11:23
[2016-05-23] MEDS: DRONABINOL 5 MG CAP PO SCH ×2 (11:51→20:39)
[2016-05-23] MEDS ORDERED: POTASSIUM CHLORIDE 10 MEQ CONTROLLED RELEASE TAB PO ONE (12:00)
[2016-05-23] MEDS ORDERED: FUROSEMIDE 20 MG/2 ML VIAL IV PUSH ONE (12:00)
[2016-05-23] MEDS ORDERED: ALBUMIN HUMAN 25% 25 GM/100 ML BAGP IV ONE (12:00)
--- NOTE | 2016-05-23 15:06 | HHI.HCSW ---
State Editor Visit Cognitive Functioning Attempted to see Mrs. Jim and family at bedside to provide supportive visit. Mrs. Jim appears slightly lethargic and does not appear to remember my previous visits. Does not engage in conversation. . Significant Family/Friend Multiple family members at bedside, including . All report they "are fine right now". Did not wish to engage in further conversation with me. Deny any questions or concerns at this time. . Quality of Life Values/Goals In previous visits: goals remain aggressive at this time. Ms. Jim has expressed desire to go home and attend to different affairs. Hospice at home has been discussed with patient and family although they are not ready to transition to comfort oriented goals. . Follow Up Visit Palliative care will continue to follow throughout hospitalization. SW will follow for emotional support. Joy Guzman, CUSTOMS MANAGER May 23, 2016 15:06
[2016-05-24] VITALS (14 sets, daily range): BP systolic 101–151; BP diastolic 49–84; PULSE 81–98; RESP 12–14; TEMP 97.7–99; O2SAT 94–100
[2016-05-24 00:05] LABS: PLATELET ESTIMATE SMEAR NORMAL (NORMAL); PLATELET MORPHOLOGY NORMAL (NORMAL); SCAN/DIFF AUTO DIFF CONFIRMED
[2016-05-24] MEDS: ONDANSETRON ODT 4 MG TAB PO SCH ×4 (00:35→17:42)
[2016-05-24] MEDS: HYDROmorphone HCL PF 1 MG/ML VIAL IV PUSH PRN ×2 (02:18→19:14)
[2016-05-24] MEDS: METHADONE HCL 10 MG TAB PO SCH ×3 (06:12→23:18)
[2016-05-24] MEDS: DRONABINOL 5 MG CAP PO SCH ×2 (08:50→20:40)
[2016-05-24] MEDS: POTASSIUM CHLORIDE 20 MEQ CONTROLLED RELEASE TAB PO SCH ×2 (08:50→20:38)
[2016-05-24] MEDS: FLORASTOR 250 MG PO SCH ×2 (08:54→20:39)
[2016-05-24] MEDS: VANCOMYCIN 500 MG VIAL (FOR ORAL USE ONLY) PO SCH ×4 (08:55→23:25)
[2016-05-24] MEDS: TIOTROPIUM BROMIDE 18 MCG INH INH SCH (08:56)
[2016-05-24] MEDS: ALBUTEROL SULFATE 90 MCG/ACT HFA 8 GM INHALER INH PRN (08:56)
[2016-05-24] MEDS: SODIUM CHLORIDE 0.9% FLUSH 5 ML FLUSH FLUSH SCH ×2 (08:57→20:37)
[2016-05-24] MEDS: ALBUTEROL SULFATE 90 MCG/ACT HFA 18 GM INHALER INH SCH ×4 (08:57→20:38)
[2016-05-24] MEDS: CHOLESTYRAMINE 4 GM PACKET PO SCH ×2 (12:30→20:37)
[2016-05-24] MEDS ORDERED: PROPOFOL 1000 MG/100 ML INJ 100 ML ONE (14:23)
--- NOTE | 2016-05-24 15:35 | HHI.PR ---
Subjective Remarks resting comfortably- in between awake and alert she did some therapy today, ate well this lunch d/w daughter Objective Vitals Vital Signs Date Time Temp Pulse Resp B/P Pulse Ox O2 Delivery O2 Flow Rate FiO2 05/24/16 14:55 12 05/24/16 07:39 95 21 05/24/16 06:00 81 05/24/16 04:00 98.0 94 14 104/58 100 05/24/16 04:00 94 05/24/16 02:00 92 05/24/16 00:00 98 05/24/16 00:00 98.1 98 14 101/49 98 05/23/16 22:00 92 05/23/16 20:00 98 05/23/16 20:00 98.0 96 14 121/63 96 05/23/16 19:57 97 21 05/23/16 18:00 100 05/23/16 16:00 98.2 102 14 118/62 98 05/23/16 16:00 102 I/O 05/23/16 05/23/16 05/23/16 05/24/16 05/24/16 05/24/16 06:59 14:59 22:59 06:59 14:59 22:59 Intake Total 120 ml 1060 ml 400 ml 200 ml Balance 120 ml 1060 ml 400 ml 200 ml Intake Oral 120 ml 960 ml 400 ml 200 ml Albumin 100 ml # Voids 4 4 5 3 # Bowel Movements 4 4 5 3 Result Diagram: 05/23/16 0441 05/23/16 0441 Imaging Last Impressions Abdomen Ultrasound 05/20/16 1443 Signed Impressions: Service Date/Time: Friday, May 20, 2016 15:19 - CONCLUSION: Negative for ascites. Moshe Nam MD FACR Chest X-Ray 05/19/16 0000 Signed Impressions: Service Date/Time: Thursday, May 19, 2016 18:19 - CONCLUSION: 1. Right Nxuwfo-y-Zlks in superior vena cava. Mild basilar airspace disease. No pneumothorax. Edgardo Lockhart MD Upper Extremity Ultrasound 05/16/16 0000 Signed Impressions: Service Date/Time: Monday, May 16, 2016 15:23 - CONCLUSION: Partial left brachial vein DVT. Simeon Hart MD Abdomen/Pelvis CT 04/28/16 1047 Signed Impressions: Service Date/Time: Thursday, April 28, 2016 12:16 - CONCLUSION: 1. Worsening of hepatic metastatic disease since January 21. 2. Increasing size of right middle lobe metastatic lung nodule. 3. Increasing size of pelvic mass just below the expandable sigmoid stent. 4. Development of moderate left hydronephrosis with left ureteral stent remaining in place. 5. Development of anasarca. 6. Slight increase in biliary ductal dilatation. Edgardo Lockhart MD Lower Extremity Ultrasound 04/28/16 0000 Signed Impressions: Service Date/Time: Thursday, April 28, 2016 15:49 - CONCLUSION: 1. Occlusive and nonocclusive deep venous thrombosis in the left lower extremity as above. Popliteal cyst also present. Edgardo Lockhart MD Objective Remarks awake and alert, oriented x 3, weak Sats 97% anicteric decreased breath sounds bilaterally regular rhythm abdomen- soft, + bowel sounds extremities ++ pitting edema neuro exam- non focal Procedures None A/P Problem List: (1) Acute vaginal bleeding Status: Acute (2) Anemia ICD Code: D64.9 Status: Acute (3) Ovarian cancer ICD Code: C56.9 Status: Chronic (4) Leg swelling ICD Code: M79.89 Status: Acute (5) Acute congestive heart failure ICD Code: I50.9 Status: Acute (6) Diarrhea ICD Code: R19.7 Status: Chronic (7) Acute renal insufficiency ICD Code: N28.9 Status: Acute Assessment and Plan (1) Ovarian cancer ICD Code: C56.9 Status: Chronic Plan: Continue full CODE STATUS with plans for aggressive rehabilitation at discharge seen by Gyne- oncology. no reported bleeding re check H and H. transfuse if Hemoglobin less than 8.5 hospice appropriate- patient refused- palliative care on board (2) Leg swelling ICD Code: M79.89 Status: Acute Plan: With DVT Now with left upper extremity swelling,brachial DVT on US was on lovenox, held due to bleeding No anticoagulation due to bleeding, discussed with Hematology (3) Acute congestive heart failure ICD Code: I50.9 Status: Acute Plan: continue IV diuresis. US no ascites. Albumin + Lasix dose daily sats improve (4) Anemia ICD Code: D64.9 Status: Acute Plan: now with evidence of gastrointestinal bleeding likely from colitis. Hg stable GI following. Family wishes to avoid any invasive procedures Follow hemoglobin for transfusion needs reglan dc'd due to diarrhea transfuse if Hemoglobin less than 8.5 (5) Diarrhea ICD Code: R19.7 Status: Chronic Plan: Secondary to C. difficile colitis. Continue dificid/po vanco HG stable d/w daughter consult CM- hione with home ehalthcare/nursing Discharge Planning 05/22 I spoke with - who seems realistic about her condition there are 2 sisters- that I have yet to meet- I will come and talk to them when they arrives I spoke with Ingrid from our palliative care service some family- sisters seems to want to take her on a trip.- seemed to be unaware of this plan code status - full Hermilo Walsh MD May 24, 2016 15:35
[2016-05-24] MEDS: HYDROmorphone HCL 4 MG TAB PO PRN (21:13)
[2016-05-24 22:36] LABS: BICARBONATE 21.7 MEQ/L (21.0-32.0); POTASSIUM 3.4 MEQ/L (3.5-5.1)
[2016-05-25] VITALS (14 sets, daily range): BP systolic 129–160; BP diastolic 63–72; PULSE 83–102; RESP 10–19; TEMP 97.6–99; O2SAT 92–99
[2016-05-25] MEDS: ALPRAZolam 0.5 MG TAB PO PRN ×2 (00:02→22:41)
[2016-05-25] MEDS: ONDANSETRON ODT 4 MG TAB PO SCH ×4 (00:02→17:08)
[2016-05-25] MEDS: HYDROmorphone HCL 4 MG TAB PO PRN ×6 (00:02→21:07)
[2016-05-25] MEDS: HYDROmorphone HCL PF 1 MG/ML VIAL IV PUSH PRN ×3 (01:50→22:41)
[2016-05-25] MEDS: METHADONE HCL 10 MG TAB PO SCH ×3 (05:56→22:29)
[2016-05-25] MEDS: POTASSIUM CHLORIDE 20 MEQ CONTROLLED RELEASE TAB PO SCH ×2 (09:03→21:07)
[2016-05-25] MEDS: DRONABINOL 5 MG CAP PO SCH ×2 (09:03→21:07)
[2016-05-25] MEDS: FLORASTOR 250 MG PO SCH ×2 (09:03→21:08)
[2016-05-25] MEDS: SODIUM CHLORIDE 0.9% FLUSH 5 ML FLUSH FLUSH SCH ×2 (09:03→21:08)
[2016-05-25] MEDS: TIOTROPIUM BROMIDE 18 MCG INH INH SCH (09:04)
[2016-05-25] MEDS: ALBUTEROL SULFATE 90 MCG/ACT HFA 18 GM INHALER INH SCH ×4 (09:04→21:08)
[2016-05-25] MEDS: VANCOMYCIN 500 MG VIAL (FOR ORAL USE ONLY) PO SCH ×4 (09:50→22:34)
[2016-05-25] MEDS: CHOLESTYRAMINE 4 GM PACKET PO SCH ×2 (10:56→20:41)
--- NOTE | 2016-05-25 14:52 | HHI.PR ---
Subjective Remarks vaginal bleeding- minimal today abdominal discomfort- improved pain meds helping still weak- but appears more interactive today Objective Vitals Vital Signs Date Time Temp Pulse Resp B/P Pulse Ox O2 Delivery O2 Flow Rate FiO2 05/25/16 07:13 95 21 05/25/16 06:00 86 05/25/16 04:57 12 05/25/16 04:00 98.3 91 14 149/72 99 05/25/16 04:00 91 05/25/16 02:00 87 05/25/16 00:00 98.1 100 12 160/70 98 05/25/16 00:00 100 05/24/16 22:00 90 05/24/16 20:35 97 21 05/24/16 20:00 85 05/24/16 20:00 98.1 85 12 130/60 96 05/24/16 18:00 94 05/24/16 16:00 90 05/24/16 16:00 97.7 92 14 151/84 96 05/24/16 14:55 12 I/O 05/24/16 05/24/16 05/24/16 05/25/16 05/25/16 05/25/16 06:59 14:59 22:59 06:59 14:59 22:59 Intake Total 200 ml 420 ml 420 ml 60 ml 100 ml Balance 200 ml 420 ml 420 ml 60 ml 100 ml Intake Oral 200 ml 420 ml 400 ml 60 ml 100 ml IV Total 20 ml 0 ml # Voids 3 2 4 7 2 # Bowel Movements 3 2 2 2 Result Diagram: 05/23/16 0441 05/24/16 2200 Imaging Last Impressions Abdomen Ultrasound 05/20/16 1443 Signed Impressions: Service Date/Time: Friday, May 20, 2016 15:19 - CONCLUSION: Negative for ascites. Moshe Nam MD FACR Chest X-Ray 05/19/16 0000 Signed Impressions: Service Date/Time: Thursday, May 19, 2016 18:19 - CONCLUSION: 1. Right Bkwbuu-h-Tyxi in superior vena cava. Mild basilar airspace disease. No pneumothorax. Edgardo Lockhart MD Upper Extremity Ultrasound 05/16/16 0000 Signed Impressions: Service Date/Time: Monday, May 16, 2016 15:23 - CONCLUSION: Partial left brachial vein DVT. Simeon Hart MD Abdomen/Pelvis CT 04/28/16 1047 Signed Impressions: Service Date/Time: Thursday, April 28, 2016 12:16 - CONCLUSION: 1. Worsening of hepatic metastatic disease since January 21. 2. Increasing size of right middle lobe metastatic lung nodule. 3. Increasing size of pelvic mass just below the expandable sigmoid stent. 4. Development of moderate left hydronephrosis with left ureteral stent remaining in place. 5. Development of anasarca. 6. Slight increase in biliary ductal dilatation. Edgardo Lockhart MD Lower Extremity Ultrasound 04/28/16 0000 Signed Impressions: Service Date/Time: Thursday, April 28, 2016 15:49 - CONCLUSION: 1. Occlusive and nonocclusive deep venous thrombosis in the left lower extremity as above. Popliteal cyst also present. Edgardo Lockhart MD Objective Remarks awake and alert, oriented x 3, fragile looking Sats 97% anicteric decreased breath sounds bilaterally regular rhythm abdomen- soft, + bowel sounds extremities ++ pitting edema (less c/w yesterday's exam) neuro exam- non focal Procedures None A/P Problem List: (1) Acute vaginal bleeding Status: Acute (2) Anemia ICD Code: D64.9 Status: Acute (3) Ovarian cancer ICD Code: C56.9 Status: Chronic (4) Leg swelling ICD Code: M79.89 Status: Acute (5) Acute congestive heart failure ICD Code: I50.9 Status: Acute (6) Diarrhea ICD Code: R19.7 Status: Chronic (7) Acute renal insufficiency ICD Code: N28.9 Status: Acute Assessment and Plan (1) Ovarian cancer ICD Code: C56.9 Status: Chronic Plan: Continue full CODE STATUS with plans for aggressive rehabilitation at discharge seen by Gyne- oncology. re check H and H. transfuse if Hemoglobin less than 8.5 hospice appropriate- patient refused- palliative care on board (2) Left UE DVT ICD Code: M79.89 Status: Acute Plan: With DVT Now with left upper extremity swelling,brachial DVT on US was on lovenox, held due to bleeding No anticoagulation due to bleeding, discussed with Hematology (3) Acute congestive heart failure, diastolic- went into fluid overload 05/19 ICD Code: I50.9 Status: Acute Plan: continue IV diuresis- Lasix 20 mg IV daily. US no ascites. Leg swelling improvi sats improved past 2 days - administered Albumin - give periodically (4) Anemia ICD Code: D64.9 Status: Acute Plan: now with evidence of gastrointestinal bleeding likely from colitis. Hg stable GI following. Family wishes to avoid any invasive procedures Follow hemoglobin for transfusion needs reglan dc'd due to diarrhea transfuse if Hemoglobin less than 8.5 (5) Diarrhea ICD Code: R19.7 Status: Chronic Plan: Secondary to C. difficile colitis. Continue dificid/po vanco HG stable (6) Hypokalemia give 30 meq po x 1 on KCL 20 meq po bid FF BMP PT ff CM ff for DC needs Discharge Planning 05/22 I spoke with - who seems realistic about her condition there are 2 sisters- that I have yet to meet- I will come and talk to them when they arrives I spoke with Ingrid from our palliative care service some family- sisters seems to want to take her on a trip.- seemed to be unaware of this plan code status - full Hermilo Walsh MD May 25, 2016 14:52
[2016-05-25] MEDS ORDERED: POTASSIUM CHLORIDE 10 MEQ CONTROLLED RELEASE TAB PO ONE (15:00)
[2016-05-25] MEDS: FUROSEMIDE 20 MG/2 ML VIAL IV PUSH SCH (15:45)
[2016-05-25] MEDS: fentaNYL 100 MCG/HR PATCH TD SCH (17:09)
[2016-05-25] MEDS: REMOVE OLD DURAGESIC (FENTANYL) PATCH TD SCH (17:09)
[2016-05-25 18:19] LABS: BICARBONATE 22.9 MEQ/L (21.0-32.0); POTASSIUM 3.8 MEQ/L (3.5-5.1)
[2016-05-26] VITALS (14 sets, daily range): BP systolic 117–141; BP diastolic 58–89; PULSE 81–93; RESP 8–15; TEMP 97.6–98.4; O2SAT 93–100
[2016-05-26] MEDS: HYDROmorphone HCL 4 MG TAB PO PRN ×6 (00:04→22:41)
[2016-05-26] MEDS: ONDANSETRON ODT 4 MG TAB PO SCH ×5 (00:04→23:38)
[2016-05-26] MEDS: HYDROmorphone HCL PF 1 MG/ML VIAL IV PUSH PRN ×2 (02:35→14:08)
[2016-05-26] MEDS: METHADONE HCL 10 MG TAB PO SCH ×3 (05:53→21:29)
--- NOTE | 2016-05-26 08:21 | HHI.IDPN ---
Note Infectious Disease Note Chart reviewed. Patient has a patent rectovaginal aimee with ongoing leakage. At high risk of recurrent UTIs and Cdiff recurrence or non resolution. Continue Vanco oral would recommend completion of 14 day course and further determination based on diarrhea and other symptoms of Cdiff. Will sign off please call back if any change in clinical condition or questions. Vital Signs Date Time Temp Pulse Resp B/P Pulse Ox O2 Delivery O2 Flow Rate FiO2 05/26/16 07:00 87 05/26/16 07:00 92 Nasal Cannula 2.00 05/26/16 06:00 92 05/26/16 04:00 89 05/26/16 04:00 92 Nasal Cannula 2.00 05/26/16 04:00 98.4 89 12 134/61 96 05/26/16 02:00 87 05/26/16 00:00 92 05/26/16 00:00 98.1 92 15 124/60 93 05/25/16 22:00 86 05/25/16 20:00 97.6 89 19 137/63 98 05/25/16 20:00 102 05/25/16 19:24 94 Nasal Cannula 1.00 05/25/16 19:00 92 Nasal Cannula 1.00 05/25/16 18:00 100 05/25/16 18:00 91 Nasal Cannula 1.00 05/25/16 16:00 88 05/25/16 16:00 99.0 88 13 129/66 92 05/25/16 14:00 97 Room Air 05/25/16 14:00 88 05/25/16 12:00 88 05/25/16 12:00 98.1 88 10 137/63 98 05/25/16 10:00 90 Nasal Cannula 1.00 05/25/16 10:00 84 Laboratory Tests Test 05/25/16 17:50 Sodium Level 141 MEQ/L Potassium Level 3.8 MEQ/L Chloride Level 109 MEQ/L Carbon Dioxide Level 22.9 MEQ/L Anion Gap 9 MEQ/L Blood Urea Nitrogen 13 MG/DL Creatinine 1.03 MG/DL Estimat Glomerular Filtration 54 ML/MIN Rate Random Glucose 75 MG/DL Calcium Level 7.9 MG/DL Charlene Bermudez MD May 26, 2016 08:21
[2016-05-26] MEDS: VANCOMYCIN 500 MG VIAL (FOR ORAL USE ONLY) PO SCH ×4 (09:00→23:37)
[2016-05-26] MEDS: FLORASTOR 250 MG PO SCH (09:00)
[2016-05-26] MEDS: TIOTROPIUM BROMIDE 18 MCG INH INH SCH ×2 (09:00→09:04)
[2016-05-26] MEDS: POTASSIUM CHLOR 20 MEQ PREMIX 100 ML IV ONE ×2 (09:00→09:03)
[2016-05-26] MEDS: DRONABINOL 5 MG CAP PO SCH ×2 (09:03→20:09)
[2016-05-26] MEDS: FUROSEMIDE 20 MG/2 ML VIAL IV PUSH SCH (09:03)
[2016-05-26] MEDS: SODIUM CHLORIDE 0.9% FLUSH 5 ML FLUSH FLUSH SCH ×2 (09:04→21:00)
[2016-05-26] MEDS: ALBUTEROL SULFATE 90 MCG/ACT HFA 18 GM INHALER INH SCH ×4 (09:04→21:00)
[2016-05-26] MEDS: CHOLESTYRAMINE 4 GM PACKET PO SCH ×2 (11:15→20:00)
--- NOTE | 2016-05-26 14:26 | HHI.PR ---
Subjective Remarks Patient laying in bed looks pale and fatigued She is trying to smile, she told me she was to go home however she still agreeing with her family with full aggressive therapy I discussed with the nurse looks like family once patient starts moving around and practicing normal life Objective Vitals Vital Signs Date Time Temp Pulse Resp B/P Pulse Ox O2 Delivery O2 Flow Rate FiO2 05/26/16 12:00 97.9 89 8 130/89 95 05/26/16 08:00 97.9 86 8 133/62 98 05/26/16 07:00 87 05/26/16 07:00 92 Nasal Cannula 2.00 05/26/16 06:00 92 05/26/16 04:00 89 05/26/16 04:00 92 Nasal Cannula 2.00 05/26/16 04:00 98.4 89 12 134/61 96 05/26/16 02:00 87 05/26/16 00:00 92 05/26/16 00:00 98.1 92 15 124/60 93 05/25/16 22:00 86 05/25/16 20:00 97.6 89 19 137/63 98 05/25/16 20:00 102 05/25/16 19:24 94 Nasal Cannula 1.00 05/25/16 19:00 92 Nasal Cannula 1.00 05/25/16 18:00 100 05/25/16 18:00 91 Nasal Cannula 1.00 05/25/16 16:00 88 05/25/16 16:00 99.0 88 13 129/66 92 I/O 05/25/16 05/25/16 05/25/16 05/26/16 05/26/16 05/26/16 06:59 14:59 22:59 06:59 14:59 22:59 Intake Total 60 ml 100 ml 430 ml 250 ml 285 ml Balance 60 ml 100 ml 430 ml 250 ml 285 ml Intake Oral 60 ml 100 ml 420 ml 240 ml 285 ml IV Total 0 ml 10 ml 10 ml # Voids 7 4 9 6 6 # Bowel Movements 2 3 2 1 Result Diagram: 05/23/16 0441 05/26/16 1030 Objective Remarks GENERAL: This is a well-nourished, well-developed patient, in no apparent distress. CARDIOVASCULAR: Regular rate and rhythm without murmurs, gallops, or rubs. RESPIRATORY: Fair air entry bilaterally. No wheezes, rales, or rhonchi. GASTROINTESTINAL: Abdomen less tenderness on the lower abdomen with fullness to palpation throughout,. Appreciated some bowel sounds MUSCULOSKELETAL: Extremities +1 edema. Pedal pulses appreciated NEUROLOGICAL: Awake and alert. Moves all extremity. Normal speech.no focal neurological deficit Procedures None A/P Problem List: (1) Acute vaginal bleeding Status: Acute (2) Anemia ICD Code: D64.9 Status: Acute (3) Ovarian cancer ICD Code: C56.9 Status: Chronic (4) Leg swelling ICD Code: M79.89 Status: Acute (5) Acute congestive heart failure ICD Code: I50.9 Status: Acute (6) Diarrhea ICD Code: R19.7 Status: Chronic (7) Acute renal insufficiency ICD Code: N28.9 Status: Acute Assessment and Plan 05/26: Discussed with the patient, she wants to go home however she still agree with aggressive treatment and full code, continue current care (1) Ovarian cancer ICD Code: C56.9 Status: Chronic Plan: Continue full CODE STATUS with plans for aggressive rehabilitation at discharge seen by Gyne- oncology. re check H and H. transfuse if Hemoglobin less than 8.5 hospice appropriate- patient refused- palliative care on board (2) Left UE DVT ICD Code: M79.89 Status: Acute Plan: With DVT Now with left upper extremity swelling,brachial DVT on US was on lovenox, held due to bleeding No anticoagulation due to bleeding, discussed with Hematology (3) Acute congestive heart failure, diastolic- went into fluid overload 05/19 ICD Code: I50.9 Status: Acute Plan: continue IV diuresis- Lasix 20 mg IV daily. US no ascites. Leg swelling improvi sats improved Status post Albumin (4) Anemia ICD Code: D64.9 Status: Acute Plan: now with evidence of gastrointestinal bleeding likely from colitis. Hg stable GI following. Family wishes to avoid any invasive procedures Follow hemoglobin for transfusion needs transfuse if Hemoglobin less than 8.5 (5) Diarrhea ICD Code: R19.7 Status: Chronic Plan: Secondary to C. difficile colitis. Continue dificid/po vanco HG stable (6) Hypokalemia give 30 meq po x 1 on KCL 20 meq po bid FF BMP PT ff CM ff for DC needs Scarlett Damon MD May 26, 2016 14:26
[2016-05-27] VITALS (14 sets, daily range): BP systolic 123–154; BP diastolic 59–65; PULSE 76–110; RESP 10–15; TEMP 98.1–99.8; O2SAT 95–100
[2016-05-27] MEDS: HYDROmorphone HCL 4 MG TAB PO PRN ×6 (01:44→23:24)
[2016-05-27] MEDS: METHADONE HCL 10 MG TAB PO SCH ×3 (05:46→21:41)
[2016-05-27] MEDS: ONDANSETRON ODT 4 MG TAB PO SCH ×4 (05:46→23:24)
[2016-05-27] MEDS: SODIUM CHLORIDE 0.9% FLUSH 5 ML FLUSH FLUSH SCH ×2 (08:06→20:18)
[2016-05-27] MEDS: FLORASTOR 250 MG PO SCH ×2 (08:06→21:00)
[2016-05-27] MEDS: FUROSEMIDE 20 MG/2 ML VIAL IV PUSH SCH (08:06)
[2016-05-27] MEDS: DRONABINOL 5 MG CAP PO SCH ×2 (08:06→20:17)
[2016-05-27] MEDS: VANCOMYCIN 500 MG VIAL (FOR ORAL USE ONLY) PO SCH ×4 (08:11→22:00)
[2016-05-27] MEDS: ALBUTEROL SULFATE 90 MCG/ACT HFA 18 GM INHALER INH SCH ×4 (09:00→21:00)
[2016-05-27] MEDS: TIOTROPIUM BROMIDE 18 MCG INH INH SCH (10:01)
[2016-05-27] MEDS: CHOLESTYRAMINE 4 GM PACKET PO SCH ×2 (10:14→19:42)
--- NOTE | 2016-05-27 11:16 | HHI.HCPN ---
Reason for visit a. To assist with evaluation and management of symptoms including: abdominal /pelvic pain, dyspnea, confusion. b. To assist medical decision maker(s) with: better understanding of current medical conditions; weighing benefits/burdens of medical treatment options; making medical treatment decisions. . (Ingrid Lehman) Subjective/Interval History Patient seen and examined in ICU. No family at bedside. Patient alert to self and situation, intermittent confusion. Very sleepy. Attempts to answer questions, but not always making sense. patient endorsing mid back to low back pain that has been getting worse during the past few days. She attributes pain to laying down in bed. Pain is currently rated at 8. it is dull and well localized. Exacerbated by movement and alleviated by PRN Dilaudid and rest. Patient also endorsing abdominal/pelvic pain that is dull and not all well localized. Not able to elaborate any further. Patient tells me that her goal is to gain strength to go to rehab. Reports feeling weak at times. Afebrile. Vital signs stable. Abdominal US 05/20 negative for ascites. BLE edema seems to be improving. No new labs since 05/23. Hgb stable at 8.5 at that time. Discussed with bedside RN Tiffanie. Patient with documented increased pain and PRN Dilaudid requirement during the last 48h with an average of 5-6 PRN doses daily, in addition to IV Dilaudid given -2 doses yesterday. reviewed with patient that as cancer progresses, it is anticipated that her symptom burden will increase. Spoke to patient's via telephone and later at bedside. Reviewed documented increase in pain intensity/frequency and narcotic usage in the past 48h. Discussed recommendation of slightly adjusting pain medications. wishing to speak to his family before considering adjustment in pain management. Palliative care will f/u. . . Family/friend interactions See interval note. . (Ingrid Lehman) Advance Directives Living Will: Never completed Health Care Surrogate: Never completed Durable Power of Director Patient Financial Services: Never completed (Ingrid Lehman) Advance Directive Specifics Health Care Surrogate(s): No written advance directives. According to [place] statutes health care proxy decision-making falls to her spouse. She indicates she would want her spouse to make medical decisions should she become incapacitated. . Significant change in goals: Remain Unchanged. FULL CODE. Continue aggressive care. Plan to discharge to rehab. . (Ingrid Lehman) Objective Vital Signs Date Time Temp Pulse Resp B/P Pulse Ox O2 Delivery O2 Flow Rate FiO2 05/27/16 10:00 102 05/27/16 08:00 92 05/27/16 07:25 97 Nasal Cannula 05/27/16 07:00 96 Room Air 05/27/16 06:00 92 05/27/16 04:00 99.8 91 12 128/62 100 05/27/16 04:00 89 05/27/16 02:00 95 05/27/16 00:00 98.1 96 10 154/62 97 05/27/16 00:00 96 05/26/16 22:00 87 05/26/16 20:00 97.9 86 13 141/73 99 05/26/16 20:00 86 05/26/16 20:00 99 Nasal Cannula 1.00 05/26/16 19:20 98 Nasal Cannula 05/26/16 18:00 91 05/26/16 17:00 99 Nasal Cannula 1.00 05/26/16 16:00 97.6 85 8 117/58 100 05/26/16 16:00 85 05/26/16 14:00 93 05/26/16 12:00 97.9 89 8 130/89 95 05/26/16 12:00 89 Intake & Output 05/27/16 05/27/16 07:00 19:00 Intake Total 240 ml Balance 240 ml Intake Oral 240 ml # Voids 4 # Bowel Movements 3 Physical Exam CONSTITUTIONAL/GENERAL: This is a frail, chronically ill patient, who appears older than her actual age in no acute distress. Very sleepy. TUBES/LINES/DRAINS: port. SCD's. SKIN: pale. Diffuse erythema and scaling in both extremities. Bilateral lower extremity edema +1 left > right. CARDIOVASCULAR: regular rythm. No murmurs noted. RESPIRATORY/CHEST: Symmetric, unlabored respirations. Diminished bilaterally. GASTROINTESTINAL: Abdomen soft, tender right upper and lower quadrant, mildly distended. Bowel sounds active. GENITOURINARY: Without palpable bladder distension. MUSCULOSKELETAL: Diffuse edema 1 + pitting to BLE. NEUROLOGICAL: Awake and alert. Follows commands. Very sleepy. Periods of confusion. PSYCHIATRIC: calm. Denies feelings of sadness. . (Ingrid Lehman) Diagnostic Tests Laboratory Laboratory Tests Test 05/24/16 05/25/16 05/26/16 22:00 17:50 10:30 Sodium Level 142 MEQ/L 141 MEQ/L (136-145) (136-145) Potassium Level 3.4 MEQ/L 3.8 MEQ/L 4.0 MEQ/L (3.5-5.1) (3.5-5.1) (3.5-5.1) Chloride Level 111 MEQ/L 109 MEQ/L (98-107) (98-107) Carbon Dioxide Level 21.7 MEQ/L 22.9 MEQ/L (21.0-32.0) (21.0-32.0) Anion Gap 9 MEQ/L (5-15) 9 MEQ/L (5-15) Blood Urea Nitrogen 13 MG/DL (7-18) 13 MG/DL (7-18) Creatinine 1.13 MG/DL 1.03 MG/DL (0.50-1.00) (0.50-1.00) Estimat Glomerular Filtration 49 ML/MIN (>89) 54 ML/MIN (>89) Rate Random Glucose 86 MG/DL 75 MG/DL (74-106) (74-106) Calcium Level 7.6 MG/DL 7.9 MG/DL (8.5-10.1) (8.5-10.1) (Ingrid Lehman) Result Diagram: 05/23/16 0441 05/26/16 1030 Imaging Last Impressions Abdomen Ultrasound 05/20/16 1443 Signed Impressions: Service Date/Time: Friday, May 20, 2016 15:19 - CONCLUSION: Negative for ascites. Moshe Nam MD FACR Chest X-Ray 05/19/16 0000 Signed Impressions: Service Date/Time: Thursday, May 19, 2016 18:19 - CONCLUSION: 1. Right [id number] in superior vena cava. Mild basilar airspace disease. No pneumothorax. Edgardo Lockhart MD Upper Extremity Ultrasound 05/16/16 0000 Signed Impressions: Service Date/Time: Monday, May 16, 2016 15:23 - CONCLUSION: Partial left brachial vein DVT. Simeon Hart MD Abdomen/Pelvis CT 04/28/16 1047 Signed Impressions: Service Date/Time: Thursday, April 28, 2016 12:16 - CONCLUSION: 1. Worsening of hepatic metastatic disease since January 21. 2. Increasing size of right middle lobe metastatic lung nodule. 3. Increasing size of pelvic mass just below the expandable sigmoid stent. 4. Development of moderate left hydronephrosis with left ureteral stent remaining in place. 5. Development of anasarca. 6. Slight increase in biliary ductal dilatation. Edgardo Lockhart MD Lower Extremity Ultrasound 04/28/16 0000 Signed Impressions: Service Date/Time: Thursday, April 28, 2016 15:49 - CONCLUSION: 1. Occlusive and nonocclusive deep venous thrombosis in the left lower extremity as above. Popliteal cyst also present. Ed[facility] Lockhart [facility] Assessment and Plan Disease Oriented Problem List: (1) Ovarian cancer with mets to liver and lung (2) Anemia (3) COPD (chronic obstructive pulmonary disease) Symptom Scale: (1) Intractable pain 0-10 Scale: 3 Comment: secondary to metastatic ovarian cancer with disease progression despite recent chemotherapy, rectovaginal fistula, pelvic mass. (2) Vaginal discharge 0-10 Scale: Unable to quantify Comment: Secondary to pelvic mass, rectovaginal fistula. (3) Edema 0-10 Scale: Unable to quantify Comment: secondary to CHF (4) Dyspnea 0-10 Scale: Unable to quantify Pertinent Non-Medical Issues Psychosocial: . Supported by her 2 daughters, Shey and Zelda. Also supported by her sister, Yoli. Lives in [place]. Spiritual: Member [employer]. 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 Legal:No written advance directives. According to [place] statutes health care proxy decision-making falls to her spouse. She indicates she would want her spouse to make medical decisions should she become incapacitated. Ethical issues impacting care: no known concerns at this time. . Important Contacts * Kevin Campbellcy, spouse/HCP: [phone] (cell) or [phone] (home) * Shey Jim, daughter: [phone] cell or [phone] work * Zelda Fuentes, daughter: [phone] cell or [phone] work * Yoli Rosario, sister: [phone] cell or [phone] home . Prognosis Mrs. Jim has recurrent Ovarian cancer with Mets to liver and lung disease progression despite recent palliative chemotherapy admitted with abdominal and vaginal pain. Patient has had ovarian cancer undergoing treatment for the last 10 years, she is certainly hospice appropriate should she elect comfort focused care. Ovarian cancer is a terminal condition. . Code Status: Full Code Plan * No written advance directives. According to [place] statutes health care proxy decision-making falls to her spouse. She indicates she would want her spouse to make medical decisions should she become incapacitated. Recommend shared decision making given her intermittent confusion. * FULL CODE. * 05/21/16: [facility] meeting. Medical update provided after allowing family to voice their frustrations and concerns. They are displeased with recent CHF exacerbation and are thankful patient was not DC'd to rehab. Family feels the "patient is a fighter and wants to go down fighting." Family verbalizes they "understand she is terminal and know her prognosis, but they feel she still is viable and has life in her." Family desires FULL CODE (and they feel she still wants this) and continued aggressive in hopes she will "get stronger and be able to return home." It was explained that given mets disease is not being treated, will only cause further decline and weakness, she will not get stronger. tells me she wants to go home, she told him "don't let me here." I explained she can go home with hospice anytime. They DO NOT want hospice. * SYMPTOMS: Intractable Pain: secondary to metastatic ovarian cancer with disease progression despite recent chemotherapy, rectovaginal fistula, pelvic mass. Currently on Methadone 7.5mg q8h, Fentanyl patch 100mcg q72h and PRN Dilaudid 4mg PO q3h and 0.5mg IV q4h. Documented increase in pain intensity and frequency requiring frequent PRN Dilaudid doses. Average of 5-6 doses of PO and 2 of IV daily in the last 2 days. Will discuss with family recommendations of adjusting pain medication. Nausea: Reglan and Zofran available with relief. Diarrhea: On Vancomycin and Questran, Dificid completed, C, Diff negative. Diarrhea improved. Dyspnea: some SOB at rest, now tolerating NC. Edema: CHF. * Palliative care will continue to follow throughout hospital course to assist with symptom management and further clarification of treatment goals. . (Ingrid Lehman) Time Spent Time Periods: total time to include chart review, telephone and bedside conversation with pt's and discussion with bedside RN. Total Floor Time (mins): 40 Face to Face Time (mins): 20 >50% Counseling/Coord of Care: Yes (Ingrid Lehman) Attestation To help prompt me to consider important information that might be impacting today's encounter and assessment, information from prior notes written by myself or my colleagues may have been "brought forward" into today's note. My signature on this note, however, is an attestation that I personally performed the exam, history, and/or decision-making noted today, and, unless otherwise indicated, the interactions with patient, family, and staff as well as the review of records all occurred today. I also attest that the listed assessment and stated plan reflect my best clinical judgment today based on the combination of historical information, prior notes, and today's exam/ interactions. When time spent is documented, it refers only to time spent today by the signer, or if indicated, combined time spent today by collaborating physician/nurse practitioner. (Ingrid Lehman) Collaborating MD Comments d/w with YOLI, agree with assessment and plan (Jimmy Patterson MD) Ingrid Lehman May 27, 2016 11:16 Jimmy Patterson MD Jun 23, 2016 16:43
[2016-05-27] MEDS: ACETAMINOPHEN 1000 MG/100 ML VIAL IV PRN (16:10)
--- NOTE | 2016-05-27 16:11 | HHI.PR ---
Subjective Remarks Sleeping in bed, looks pale and tired, arousable to verbal stimuli at the bedside Objective Vitals Vital Signs Date Time Temp Pulse Resp B/P Pulse Ox O2 Delivery O2 Flow Rate FiO2 05/27/16 14:30 87 05/27/16 14:00 90 05/27/16 12:00 98.9 110 10 142/65 95 05/27/16 12:00 110 05/27/16 10:00 102 05/27/16 08:00 99.0 92 15 123/59 98 05/27/16 08:00 92 05/27/16 07:25 97 Nasal Cannula 05/27/16 07:00 96 Room Air 05/27/16 06:00 92 05/27/16 04:00 99.8 91 12 128/62 100 05/27/16 04:00 89 05/27/16 02:00 95 05/27/16 00:00 98.1 96 10 154/62 97 05/27/16 00:00 96 05/26/16 22:00 87 05/26/16 20:00 97.9 86 13 141/73 99 05/26/16 20:00 86 05/26/16 20:00 99 Nasal Cannula 1.00 05/26/16 19:20 98 Nasal Cannula 05/26/16 18:00 91 05/26/16 17:00 99 Nasal Cannula 1.00 I/O 05/26/16 05/26/16 05/26/16 05/27/16 05/27/16 05/27/16 07:00 15:00 23:00 07:00 15:00 23:00 Intake Total 250 ml 285 ml 360 ml 120 ml 240 ml Balance 250 ml 285 ml 360 ml 120 ml 240 ml Intake Oral 240 ml 285 ml 360 ml 120 ml 240 ml IV Total 10 ml # Voids 6 7 5 2 5 # Bowel Movements 2 1 1 2 3 Result Diagram: 05/23/16 0441 05/26/16 1030 Objective Remarks GENERAL: This is a well-nourished, well-developed patient, in no apparent distress. CARDIOVASCULAR: Regular rate and rhythm without murmurs, gallops, or rubs. RESPIRATORY: Fair air entry bilaterally. No wheezes, rales, or rhonchi. GASTROINTESTINAL: Abdomen less tenderness on the lower abdomen with fullness to palpation throughout,. Appreciated some bowel sounds MUSCULOSKELETAL: Extremities +1 edema. Pedal pulses appreciated NEUROLOGICAL: Awake and alert. Moves all extremity. Normal speech.no focal neurological deficit Procedures None A/P Problem List: (1) Acute vaginal bleeding Status: Acute (2) Anemia ICD Code: D64.9 Status: Acute (3) Ovarian cancer ICD Code: C56.9 Status: Chronic (4) Leg swelling ICD Code: M79.89 Status: Acute (5) Acute congestive heart failure ICD Code: I50.9 Status: Acute (6) Diarrhea ICD Code: R19.7 Status: Chronic (7) Acute renal insufficiency ICD Code: N28.9 Status: Acute Assessment and Plan 05/26: Discussed with the patient, she wants to go home however she still agree with aggressive treatment and full code, continue current care 05/27: No acute issue, no change in patient or family goal of treatment, continue current care (1) Ovarian cancer ICD Code: C56.9 Status: Chronic Plan: Continue full CODE STATUS with plans for aggressive rehabilitation at discharge seen by Gyne- oncology. re check H and H. transfuse if Hemoglobin less than 8.5 hospice appropriate- patient refused- palliative care on board (2) Left UE DVT ICD Code: M79.89 Status: Acute Plan: With DVT Now with left upper extremity swelling,brachial DVT on US was on lovenox, held due to bleeding No anticoagulation due to bleeding, discussed with Hematology (3) Acute congestive heart failure, diastolic- went into fluid overload 05/19 ICD Code: I50.9 Status: Acute Plan: continue IV diuresis- Lasix 20 mg IV daily. US no ascites. Leg swelling improvi sats improved Status post Albumin (4) Anemia ICD Code: D64.9 Status: Acute Plan: now with evidence of gastrointestinal bleeding likely from colitis. Hg stable GI following. Family wishes to avoid any invasive procedures Follow hemoglobin for transfusion needs transfuse if Hemoglobin less than 8.5 (5) Diarrhea ICD Code: R19.7 Status: Chronic Plan: Secondary to C. difficile colitis. Continue dificid/po vanco HG stable (6) Hypokalemia give 30 meq po x 1 on KCL 20 meq po bid FF BMP PT ff CM ff for DC needs Scarlett Damon MD May 27, 2016 16:11
[2016-05-28] VITALS (13 sets, daily range): BP systolic 109–153; BP diastolic 55–70; PULSE 79–124; RESP 13–17; TEMP 98.3–98.9; O2SAT 96–99
[2016-05-28] MEDS: HYDROmorphone HCL PF 1 MG/ML VIAL IV PUSH PRN ×5 (02:43→19:38)
[2016-05-28] MEDS: HYDROmorphone HCL 4 MG TAB PO PRN ×3 (04:33→17:45)
[2016-05-28] MEDS: ONDANSETRON ODT 4 MG TAB PO SCH ×3 (05:52→17:45)
[2016-05-28] MEDS: METHADONE HCL 10 MG TAB PO SCH ×3 (05:52→21:52)
--- NOTE | 2016-05-28 08:20 | PD.ONC.PN ---
Subjective Subjective Remarks Linda is sleeping but awakens to voice She states that she is more painful and just received Dilaudid. She says that her stool is mostly watery and she states she has not had must vaginal/rectal bleeding I asked her if she is not choosing to go home because she feels she will disappoint her family, she said "no", "did you think I would give up easily"...I told her "no she has been fighting for a long time" I told her I know she has a strong spirt but her body won't get strong again. Her pain will increase as the disease advances and her fatigue will increase, she will sleep more. My biggest concern is keeping her pain under control. She agreed. I told her that if she needs pain medication to make sure she asks for it. Palliative care has been adjusting her pain medication when needed and her nurse tells me that they are considering increasing her Methadone for better grader green meat control. Objective Data Date Time Temp Pulse Resp B/P Pulse Ox O2 Delivery O2 Flow Rate FiO2 05/28/16 06:00 86 05/28/16 04:00 98.8 85 17 109/55 98 05/28/16 04:00 79 05/28/16 02:00 79 05/28/16 00:00 98.9 89 14 153/70 98 05/28/16 00:00 89 05/27/16 22:00 76 05/27/16 20:00 87 05/27/16 20:00 100 Room Air 05/27/16 20:00 98.8 87 14 123/59 98 05/27/16 19:06 Nasal Cannula 1.00 05/27/16 18:00 79 05/27/16 16:00 99.0 87 10 131/60 100 05/27/16 16:00 87 05/27/16 14:30 87 05/27/16 14:00 90 05/27/16 12:00 98.9 110 10 142/65 95 05/27/16 12:00 110 05/27/16 10:00 102 05/27/16 08:00 99.0 92 15 123/59 98 05/27/16 08:00 92 05/28/16 05/28/16 05/28/16 07:00 15:00 23:00 Intake Total 100 ml Balance 100 ml Result Diagram: 05/23/16 0441 05/26/16 1030 Administered Medications Medications (Trade) Dose Ordered Sig/Perry Route PRN Reason Start Time Stop Time Status Last Admin Dose Admin IV Flush (NS Flush) 2 ml UNSCH PRN FLUSH FLUSH AFTER USING IV ACCESS 04/28/16 14:30 05/11/16 23:31 IV Flush (NS Flush) 2 ml BID FLUSH 04/28/16 21:00 05/27/16 20:18 Acetaminophen (Tylenol) 650 mg Q4H PRN PO TEMP > 100.4 or pain 04/28/16 14:30 05/16/16 23:10 Albuterol Sulfate (Proair Hfa Inh) 1 puff Q4H PRN INH SHORTNESS OF BREATH 04/28/16 14:30 05/24/16 08:56 Dronabinol (Marinol) 5 mg BID PO 04/28/16 21:00 05/27/16 20:17 Fentanyl (Duragesic 100 Mcg Patch.72 Hr) 1 patch Q3D TD 04/28/16 18:00 05/25/16 17:09 Miscellaneous Information 1 Q3D TD 05/01/16 18:00 05/25/16 17:09 Gabapentin (Neurontin) 300 mg BID PO 04/28/16 21:00 Hold 05/02/16 19:42 Enoxaparin Sodium (Lovenox Inj) 60 mg Q12H SQ 04/28/16 20:00 Hold 05/14/16 23:33 Lidocaine HCl (Xylocaine 2% Jelly) 1 applic Q2HR PRN TOPICAL SEE LABEL COMMENTS 04/29/16 13:00 05/03/16 22:00 Acetaminophen (Ofirmev Inj) 1,000 mg Q6H PRN IV fever > 100.4 04/30/16 01:30 05/27/16 16:10 Tiotropium [place] (Spiriva Inh) 18 mcg DAILY INH 04/30/16 16:00 05/27/16 10:01 Albuterol Sulfate (Ventolin Hfa Inh) 2 puff QID INH 04/30/16 18:00 05/27/16 21:00 Hydromorphone HCl (Dilaudid) 4 mg Q3H PRN PO PAIN SCALE 1 TO 10 05/05/16 12:30 05/28/16 04:33 Al Hydrox/Mg Hydrox/Simethicone (Mag-Al Plus Susp Liq) 30 ml Q6H PRN PO indigestion/ reflux 05/05/16 14:30 05/12/16 11:55 Hydromorphone HCl (Dilaudid Pf Inj) 0.5 mg Q4H PRN IV PUSH PAIN 6-10 05/08/16 14:15 05/28/16 02:43 Alprazolam (Xanax) 0.5 mg Q6H PRN PO ANXIETY 05/08/16 15:15 05/25/16 22:41 Cholestyramine Resin (Questran 4 Gm Pkt) 4 gm BID@11,20 PO 05/12/16 20:00 05/27/16 10:14 Vancomycin HCl (VANCOMYCIN for oral use only) 125 mg QID@09,13,18,22 PO 05/12/16 13:00 05/27/16 22:00 Methadone HCl (Dolophine) 7.5 mg Q8HR PO 05/15/16 22:00 05/28/16 05:52 Ondansetron HCl 4 mg 4 mg Q6H PO 05/17/16 12:30 05/28/16 05:52 Ondansetron HCl/ Dextrose (Zofran Inj/D5W Inj) 54 ml @ 216 mls/hr Q6H PRN IV PUSH NAUSEA 05/19/16 08:30 05/19/16 08:51 Patient Own Medication PT OWN MED: FLORASTOR 250MG CAP DOSE: ... BID PO 05/20/16 09:00 05/27/16 21:00 Furosemide (Lasix Inj) 20 mg DAILY IV PUSH 05/25/16 15:00 05/27/16 08:06 Objective Remarks GENERAL: pale, frail and sick appearing SKIN: cool and dry. HEAD: Normocephalic. EYES: No scleral icterus. No injection or drainage. CARDIOVASCULAR: Regular rate and rhythm NEUROLOGICAL: No obvious focal deficit. sleepy PSYCHIATRIC: Appropriate mood and affect; insight and judgment normal. Assessment/Plan Problem List: (1) Ovarian metastasis Status: Chronic Plan: Mrs. Jim, on multiple occasions, has expressed that she does not want Hospice. That she wishes to go to Rehab and then hopefully home. It has been explained to her and her family that she is a candidate for Hospice , unfortunately after 10 years of fighting ovarian cancer she has resistant disease despite resent treatment and her performance status is so poor that we are unable to continue any chemotherapy. Her condition is terminal. I again talked with her today about the progression of disease and although she was looking and me and listening she did not respond. GI has been consulted for rectal bleeding (most likely tumor invasion) and resistant C diff infection. family has declined sigmoidoscopy...they have signed off. ID was consulted and signed off with nothing further to offer. Most recently diagnosed with left brachial DVT, has not been on anticoagulation d/t bleeding. Palliative Care has been following to help with clarify goals and pain management, they would like to meet with family about increasing her pain medication for better control. We thank them for their assistance. Pt on room air, Lasix daily. Problem Qualifiers (1) Ovarian metastasis: Qualified Code: C79.60 - Malignant neoplasm metastatic to ovary, unspecified laterality Briseida Marquez May 28, 2016 08:20
[2016-05-28] MEDS: FLORASTOR 250 MG PO SCH ×2 (09:00→20:19)
[2016-05-28] MEDS: ALBUTEROL SULFATE 90 MCG/ACT HFA 18 GM INHALER INH SCH ×4 (09:00→20:19)
[2016-05-28] MEDS: TIOTROPIUM BROMIDE 18 MCG INH INH SCH (09:00)
[2016-05-28] MEDS: FUROSEMIDE 20 MG/2 ML VIAL IV PUSH SCH (09:12)
[2016-05-28] MEDS: DRONABINOL 5 MG CAP PO SCH ×2 (09:12→20:34)
[2016-05-28] MEDS: SODIUM CHLORIDE 0.9% FLUSH 5 ML FLUSH FLUSH SCH ×2 (09:13→20:19)
[2016-05-28] MEDS: VANCOMYCIN 500 MG VIAL (FOR ORAL USE ONLY) PO SCH ×4 (10:57→22:00)
--- NOTE | 2016-05-28 11:15 | HHI.PR ---
Subjective Remarks Patient reported pain 8 out of 10 in her lower abdomen no nausea or vomiting Still having diarrhea I discussed with the nurse, patient on Dilaudid, palliative care following Still full code, nurse informed me family opposite giving pain medication on many occasions however patient still asking for it Objective Vitals Vital Signs Date Time Temp Pulse Resp B/P Pulse Ox O2 Delivery O2 Flow Rate FiO2 05/28/16 10:00 93 05/28/16 09:50 12 05/28/16 08:28 96 21 05/28/16 08:00 99 05/28/16 08:00 98.3 96 15 119/58 96 05/28/16 07:00 96 Room Air 05/28/16 07:00 12 05/28/16 06:00 86 05/28/16 04:00 98.8 85 17 109/55 98 05/28/16 04:00 79 05/28/16 02:00 79 05/28/16 00:00 98.9 89 14 153/70 98 05/28/16 00:00 89 05/27/16 22:00 76 05/27/16 20:00 87 05/27/16 20:00 100 Room Air 05/27/16 20:00 98.8 87 14 123/59 98 05/27/16 19:06 Nasal Cannula 1.00 05/27/16 18:00 79 05/27/16 16:00 99.0 87 10 131/60 100 05/27/16 16:00 87 05/27/16 14:30 87 05/27/16 14:00 90 05/27/16 12:00 98.9 110 10 142/65 95 05/27/16 12:00 110 I/O 05/27/16 05/27/16 05/27/16 05/28/16 05/28/16 05/28/16 07:00 15:00 23:00 07:00 15:00 23:00 Intake Total 120 ml 240 ml 100 ml 100 ml Balance 120 ml 240 ml 100 ml 100 ml Intake Oral 120 ml 240 ml 100 ml 100 ml # Voids 2 5 2 3 # Bowel Movements 2 3 2 5 Result Diagram: 05/23/16 0441 05/26/16 1030 Objective Remarks - GENERAL: This is a well-nourished, well-developed patient, in no apparent distress. CARDIOVASCULAR: Regular rate and rhythm without murmurs, gallops, or rubs. RESPIRATORY: Fair air entry bilaterally. No wheezes, rales, or rhonchi. GASTROINTESTINAL: Minimal tenderness on the lower abdomen with fullness to palpation throughout,. Appreciated some bowel sounds MUSCULOSKELETAL: Extremities +1 edema. Pedal pulses appreciated NEUROLOGICAL: Awake and alert. Moves all extremity. Normal speech.no focal neurological deficit Procedures None A/P Problem List: (1) Acute vaginal bleeding Status: Acute (2) Anemia ICD Code: D64.9 Status: Acute (3) Ovarian cancer ICD Code: C56.9 Status: Chronic (4) Leg swelling ICD Code: M79.89 Status: Acute (5) Acute congestive heart failure ICD Code: I50.9 Status: Acute (6) Diarrhea ICD Code: R19.7 Status: Chronic (7) Acute renal insufficiency ICD Code: N28.9 Status: Acute Assessment and Plan 05/26: Discussed with the patient, she wants to go home however she still agree with aggressive treatment and full code, continue current care 05/27: No acute issue, no change in patient or family goal of treatment, continue current care 05/28: Abdominal pain 8 out of 10, blood pressure fluctuating, discussed with the nurse, family opposite getting pain medication in many locations Check CBC, BMP, to monitor electrolyte while still diarrhea ongoing A/P: (1) Ovarian cancer ICD Code: C56.9 Status: Chronic Plan: Continue full CODE STATUS with plans for aggressive rehabilitation at discharge seen by Gyne- oncology. re check H and H. transfuse if Hemoglobin less than 8.5 hospice appropriate- patient refused- palliative care on board (2) Left UE DVT ICD Code: M79.89 Status: Acute Plan: With DVT Now with left upper extremity swelling,brachial DVT on US was on lovenox, held due to bleeding No anticoagulation due to bleeding, discussed with Hematology (3) Acute congestive heart failure, diastolic- went into fluid overload 05/19 ICD Code: I50.9 Status: Acute Plan: continue IV diuresis- Lasix 20 mg IV daily. US no ascites. Leg swelling improvi sats improved Status post Albumin (4) Anemia ICD Code: D64.9 Status: Acute Plan: now with evidence of gastrointestinal bleeding likely from colitis. Hg stable GI following. Family wishes to avoid any invasive procedures Follow hemoglobin for transfusion needs transfuse if Hemoglobin less than 8.5 (5) Diarrhea ICD Code: R19.7 Status: Chronic Plan: Secondary to C. difficile colitis. Continue dificid/po vanco HG stable (6) Hypokalemia FF BMP and replete PT ff CM ff for DC needs Scarlett Damon MD May 28, 2016 11:15 Scarlett Damon MD May 28, 2016 11:15
[2016-05-28] MEDS: CHOLESTYRAMINE 4 GM PACKET PO SCH (11:56)
--- NOTE | 2016-05-28 16:57 | HHI.HCPN ---
Reason for visit a. To assist with evaluation and management of symptoms including: abdominal /pelvic pain, dyspnea, confusion. b. To assist medical decision maker(s) with: better understanding of current medical conditions; weighing benefits/burdens of medical treatment options; making medical treatment decisions. . (Ingrid Lehman) Subjective/Interval History Patient seen and examined in ICU. Daughter Shey at bedside. Patient alert to self and situation, intermittent confusion. Very sleepy. Endorsing abdominal pain that is dull and not well localized. Currently at 10 in the scale of 0/10. Worse with bowel movements/repositioning in bed/movement and alleviated by Dilaudid PO or IV. Patient feels that IV is effective but very short lived. Reviewed again that as cancer progresses, it is anticipated that her symptom burden, such as pain and debility will increase. Spoke with daughter Shey outside of the room. Reviewed pt's cancer history and recent CT on abdomen/pelvis in which it showed worsening metastatic disease and tumor size. Reviewed again that as cancer progresses, it is anticipated that pt' s symptom burden, such as pain and debility increases. Discussed that based on her mother's opioid usage and report of increased pain in the last 72h, it appears that her cancer burden is increasing and that she will benefit from medication adjustment. Shared my concerns of patient's critical state with likely only days left to live. Discussed that patient is dying and that we need to reconsider comfort-directed care at home. Daughter appropriately tearful verbalizing understanding of her mother's terminal condition. Discussed risks and limitation of CPR in patient's condition. She tells me that after my meeting with her father and aunt Anastacia, family is considering options such as discharge home to allow pt to naturally and peacefully. Ongoing active listening and emotional support provided to daughter. Family to f/u with palliative care tomorrow 05/29/16. Afebrile. Vital signs stable. Pending labs. Discussed case with Dr. Patterson from palliative care. . Family/friend interactions See interval note. . (Ingrid Lehman) Advance Directives Living Will: Never completed Health Care Surrogate: Never completed Durable Power of Post Adoption Coordinator: Never completed (Ingrid Lehman) Advance Directive Specifics Health Care Surrogate(s): No written advance directives. According to [place] statutes health care proxy decision-making falls to her spouse. She indicates she would want her spouse to make medical decisions should she become incapacitated. . Significant change in goals: FULL CODE. Aggressive care for now. Family considering adjustment in pain medications and/or comfort-measures. . (Ingrid Lehman) Objective Vital Signs Date Time Temp Pulse Resp B/P Pulse Ox O2 Delivery O2 Flow Rate FiO2 05/28/16 16:00 98.6 95 15 126/62 97 05/28/16 16:00 95 05/28/16 14:30 11 05/28/16 14:00 95 05/28/16 12:30 11 05/28/16 12:00 98.4 124 13 145/65 96 05/28/16 12:00 124 05/28/16 10:00 93 05/28/16 08:28 96 21 05/28/16 08:00 99 05/28/16 08:00 98.3 96 15 119/58 96 05/28/16 07:00 96 Room Air 05/28/16 06:00 86 05/28/16 04:00 98.8 85 17 109/55 98 05/28/16 04:00 79 05/28/16 02:00 79 05/28/16 00:00 98.9 89 14 153/70 98 05/28/16 00:00 89 05/27/16 22:00 76 05/27/16 20:00 87 05/27/16 20:00 100 Room Air 05/27/16 20:00 98.8 87 14 123/59 98 05/27/16 19:06 Nasal Cannula 1.00 05/27/16 18:00 79 Intake & Output 05/28/16 05/28/16 06:59 18:59 Intake Total 200 ml 240 ml Balance 200 ml 240 ml Intake Oral 200 ml 240 ml # Voids 5 3 # Bowel Movements 7 6 Physical Exam CONSTITUTIONAL/GENERAL: This is a frail, chronically ill patient, who appears older than her actual age in moderate distress due to pain. TUBES/LINES/DRAINS: SCD's. SKIN: pale. Diffuse erythema and scaling in both extremities. Bilateral lower extremity edema +1 left > right. CARDIOVASCULAR: regular rhythm. No murmurs noted. RESPIRATORY/CHEST: Symmetric, unlabored respirations. Diminished bilaterally. GASTROINTESTINAL: Abdomen with areas of hardening -likely tumor progression, tender right upper and lower quadrant, mildly distended. Bowel sounds active. GENITOURINARY: Without palpable bladder distension. MUSCULOSKELETAL: Diffuse edema 1 + pitting to BLE. NEUROLOGICAL: Awake and alert. Follows commands. Periods of confusion. Weak. PSYCHIATRIC: anxious secondary to abdominal pain. . (Ingrid Lehman) Diagnostic Tests Laboratory Laboratory Tests Test 05/25/16 05/26/16 17:50 10:30 Sodium Level 141 MEQ/L (136-145) Potassium Level 3.8 MEQ/L 4.0 MEQ/L (3.5-5.1) (3.5-5.1) Chloride Level 109 MEQ/L (98-107) Carbon Dioxide Level 22.9 MEQ/L (21.0-32.0) Anion Gap 9 MEQ/L (5-15) Blood Urea Nitrogen 13 MG/DL (7-18) Creatinine 1.03 MG/DL (0.50-1.00) Estimat Glomerular Filtration 54 ML/MIN (>89) Rate Random Glucose 75 MG/DL (74-106) Calcium Level 7.9 MG/DL (8.5-10.1) (Ingrid Lehman) Result Diagram: 05/23/16 0441 05/26/16 1030 Imaging No new imaging since 05/20/16. . (Ingrid Lehman) Assessment and Plan Disease Oriented Problem List: (1) Ovarian cancer with mets to liver and lung (2) Anemia (3) COPD (chronic obstructive pulmonary disease) Symptom Scale: (1) Intractable pain 0-10 Scale: 3 Comment: secondary to metastatic ovarian cancer with disease progression despite recent chemotherapy, rectovaginal fistula, pelvic mass. (2) Vaginal discharge 0-10 Scale: Unable to quantify Comment: Secondary to pelvic mass, rectovaginal fistula. (3) Edema 0-10 Scale: Unable to quantify Comment: secondary to CHF (4) Dyspnea 0-10 Scale: Unable to quantify Comment: Mets to lung, CHF, COPD. Pertinent Non-Medical Issues Psychosocial: . Supported by her 2 daughters, Shey and Zelda. Also supported by her sister, Yoli. Lives in [place]. Spiritual: Member [employer]. 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 Legal:No written advance directives. According to [place] statrust health care proxy decision-making falls to her spouse. She indicates she would want her spouse to make medical decisions should she become incapacitated. Ethical issues impacting care: no known concerns at this time. . Important Contacts * Kevin Jim, spouse/HCP: [phone] (cell) or [phone] (home) * Shey Jim, daughter: [phone] cell or [phone] work * Zelda Fuentes, daughter: [phone] cell or [phone] work * Yoli Rosario, sister: [phone] cell or [phone] home . Prognosis Mrs. Jim has recurrent Ovarian cancer with Mets to liver and lung disease progression despite recent palliative chemotherapy admitted with abdominal and vaginal pain. Patient has had ovarian cancer undergoing treatment for the last 10 years, she is certainly hospice appropriate should she elect comfort focused care. Ovarian cancer is a terminal condition. . Code Status: Full Code Plan * No written advance directives. According to [facility] health care proxy decision-making falls to her spouse. She indicates she would want her spouse to make medical decisions should she become incapacitated. Recommend shared decision making given her intermittent confusion. * FULL CODE. * 05/28/16: Spoke with daughter Shey outside of the room. Reviewed pt's cancer history and recent CT on abdomen/pelvis in which it showed worsening metastatic disease and tumor size. Reviewed again that as cancer progresses, it is anticipated that pt's symptom burden, such as pain and debility increases. Discussed that based on her mother's opioid usage and report of increased pain in the last 72h, it appears that her cancer burden is increasing and that she will benefit from medication adjustment. Shared my concerns of patient's critical state with likely only days left to live. Discussed that patient is dying and that we need to reconsider comfort-directed care at home. Daughter appropriately tearful verbalizing understanding of her mother's terminal condition. Discussed risks and limitation of CPR in patient's condition. She tells me that after my meeting of yesterday with her father and aunt Anastacia, family is considering options such as discharge home to allow pt to naturally and peacefully. Ongoing active listening and emotional support provided to daughter. Family to f/u with palliative care tomorrow 05/29/16. * SYMPTOMS: Intractable Pain: secondary to metastatic ovarian cancer with disease progression despite recent chemotherapy, rectovaginal fistula, pelvic mass. Currently on Methadone 7.5mg q8h, Fentanyl patch 100mcg q72h and PRN Dilaudid 4mg PO q3h and 0.5mg IV q4h. Documented increase in pain intensity and frequency requiring frequent PRN Dilaudid doses. Average of 5-6 doses of PO and 2 of IV daily in the last 3 days. Reviewed with family recommendations to adjust pain medications. Family to notify reading hospital care 05/29/16. Nausea: Reglan and Zofran available with relief. Diarrhea: On Vancomycin and Questran, Dificid completed, C, Diff negative. Diarrhea improved. Dyspnea: some SOB at rest, now tolerating NC. Edema: CHF. * Palliative care will continue to follow throughout hospital course to assist with symptom management and further clarification of treatment goals. . (Ingrid Lehman) Time Spent Time Periods: Total time to include reviewed and summarization of medical records since last visit, conversation with daughter Shey and discussion with Dr. Patterson/[facility]. Total Floor Time (mins): 40 Face to Face Time (mins): 30 >50% Counseling/Coord of Care: Yes (Ingrid Lehman) Attestation To help prompt me to consider important information that might be impacting today's encounter and assessment, information from prior notes written by myself or my colleagues may have been "brought forward" into today's note. My signature on this note, however, is an attestation that I personally performed the exam, history, and/or decision-making noted today, and, unless otherwise indicated, the interactions with patient, family, and staff as well as the review of records all occurred today. I also attest that the listed assessment and stated plan reflect my best clinical judgment today based on the combination of historical information, prior notes, and today's exam/ interactions. When time spent is documented, it refers only to time spent today by the signer, or if indicated, combined time spent today by collaborating physician/nurse practitioner. (Lehman,Ingrid Mckenzie FIRE ALARM OPERATOR) Collaborating MD Comments Pt seen , records reviewed. Pt had multiple prns given, continue to be in pain. EXAM neuro - awake, lungs coarse breath sound bilat. heart - RR abd - tender ext - edema. Agree with [facility] assessment and plan. (Jimmy Patterson MD) Ingrid Lehman [facility] May 28, 2016 16:57 Jimmy Patterson MD May 28, 2016 17:09
[2016-05-28] MEDS: REMOVE OLD DURAGESIC (FENTANYL) PATCH TD SCH (17:46)
[2016-05-28] MEDS: fentaNYL 100 MCG/HR PATCH TD SCH (17:46)
[2016-05-28 18:02] LABS: AUTOMATED NEUTROPHIL # 8.7 TH/MM3 (1.8-7.7); EOSINOPHIL % 0.2 % (0.0-4.0); HEMATOCRIT 28.3 % (35.0-46.0); HEMO FLAGS DIFF FINAL; LYMPH % 6.3 % (9.0-44.0); LYMPHOCYTE # 0.6 TH/MM3 (1.0-4.8); MEAN CELL VOLUME 85.9 FL (80.0-100.0); MEAN CORPUSCULAR HEMOGLOBIN 27.9 PG (27.0-34.0); MEAN CORPUSCULAR HGB CONC 32.5 % (32.0-36.0); MONO % 8.5 % (0.0-8.0); PLATELET COUNT 272 TH/MM3 (150-450); RED BLOOD COUNT 3.29 MIL/MM3 (4.00-5.30); RED CELL DISTRIBUTION WIDTH 17.7 % (11.6-17.2); WHITE BLOOD COUNT 10.2 TH/MM3 (4.0-11.0)
[2016-05-28 18:26] LABS: BICARBONATE 23.6 MEQ/L (21.0-32.0); POTASSIUM 3.8 MEQ/L (3.5-5.1)
[2016-05-28] MEDS ORDERED: DEXTROSE 50% IN WATER 50 ML SYRINGE ONE (18:36)
[2016-05-28] MEDS: ACETAMINOPHEN 1000 MG/100 ML VIAL IV PRN (22:52)
[2016-05-28] MEDS: GABAPENTIN 300 MG CAP PO SCH (23:31)
[2016-05-29] VITALS (14 sets, daily range): BP systolic 108–157; BP diastolic 53–70; PULSE 80–96; RESP 12–19; TEMP 98.1–99.2; O2SAT 94–100
[2016-05-29] MEDS: ONDANSETRON ODT 4 MG TAB PO SCH ×4 (00:30→17:09)
[2016-05-29] MEDS: METHADONE HCL 10 MG TAB PO SCH ×4 (01:00→20:26)
[2016-05-29] MEDS: HYDROmorphone HCL PF 1 MG/ML VIAL IV PUSH PRN (01:42)
[2016-05-29] MEDS: HYDROmorphone HCL 4 MG TAB PO PRN ×3 (03:44→11:04)
[2016-05-29] MEDS: DRONABINOL 5 MG CAP PO SCH ×2 (09:00→20:26)
[2016-05-29] MEDS: VANCOMYCIN 500 MG VIAL (FOR ORAL USE ONLY) PO SCH ×4 (09:00→20:26)
[2016-05-29] MEDS: FLORASTOR 250 MG PO SCH ×2 (09:00→20:47)
[2016-05-29] MEDS: ALPRAZolam 0.5 MG TAB PO PRN (11:04)
[2016-05-29] MEDS: CHOLESTYRAMINE 4 GM PACKET PO SCH ×2 (11:05→20:26)
[2016-05-29] MEDS: SODIUM CHLORIDE 0.9% FLUSH 5 ML FLUSH FLUSH SCH ×2 (11:06→20:27)
[2016-05-29] MEDS: TIOTROPIUM BROMIDE 18 MCG INH INH SCH (11:12)
[2016-05-29] MEDS: ALBUTEROL SULFATE 90 MCG/ACT HFA 18 GM INHALER INH SCH ×4 (11:12→20:26)
--- NOTE | 2016-05-29 12:53 | HHI.HCSW ---
[employer] Field Assistant Visit Cognitive Functioning Mrs. Jim appears to be resting comfortably at my visit. Reported increase in pain earlier, palliative LEAN LEADER & MD aware. Did not try and engage Mrs. Jim due to issues of pain and resting comfortably at this time. . Significant Family/Friend Daughter at bedside. No questions or concerns at this time. Reports she just spoke with palliative YOLI Quintero and plan for family meeting later today when the rest of the family arrives. Offered emotional support. . Quality of Life Values/Goals In previous visits: goals remain aggressive at this time. Ms. Jim has expressed desire to go home and attend to different affairs. Hospice at home has been discussed with patient and family although they are not ready to transition to comfort oriented goals. Palliative care to continue to meet with family to further address goals of care. . Follow Up Visit Palliative care will continue to follow throughout hospitalization. SW will follow for emotional support. Joy Guzman, CLOTHESPIN MACHINE OPERATOR May 29, 2016 12:53
--- NOTE | 2016-05-29 13:27 | HHI.HCPN ---
Reason for visit a. To assist with evaluation and management of symptoms including: abdominal /pelvic/back pain, dyspnea, confusion. b. To assist medical decision maker(s) with: better understanding of current medical conditions; weighing benefits/burdens of medical treatment options; making medical treatment decisions. . Subjective/Interval History Patient seen and examined in ICU. Steve Kat at bedside. Patient alert to self and situation with episodes of confusion. Lethargic. Endorsing Bilateral legs pain since yesterday. Patient unable to elaborate on complaint. As per daughter Shey, patient waking up from her sleep with severe leg pain. Patient also endorsing abdominal pain that is dull and not well localized. Unable to elaborate further. Afebrile. BP stable. 05/28 labs: Hgb 9.2, WBC 10.2, BUN/Creat 16/0.95. Random glucose 43. No new imaging. Discussed case with Dr. Patterson/[facility]. After meeting yesterday with family, steve Kat called me in the afternoon to let me know that family was in agreement with increasing Methadone from 7.5mg q8h to 10mg PO q8h. Discussed with Dr. Patterson and medication adjustment made. Received another telephone call around 11:15 PM from daughter reporting that patient was having a lot of bilat legs pain and was not being relived by Dilaudid. Patient restarted on Gabapentin 300mg PO at HS. Daughter reports this morning that patient was able to sleep for a few hours after receiving Gabapentin. Met again with steve Alfonsoa, Dr. Patterson in attendance. Reviewed that as cancer progresses, it is anticipated that pt's symptom burden, such as pain and debility will increase. Discussed recommendations to increase Dialudid PRN for BT pain. Discussed code status in the setting of her terminal disease and options related to comfort-directed care (home with hospice vs. hospice care center). Daughter verbalized understain that pt is terminal and likely having only days left to live. Family to meet with palliative care this afternoon to continue with goals of care conversation. Met with and daughter Shey at bedside. Reviewed progression of cancer and anticipated burden of disease. Reviewed medication changes and current treatment plan. Discussed recommendations for comfort-directed care given her terminal and deteriorating condition with a life expectancy of hours to days if illness run its natural course. tells me that he wishes to take her home to naturally but he is afraid that her pain will not be appropriately managed. Discussed home with hospice/supportive care vs transitioning patient here at the hospital. Discussed code status given her poor prognosis. and daughter appropriately tearful. Family to discuss goals of care tonight. Palliative care to f/u with family tomorrow 05/30/16. Provided my phone number for further questions. Case discussed with Dr. Damon and Dr. Patterson. . Family/friend interactions See interval note. . Advance Directives Living Will: Never completed Health Care Surrogate: Never completed Durable Power of Commercial Appraiser: Never completed Advance Directive Specifics Health Care Surrogate(s): No written advance directives. According to [place] statutes health care proxy decision-making falls to her spouse. She indicates she would want her spouse to make medical decisions should she become incapacitated. . Significant change in goals: FULL CODE for now. Pending goals of care discussion scheduled for this afternoon. . Objective Vital Signs Date Time Temp Pulse Resp B/P Pulse Ox O2 Delivery O2 Flow Rate FiO2 05/29/16 12:00 99.0 96 12 125/58 97 05/29/16 12:00 84 05/29/16 10:00 84 05/29/16 08:18 98 05/29/16 08:00 99 Room Air 05/29/16 08:00 98.1 84 19 108/53 98 05/29/16 08:00 88 05/29/16 06:00 84 05/29/16 04:00 98.3 88 16 133/63 100 05/29/16 04:00 88 05/29/16 03:00 14 05/29/16 02:00 82 05/29/16 00:00 84 05/29/16 00:00 99 21 05/29/16 00:00 98.3 84 16 112/53 100 05/28/16 22:00 85 05/28/16 20:00 98.3 88 14 131/63 99 05/28/16 20:00 88 05/28/16 20:00 99 Room Air 05/28/16 18:45 19 05/28/16 18:45 19 05/28/16 18:00 100 05/28/16 16:17 13 05/28/16 16:00 98.6 95 15 126/62 97 05/28/16 16:00 95 05/28/16 14:30 11 05/28/16 14:00 95 Intake & Output 05/29/16 05/29/16 06:59 18:59 Intake Total 100 ml Balance 100 ml Intake Oral 100 ml # Voids 4 # Bowel Movements 7 Physical Exam CONSTITUTIONAL/GENERAL: This is a frail, chronically ill patient, who appears older than her actual age in moderate distress due to pain. Lethargic. TUBES/LINES/DRAINS: SCD's. SKIN: pale. Diffuse erythema and scaling in both extremities. Bilateral lower extremity edema +1 left > right. CARDIOVASCULAR: regular rhythm. No murmurs noted. RESPIRATORY/CHEST: Symmetric, unlabored respirations. Diminished bilaterally. GASTROINTESTINAL: Abdomen with areas of hardening -likely tumor progression, tender right upper and lower quadrant, mildly distended. Bowel sounds active. GENITOURINARY: Without palpable bladder distension. MUSCULOSKELETAL: Diffuse edema 1 + pitting to BLE. NEUROLOGICAL: Awake and alert. Follows commands. Periods of confusion. Weak. PSYCHIATRIC: anxious secondary to abdominal pain. . Diagnostic Tests Laboratory Laboratory Tests Test 05/28/16 17:26 White Blood Count 10.2 TH/MM3 (4.0-11.0) Red Blood Count 3.29 MIL/MM3 (4.00-5.30) Hemoglobin 9.2 GM/DL (11.6-15.3) Hematocrit 28.3 % (35.0-46.0) Mean Corpuscular Volume 85.9 FL (80.0-100.0) Mean Corpuscular Hemoglobin 27.9 PG (27.0-34.0) Mean Corpuscular Hemoglobin 32.5 % Concent (32.0-36.0) Red Cell Distribution Width 17.7 % (11.6-17.2) Platelet Count 272 TH/MM3 (150-450) Mean Platelet Volume 7.9 FL (7.0-11.0) Neutrophils (%) (Auto) 85.0 % (16.0-70.0) Lymphocytes (%) (Auto) 6.3 % (9.0-44.0) Monocytes (%) (Auto) 8.5 % (0.0-8.0) Eosinophils (%) (Auto) 0.2 % (0.0-4.0) Basophils (%) (Auto) 0.0 % (0.0-2.0) Neutrophils # (Auto) 8.7 TH/MM3 (1.8-7.7) Lymphocytes # (Auto) 0.6 TH/MM3 (1.0-4.8) Monocytes # (Auto) 0.9 TH/MM3 (0-0.9) Eosinophils # (Auto) 0.0 TH/MM3 (0-0.4) Basophils # (Auto) 0.0 TH/MM3 (0-0.2) CBC Comment DIFF FINAL Differential Comment Sodium Level 137 MEQ/L (136-145) Potassium Level 3.8 MEQ/L (3.5-5.1) Chloride Level 104 MEQ/L (98-107) Carbon Dioxide Level 23.6 MEQ/L (21.0-32.0) Anion Gap 9 MEQ/L (5-15) Blood Urea Nitrogen 16 MG/DL (7-18) Creatinine 0.95 MG/DL (0.50-1.00) Estimat Glomerular Filtration 59 ML/MIN (>89) Rate Random Glucose 43 MG/DL (74-106) Calcium Level 7.9 MG/DL (8.5-10.1) Result Diagram: 05/28/16 1726 05/28/16 172 Assessment and Plan Disease Oriented Problem List: (1) Ovarian cancer with mets to liver and lung (2) Anemia (3) COPD (chronic obstructive pulmonary disease) Symptom Scale: (1) Intractable pain 0-10 Scale: 3 Comment: secondary to metastatic ovarian cancer with disease progression despite recent chemotherapy, rectovaginal fistula, pelvic mass. (2) Vaginal discharge 0-10 Scale: Unable to quantify Comment: Secondary to pelvic mass, rectovaginal fistula. (3) Edema 0-10 Scale: Unable to quantify Comment: secondary to CHF (4) Dyspnea 0-10 Scale: Unable to quantify Comment: Mets to lung, CHF, COPD. Pertinent Non-Medical Issues Psychosocial: . Supported by her 2 daughters, Shey and Zelda. Also supported by her sister, oYli. Lives in [place]. Spiritual: Member [employer]. Declines commercial litigation associate visits at this time. Legal:No written advance directives. According to [place] statutes health care proxy decision-making falls to her spouse. She indicates she would want her spouse to make medical decisions should she become incapacitated. Ethical issues impacting care: no known concerns at this time. . Important Contacts * Kevin Jim, spouse/HCP: [phone] (cell) or [phone] (home) * Shey Jim, daughter: [phone] cell or [phone] work * Zelda Fuentes, daughter: [phone] cell or [phone] work * Yoli Rosario, sister: [phone] cell or [phone] home . Prognosis Mrs. Jim has recurrent Ovarian cancer with Mets to liver and lung disease progression despite recent palliative chemotherapy admitted with abdominal and vaginal pain. Patient has had ovarian cancer undergoing treatment for the last 10 years, she is certainly hospice appropriate should she elect comfort focused care. Patient is currently transition to end of life with a life expectancy of hours to days if illness runs it natural course. . Code Status: Full Code Plan * No written advance directives. According to [place] statutes health care proxy decision-making falls to her spouse. She indicates she would want her spouse to make medical decisions should she become incapacitated. Recommend shared decision making given her intermittent confusion. * FULL CODE. Discussed risks and limitations of CPR given pt's terminal condition. Family to reevaluate code status tonight. * 05/29/16: Ongoing goals of care discussion. Transition to comfort-directed care has been recommended and is being considered by family. Palliative care to f/u tomorrow 05/30/16. * Discussed case with Dr. Damon and Dr. Patterson. * SYMPTOMS: Intractable Pain: secondary to metastatic ovarian cancer with disease progression despite recent chemotherapy, rectovaginal fistula, pelvic mass. Methadone increased yesterday to 10mg PO q8h, Gabapentin 300mg at HS added last night for neuropathic leg pain. Patient cont on Fentanyl patch 100mcg q72h and PRN Dilaudid 4mg PO q3h and 0.5mg IV q4h. Palliative care recommending increased in Dilaudid PRN doses. family considering options. Nausea : Reglan and Zofran available with relief. Diarrhea: On Vancomycin and Questran , Dificid completed, C, Diff negative. Diarrhea improved. Dyspnea: some SOB at rest, now tolerating NC. Edema: CHF. * Palliative care will continue to follow throughout hospital course to assist with symptom management and further clarification of treatment goals. . Time Spent Time Periods: Meeting with daughter shey at bedside 10:40 to 11:05. Meeting with Shey and Dr. Patterson from 12:50 to 13:10. Meeting with and daughter Shey 15:15 to 15:45. Discussion with Dr. Damon and Dr. Patterson. Total Floor Time (mins): 95 Face to Face Time (mins): 20 >50% Counseling/Coord of Care: Yes Attestation To help prompt me to consider important information that might be impacting today's encounter and assessment, information from prior notes written by myself or my colleagues may have been "brought forward" into today's note. My signature on this note, however, is an attestation that I personally performed the exam, history, and/or decision-making noted today, and, unless otherwise indicated, the interactions with patient, family, and staff as well as the review of records all occurred today. I also attest that the listed assessment and stated plan reflect my best clinical judgment today based on the combination of historical information, prior notes, and today's exam/ interactions. When time spent is documented, it refers only to time spent today by the signer, or if indicated, combined time spent today by collaborating physician/nurse practitioner. Ingrid Lehman May 29, 2016 13:27
[2016-05-29] MEDS ORDERED: DEXTROSE 50% IN WATER 50 ML SYRINGE ONE (17:08)
[2016-05-29] MEDS: FUROSEMIDE 20 MG TAB PO SCH (17:10)
--- NOTE | 2016-05-29 19:48 | HHI.PR ---
Subjective Remarks Patient seen and examined earlier this afternoon Laying in bed sleeping, later through the day I received a call from palliative care and notify me that finally family accepted the fact of very poor prognosis , they may look at going home versus rehabilitation with hospice Objective Vitals Vital Signs Date Time Temp Pulse Resp B/P Pulse Ox O2 Delivery O2 Flow Rate FiO2 05/29/16 18:00 80 05/29/16 16:00 99.2 88 14 157/70 94 05/29/16 16:00 84 05/29/16 14:00 84 05/29/16 12:04 18 05/29/16 12:00 99.0 96 12 125/58 97 05/29/16 12:00 84 05/29/16 10:00 84 05/29/16 08:18 98 05/29/16 08:00 99 Room Air 05/29/16 08:00 98.1 84 19 108/53 98 05/29/16 08:00 88 05/29/16 06:00 84 05/29/16 04:00 98.3 88 16 133/63 100 05/29/16 04:00 88 05/29/16 03:00 14 05/29/16 02:00 82 05/29/16 00:00 84 05/29/16 00:00 99 21 05/29/16 00:00 98.3 84 16 112/53 100 05/28/16 22:00 85 05/28/16 20:00 98.3 88 14 131/63 99 05/28/16 20:00 88 05/28/16 20:00 99 Room Air I/O 05/28/16 05/28/16 05/28/16 05/29/16 05/29/16 05/29/16 07:00 15:00 23:00 07:00 15:00 23:00 Intake Total 100 ml 240 ml 100 ml 250 ml Balance 100 ml 240 ml 100 ml 250 ml Intake Oral 100 ml 240 ml 100 ml 250 ml # Voids 3 3 2 2 1 # Bowel Movements 5 6 4 3 0 Result Diagram: 05/28/16 1726 05/28/16 1726 Objective Remarks - GENERAL: This is a well-nourished, well-developed patient, in no apparent distress. CARDIOVASCULAR: Regular rate and rhythm without murmurs, gallops, or rubs. RESPIRATORY: Fair air entry bilaterally. No wheezes, rales, or rhonchi. GASTROINTESTINAL: Minimal tenderness on the lower abdomen with fullness to palpation throughout,. Appreciated some bowel sounds MUSCULOSKELETAL: Extremities +1 edema. Pedal pulses appreciated NEUROLOGICAL: Awake and alert. Moves all extremity. Normal speech.no focal neurological deficit Procedures None A/P Problem List: (1) Acute vaginal bleeding Status: Acute (2) Anemia ICD Code: D64.9 Status: Acute (3) Ovarian cancer ICD Code: C56.9 Status: Chronic (4) Leg swelling ICD Code: M79.89 Status: Acute (5) Acute congestive heart failure ICD Code: I50.9 Status: Acute (6) Diarrhea ICD Code: R19.7 Status: Chronic (7) Acute renal insufficiency ICD Code: N28.9 Status: Acute Assessment and Plan 05/26: Discussed with the patient, she wants to go home however she still agree with aggressive treatment and full code, continue current care 05/27: No acute issue, no change in patient or family goal of treatment, continue current care 05/28: Abdominal pain 8 out of 10, blood pressure fluctuating, discussed with the nurse, family opposite getting pain medication in many locations Check CBC, BMP, to monitor electrolyte while still diarrhea ongoing 05/29: Patient had hypoglycemia at [address] her on Accu-Chek consulted goodwill ambassador, change Lasix from iv 2 by mouth Later during the day palliative care graciously called me to notify me that family finally accepted the fact of the poor prognosis and they may consider looking at going home versus rehabilitation with hospice Further comfort measure per palliative care A/P: (1) Ovarian cancer ICD Code: C56.9 Status: Chronic Plan: Continue full CODE STATUS with plans for aggressive rehabilitation at discharge seen by Gyne- oncology. re check H and H. transfuse if Hemoglobin less than 8.5 hospice appropriate- patient refused- palliative care on board (2) Left UE DVT ICD Code: M79.89 Status: Acute Plan: With DVT Now with left upper extremity swelling,brachial DVT on US was on lovenox, held due to bleeding No anticoagulation due to bleeding, discussed with Hematology (3) Acute congestive heart failure, diastolic- went into fluid overload 05/19 ICD Code: I50.9 Status: Acute Plan: Change Lasix to by mouth US no ascites. Leg swelling improvi sats improved Status post Albumin (4) Anemia ICD Code: D64.9 Status: Acute Plan: now with evidence of gastrointestinal bleeding likely from colitis. Hg stable GI following. Family wishes to avoid any invasive procedures Follow hemoglobin for transfusion needs transfuse if Hemoglobin less than 8.5 (5) Diarrhea ICD Code: R19.7 Status: Chronic Plan: Secondary to C. difficile colitis. Continue dificid/po vanco HG stable (6) Hypokalemia FF BMP and replete PT ff CM ff for DC needs Scarlett Damon MD May 29, 2016 19:48
[2016-05-29] MEDS: GABAPENTIN 300 MG CAP PO SCH (20:26)
[2016-05-30] VITALS (13 sets, daily range): BP systolic 91–118; BP diastolic 50–71; PULSE 85–105; RESP 10–17; TEMP 98–98.8; O2SAT 94–97
[2016-05-30] MEDS: ONDANSETRON ODT 4 MG TAB PO SCH ×3 (00:30→11:15)
[2016-05-30] MEDS: METHADONE HCL 10 MG TAB PO SCH (06:19)
[2016-05-30] MEDS: FLORASTOR 250 MG PO SCH (09:00)
[2016-05-30] MEDS: SODIUM CHLORIDE 0.9% FLUSH 5 ML FLUSH FLUSH SCH ×2 (09:46→20:18)
[2016-05-30] MEDS: TIOTROPIUM BROMIDE 18 MCG INH INH SCH (09:46)
[2016-05-30] MEDS: ALBUTEROL SULFATE 90 MCG/ACT HFA 18 GM INHALER INH SCH ×4 (09:46→20:18)
[2016-05-30] MEDS: VANCOMYCIN 500 MG VIAL (FOR ORAL USE ONLY) PO SCH (09:47)
[2016-05-30] MEDS: FUROSEMIDE 20 MG TAB PO SCH (09:47)
[2016-05-30] MEDS: DRONABINOL 5 MG CAP PO SCH (09:47)
[2016-05-30] MEDS ORDERED: DEXTROSE 50% IN WATER 50 ML SYRINGE ONE ×3 (10:09→18:11)
--- NOTE | 2016-05-30 10:27 | HHI.HCPN ---
Reason for visit a. To assist with evaluation and management of symptoms including: abdominal /pelvic/back pain, dyspnea, confusion. b. To assist medical decision maker(s) with: better understanding of current medical conditions; weighing benefits/burdens of medical treatment options; making medical treatment decisions. . (Ingrid Lehman) Subjective/Interval History Patient seen and examined in ICU. NO family at bedside. Patient lethargic, opening eyes and tracking. Able to speak 1 or 2 words at a time due to lethargy. Confused, unable to tell me where she was. Asked if she was in pain, patient responded "I don't know" and went back to sleep. Reviewed medical records, last PRN PO Dilaudid yesterday at 11:00 AM, no PRN Dilaudid IV has been given in the past 24h. Patient requiring morning meds to be crushed and given with apple sauce. Her blood sugar this AM 57, Dextrose given. Lung sounds with mild expiratory crackles, pt placed back on O2 via NC at 2L. Afebrile, SBP in the 90's. No new labs or imaging. Spoke to patient's over the phone. Medical update provided and shared concerns about patient's condition. unable to come visit patient until later today but advised daughter will visit soon. 16:05. family meeting. In attendance , sister Yoli, son, and daughters. Reviewed in detail progression of cancer and anticipated burden of disease. Reviewed medication changes and current treatment plan. Discussed recommendations for comfort-directed care given her terminal and deteriorating condition with a life expectancy of hours to days if illness run its natural course. Discussed home with hospice/supportive care vs transitioning patient here at the hospital with or without hospice services. Discussed code status given her poor prognosis. Family wishing for FULL CODE and to continue with current plan. Discussed with Dr. Damon, who advised that in the setting of patient's condition and request for FULL CODE, he would transfer services to the [facility]. Discussed case with Dr. Gonzalez. Concerns about patient's ability to continue methadone orally or IV in the setting of her terminal condition. Discussed back with , sister, son and daughter. In attendance Dr. Patterson from palliative care. Discussed concerns regarding continuation of Methadone in the setting of her progressively worsening condition and full code. Family deciding for NO CODE/NO INTUBATION and to allow pt to naturally. Family wishing to keep patient in ICU for as long as possible, but will be OK with transferring to the oncology floor. Will discuss with RN floor coverings salesperson. Case discussed with Dr. Patterson, Dr. Damon, Dr. Gonzalez, and Dr. Mcmillan. . Family/friend interactions See interval note. . (Ingrid Lehman) Advance Directives Living Will: Never completed Health Care Surrogate: Never completed Durable Power of Prehemmer: Never completed (Ingrid Lehman) Advance Directive Specifics Health Care Surrogate(s): No written advance directives. According to [place] statutes health care proxy decision-making falls to her spouse. She indicates she would want her spouse to make medical decisions should she become incapacitated. . Significant change in goals: NO CODE -DNR/DNI. allow a natural . Family declined hospice services and request that patient is to be kept in the ICU for as long as possible but will be OK with transfering to the oncology floor if needed. . (Ingrid Lehman) Objective Vital Signs Date Time Temp Pulse Resp B/P Pulse Ox O2 Delivery O2 Flow Rate FiO2 05/30/16 08:00 98.6 90 14 95/51 95 05/30/16 08:00 92 05/30/16 07:54 16 05/30/16 07:52 97 21 05/30/16 06:00 92 05/30/16 04:00 98.8 92 10 98/51 96 05/30/16 04:00 92 05/30/16 02:00 85 05/30/16 00:00 88 05/30/16 00:00 98.6 88 10 98/55 94 05/29/16 22:00 94 05/29/16 21:11 96 21 05/29/16 20:00 95 05/29/16 20:00 98.8 95 18 124/58 99 05/29/16 18:00 80 05/29/16 16:00 99.2 88 14 157/70 94 05/29/16 16:00 84 05/29/16 14:00 84 05/29/16 12:04 18 05/29/16 12:00 99.0 96 12 125/58 97 12/29/16 12:00 84 Intake & Output 05/30/16 05/30/16 07:00 19:00 Intake Total 480 ml Balance 480 ml Intake Oral 480 ml # Voids 4 # Bowel Movements 2 Physical Exam CONSTITUTIONAL/GENERAL: This is a frail, chronically ill patient, who appears older than her actual age. Lethargic, following some simple commands. TUBES/LINES/DRAINS: SCD's. NC. SKIN: pale. Diffuse erythema and scaling in both extremities. Bilateral lower extremity edema +1 left > right. CARDIOVASCULAR: regular rhythm. No murmurs noted. RESPIRATORY/CHEST: Symmetric, unlabored respirations. Diminished bilaterally. Expiratory crackles bilaterally. GASTROINTESTINAL: Abdomen with areas of hardening -likely tumor progression, tender right upper and lower quadrant, mildly distended. Bowel sounds hypoactive. GENITOURINARY: Without palpable bladder distension. MUSCULOSKELETAL: Diffuse edema 1 + pitting to BLE. NEUROLOGICAL: Lethargic, confused. slow speech with soft voice. PSYCHIATRIC: relaxed. . (Ingrid Lehman) Diagnostic Tests Laboratory Laboratory Tests Test 05/28/16 17:26 White Blood Count 10.2 TH/MM3 (4.0-11.0) Red Blood Count 3.29 MIL/MM3 (4.00-5.30) Hemoglobin 9.2 GM/DL (11.6-15.3) Hematocrit 28.3 % (35.0-46.0) Mean Corpuscular Volume 85.9 FL (80.0-100.0) Mean Corpuscular Hemoglobin 27.9 PG (27.0-34.0) Mean Corpuscular Hemoglobin 32.5 % Concent (32.0-36.0) Red Cell Distribution Width 17.7 % (11.6-17.2) Platelet Count 272 TH/MM3 (150-450) Mean Platelet Volume 7.9 FL (7.0-11.0) Neutrophils (%) (Auto) 85.0 % (16.0-70.0) Lymphocytes (%) (Auto) 6.3 % (9.0-44.0) Monocytes (%) (Auto) 8.5 % (0.0-8.0) Eosinophils (%) (Auto) 0.2 % (0.0-4.0) Basophils (%) (Auto) 0.0 % (0.0-2.0) Neutrophils # (Auto) 8.7 TH/MM3 (1.8-7.7) Lymphocytes # (Auto) 0.6 TH/MM3 (1.0-4.8) Monocytes # (Auto) 0.9 TH/MM3 (0-0.9) Eosinophils # (Auto) 0.0 TH/MM3 (0-0.4) Basophils # (Auto) 0.0 TH/MM3 (0-0.2) CBC Comment DIFF FINAL Differential Comment Sodium Level 137 MEQ/L (136-145) Potassium Level 3.8 MEQ/L (3.5-5.1) Chloride Level 104 MEQ/L (98-107) Carbon Dioxide Level 23.6 MEQ/L (21.0-32.0) Anion Gap 9 MEQ/L (5-15) Blood Urea Nitrogen 16 MG/DL (7-18) Creatinine 0.95 MG/DL (0.50-1.00) Estimat Glomerular Filtration 59 ML/MIN (>89) Rate Random Glucose 43 MG/DL (74-106) Calcium Level 7.9 MG/DL (8.5-10.1) (Ingrid Lehman) Result Diagram: 05/28/16 1726 05/28/16 1726 Assessment and Plan Disease Oriented Problem List: (1) Ovarian cancer with mets to liver and lung (2) Anemia (3) COPD (chronic obstructive pulmonary disease) Symptom Scale: (1) Intractable pain 0-10 Scale: 3 Comment: secondary to metastatic ovarian cancer with disease progression despite recent chemotherapy, rectovaginal fistula, pelvic mass. (2) Vaginal discharge 0-10 Scale: Unable to quantify Comment: Secondary to pelvic mass, rectovaginal fistula. (3) Edema 0-10 Scale: Unable to quantify Comment: secondary to CHF (4) Dyspnea 0-10 Scale: Unable to quantify Comment: Mets to lung, CHF, COPD. Pertinent Non-Medical Issues Psychosocial: . Supported by her 2 daughters, Shey and Zelda. Also supported by her sister, Yoli. Lives in [place]. Spiritual: Member [employer]. Declines cone chocolate dipper visits at this time. Legal:No written advance directives. According to [place] statutes health care proxy decision-making falls to her spouse. She indicates she would want her spouse to make medical decisions should she become incapacitated. Ethical issues impacting care: no known concerns at this time. . Important Contacts * Kevin Jim, spouse/HCP: [phone] (cell) or [phone] (home) * Shey Jim, daughter: [phone] cell or [phone] work * Zelda Fuentes, daughter: [phone] cell or [phone] work * Yoli Rosario, sister: [phone] cell or [phone] home . Prognosis Mrs. Jim has recurrent Ovarian cancer with Mets to liver and lung disease progression despite recent palliative chemotherapy admitted with abdominal and vaginal pain. Patient has had ovarian cancer undergoing treatment for the last 10 years, she is certainly hospice appropriate should she elect comfort focused care. Patient is currently transition to end of life with a life expectancy of hours to days if illness runs it natural course. . Code Status: No Code Plan * No written advance directives. According to [place] statutes health care proxy decision-making falls to her spouse. She indicates she would want her spouse to make medical decisions should she become incapacitated. Recommend shared decision making given her intermittent confusion. * 05/30/16: NO CODE -DNR/DNI. allow a natural . Family declined hospice services and request that patient is to be kept in the ICU for as long as possible but will be OK with transferring to the oncology floor if needed. * Case discussed with Dr. Patterson, Dr. Damon, Dr. Gonzalez, and Dr. Mcmillan. * S/YMPTOMS: Intractable Pain: secondary to metastatic ovarian cancer with disease progression despite recent chemotherapy, rectovaginal fistula, pelvic mass. Methadone will be changed to IV due to dysphagia. Family in agreement to increase Dilaudid IV PRN. Discontinuing non-comfort medications. * Palliative care will continue to follow throughout hospital course to assist with symptom management and further clarification of treatment goals. (Ingrid Lehman) Code Status: No Code (Jimmy Patterson MD) Time Spent Time Periods: total time to include 3 family meeting and case discussion with Dr. Ibarra, Dr. Patterson, Dr. Richardson and Dr. Mcmillan. Total Floor Time (mins): 120 Face to Face Time (mins): 30 >50% Counseling/Coord of Care: Yes (Ingrid Lehman) Attestation To help prompt me to consider important information that might be impacting today's encounter and assessment, information from prior notes written by myself or my colleagues may have been "brought forward" into today's note. My signature on this note, however, is an attestation that I personally performed the exam, history, and/or decision-making noted today, and, unless otherwise indicated, the interactions with patient, family, and staff as well as the review of records all occurred today. I also attest that the listed assessment and stated plan reflect my best clinical judgment today based on the combination of historical information, prior notes, and today's exam/ interactions. When time spent is documented, it refers only to time spent today by the signer, or if indicated, combined time spent today by collaborating physician/nurse practitioner. (Ingrid Lehman) Collaborating MD Comments Pt was seen with YOLI Quintero. GENERAL: This is a frail,. Lethargic CARDIOVASCULAR: regular rhythm. No murmurs noted. RESPIRATORY/CHEST: Diminished bilat GASTROINTESTINAL: Abdomen with palpable tumor. GENITOURINARY: Without palpable bladder distension. MUSCULOSKELETAL: Diffuse edema 1 + pitting to BLE. NEUROLOGICAL: Lethargic, confused. slow speech with soft voice. We have had family meetings a few times. Spouse want pt to be comfortable, decline [employer] involvement. and amenable to switch to palliative care services. Decided to change code status to DNR/DNI. They do not want hospice, but want to remain in the hospital, until patient pass away. case d/w with Dr. Damon. (Jimmy Patterson MD) Ingrid Lehman May 30, 2016 10:27 Jimmy Patterson MD May 30, 2016 18:33
[2016-05-30] MEDS: CHOLESTYRAMINE 4 GM PACKET PO SCH (11:00)
[2016-05-30] MEDS: HYDROmorphone HCL 4 MG TAB PO PRN (11:15)
--- NOTE | 2016-05-30 15:15 | HHI.PR ---
Subjective Remarks Patient in bed sleeping, she is on Dilaudid 4 mg every [address] Patterson I discussed with her and son on other part of the families, as well as Dr. Patterson earlier and the palliative care nurse, family finally agreed on comfort care at this point, but they requested to keep her in the hospital for now, the family informed me hospice still not confirmed yet but they are going to discuss it when the rest of the family members come to town Objective Vitals Vital Signs Date Time Temp Pulse Resp B/P Pulse Ox O2 Delivery O2 Flow Rate FiO2 05/30/16 14:00 100 05/30/16 12:00 105 05/30/16 10:00 92 05/30/16 08:00 98.6 90 14 95/51 95 05/30/16 08:00 92 05/30/16 07:54 16 05/30/16 07:52 95 Nasal Cannula 2.00 05/30/16 06:00 92 05/30/16 04:00 98.8 92 10 98/51 96 05/30/16 04:00 92 05/30/16 02:00 85 05/30/16 00:00 88 05/30/16 00:00 98.6 88 10 98/55 94 05/29/16 22:00 94 05/29/16 21:11 96 21 05/29/16 20:00 95 05/29/16 20:00 98.8 95 18 124/58 99 05/29/16 18:00 80 05/29/16 16:00 99.2 88 14 157/70 94 05/29/16 16:00 84 I/O 05/29/16 05/29/16 05/29/16 05/30/16 05/30/16 05/30/16 07:00 15:00 23:00 07:00 15:00 23:00 Intake Total 100 ml 610 ml 120 ml Balance 100 ml 610 ml 120 ml Intake Oral 100 ml 610 ml 120 ml # Voids 2 4 1 # Bowel Movements 3 2 0 Result Diagram: 05/28/16 1726 05/28/16 1726 Objective Remarks - GENERAL: This is a well-nourished, well-developed patient, in no apparent distress. CARDIOVASCULAR: Regular rate and rhythm without murmurs, gallops, or rubs. RESPIRATORY: Fair air entry bilaterally. No wheezes, rales, or rhonchi. GASTROINTESTINAL: Minimal tenderness on the lower abdomen with fullness to palpation throughout,. Appreciated some bowel sounds MUSCULOSKELETAL: Extremities +1 edema. Pedal pulses appreciated NEUROLOGICAL: Awake and alert. Moves all extremity. Normal speech.no focal neurological deficit Procedures None A/P Problem List: (1) Acute vaginal bleeding Status: Acute (2) Anemia ICD Code: D64.9 Status: Acute (3) Ovarian cancer ICD Code: C56.9 Status: Chronic (4) Leg swelling ICD Code: M79.89 Status: Acute (5) Acute congestive heart failure ICD Code: I50.9 Status: Acute (6) Diarrhea ICD Code: R19.7 Status: Chronic (7) Acute renal insufficiency ICD Code: N28.9 Status: Acute Assessment and Plan 05/26: Discussed with the patient, she wants to go home however she still agree with aggressive treatment and full code, continue current care 05/27: No acute issue, no change in patient or family goal of treatment, continue current care 05/28: Abdominal pain 8 out of 10, blood pressure fluctuating, discussed with the nurse, family opposite getting pain medication in many locations Check CBC, BMP, to monitor electrolyte while still diarrhea ongoing 05/29: Patient had hypoglycemia at [address] her on Accu-Chek consulted assembler latches and springs, change Lasix from iv 2 by mouth Later during the day palliative care graciously called me to notify me that family finally accepted the fact of the poor prognosis and they may consider looking at going home versus rehabilitation with hospice Further comfort measure per palliative care 05/30: Family agreed on comfort care while in the hospital for now, will discuss hospice with the rest of the family members when they come to town, I discussed with Dr. Patterson and the palliative care nurse and the family A/P: (1) Ovarian cancer ICD Code: C56.9 Status: Chronic Plan: Continue full CODE STATUS with plans for aggressive rehabilitation at discharge seen by Gyne- oncology. re check H and H. transfuse if Hemoglobin less than 8.5 hospice appropriate- patient refused- palliative care on board (2) Left UE DVT ICD Code: M79.89 Status: Acute Plan: With DVT Now with left upper extremity swelling,brachial DVT on US was on lovenox, held due to bleeding No anticoagulation due to bleeding, discussed with Hematology (3) Acute congestive heart failure, diastolic- went into fluid overload 05/19 ICD Code: I50.9 Status: Acute Plan: Change Lasix to by mouth US no ascites. Leg swelling improvi sats improved Status post Albumin (4) Anemia ICD Code: D64.9 Status: Acute Plan: now with evidence of gastrointestinal bleeding likely from colitis. Hg stable GI following. Family wishes to avoid any invasive procedures Follow hemoglobin for transfusion needs transfuse if Hemoglobin less than 8.5 (5) Diarrhea ICD Code: R19.7 Status: Chronic Plan: Secondary to C. difficile colitis. Continue dificid/po vanco HG stable (6) Hypokalemia FF BMP and replete PT ff CM ff for DC needs Scarlett Damon MD May 30, 2016 15:15
[2016-05-30] MEDS ORDERED: LORazepam 2 MG/ML VIAL IV PRN (18:45)
[2016-05-30] MEDS ORDERED: METHADONE 10 MG/ML VIAL IV PUSH SCH (20:00)
[2016-05-31] VITALS (11 sets, daily range): BP systolic 92–116; BP diastolic 50–59; PULSE 93–106; RESP 9–21; TEMP 96.6–100; O2SAT 95–97
[2016-05-31] MEDS: METHADONE 10 MG/ML IV SCH ×3 (04:00→20:46)
[2016-05-31] MEDS: HYDROmorphone HCL PF 1 MG/ML VIAL IV PRN ×5 (06:15→23:44)
[2016-05-31] MEDS: DEXTROSE 50% IN WATER 50 ML SYRINGE IV PRN ×2 (07:35→11:30)
[2016-05-31] MEDS: SODIUM CHLORIDE 0.9% FLUSH 5 ML FLUSH FLUSH SCH ×2 (09:33→20:55)
[2016-05-31] MEDS: ALBUTEROL SULFATE 90 MCG/ACT HFA 18 GM INHALER INH SCH ×3 (09:33→20:58)
[2016-05-31] MEDS: FUROSEMIDE 20 MG/2 ML VIAL IV PRN ×2 (11:34→21:30)
--- NOTE | 2016-05-31 12:27 | HHI.HCPN ---
Reason for visit a. To assist with evaluation and management of symptoms including: abdominal /pelvic/back pain, dyspnea, confusion. b. To assist medical decision maker(s) with: better understanding of current medical conditions; weighing benefits/burdens of medical treatment options; making medical treatment decisions. . Subjective/Interval History Patient seen and examined in ICU. Daughter Zelda and additional family members at bedside. Patient lethargic, opening eyes and tracking. Able to speak 1 or 2 words at a time due to lethargy. Confused, denies any pain. Max temp 100.0 this morning. SBP stable. Expiratory crackles on expiration, has been given Lasix PRN. Remains on O2 at 2L via NC as per family's request. No respiratory distress noted. BS Patient on comfort-directed care under palliative care services. Family declined hospice involvement. Patient will be transferred to oncology floor today. Family in agreement. will be leaving out of town this evening. aware patient is actively dying. Anticipatory guidance on EOL and ongoing emotional support provided. Case discussed with Dr. Mcmillan and bedside RN. . Family/friend interactions See interval note. . Advance Directives Living Will: Never completed Health Care Surrogate: Never completed Durable Power of Carpenters: Never completed Advance Directive Specifics Health Care Surrogate(s): No written advance directives. According to [place] statutes health care proxy decision-making falls to her spouse. She indicates she would want her spouse to make medical decisions should she become incapacitated. . Significant change in goals: NO CODE/allow natural . No hospice involvement as per family's request. . Objective Vital Signs Date Time Temp Pulse Resp B/P Pulse Ox O2 Delivery O2 Flow Rate FiO2 05/31/16 07:35 16 05/31/16 06:00 103 05/31/16 04:00 99 05/31/16 04:00 98.7 99 13 104/50 97 05/31/16 02:00 106 05/31/16 00:00 100.0 106 20 116/58 95 05/31/16 00:00 106 05/30/16 22:00 98 05/30/16 20:00 104 05/30/16 20:00 98.4 104 17 104/50 94 05/30/16 18:00 100 05/30/16 16:00 100 05/30/16 16:00 98.4 104 14 118/71 94 05/30/16 14:00 100 Intake & Output 05/31/16 05/31/16 07:00 19:00 Intake Total 50 ml Balance 50 ml Intake Oral 50 ml # Voids 5 # Bowel Movements 3 Physical Exam CONSTITUTIONAL/GENERAL: This is a frail, chronically ill patient, who appears older than her actual age. Lethargic, not following commands. TUBES/LINES/DRAINS: PIV's. NC. SKIN: pale. Diffuse erythema and scaling in both extremities. Bilateral lower extremity edema +1 left > right. CARDIOVASCULAR: regular rhythm. No murmurs noted. RESPIRATORY/CHEST: Symmetric, shallow unlabored respirations. Expiratory crackles bilaterally. GASTROINTESTINAL: Abdomen with areas of hardening -likely tumor progression, tender right upper and lower quadrant, mildly distended. Bowel sounds hypoactive. GENITOURINARY: Without palpable bladder distension. MUSCULOSKELETAL: Diffuse edema 1 + pitting to BLE. NEUROLOGICAL: Lethargic, confused. slow speech with soft voice. PSYCHIATRIC: relaxed. . Diagnostic Tests Laboratory Laboratory Tests Test 05/28/16 17:26 White Blood Count 10.2 TH/MM3 (4.0-11.0) Red Blood Count 3.29 MIL/MM3 (4.00-5.30) Hemoglobin 9.2 GM/DL (11.6-15.3) Hematocrit 28.3 % (35.0-46.0) Mean Corpuscular Volume 85.9 FL (80.0-100.0) Mean Corpuscular Hemoglobin 27.9 PG (27.0-34.0) Mean Corpuscular Hemoglobin 32.5 % Concent (32.0-36.0) Red Cell Distribution Width 17.7 % (11.6-17.2) Platelet Count 272 TH/MM3 (150-450) Mean Platelet Volume 7.9 FL (7.0-11.0) Neutrophils (%) (Auto) 85.0 % (16.0-70.0) Lymphocytes (%) (Auto) 6.3 % (9.0-44.0) Monocytes (%) (Auto) 8.5 % (0.0-8.0) Eosinophils (%) (Auto) 0.2 % (0.0-4.0) Basophils (%) (Auto) 0.0 % (0.0-2.0) Neutrophils # (Auto) 8.7 TH/MM3 (1.8-7.7) Lymphocytes # (Auto) 0.6 TH/MM3 (1.0-4.8) Monocytes # (Auto) 0.9 TH/MM3 (0-0.9) Eosinophils # (Auto) 0.0 TH/MM3 (0-0.4) Basophils # (Auto) 0.0 TH/MM3 (0-0.2) CBC Comment DIFF FINAL Differential Comment Sodium Level 137 MEQ/L (136-145) Potassium Level 3.8 MEQ/L (3.5-5.1) Chloride Level 104 MEQ/L (98-107) Carbon Dioxide Level 23.6 MEQ/L (21.0-32.0) Anion Gap 9 MEQ/L (5-15) Blood Urea Nitrogen 16 MG/DL (7-18) Creatinine 0.95 MG/DL (0.50-1.00) Estimat Glomerular Filtration 59 ML/MIN (>89) Rate Random Glucose 43 MG/DL (74-106) Calcium Level 7.9 MG/DL (8.5-10.1) Result Diagram: 05/28/16 1726 05/28/16 172 Assessment and Plan Disease Oriented Problem List: (1) Ovarian cancer with mets to liver and lung (2) Anemia (3) COPD (chronic obstructive pulmonary disease) Symptom Scale: (1) Intractable pain 0-10 Scale: 3 Comment: secondary to metastatic ovarian cancer with disease progression despite recent chemotherapy, rectovaginal fistula, pelvic mass. (2) Vaginal discharge 0-10 Scale: Unable to quantify Comment: Secondary to pelvic mass, rectovaginal fistula. (3) Edema 0-10 Scale: Unable to quantify Comment: secondary to CHF (4) Dyspnea 0-10 Scale: Unable to quantify Comment: Mets to lung, CHF, COPD. Pertinent Non-Medical Issues Psychosocial: . Supported by her 2 daughters, Shey and Zelda. Also supported by her sister, Yoli. Lives in [place]. Spiritual: Member [employer]. Declines data governance consultant visits at this time. Legal:No written advance directives. According to [place] statutes health care proxy decision-making falls to her spouse. She indicates she would want her spouse to make medical decisions should she become incapacitated. Ethical issues impacting care: no known concerns at this time. . Important Contacts * Kevin Jim, spouse/HCP: [phone] (cell) or [phone] (home) * Shey Jim, daughter: [phone] cell or [phone] work * Zelda Fuentes, daughter: [phone] cell or [phone] work * Yoli Rosario, sister: [phone] cell or [phone] home . Prognosis Mrs. Jim has recurrent Ovarian cancer with Mets to liver and lung disease progression despite recent palliative chemotherapy admitted with abdominal and vaginal pain. Patient has had ovarian cancer undergoing treatment for the last 10 years, she is certainly hospice appropriate should she elect comfort focused care. Patient is currently transition to end of life with a life expectancy of hours to days if illness runs it natural course. . Code Status: No Code Plan * No written advance directives. According to [place] statutes health care proxy decision-making falls to her spouse. She indicates she would want her spouse to make medical decisions should she become incapacitated. * 05/31/16: NO CODE -DNR/DNI. Allow a natural . Family declined hospice involvement and request that patient is to be kept in hospital until her . Patient actively dying with life expectancy of hours to days if illness runs its natural course. OK with transferring to the oncology floor if needed. * Case discussed with Dr. Mcmillan and bedside RN. * SYMPTOMS: Intractable Pain: secondary to metastatic ovarian cancer with disease progression despite recent chemotherapy, rectovaginal fistula, pelvic mass. Methadone 2.5mg IV q8h, fentanyl patch 100mcg q72h. Dilaudid IV PRN available. * Active listening and ongoing emotional support provided to family. * Palliative care will continue to follow throughout hospital course for symptom management at EOL. . Time Spent Time Periods: Total time to include review of medical records and case discussion with Dr. Mcmillan and bedside RN. Total Floor Time (mins): 40 Face to Face Time (mins): 25 >50% Counseling/Coord of Care: Yes Attestation To help prompt me to consider important information that might be impacting today's encounter and assessment, information from prior notes written by myself or my colleagues may have been "brought forward" into today's note. My signature on this note, however, is an attestation that I personally performed the exam, history, and/or decision-making noted today, and, unless otherwise indicated, the interactions with patient, family, and staff as well as the review of records all occurred today. I also attest that the listed assessment and stated plan reflect my best clinical judgment today based on the combination of historical information, prior notes, and today's exam/ interactions. When time spent is documented, it refers only to time spent today by the signer, or if indicated, combined time spent today by collaborating physician/nurse practitioner. Ingrid Lehman May 31, 2016 12:27
[2016-05-31] MEDS: fentaNYL 100 MCG/HR PATCH TD SCH (20:57)
[2016-05-31] MEDS: REMOVE OLD DURAGESIC (FENTANYL) PATCH TD SCH (20:57)
[2016-06-01] MEDS: METHADONE 10 MG/ML IV SCH ×3 (03:42→20:40)
[2016-06-01] MEDS: HYDROmorphone HCL PF 1 MG/ML VIAL IV PRN ×8 (05:33→23:46)
[2016-06-01] MEDS: FUROSEMIDE 20 MG/2 ML VIAL IV PRN (05:36)
[2016-06-01 08:00] VITALS: BP 101/57; PULSE 103; RESP 7; TEMP 98.7; O2SAT 96
[2016-06-01] MEDS: SODIUM CHLORIDE 0.9% FLUSH 5 ML FLUSH FLUSH SCH ×2 (09:35→20:41)
[2016-06-01] MEDS: ALBUTEROL SULFATE 90 MCG/ACT HFA 18 GM INHALER INH SCH ×5 (09:49→20:41)
[2016-06-01] MEDS: DEXTROSE 50% IN WATER 50 ML SYRINGE IV PRN ×3 (11:54→21:00)
--- NOTE | 2016-06-01 12:54 | HHI.HCPN ---
Reason for visit a. To assist with evaluation and management of symptoms including: abdominal /pelvic/back pain, dyspnea, confusion. b. To assist medical decision maker(s) with: better understanding of current medical conditions; weighing benefits/burdens of medical treatment options; making medical treatment decisions. . Subjective/Interval History Patient seen and examined in oncology floor. Now on comfort-directed care - family declined hospice involvement. Daughter Shey at bedside. Patient unresponsive, Geoffrey-hightower respirations noted with periods of apnea lasting 10- 15 seconds. Diminished but clear BS. Peripheral edema improved since yesterday. Afebrile. SBP in the 90's. family requesting to cont checking BS levels, cont requiring glucose IV for BS in the 50's. Anticipatory guidance on EOL and ongoing emotional support provided to daughter. All questions answered in great detail. Case discussed with Dr. Mcmillan and bedside RN. . Family/friend interactions See interval note. . Advance Directives Living Will: Never completed Health Care Surrogate: Never completed Durable Power of Auto [employer]: Never completed Advance Directive Specifics Health Care Surrogate(s): No written advance directives. According to [place] statutes health care proxy decision-making falls to her spouse. She indicates she would want her spouse to make medical decisions should she become incapacitated. . Significant change in goals: NO CODE -comfort-directed care. No hospice involvement as per family's request. Patient actively dying. . Objective Vital Signs Date Time Temp Pulse Resp B/P Pulse Ox O2 Delivery O2 Flow Rate FiO2 06/01/16 08:00 98.7 103 7 101/57 96 06/01/16 06:55 19 05/31/16 22:54 12 05/31/16 20:00 96.6 93 12 99/54 96 05/31/16 17:05 97.7 95 20 96/59 96 05/31/16 16:00 95 05/31/16 16:00 98.9 95 21 95 05/31/16 14:00 101 Intake & Output 06/01/16 06/01/16 07:00 19:00 Intake Total 240 ml Balance 240 ml Intake Oral 240 ml # Voids 4 # Bowel Movements 3 Physical Exam CONSTITUTIONAL/GENERAL: This is a frail, chronically ill patient, who appears older than her actual age. Unresponsive. TUBES/LINES/DRAINS: PIV's. NC. SKIN: pale. Diffuse erythema and scaling in both extremities. Trace bilateral lower extremity edema. CARDIOVASCULAR: regular rhythm. No murmurs noted. RESPIRATORY/CHEST: Symmetric, clear ,shallow unlabored respirations. Geoffrey- Hightower respirations noted with periods of apnea. GASTROINTESTINAL: Abdomen with areas of hardening -likely tumor progression, tender right upper and lower quadrant, mildly distended. Bowel sounds hypoactive. GENITOURINARY: Without palpable bladder distension. MUSCULOSKELETAL: Trace edema to BLE. NEUROLOGICAL: unresponsive to verbal or tactile stimuli. PSYCHIATRIC: unable to assess due to clinical condition. Relaxed facial expression noted. . Diagnostic Tests Result Diagram: 05/28/16172505/28/161725 Assessment and Plan Disease Oriented Problem List: (1) Ovarian cancer with mets to liver and lung (2) Anemia (3) COPD (chronic obstructive pulmonary disease) Symptom Scale: (1) Intractable pain 0-10 Scale: 3 Comment: secondary to metastatic ovarian cancer with disease progression despite recent chemotherapy, rectovaginal fistula, pelvic mass. (2) Vaginal discharge 0-10 Scale: Unable to quantify Comment: Secondary to pelvic mass, rectovaginal fistula. (3) Edema 0-10 Scale: Unable to quantify Comment: secondary to CHF (4) Dyspnea 0-10 Scale: Unable to quantify Comment: Mets to lung, CHF, COPD. Pertinent Non-Medical Issues Psychosocial: . Supported by her 2 daughters, Shey and Zelda. Also supported by her sister, Yoli. Lives in [place]. Spiritual: Member [employer]. 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 Legal:No written advance directives. According to [place] statutes health care proxy decision-making falls to her spouse. She indicates she would want her spouse to make medical decisions should she become incapacitated. Ethical issues impacting care: no known concerns at this time. . Important Contacts * Kevin Jim, spouse/HCP: [phone] (cell) or [phone] (home) * Shey Jim, daughter: [phone] cell or [phone] work * Zelda Fuentes, daughter: [phone] cell or [phone] work * Yoli Kaiako Kohanga Reo, sister: [phone] cell or [phone] home . Prognosis Mrs. Jim has recurrent Ovarian cancer with Mets to liver and lung disease progression despite recent palliative chemotherapy admitted with abdominal and vaginal pain. Patient has had ovarian cancer undergoing treatment for the last 10 years, she is certainly hospice appropriate should she elect comfort focused care. Patient is currently transition to end of life with a life expectancy of hours to days if illness runs it natural course. . Code Status: No Code Plan * No written advance directives. According to [place] statutes health care proxy decision-making falls to her spouse. She indicates she would want her spouse to make medical decisions should she become incapacitated. * 05/31/16: NO CODE -DNR/DNI. Allow a natural . Family declined hospice involvement and request that patient is to be kept in hospital until her . Patient actively dying with life expectancy of hours to days if illness runs its natural course. * Case discussed with Dr. Mcmillan and bedside RN. * SYMPTOMS: Intractable Pain: secondary to metastatic ovarian cancer with disease progression despite recent chemotherapy, rectovaginal fistula, pelvic mass. Methadone 2.5mg IV q8h, fentanyl patch 100mcg q72h. Dilaudid IV PRN available. * Active listening and ongoing emotional support provided to family. Anticipatory guidance provided re signs and symptoms of EOL. * Palliative care will continue to follow throughout hospital course for symptom management at EOL. . Time Spent Total Floor Time (mins): 38 Face to Face Time (mins): 20 >50% Counseling/Coord of Care: Yes Attestation To help prompt me to consider important information that might be impacting today's encounter and assessment, information from prior notes written by myself or my colleagues may have been "brought forward" into today's note. My signature on this note, however, is an attestation that I personally performed the exam, history, and/or decision-making noted today, and, unless otherwise indicated, the interactions with patient, family, and staff as well as the review of records all occurred today. I also attest that the listed assessment and stated plan reflect my best clinical judgment today based on the combination of historical information, prior notes, and today's exam/ interactions. When time spent is documented, it refers only to time spent today by the signer, or if indicated, combined time spent today by collaborating physician/nurse practitioner. . Ingrid Lehman Jun 01, 2016 12:54
[2016-06-01 20:00] VITALS: BP 109/60; PULSE 108; RESP 9; TEMP 99.6; O2SAT 96
[2016-06-02] MEDS: METHADONE 10 MG/ML IV SCH ×3 (03:44→20:00)
[2016-06-02 04:00] VITALS: TEMP 99.7
[2016-06-02] MEDS: ACETAMINOPHEN 1000 MG/100 ML VIAL IV PRN (04:01)
[2016-06-02] MEDS: HYDROmorphone HCL PF 1 MG/ML VIAL IV PRN ×8 (05:57→23:40)
[2016-06-02] MEDS: DEXTROSE 50% IN WATER 50 ML SYRINGE IV PRN ×3 (06:03→22:44)
[2016-06-02 08:00] VITALS: BP 91/51; PULSE 88; RESP 20; RESP 8; TEMP 97.5; O2SAT 99
[2016-06-02] MEDS: SODIUM CHLORIDE 0.9% FLUSH 5 ML FLUSH FLUSH SCH ×2 (09:10→20:01)
[2016-06-02] MEDS: ALBUTEROL SULFATE 90 MCG/ACT HFA 18 GM INHALER INH SCH ×4 (09:10→20:39)
--- NOTE | 2016-06-02 14:20 | HHI.HCPN ---
Reason for visit a. To assist with evaluation and management of symptoms including: abdominal /pelvic/back pain, dyspnea, confusion. b. To assist medical decision maker(s) with: better understanding of current medical conditions; weighing benefits/burdens of medical treatment options; making medical treatment decisions. . (Ingrid Lehman) Subjective/Interval History Patient seen and examined in oncology floor. Now on comfort-directed care - family declined hospice involvement. Daughter Shey at bedside. Patient alert to self, lethargic. Endorsing abdominal pain but unable to elaborate on complaint. Daughter reports that having has been fairly alert today and has been sipping at juice. Max temp 99.7 this morning, received acetaminophen. Family requesting to cont checking BS levels, cont requiring glucose IV for BS in the 50's. Anticipatory guidance on EOL and ongoing emotional support provided to daughter. All questions answered in great detail. Case discussed with Dr. Crain and bedside RN. . Family/friend interactions See interval note. . (Ingrid Lehman) Advance Directives Living Will: Never completed Health Care Surrogate: Never completed Durable Power of Barrel Lathe Operator Inside: Never completed (Ingrid Lehman) Advance Directive Specifics Health Care Surrogate(s): No written advance directives. According to [place] statutes health care proxy decision-making falls to her spouse. She indicates she would want her spouse to make medical decisions should she become incapacitated. . Significant change in goals: Remain unchanged. NO CODE. Comfort-directed care with NO hospice involvement. Family wishing for patient to stay inpatient until she dies. Patient dying with a life expectancy of hours to days if illness runs it natural course. ( Ingrid Lehman) Objective Vital Signs Date Time Temp Pulse Resp B/P Pulse Ox O2 Delivery O2 Flow Rate FiO2 06/02/16 08:00 97.5 88 8 91/51 99 06/02/16 04:00 99.7 06/01/16 20:00 99.6 108 9 109/60 96 Intake & Output 06/02/16 06/02/16 07:00 19:00 Intake Total 61 ml Balance 61 ml Intake Oral 61 ml # Voids 2 Physical Exam CONSTITUTIONAL/GENERAL: This is a frail, chronically ill patient, who appears older than her actual age. alert to self this morning, very lethargic. TUBES/LINES/DRAINS: Mediport. SKIN: pale. Diffuse erythema and scaling in both extremities. Trace bilateral lower extremity edema. CARDIOVASCULAR: regular rhythm. No murmurs noted. RESPIRATORY/CHEST: Symmetric, clear ,shallow unlabored respirations. no rhonchi or crackles noted. GASTROINTESTINAL: Abdomen with areas of hardening -likely tumor progression, tender right upper and lower quadrant, mildly distended. Bowel sounds hypoactive. GENITOURINARY: Without palpable bladder distension. MUSCULOSKELETAL: Trace edema to BLE. NEUROLOGICAL: Alert, very lethargic. PSYCHIATRIC: calm. . (Ingrid Lehman) Assessment and Plan Disease Oriented Problem List: (1) Ovarian cancer with mets to liver and lung (2) Anemia (3) COPD (chronic obstructive pulmonary disease) Symptom Scale: (1) Intractable pain 0-10 Scale: 3 Comment: secondary to metastatic ovarian cancer with disease progression despite recent chemotherapy, rectovaginal fistula, pelvic mass. (2) Vaginal discharge 0-10 Scale: Unable to quantify Comment: Secondary to pelvic mass, rectovaginal fistula. (3) Edema 0-10 Scale: Unable to quantify Comment: secondary to CHF (4) Dyspnea 0-10 Scale: Unable to quantify Comment: Mets to lung, CHF, COPD. Pertinent Non-Medical Issues Psychosocial: . Supported by her 2 daughters, Shey and Zelda. Also supported by her sister, Yoli. Lives in [place]. Spiritual: Member [employer]. 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 Legal:No written advance directives. According to [place] statutes health care proxy decision-making falls to her spouse. She indicates she would want her spouse to make medical decisions should she become incapacitated. Ethical issues impacting care: no known concerns at this time. . Important Contacts * Kevin Jim, spouse/HCP: [phone] (cell) or [phone] (home) * Shey Jim, daughter: [phone] cell or [phone] work * Zelda Fuentes, daughter: [phone] cell or [phone] work * Yoli , sister: [phone] cell or [phone] home . Prognosis Mrs. Jim has recurrent Ovarian cancer with Mets to liver and lung disease progression despite recent palliative chemotherapy admitted with abdominal and vaginal pain. Patient has had ovarian cancer undergoing treatment for the last 10 years, she is certainly hospice appropriate should she elect comfort focused care. Patient is currently transition to end of life with a life expectancy of hours to days if illness runs it natural course. . Code Status: No Code Plan * No written advance directives. According to [place] statutes health care proxy decision-making falls to her spouse. She indicates she would want her spouse to make medical decisions should she become incapacitated. * 06/02/2015: NO CODE -DNR/DNI. Allow a natural . Family declined hospice involvement and request that patient is to be kept in hospital until her . Patient actively dying with life expectancy of hours to days if illness runs its natural course. * Case discussed with Dr. Crain and bedside RN. * SYMPTOMS: Intractable Pain: secondary to metastatic ovarian cancer with disease progression despite recent chemotherapy, rectovaginal fistula, pelvic mass. Methadone 2.5mg IV q8h, fentanyl patch 100mcg q72h. Dilaudid IV PRN available. has received several doses of Dilaudid 0.5mg. Reviewed with family that 1mg PRN dose is available, reviewed that 1mg dose is almost equivalent to the 4mg PO dose that she was receiving. Will continue to monitor and adjust as necessary. -May consider increase Methadone from 2.5mg IV q8h to 5mg IV BID - will discuss with family. * Active listening and ongoing emotional support provided to family. Anticipatory guidance provided re signs and symptoms of EOL. * Palliative care will continue to follow throughout hospital course for symptom management at EOL. . (Ingrid Lehman) Time Spent Time Periods: Total time to include records review and case discussion with Dr. Crain and bedside RN. Total Floor Time (mins): 35 Face to Face Time (mins): 20 >50% Counseling/Coord of Care: Yes (Ingrid Lehman) Attestation To help prompt me to consider important information that might be impacting today's encounter and assessment, information from prior notes written by myself or my colleagues may have been "brought forward" into today's note. My signature on this note, however, is an attestation that I personally performed the exam, history, and/or decision-making noted today, and, unless otherwise indicated, the interactions with patient, family, and staff as well as the review of records all occurred today. I also attest that the listed assessment and stated plan reflect my best clinical judgment today based on the combination of historical information, prior notes, and today's exam/ interactions. When time spent is documented, it refers only to time spent today by the signer, or if indicated, combined time spent today by collaborating physician/nurse practitioner. (Ingrid Lehman) Collaborating MD Comments Chart reviewed. Case discussed with palliative care SUPERVISOR CELL MAINTENANCE. Above note reviewed and I concur. . (Anthony Crain MD) Ingrid Lehman Jun 02, 2016 14:20 Anthony Crain MD Jun 12, 2016 17:37
[2016-06-02 18:05] VITALS: TEMP 98.5
[2016-06-02 20:00] VITALS: BP 114/60; PULSE 100; RESP 10; TEMP 96.6; O2SAT 93
[2016-06-02] MEDS: SODIUM CHLORIDE 0.9% FLUSH 5 ML FLUSH FLUSH PRN ×2 (20:31→23:40)
[2016-06-02] MEDS: ALBUTEROL SULFATE 90 MCG/ACT HFA 8 GM INHALER INH PRN (20:39)
[2016-06-02 22:45] VITALS: TEMP 99
[2016-06-03] MEDS: HYDROmorphone HCL PF 1 MG/ML VIAL IV PRN ×9 (01:32→22:04)
[2016-06-03] MEDS: METHADONE 10 MG/ML IV SCH ×2 (04:01→11:37)
[2016-06-03] MEDS: SODIUM CHLORIDE 0.9% FLUSH 5 ML FLUSH FLUSH PRN ×2 (04:05→21:12)
[2016-06-03] MEDS: SODIUM CHLORIDE 0.9% FLUSH 5 ML FLUSH FLUSH SCH ×2 (07:59→19:34)
[2016-06-03 08:00] VITALS: BP 114/57; PULSE 104; RESP 16; TEMP 97.9; O2SAT 93
[2016-06-03] MEDS: ALBUTEROL SULFATE 90 MCG/ACT HFA 18 GM INHALER INH SCH ×4 (08:01→21:04)
--- NOTE | 2016-06-03 13:49 | HHI.HCPN ---
Reason for visit a. To assist with evaluation and management of symptoms including: abdominal /pelvic/back pain, dyspnea, confusion. b. To assist medical decision maker(s) with: better understanding of current medical conditions; weighing benefits/burdens of medical treatment options; making medical treatment decisions. . (Ingrid Lehman) Subjective/Interval History Patient seen and examined in oncology floor. Now on comfort-directed care - family declined hospice involvement. Sister Anastacia at bedside. Patient alert to self, lethargic. Endorsing abdominal, back and bilat legs pain but unable to elaborate on complaint. Has been receiving Dilaudid IV with moderate effectiveness -short duration. Max temp 97.6 this morning. Family requesting to cont checking BS levels, cont requiring glucose IV for hypoglycemia. Discussed with sister Anastacia that patient has received 8 PRN doses of Dilaudid yesterday and 5 doses today so far. Reviewed progression of disease in relation to symptom burden. Recommending to increase Methadone dose. Sister Anastacia and additional family in agreement. Anticipatory guidance on EOL and ongoing emotional support provided to daughter. All questions answered in great detail. Case discussed with Dr. Crain and bedside RN. . Family/friend interactions See interval note. . (Ingrid Lehman) Advance Directives Living Will: Never completed Health Care Surrogate: Never completed Durable Power of Commercial Fishing Vessel Operator: Never completed (Ingrid Lehman) Advance Directive Specifics Health Care Surrogate(s): No written advance directives. According to [place] statutes health care proxy decision-making falls to her spouse. She indicates she would want her spouse to make medical decisions should she become incapacitated. . Significant change in goals: NO CODE. Allow a natural . Family declined hospice involvement and request that patient is to be kept in hospital until her . Patient actively dying with life expectancy of hours to days if illness runs its natural course. . (Ingrid Lehman) Objective Vital Signs Date Time Temp Pulse Resp B/P Pulse Ox O2 Delivery O2 Flow Rate FiO2 06/03/16 08:00 97.9 104 16 114/57 93 06/02/16 22:45 99.0 06/02/16 20:00 96.6 100 10 114/60 93 06/02/16 18:05 98.5 Intake & Output 06/03/16 06/03/16 06:59 18:59 Intake Total 100 ml 0 ml Balance 100 ml 0 ml Intake Oral 100 ml 0 ml # Voids 2 1 # Bowel Movements 2 1 Physical Exam CONSTITUTIONAL/GENERAL: This is a frail, chronically ill patient, who appears older than her actual age. alert to self this morning, very lethargic. TUBES/LINES/DRAINS: Mediport. SKIN: Pale. Diffuse erythema and scaling in both extremities. Trace bilateral lower extremity edema. CARDIOVASCULAR: regular rhythm. No murmurs noted. RESPIRATORY/CHEST: Symmetric, clear ,shallow unlabored respirations. no rhonchi or crackles noted. GASTROINTESTINAL: Abdomen with areas of hardening -likely tumor progression, tender right upper and lower quadrant, mildly distended. Bowel sounds hypoactive. GENITOURINARY: Without palpable bladder distension. MUSCULOSKELETAL: Trace edema to BLE. NEUROLOGICAL: Alert, very lethargic. PSYCHIATRIC: anxious secondary to pain. . (Ingrid Lehman) Assessment and Plan Disease Oriented Problem List: (1) Ovarian cancer with mets to liver and lung (2) Anemia (3) COPD (chronic obstructive pulmonary disease) Symptom Scale: (1) Intractable pain 0-10 Scale: 3 Comment: secondary to metastatic ovarian cancer with disease progression despite recent chemotherapy, rectovaginal fistula, pelvic mass. (2) Vaginal discharge 0-10 Scale: Unable to quantify Comment: Secondary to pelvic mass, rectovaginal fistula. (3) Edema 0-10 Scale: Unable to quantify Comment: Much improved. (4) Dyspnea 0-10 Scale: Unable to quantify Comment: Mets to lung, CHF, COPD. Pertinent Non-Medical Issues Psychosocial: . Supported by her 2 daughters, Shey and Zelda. Also supported by her sister, Yoli. Lives in [place]. Spiritual: Member [employer]. Declines senior technical business analyst visits at this time. Legal:No written advance directives. According to [place] statutes health care proxy decision-making falls to her spouse. She indicates she would want her spouse to make medical decisions should she become incapacitated. Ethical issues impacting care: no known concerns at this time. . Important Contacts * Kevin Campbellcy, spouse/HCP: [phone] (cell) or [phone] (home) * Shey Jim, daughter: [phone] cell or [phone] work * Zelda Fuentes, daughter: [phone] cell or [phone] work * Yoli Rosario, sister: [phone] cell or [phone] home . Prognosis Mrs. Jim has recurrent Ovarian cancer with Mets to liver and lung disease progression despite recent palliative chemotherapy admitted with abdominal and vaginal pain. Patient has had ovarian cancer undergoing treatment for the last 10 years, she is certainly hospice appropriate should she elect comfort focused care. Patient is currently transition to end of life with a life expectancy of hours to days if illness runs it natural course. . Code Status: No Code Plan * No written advance directives. According to [place] statutes health care proxy decision-making falls to her spouse. She indicates she would want her spouse to make medical decisions should she become incapacitated. * 06/03/2015: NO CODE -DNR/DNI. Allow a natural . Family declined hospice involvement and request that patient is to be kept in hospital until her . Patient actively dying with life expectancy of hours to days if illness runs its natural course. * Case discussed with Dr. Crain and bedside RN. * SYMPTOMS: Intractable Pain: secondary to metastatic ovarian cancer with disease progression despite recent chemotherapy, rectovaginal fistula, pelvic mass. Methadone 2.5mg IV q8h, fentanyl patch 100mcg q72h. Dilaudid IV PRN available. has received several doses of Dilaudid 0.5mg. Has received 8 doses of PRN Dilaudid yesterday and 6 doses so far today. Discussed with family disease progression in regards to symptom burden. Recommending increase Methadone IV. Family in agreement. * Active listening and ongoing emotional support provided to family. Anticipatory guidance provided re signs and symptoms of EOL. * Palliative care will continue to follow throughout hospital course for symptom management at EOL. . (Ingrid Lehman) Time Spent Time Periods: Total time to include conversation with sister Anastacia and case review with Dr. Crain and bedside RN. Total Floor Time (mins): 38 Face to Face Time (mins): 20 >50% Counseling/Coord of Care: Yes (Ingrid Lehman) Attestation To help prompt me to consider important information that might be impacting today's encounter and assessment, information from prior notes written by myself or my colleagues may have been "brought forward" into today's note. My signature on this note, however, is an attestation that I personally performed the exam, history, and/or decision-making noted today, and, unless otherwise indicated, the interactions with patient, family, and staff as well as the review of records all occurred today. I also attest that the listed assessment and stated plan reflect my best clinical judgment today based on the combination of historical information, prior notes, and today's exam/ interactions. When time spent is documented, it refers only to time spent today by the signer, or if indicated, combined time spent today by collaborating physician/nurse practitioner. (Ingrid Lehman) Attestation Chart reviewed. Case discussed with palliative care BUSINESS TEST ANALYST. I have reviewed above BUSINESS TEST ANALYST note and concur. . (Anthony Crain MD) Ingrid Lehman Jun 03, 2016 13:49 Anthony Crain MD Jul 19, 2016 12:49
[2016-06-03] MEDS ORDERED: DEXTROSE 50% IN WATER 50 ML VIAL(D50) ONE (13:52)
[2016-06-03] MEDS: DEXTROSE 50% IN WATER 50 ML SYRINGE IV PRN ×2 (13:54→21:12)
[2016-06-03] MEDS ORDERED: METHADONE 10 MG/ML VIAL IV PUSH SCH (15:00)
[2016-06-03] MEDS: REMOVE OLD DURAGESIC (FENTANYL) PATCH TD SCH (18:00)
[2016-06-03] MEDS: fentaNYL 100 MCG/HR PATCH TD SCH (18:53)
[2016-06-03 20:00] VITALS: BP 134/77; PULSE 100; RESP 10; TEMP 98.7; O2SAT 93
[2016-06-04] MEDS: HYDROmorphone HCL PF 1 MG/ML VIAL IV PRN ×9 (02:02→22:09)
[2016-06-04] MEDS: SODIUM CHLORIDE 0.9% FLUSH 5 ML FLUSH FLUSH PRN ×3 (02:02→06:15)
[2016-06-04] MEDS: METHADONE 10 MG/ML IV SCH ×2 (03:00→15:30)
[2016-06-04] MEDS ORDERED: PADIMATE (CHAPSTICK) 4.5 GM TUBE TOPICAL PRN (03:30)
[2016-06-04] MEDS: DEXTROSE 50% IN WATER 50 ML SYRINGE IV PRN ×2 (06:28→17:45)
[2016-06-04] MEDS: SODIUM CHLORIDE 0.9% FLUSH 5 ML FLUSH FLUSH SCH ×2 (07:38→22:20)
[2016-06-04 08:30] VITALS: BP 113/67; PULSE 104; RESP 20; TEMP 97.2; O2SAT 95
[2016-06-04] MEDS: ALBUTEROL SULFATE 90 MCG/ACT HFA 18 GM INHALER INH SCH ×4 (09:00→22:21)
--- NOTE | 2016-06-04 13:10 | MB ---
cc: CLEMENT ELENA MD DATE OF CONSULTATION: 06/04/2016 REASON FOR CONSULTATION: Followup consultation note I have already visited with Linda and her family, she is seen again and understands that I had some time away from the hospital. I reviewed her findings and up dated status and spoke with her and her family member at bedside, and confirmed that she is getting all she needs when she needs it as far as comfort measures. They have no immediate requests or concerns. They are grateful for the care provided. Linda States she was in and our of being oriented, she recognized me, and thanked me by name and at other times she seemed a bit confused falling in and out of being asleep. Everyone seems to understand the irreversible terminal set of circumstances and are grateful for the care provided. Efforts are being made to see if another room may be available that brings better light in through the windows and or may give some additional space for the very dedicated diligent family who spend a great deal of their time and the room at the bedside. MD YAMILETH Chandra/kathie /12:58 PM /1:04 PM
--- NOTE | 2016-06-04 14:43 | HHI.HCPN ---
Reason for visit a. To assist with evaluation and management of symptoms including: abdominal /pelvic/back pain, dyspnea, confusion. b. To assist medical decision maker(s) with: better understanding of current medical conditions; weighing benefits/burdens of medical treatment options; making medical treatment decisions. . (Ingrid Lehman) Subjective/Interval History Patient seen and examined in oncology floor. Patient on comfort-directed care - family declined hospice. Daughter Shey at bedside. Patient alert to self, lethargic. Denies pain at time of visit. Has been requiring 6 doses of PRN Dilaudid for pain. Methadone was increased yesterday. Daughter feels that pt's pain is better controlled today. Max temp 97.2. Family requesting to cont checking BS levels, cont requiring glucose IV for hypoglycemia. Discussed with daughter Shey that patient has received 6 PRN doses of Dilaudid 1mg IV today. Reviewed changed to Methadone that were made yesterday in response to increase symptom burden and PRN requirements in the previous 48h. Reviewed progression of disease in relation to symptom burden. Recommending to add Dilaudid 1.5mg IV dose for severe pain and to keep current 1mg dose for moderate pain. Daughter in agreement with plan. Anticipatory guidance on EOL and ongoing emotional support provided to daughter. All questions answered in great detail. Case discussed with Dr. Crain and Federico. . Family/friend interactions See interval note. . (Ingrid Lehman) Advance Directives Living Will: Never completed Health Care Surrogate: Never completed Durable Power of Pooling Operator: Never completed (Ingrid Lehman) Advance Directive Specifics Health Care Surrogate(s): No written advance directives. According to [place] statutes health care proxy decision-making falls to her spouse. She indicates she would want her spouse to make medical decisions should she become incapacitated. . Significant change in goals: NO CODE. Comfort-directed care in the setting of her terminal condition. No hospice involvement as per family's request. (Ingrid Lehman) Objective Vital Signs Date Time Temp Pulse Resp B/P Pulse Ox O2 Delivery O2 Flow Rate FiO2 06/04/16 08:30 97.2 104 20 113/67 95 06/03/16 20:00 98.7 100 10 134/77 93 Intake & Output 06/04/16 06/04/16 07:00 19:00 # Voids 4 # Bowel Movements 1 Physical Exam CONSTITUTIONAL/GENERAL: This is a frail, chronically ill patient, who appears older than her actual age. alert to self, very lethargic. Intermittent confusion. TUBES/LINES/DRAINS: Mediport. SKIN: Pale. Diffuse erythema and scaling in both extremities. Trace bilateral lower extremity edema. CARDIOVASCULAR: regular rhythm. No murmurs noted. RESPIRATORY/CHEST: Symmetric, clear ,shallow unlabored respirations. no rhonchi or crackles noted. GASTROINTESTINAL: Abdomen with areas of hardening -likely tumor progression, tender right upper and lower quadrant, mildly distended. Bowel sounds hypoactive. GENITOURINARY: Without palpable bladder distension. MUSCULOSKELETAL: Trace edema to BLE. NEUROLOGICAL: Alert, very lethargic. PSYCHIATRIC: calm. . (Ingrid Lehman) Assessment and Plan Disease Oriented Problem List: (1) Ovarian cancer with mets to liver and lung (2) Anemia (3) COPD (chronic obstructive pulmonary disease) Symptom Scale: (1) Intractable pain 0-10 Scale: 3 Comment: secondary to metastatic ovarian cancer with disease progression despite recent chemotherapy, rectovaginal fistula, pelvic mass. (2) Dyspnea 0-10 Scale: Unable to quantify Comment: Mets to lung, CHF, COPD. On oxygen support via [place]. Dilaudid PRN as needed. (3) Vaginal discharge 0-10 Scale: Unable to quantify Comment: Secondary to pelvic mass, rectovaginal fistula. Pertinent Non-Medical Issues Psychosocial: . Supported by her 2 daughters, Shey and Zelda. Also supported by her sister, Yoli. Lives in [place]. Spiritual: Member [employer]. Declines vice principal visits at this time. Legal:No written advance directives. According to [place] statutes health care proxy decision-making falls to her spouse. She indicates she would want her spouse to make medical decisions should she become incapacitated. Ethical issues impacting care: no known concerns at this time. . Important Contacts * Kevin Jim, spouse/HCP: [phone] (cell) or [phone] (home) * Shey Jim, daughter: [phone] cell or [phone] work * Zelda Fuentes, daughter: [phone] cell or [phone] work * Yloi Rosario, sister: [phone] cell or [phone] home . Prognosis Mrs. Jim has recurrent Ovarian cancer with Mets to liver and lung disease progression despite recent palliative chemotherapy admitted with abdominal and vaginal pain. Patient has had ovarian cancer undergoing treatment for the last 10 years, she is certainly hospice appropriate should she elect comfort focused care. Patient is currently transition to end of life with a life expectancy of hours to days if illness runs it natural course. . Code Status: No Code Plan * No written advance directives. According to [place] statutes health care proxy decision-making falls to her spouse. She indicates she would want her spouse to make medical decisions should she become incapacitated. * 06/04/2015: NO CODE -DNR/DNI. Allow a natural . Family declined hospice involvement and request that patient is to be kept in hospital until her . Patient actively dying with life expectancy of hours to days if illness runs its natural course. * Case discussed with Dr. Crain. * SYMPTOMS: Intractable Pain: secondary to metastatic ovarian cancer with disease progression despite recent chemotherapy, rectovaginal fistula, pelvic mass. Remains on fentanyl patch 100mcg q72h. Methadone increased yesterday from 2.5mg q8h to 5mg q12h. Dilaudid IV PRN available. Has required several doses of Dilaudid 1mg in the past 24h. Discussed with family disease progression in regards to symptom burden. Recommending adding Dilaudid IV dose of 1.5mg for severe pain and to keep 1mg IV for moderate pain. Family in agreement. * Active listening and ongoing emotional support provided to family. Anticipatory guidance provided re signs and symptoms of EOL. * Palliative care will continue to follow throughout hospital course for symptom management at EOL. . (Ingrid Lehman) Time Spent Time Periods: Total time to include review of medical records and case disciussion with Dr. Crain and Federico/fitness floor attendant. Total Floor Time (mins): 40 Face to Face Time (mins): 25 >50% Counseling/Coord of Care: Yes (Ingrid Lehman) Collaborating MD Comments To help prompt me to consider important information that might be impacting today's encounter and assessment, information from prior notes written by myself or my colleagues may have been "brought forward" into today's note. My signature on this note, however, is an attestation that I personally performed the exam, history, and/or decision-making noted today, and, unless otherwise indicated, the interactions with patient, family, and staff as well as the review of records all occurred today. I also attest that the listed assessment and stated plan reflect my best clinical judgment today based on the combination of historical information, prior notes, and today's exam/ interactions. When time spent is documented, it refers only to time spent today by the signer, or if indicated, combined time spent today by collaborating physician/nurse practitioner. (Ingrid Lehman) Collaborating MD Comments Chart reviewed. Patient examined personally by me. Case discussed with YOLI Coronado. Above note reviewed and I concur. Patient is sleepy but arousable at time of my visit. There is intermittent grimacing. Daughter at bedside says she will require several doses of the hydromorphone before she is able to finally sleep well. Eating bites and sips. No SOB/nausea reported. Afebrile. Other VS stable. Voiding. Bowels moving. RRR without murmur. Lungs clear. Abdomen firm/tender. Trace edema Discussed balancing further pain relief with sedation . Daughter would like patient more comfortable but wants her awake enough to speak with her who returns tomorrow. PLAN: * Will increase hydromorphone to 1-1.5 mg q 1 hour prn. * Can increase methadone if needed on 06/06/16. Total combined time on floor of physician and POST OFFICE MARKUP CLERK > 40 minutes with chart review, patient exam, discussion with family regarding pain management, order writing. Over 50% spent on counseling/coordination of care. . (Anthony Crain MD) Ingrid Lehman Jun 04, 2016 14:43 Anthony Crain MD Jun 04, 2016 16:05
[2016-06-04] MEDS ORDERED: HYDROmorphone HCL PF 1 MG/ML VIAL IV PRN (15:15)
[2016-06-05] VITALS: BP 123/62; PULSE 102; RESP 10; TEMP 96.1; O2SAT 97
[2016-06-05] MEDS: HYDROmorphone HCL PF 1 MG/ML VIAL IV PRN ×7 (00:34→23:25)
[2016-06-05] MEDS: METHADONE 10 MG/ML IV SCH ×2 (03:00→14:01)
[2016-06-05 08:00] VITALS: BP 129/68; PULSE 100; RESP 16; TEMP 96.9; O2SAT 97
[2016-06-05] MEDS: SODIUM CHLORIDE 0.9% FLUSH 5 ML FLUSH FLUSH SCH ×2 (08:03→22:36)
[2016-06-05] MEDS: ALBUTEROL SULFATE 90 MCG/ACT HFA 18 GM INHALER INH SCH ×4 (09:00→22:36)
[2016-06-05 12:00] VITALS: BP 133/67; PULSE 105; RESP 16; TEMP 97.7; O2SAT 97
[2016-06-05] MEDS: ONDANSETRON INJ 8 MG in DEXTROSE 5% IN WATER INJ 50 ML IV PRN ×2 (12:00)
--- NOTE | 2016-06-05 13:34 | HHI.HCPN ---
Reason for visit a. To assist with evaluation and management of symptoms including: abdominal /pelvic/back pain, dyspnea, confusion. b. To assist medical decision maker(s) with: better understanding of current medical conditions; weighing benefits/burdens of medical treatment options; making medical treatment decisions. . (Ingrid Lehman) Subjective/Interval History Patient seen and examined in oncology floor. Patient on comfort-directed care - family declined hospice. Sister Anastaica at bedside. Patient alert to self, lethargic. Verbal but not always able to communicate needs due to lethargy and confusion. Endorsing abdominal pain, unable to elaborate further. Afebrile, stable BP. Tachycardic with HR in the low 100's. Denies shortness of breath. One episode of nausea this morning. Family requesting to cont checking BS levels , with dextrose IV as needed. Spoke with sister Anastacia at bedside. Reviewed medications changes made yesterday to include increasing Dilaudid PRN dose to 1mg for moderate pain and 1.5mg for sever pain. Patient has required 3 doses PRN this far. Sister feels pain is controlled today. Discussed that based on PRN usage of today, we may need to adjust her methadone one more time. Sister in agreement with plan. Anticipatory guidance on EOL and ongoing emotional support provided to daughter. All questions answered in great detail. Case discussed with Dr. Crain. . Family/friend interactions See interval note. . (Ingrid Lehman) Advance Directives Living Will: Never completed Health Care Surrogate: Never completed Durable Power of Radio Electrician: Never completed (Ingrid Lehman) Advance Directive Specifics Health Care Surrogate(s): No written advance directives. According to [place] statutes health care proxy decision-making falls to her spouse. She indicates she would want her spouse to make medical decisions should she become incapacitated. . Significant change in goals: NO CODE -DNR/DNI. Allow a natural . Family declined hospice involvement and request that patient is to be kept in hospital until her . Patient actively dying with life expectancy of hours to days if illness runs its natural course. (Ingrid Lehman) Objective Vital Signs Date Time Temp Pulse Resp B/P Pulse Ox O2 Delivery O2 Flow Rate FiO2 06/05/16 08:00 96.9 100 16 129/68 97 06/05/16 05:33 11 06/05/16 00:00 96.1 102 10 123/62 97 Intake & Output 06/05/16 06/05/16 07:00 19:00 Intake Total 500 ml Balance 500 ml Intake Oral 500 ml # Voids 3 Physical Exam CONSTITUTIONAL/GENERAL: This is a frail, chronically ill patient, who appears older than her actual age. alert to self, very lethargic. Intermittent confusion. TUBES/LINES/DRAINS: Mediport. SKIN: Pale. Diffuse erythema and scaling in both extremities. Trace bilateral lower extremity edema. CARDIOVASCULAR: regular rhythm. No murmurs noted. RESPIRATORY/CHEST: Symmetric, clear ,shallow unlabored respirations. no rhonchi or crackles noted. GASTROINTESTINAL: Abdomen with areas of hardening -likely tumor progression, tender right upper and lower quadrant, mildly distended. Bowel sounds hypoactive. GENITOURINARY: Without palpable bladder distension. MUSCULOSKELETAL: Trace edema to BLE. NEUROLOGICAL: Alert, very lethargic. PSYCHIATRIC: calm. . (Ingrid Lehman) Assessment and Plan Disease Oriented Problem List: (1) Ovarian cancer with mets to liver and lung (2) Anemia (3) COPD (chronic obstructive pulmonary disease) Symptom Scale: (1) Intractable pain 0-10 Scale: 3 Comment: secondary to metastatic ovarian cancer with disease progression despite recent chemotherapy, rectovaginal fistula, pelvic mass. (2) Dyspnea 0-10 Scale: Unable to quantify Comment: Mets to lung, CHF, COPD. On oxygen support via [place]. Dilaudid PRN as needed. Pertinent Non-Medical Issues Psychosocial: . Supported by her 2 daughters, Shey and Zelda. Also supported by her sister, Yoli. Lives in [place]. Spiritual: Member [employer]. Declines census clerk visits at this time. Legal:No written advance directives. According to [place] statutes health care proxy decision-making falls to her spouse. She indicates she would want her spouse to make medical decisions should she become incapacitated. Ethical issues impacting care: no known concerns at this time. . Important Contacts * Kevin Jim, spouse/HCP: [phone] (cell) or [phone] (home) * Shey Jim, daughter: [phone] cell or [phone] work * Zelda Fuentes, daughter: [phone] cell or [phone] work * Yoli Rosario, sister: [phone] cell or [phone] home . Prognosis Mrs. Jim has recurrent Ovarian cancer with Mets to liver and lung disease progression despite recent palliative chemotherapy admitted with abdominal and vaginal pain. Patient has had ovarian cancer undergoing treatment for the last 10 years, she is certainly hospice appropriate should she elect comfort focused care. Patient is currently transition to end of life with a life expectancy of hours to days if illness runs it natural course. . Code Status: No Code Plan * No written advance directives. According to [place] statutes health care proxy decision-making falls to her spouse. She indicates she would want her spouse to make medical decisions should she become incapacitated. * 06/05/2015: NO CODE -DNR/DNI. Allow a natural . Family declined hospice involvement and request that patient is to be kept in hospital until her . Patient actively dying with life expectancy of hours to days if illness runs its natural course. * Case discussed with Dr. Crain. * SYMPTOMS: Intractable Pain: secondary to metastatic ovarian cancer with disease progression despite recent chemotherapy, rectovaginal fistula, pelvic mass. Remains on fentanyl patch 100mcg q72h. Methadone increased 06/03 from 2.5mg q8h to 5mg q12h. Dilaudid IV PRN increased 06/04 to 1mg for moderate pain and 1.5mg for severe pain. Has required 3 doses of PRN Dilaudid today. Discussed with family disease progression in regards to symptom burden. Recommending adjusting Methadone dose tomorrow based on Dilaudid PRN usage. Family in agreement. * Active listening and ongoing emotional support provided to family. Anticipatory guidance provided re signs and symptoms of EOL. * Palliative care will continue to follow throughout hospital course for symptom management at EOL. . (Ingrid Lehman) Time Spent Time Periods: Total Floor Time (mins): 33 Face to Face Time (mins): 25 >50% Counseling/Coord of Care: Yes (Ingrid Lehman) Attestation To help prompt me to consider important information that might be impacting today's encounter and assessment, information from prior notes written by myself or my colleagues may have been "brought forward" into today's note. My signature on this note, however, is an attestation that I personally performed the exam, history, and/or decision-making noted today, and, unless otherwise indicated, the interactions with patient, family, and staff as well as the review of records all occurred today. I also attest that the listed assessment and stated plan reflect my best clinical judgment today based on the combination of historical information, prior notes, and today's exam/ interactions. When time spent is documented, it refers only to time spent today by the signer, or if indicated, combined time spent today by collaborating physician/nurse practitioner. (Ingrid Lehman) Collaborating MD Comments Chart reviewed. Case discussed with palliative care BRANCH OFFICE ADMINISTRATOR. Above BRANCH OFFICE ADMINISTRATOR note reviewed and I concur. . (Anthony Crain MD) Ingrid Lehman Jun 05, 2016 13:34 Anthony Crain MD Jul 19, 2016 14:13
[2016-06-05 16:32] VITALS: BP 114/67; PULSE 101; RESP 16; TEMP 98; O2SAT 99
[2016-06-05 20:00] VITALS: BP 104/53; PULSE 100; RESP 17; TEMP 98.9; O2SAT 92
[2016-06-06] VITALS: BP 115/69; PULSE 103; RESP 18; TEMP 97.6; O2SAT 100
[2016-06-06] MEDS: HYDROmorphone HCL PF 1 MG/ML VIAL IV PRN ×8 (00:32→20:21)
[2016-06-06] MEDS: METHADONE 10 MG/ML IV SCH (03:00)
[2016-06-06 08:00] VITALS: BP 110/59; PULSE 103; RESP 18; TEMP 96.1; O2SAT 98
[2016-06-06] MEDS: ALBUTEROL SULFATE 90 MCG/ACT HFA 18 GM INHALER INH SCH ×4 (09:00→20:28)
[2016-06-06] MEDS: SODIUM CHLORIDE 0.9% FLUSH 5 ML FLUSH FLUSH SCH ×2 (09:00→20:28)
[2016-06-06] MEDS: ONDANSETRON INJ 8 MG in DEXTROSE 5% IN WATER INJ 50 ML IV PRN ×2 (09:55)
--- NOTE | 2016-06-06 14:03 | HHI.HCPN ---
Reason for visit a. To assist with evaluation and management of symptoms including: abdominal /pelvic/back pain, dyspnea, confusion. b. To assist medical decision maker(s) with: better understanding of current medical conditions; weighing benefits/burdens of medical treatment options; making medical treatment decisions. . (Ingrid Lehman) Subjective/Interval History Patient seen and examined in oncology floor. Patient on comfort-directed care - family declined hospice. Daughter Zelda at bedside. Patient alert to self, lethargic. Verbal but not always able to communicate needs due to lethargy and confusion. Endorsing abdominal pain that is worsen by any movement. Has received multiple doses of PRN Dilaudid in the last 24h. Afebrile, stable BP. Denies shortness of breath. nauseous, received Zofran IV. Family requesting to cont checking BS levels, with dextrose IV as needed. Spoke with steve Ndiaye at bedside. Reviewed multiple doses of PRN Dilaudid given in the past 24h -total of 7 doses yesterday and 4 doses today thus far. Discussed that based on PRN usage, I recommend to adjust her methadone IV from 5mg q12h to 5mg q8h. Daughter and sister Anastacia in agreement with this Methadone adjustment. Anticipatory guidance on EOL and ongoing emotional support provided to daughter. All questions answered in great detail. Case discussed with Dr. Crain. . Family/friend interactions See interval note. . (Ingrid Lehman) Advance Directives Living Will: Never completed Health Care Surrogate: Never completed Durable Power of Materials Clerk: Never completed (Ingrid Lehman) Advance Directive Specifics Health Care Surrogate(s): No written advance directives. According to [place] statutes health care proxy decision-making falls to her spouse. She indicates she would want her spouse to make medical decisions should she become incapacitated. . Significant change in goals: Remains unchanged. NO CODE -DNR/DNI. Allow a natural . Family declined hospice involvement and request that patient is to be kept in hospital until her . Patient actively dying with life expectancy of hours to days if illness runs its natural course. (Ingrid Lehman) Objective Vital Signs Date Time Temp Pulse Resp B/P Pulse Ox O2 Delivery O2 Flow Rate FiO2 06/06/16 08:00 96.1 103 18 110/59 98 06/06/16 00:02 12 06/06/16 00:00 97.6 103 18 115/69 100 06/05/16 20:00 98.9 100 17 104/53 92 06/05/16 16:32 98.0 101 16 114/67 99 Intake & Output 06/06/16 06/06/16 07:00 19:00 Intake Total 240 ml Output Total 3 ml Balance 237 ml Intake Oral 240 ml Output Urine Total 3 ml # Voids 2 # Bowel Movements 4 Physical Exam CONSTITUTIONAL/GENERAL: This is a frail, chronically ill patient, who appears older than her actual age. alert to self, very lethargic. Intermittent confusion. TUBES/LINES/DRAINS: Mediport. SKIN: Pale. Diffuse erythema and scaling in both extremities. Trace bilateral lower extremity edema L>R. CARDIOVASCULAR: regular rhythm. No murmurs noted. RESPIRATORY/CHEST: Symmetric, clear ,shallow unlabored respirations. no rhonchi or crackles noted. GASTROINTESTINAL: Abdomen with areas of hardening -tumor progression, distended with prominent abdominal venous pattern with dilated veins noted on abdominal wall. Bowel sounds hypoactive. GENITOURINARY: Without palpable bladder distension. MUSCULOSKELETAL: Trace edema to BLE. NEUROLOGICAL: Alert, very lethargic. PSYCHIATRIC: calm. . (Ingrid Lehman) Assessment and Plan Disease Oriented Problem List: (1) Ovarian cancer with mets to liver and lung (2) Anemia (3) COPD (chronic obstructive pulmonary disease) Symptom Scale: (1) Intractable pain 0-10 Scale: 3 Comment: secondary to metastatic ovarian cancer with disease progression despite recent chemotherapy, rectovaginal fistula, pelvic mass. (2) Dyspnea 0-10 Scale: Unable to quantify Comment: Mets to lung, CHF, COPD. On oxygen support via [place]. Dilaudid PRN as needed. Pertinent Non-Medical Issues Psychosocial: . Supported by her 2 daughters, Shey and Zelda. Also supported by her sister, Yoli. Lives in [place]. Spiritual: Member [employer]. Declines international logistics coordinator visits at this time. Legal:No written advance directives. According to [place] statutes health care proxy decision-making falls to her spouse. She indicates she would want her spouse to make medical decisions should she become incapacitated. Ethical issues impacting care: no known concerns at this time. . Important Contacts * Kevin Jim, spouse/HCP: [phone] (cell) or [phone] (home) * Shey Jim, daughter: [phone] cell or [phone] work * Zelda Fuentes, daughter: [phone] cell or [phone] work * Yoli Rosario, sister: [phone] cell or [phone] home . Prognosis Mrs. Jim has recurrent Ovarian cancer with Mets to liver and lung disease progression despite recent palliative chemotherapy admitted with abdominal and vaginal pain. Patient has had ovarian cancer undergoing treatment for the last 10 years, she is certainly hospice appropriate should she elect comfort focused care. Patient is currently transition to end of life with a life expectancy of hours to days if illness runs it natural course. . Code Status: No Code Plan * No written advance directives. According to [place] statutes health care proxy decision-making falls to her spouse. She indicates she would want her spouse to make medical decisions should she become incapacitated. * 06/05/2015: NO CODE -DNR/DNI. Allow a natural . Family declined hospice involvement and request that patient is to be kept in hospital until her . Patient actively dying with life expectancy of hours to days if illness runs its natural course. * Case discussed with Dr. Crain. * SYMPTOMS: Intractable Pain: secondary to burden of disease. Remains on fentanyl patch 100mcg q72h. Methadone increased 06/03 from 2.5mg q8h to 5mg q12h. Dilaudid IV PRN increased 06/04 to 1mg for moderate pain and 1.5mg for severe pain. Has required 7 doses of PRN Dilaudid yesterday and 4 today thus far. Discussed with family disease progression in regards to symptom burden. Recommending adjusting Methadone IV dose to 5mg q8h based on Dilaudid PRN usage. Family in agreement. * Active listening and ongoing emotional support provided to family. Anticipatory guidance provided re signs and symptoms of EOL. * Palliative care will continue to follow throughout hospital course for symptom management at EOL. . (Ingrid Lheman) Time Spent Total Floor Time (mins): 38 Face to Face Time (mins): 25 >50% Counseling/Coord of Care: Yes (Ingrid Lehman) Attestation To help prompt me to consider important information that might be impacting today's encounter and assessment, information from prior notes written by myself or my colleagues may have been "brought forward" into today's note. My signature on this note, however, is an attestation that I personally performed the exam, history, and/or decision-making noted today, and, unless otherwise indicated, the interactions with patient, family, and staff as well as the review of records all occurred today. I also attest that the listed assessment and stated plan reflect my best clinical judgment today based on the combination of historical information, prior notes, and today's exam/ interactions. When time spent is documented, it refers only to time spent today by the signer, or if indicated, combined time spent today by collaborating physician/nurse practitioner. (Ingrid Lehman) Collaborating MD Comments Chart reviewed. Case discussed with palliative care AIR EXPORT LOGISTICS MANAGER. Above YOLI note reviewed and I concur. . (Anthony Crain MD) Ingrid Lehman Jun 06, 2016 14:02 Anthony Crain MD Jul 19, 2016 14:38
[2016-06-06] MEDS: METHADONE 10 MG/ML VIAL IV SCH ×2 (15:00→23:22)
[2016-06-06] MEDS ORDERED: METHADONE 10 MG/ML VIAL IV SCH (15:00)
[2016-06-06] MEDS: fentaNYL 100 MCG/HR PATCH TD SCH (17:32)
[2016-06-06] MEDS: REMOVE OLD DURAGESIC (FENTANYL) PATCH TD SCH (17:32)
[2016-06-06 20:00] VITALS: BP 107/57; PULSE 98; RESP 12; TEMP 98.1; O2SAT 98
[2016-06-07] VITALS: BP 108/57; PULSE 100; RESP 11; TEMP 97.3; O2SAT 97
[2016-06-07] MEDS: HYDROmorphone HCL PF 1 MG/ML VIAL IV PRN ×6 (02:33→21:04)
[2016-06-07] MEDS: METHADONE 10 MG/ML VIAL IV SCH ×3 (06:08→23:18)
[2016-06-07 08:00] VITALS: BP 110/62; PULSE 102; RESP 20; TEMP 96.6; O2SAT 98
[2016-06-07] MEDS: SODIUM CHLORIDE 0.9% FLUSH 5 ML FLUSH FLUSH SCH ×2 (08:06→21:05)
[2016-06-07] MEDS: ALBUTEROL SULFATE 90 MCG/ACT HFA 18 GM INHALER INH SCH ×4 (08:07→21:05)
[2016-06-07 12:30] VITALS: RESP 6
--- NOTE | 2016-06-07 14:55 | HHI.HCPN ---
Reason for visit a. To assist with evaluation and management of symptoms including: abdominal /pelvic/back pain, dyspnea, confusion. b. To assist medical decision maker(s) with: better understanding of current medical conditions; weighing benefits/burdens of medical treatment options; making medical treatment decisions. . Subjective/Interval History Ms. Jim is awake and alert at time of my visit. Daughter - Zelda- and Zelda 's and children are present at bedside. Patient denies pain, SOB and Zelda confirms that her mother has appeared comfortable. There has been no nausea/vomiting (no Odansetron use for over 24 hours). Patient reports and daughter confirms that she has been tolerating bites of food and has been drinking a fair amount of juice. Daughter had requested an Accucheck today and the bedside blood glucose was 85 (she was mostly in the 70's on 06/06/16). Methadone was advanced to 5 mg q 8 hours evening of 06/06/16 so it is too early to notice any impact on need for her PRN hydromorphone. She has used 7 doses of the 1.5 mg of hydromorphone in 24 hours. No evidence of myoclonic jerking, hyperalgesia, allodynia on the current opiate regimen. VS stable. Voiding regularly per nursing notes. Bowels are moving. . Family/friend interactions Patient and family understand that methadone was increased yesterday. They all agree with the plan to maintain our current regimen. . Advance Directives Living Will: Never completed Health Care Surrogate: Never completed Durable Power of International Account Executive: Never completed Advance Directive Specifics Health Care Surrogate(s): No written advance directives. According to [place] statutes health care proxy decision-making falls to her spouse. She indicates she would want her spouse to make medical decisions should she become incapacitated. . Significant change in goals: Patient/family have agreed to "comfort measures only" but want this plan of care implemented without involvement of hospice. . Objective Vital Signs Date Time Temp Pulse Resp B/P Pulse Ox O2 Delivery O2 Flow Rate FiO2 06/07/16 12:30 6 06/07/16 08:00 96.6 102 20 110/62 98 06/07/16 00:00 97.3 100 11 108/57 97 06/06/16 20:00 98.1 98 12 107/57 98 Intake & Output 06/07/16 06/07/16 07:00 19:00 Intake Total 120 ml 0 ml Balance 120 ml 0 ml Intake Oral 120 ml 0 ml # Voids 2 3 # Bowel Movements 2 3 . Physical Exam CONSTITUTIONAL/GENERAL: This is a frail, chronically ill patient, who appears older than her actual age. Awake. Comfortable appearing and able to smile, laugh , and answer simple questions appropriately. TUBES/LINES/DRAINS: Mediport. SKIN: Pale. Diffuse erythema and scaling in both extremities. Skin appropriately warm without diaphoresis. CARDIOVASCULAR: regular rhythm. No murmurs noted. RESPIRATORY/CHEST: Symmetric, clear ,shallow unlabored respirations. no rhonchi or crackles noted. GASTROINTESTINAL: Abdomen with areas of hardening -tumor progression, distended with prominent abdominal venous pattern with dilated veins noted on abdominal wall. Diffuse tenderness to palpation. Bowel sounds hypoactive. GENITOURINARY: Without palpable bladder distension. MUSCULOSKELETAL: 1+ edema RLE; 2+ LLE. Uncomfortable with movement. NEUROLOGICAL: Alert, very lethargic. No myoclonic jerking. PSYCHIATRIC: No evidence of depression/anxiety or psychotic process. . Diagnostic Tests Imaging Last Impressions Abdomen Ultrasound 05/20/16 1443 Signed Impressions: Service Date/Time: Friday, May 20, 2016 15:19 - CONCLUSION: Negative for ascites. Moshe Nam MD FACR Chest X-Ray 05/19/16 0000 Signed Impressions: Service Date/Time: Thursday, May 19, 2016 18:19 - CONCLUSION: 1. Right Hromvo-t-Ancv in superior vena cava. Mild basilar airspace disease. No pneumothorax. Edgardo Lockhart MD Upper Extremity Ultrasound 05/16/16 0000 Signed Impressions: Service Date/Time: Monday, May 16, 2016 15:23 - CONCLUSION: Partial left brachial vein DVT. Simeon Hart MD Abdomen/Pelvis CT 04/28/16 1047 Signed Impressions: Service Date/Time: Thursday, April 28, 2016 12:16 - CONCLUSION: 1. Worsening of hepatic metastatic disease since January 21. 2. Increasing size of right middle lobe metastatic lung nodule. 3. Increasing size of pelvic mass just below the expandable sigmoid stent. 4. Development of moderate left hydronephrosis with left ureteral stent remaining in place. 5. Development of anasarca. 6. Slight increase in biliary ductal dilatation. Edgardo Lockhart MD Lower Extremity Ultrasound 04/28/16 0000 Signed Impressions: Service Date/Time: Thursday, April 28, 2016 15:49 - CONCLUSION: 1. Occlusive and nonocclusive deep venous thrombosis in the left lower extremity as above. Popliteal cyst also present. Edgardo Lockhart MD . 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 Hg had fallen as low as 7.0. Last Hg level on 05/28/16 was 9.2 . (3) COPD (chronic obstructive pulmonary disease) (4) Thromboembolic disorder Comment: Ultrasound of 05/16/16 showed partial left brachial DVT. Ultrasound of 04/28/16 shoed occlusive and non-occlusive deep venous thrombosis in left lower extremity. . Symptom Scale: (1) Intractable pain 0-10 Scale: 3 Comment: secondary to metastatic ovarian cancer with disease progression despite recent chemotherapy, rectovaginal fistula, pelvic mass. (2) Dyspnea 0-10 Scale: Unable to quantify Comment: Mets to lung, CHF, COPD. On oxygen support via NC. Dilaudid PRN as needed. (3) Edema 0-10 Scale: 2 Comment: Edema mostly in lower extermities left worse than right. Has known DVT on left. . (4) Nausea 0-10 Scale: Unable to quantify Comment: Currently with rare need of odansetron. Nausea is probably multi- factorial including tumor pressure and meds. . Pertinent Non-Medical Issues Psychosocial: . Supported by her 2 daughters, Shey and Zelda. Also supported by her sister, Yoli. Lives in [place]. Spiritual: Member [employer]. 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 Legal:No written advance directives. According to [place] statutes health care proxy decision-making falls to her spouse. She indicates she would want her spouse to make medical decisions should she become incapacitated. Ethical issues impacting care: no known concerns at this time. . Important Contacts * Kevin Jim, spouse/HCP: [phone] (cell) or [phone] (home) * Shey Jim, daughter: [phone] cell or [phone] work * Zelda Fuentes, daughter: [phone] cell or [phone] work * Yoli Rosario, sister: [phone] cell or [phone] home . Prognosis Mrs. Jim has recurrent Ovarian cancer with Mets to liver and lung disease progression despite recent palliative chemotherapy admitted with abdominal and vaginal pain. Patient has had ovarian cancer undergoing treatment for the last 10 years, she is certainly hospice appropriate should she elect comfort focused care. Patient is currently transition to end of life with a life expectancy of hours to days if illness runs it natural course. . Code Status: No Code Plan * No written advance directives. According to [place] statutes health care proxy decision-making falls to her spouse. She indicates she would want her spouse to make medical decisions should she become incapacitated. * 06/05/2015: NO CODE -DNR/DNI. Allow a natural . Family declined hospice involvement and request that patient is to be kept in hospital until her . Patient actively dying with life expectancy of hours to days if illness runs its natural course. * Pain: secondary to burden of disease. Remains on fentanyl patch 100mcg q72h. Methadone increased 06/06 from 5mg q12h to 5mg q8h. Dilaudid IV PRN increased 06/04 to 1mg for moderate pain and 1.5mg for severe pain. Has required 7 doses of PRN Dilaudid in 24 hours. . Discussed plan with patient and family to maintain current analgesic regimen and all are in agreement. Will hopefully begin to see less need for the PRN hydromorphone as we uptitrate methadone. Anticipate decline in renal function as disease progresses and she drinks less. Opiate duration of action should increase. Will continue to monitor for signs of opiate toxicity -- delirium, myoclonic jerking, hyperalgesia, allodynia. * Nausea/vomiting: Now with rare need of odansetron. Orders sufficient. No further recommendation at this time. * Edema: Most edema is in LLE. THis is probably from DVT noted on last imaging. There may also be great vein compression in the abdomen from tumor mass. Doubt diuretic would provide any benefit. Recommend elevation if uncomfortable. * Active listening and ongoing emotional support provided to family. Anticipatory guidance provided re signs and symptoms of EOL. * Palliative care will continue to follow throughout hospital course for symptom management at EOL. . Attestation To help prompt me to consider important information that might be impacting today's encounter and assessment, information from prior notes written by myself or my colleagues may have been "brought forward" into today's note. My signature on this note, however, is an attestation that I personally performed the exam, history, and/or decision-making noted today, and, unless otherwise indicated, the interactions with patient, family, and staff as well as the review of records all occurred today. I also attest that the listed assessment and stated plan reflect my best clinical judgment today based on the combination of historical information, prior notes, and today's exam/ interactions. When time spent is documented, it refers only to time spent today by the signer, or if indicated, combined time spent today by collaborating physician/nurse practitioner. . Anthony Crain MD Jun 07, 2016 14:54
[2016-06-07 20:00] VITALS: BP 118/54; PULSE 98; RESP 12; TEMP 98.1; O2SAT 94
[2016-06-08] MEDS: HYDROmorphone HCL PF 1 MG/ML VIAL IV PRN ×7 (02:45→21:39)
[2016-06-08] MEDS: METHADONE 10 MG/ML VIAL IV SCH ×3 (06:40→22:38)
[2016-06-08 08:00] VITALS: BP 112/61; PULSE 98; RESP 10; TEMP 97.9; O2SAT 99
[2016-06-08] MEDS: ALBUTEROL SULFATE 90 MCG/ACT HFA 18 GM INHALER INH SCH ×4 (08:02→22:38)
[2016-06-08] MEDS: SODIUM CHLORIDE 0.9% FLUSH 5 ML FLUSH FLUSH SCH ×2 (08:02→22:39)
--- NOTE | 2016-06-08 14:09 | HHI.HCPN ---
Reason for visit a. To assist with evaluation and management of symptoms including: abdominal /pelvic/back pain, dyspnea, confusion. b. To assist medical decision maker(s) with: better understanding of current medical conditions; weighing benefits/burdens of medical treatment options; making medical treatment decisions. . Subjective/Interval History No significant change overnight. Ms. Jim is awake and alert at time of my visit. There is some moaning when I enter the room, but when I directly ask her about her pain, she indicates it is well managed with the current regimen. Daughter -- Shey -- is at bedside and confirms that the patient has been doing relatively well. She was comfortable and talkative earlier today . She continues to drink and had some bites of cottage cheese today. She is voiding and bowels are moving. No complaints of nausea, dyspnea. Continues to have intermittent confusion but is able to answer simple questions appropriately at time of my visit. Pain levels continue to reach a max of #7-9. She continues to use about 7 doses of 1.5 mg of hydromorphone per 24 hours in addition to her fentanyl patch and methadone. Patient usually falls asleep in response to the hydromorphone dosing. Methadone was increased to 5 mg q 8 hours on 06/06/16. There has not been a noticeable clinical impact of the increased methadone as of yet -- no decreased need for hyrdromorphone and no evidence of increased sedation. No evidence of myoclonic jerking, hyperalgesia, allodynia on the current opiate regimen to suggest opiate toxicity. No need for PRN benzo since 05/29/16. No need for prn albuterol since . No need for prn ondansetron since 06/06/16. VSS afebrile. No new imaging. Accucheck 73 this AM. . Family/friend interactions Daughter Shey and Shey's daughter at bedside. We reviewed the current regimen for symptom management. I indicated that our goal was manage symptoms according to Ms. Jim's preferences. I once again emphasized that we can increase either dose or frequency of the hydromorphone if/when patient wants but that the trade off would be some increased sedation. All are in agreement to continue with the current regimen at that this time. . Advance Directives Living Will: Never completed Health Care Surrogate: Never completed Durable Power of Telephone Betting Clerk: Never completed Advance Directive Specifics Health Care Surrogate(s): No written advance directives. According to [place] statutes health care proxy decision-making falls to her spouse. She indicates she would want her spouse to make medical decisions should she become incapacitated. . Objective Vital Signs Date Time Temp Pulse Resp B/P Pulse Ox O2 Delivery O2 Flow Rate FiO2 06/08/16 08:00 97.9 98 10 112/61 99 06/07/16 20:00 98.1 98 12 118/54 94 Intake & Output 06/08/16 06/08/16 07:00 19:00 Intake Total 720 ml Balance 720 ml Intake Oral 720 ml # Voids 3 # Bowel Movements 2 . Physical Exam CONSTITUTIONAL/GENERAL: This is a frail, chronically ill patient, who appears older than her actual age. Awake. Moaning with some grimacing when I enter the room, but moaning immediately stops and she smiles and converses when i engage her. TUBES/LINES/DRAINS: Mediport. SKIN: Pale. Diffuse erythema and scaling in both extremities. Skin appropriately warm without diaphoresis. CARDIOVASCULAR: regular rhythm. No murmurs auscultated. RESPIRATORY/CHEST: Symmetric, clear ,shallow unlabored respirations. no rhonchi or crackles noted. GASTROINTESTINAL: Abdomen with areas of hardening -tumor progression, distended with prominent abdominal venous pattern with dilated veins noted on abdominal wall. Diffuse tenderness to palpation. Bowel sounds hypoactive. GENITOURINARY: Without palpable bladder distension. MUSCULOSKELETAL: 1+ edema RLE; 2+ LLE. Lower extremities uncomfortable with movement. NEUROLOGICAL: Awake. Answers simple questions appropriately. Moves all extremities. No myoclonic jerking. PSYCHIATRIC: No evidence of depression/anxiety or psychotic process. . Diagnostic Tests Laboratory Test 05/28/16 17:26 White Blood Count 10.2 TH/MM3 (4.0-11.0) Red Blood Count 3.29 MIL/MM3 (4.00-5.30) Hemoglobin 9.2 GM/DL (11.6-15.3) Hematocrit 28.3 % (35.0-46.0) Mean Corpuscular Volume 85.9 FL (80.0-100.0) Mean Corpuscular Hemoglobin 27.9 PG (27.0-34.0) Mean Corpuscular Hemoglobin 32.5 % Concent (32.0-36.0) Red Cell Distribution Width 17.7 % (11.6-17.2) Platelet Count 272 TH/MM3 (150-450) Mean Platelet Volume 7.9 FL (7.0-11.0) Neutrophils (%) (Auto) 85.0 % (16.0-70.0) Lymphocytes (%) (Auto) 6.3 % (9.0-44.0) Monocytes (%) (Auto) 8.5 % (0.0-8.0) Eosinophils (%) (Auto) 0.2 % (0.0-4.0) Basophils (%) (Auto) 0.0 % (0.0-2.0) Neutrophils # (Auto) 8.7 TH/MM3 (1.8-7.7) Lymphocytes # (Auto) 0.6 TH/MM3 (1.0-4.8) Monocytes # (Auto) 0.9 TH/MM3 (0-0.9) Eosinophils # (Auto) 0.0 TH/MM3 (0-0.4) Basophils # (Auto) 0.0 TH/MM3 (0-0.2) CBC Comment DIFF FINAL Differential Comment Sodium Level 137 MEQ/L (136-145) Potassium Level 3.8 MEQ/L (3.5-5.1) Chloride Level 104 MEQ/L (98-107) Carbon Dioxide Level 23.6 MEQ/L (21.0-32.0) Anion Gap 9 MEQ/L (5-15) Blood Urea Nitrogen 16 MG/DL (7-18) Creatinine 0.95 MG/DL (0.50-1.00) Estimat Glomerular Filtration 59 ML/MIN (>89) Rate Random Glucose 43 MG/DL (74-106) Calcium Level 7.9 MG/DL (8.5-10.1) Result Diagram: 05/28/16 1726 05/28/16 1726 . Imaging Last Impressions Abdomen Ultrasound 05/20/16 1443 Signed Impressions: Service Date/Time: Friday, May 20, 2016 15:19 - CONCLUSION: Negative for ascites. Moshe Nam MD FACR Chest X-Ray 05/19/16 0000 Signed Impressions: Service Date/Time: Thursday, May 19, 2016 18:19 - CONCLUSION: 1. Right Baziyu-y-Eixl in superior vena cava. Mild basilar airspace disease. No pneumothorax. Edgardo Lockhart MD Upper Extremity Ultrasound 05/16/16 0000 Signed Impressions: Service Date/Time: Monday, May 16, 2016 15:23 - CONCLUSION: Partial left brachial vein DVT. Simeon Hart MD Abdomen/Pelvis CT 04/28/16 1047 Signed Impressions: Service Date/Time: Thursday, April 28, 2016 12:16 - CONCLUSION: 1. Worsening of hepatic metastatic disease since January 21. 2. Increasing size of right middle lobe metastatic lung nodule. 3. Increasing size of pelvic mass just below the expandable sigmoid stent. 4. Development of moderate left hydronephrosis with left ureteral stent remaining in place. 5. Development of anasarca. 6. Slight increase in biliary ductal dilatation. Edgardo Lockhart MD Lower Extremity Ultrasound 04/28/16 0000 Signed Impressions: Service Date/Time: Thursday, April 28, 2016 15:49 - CONCLUSION: 1. Occlusive and nonocclusive deep venous thrombosis in the left lower extremity as above. Popliteal cyst also present. Edgardo Lockhart MD Assessment and Plan Disease Oriented Problem List: (1) Ovarian cancer with mets to liver and lung (2) Anemia Comment: Received two units of blood during this admission -- 05/15/16 and . Hg had fallen as low as 7.0. Last Hg level on 05/28/16 was 9.2 . (3) COPD (chronic obstructive pulmonary disease) (4) Thromboembolic disorder Comment: Ultrasound of 05/16/16 showed partial left brachial DVT. Ultrasound of 04/28/16 shoed occlusive and non-occlusive deep venous thrombosis in left lower extremity. . Symptom Scale: (1) Intractable pain 0-10 Scale: 7 Comment: secondary to metastatic ovarian cancer with disease progression despite recent chemotherapy, rectovaginal fistula, pelvic mass. Pain levels continue to reach #7-9 daily. (2) Dyspnea 0-10 Scale: Unable to quantify Comment: Mets to lung, CHF, COPD. On oxygen support via [place]. Dilaudid PRN as needed. (3) Edema 0-10 Scale: 2 Comment: Edema mostly in lower extremities left worse than right. Has known DVT on left. . (4) Nausea 0-10 Scale: 0 Comment: Currently with rare need of odansetron. Nausea is probably multi- factorial including tumor pressure and meds. . Pertinent Non-Medical Issues Psychosocial: . Supported by her 2 daughters, Shey and Zelda. Also supported by her sister, Yoli. Lives in [place]. Spiritual: Member [employer]. 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 Legal:No written advance directives. According to [place] statutes health care proxy decision-making falls to her spouse. She indicates she would want her spouse to make medical decisions should she become incapacitated. Ethical issues impacting care: no known concerns at this time. . Important Contacts * Kevin Jim, spouse/HCP: [phone] (cell) or [phone] (home) * Shey Jim, daughter: [phone] cell or [phone] work * Zelda Fuentes, daughter: [phone] cell or [phone] work * Yoli Rosario, sister: [phone] cell or [phone] home . Prognosis Mrs. Jim has recurrent Ovarian cancer with Mets to liver and lung disease progression despite recent palliative chemotherapy admitted with abdominal and vaginal pain. Patient has had ovarian cancer undergoing treatment for the last 10 years, she is certainly hospice appropriate should she elect comfort focused care. Patient is currently transition to end of life with a life expectancy of hours to days if illness runs it natural course. . Code Status: No Code Plan * No written advance directives. According to [place] statutes health care proxy decision-making falls to her spouse. She indicates she would want her spouse to make medical decisions should she become incapacitated. * 06/05/2015: NO CODE -DNR/DNI. Allow a natural . Family declined hospice involvement and request that patient is to be kept in hospital until her . Patient actively dying with life expectancy of hours to days if illness runs its natural course. * Pain: secondary to burden of disease. Remains on fentanyl patch 100mcg q72h. Methadone increased 06/06 from 5mg q12h to 5mg q8h. Dilaudid IV PRN increased 06/04 to 1mg for moderate pain and 1.5mg for severe pain. Has required 7 doses of PRN Dilaudid in 24 hours. . Discussed plan with patient and family to maintain current analgesic regimen and all are in agreement. Will hopefully begin to see less need for the PRN hydromorphone as we up-titrate methadone. Given patient's tolerance to previous up-dosing of methadone, we could easily go to 7.5 mg q 8 hours and could do this as early as 06/09/16. Anticipate decline in renal function as disease progresses and she drinks less. Opiate duration of action should increase. Will continue to monitor for signs of opiate toxicity -- delirium, myoclonic jerking, hyperalgesia, allodynia. * Nausea/vomiting: Now with rare need of odansetron. Orders sufficient. No further recommendation at this time. * Edema: Most edema is in LLE. This is probably from DVT noted on last imaging. There may also be great vein compression in the abdomen from tumor mass. Doubt diuretic would provide any benefit. Recommend elevation if uncomfortable. * Active listening and ongoing emotional support provided to family. Anticipatory guidance provided re signs and symptoms of EOL. * Palliative care will continue to follow throughout hospital course for symptom management at EOL. . Attestation To help prompt me to consider important information that might be impacting today's encounter and assessment, information from prior notes written by myself or my colleagues may have been "brought forward" into today's note. My signature on this note, however, is an attestation that I personally performed the exam, history, and/or decision-making noted today, and, unless otherwise indicated, the interactions with patient, family, and staff as well as the review of records all occurred today. I also attest that the listed assessment and stated plan reflect my best clinical judgment today based on the combination of historical information, prior notes, and today's exam/ interactions. When time spent is documented, it refers only to time spent today by the signer, or if indicated, combined time spent today by collaborating physician/nurse practitioner. . Anthony Crain MD Jun 08, 2016 14:09
[2016-06-08 20:00] VITALS: BP 112/58; PULSE 97; RESP 16; TEMP 97.7; O2SAT 98
[2016-06-09] MEDS: HYDROmorphone HCL PF 1 MG/ML VIAL IV PRN ×11 (01:12→22:59)
[2016-06-09] MEDS: METHADONE 10 MG/ML VIAL IV SCH ×3 (06:05→22:58)
[2016-06-09 07:55] VITALS: BP 94/51; PULSE 103; RESP 10; TEMP 97.8; O2SAT 99
[2016-06-09] MEDS: SODIUM CHLORIDE 0.9% FLUSH 5 ML FLUSH FLUSH SCH ×2 (08:30→20:18)
[2016-06-09] MEDS: ALBUTEROL SULFATE 90 MCG/ACT HFA 18 GM INHALER INH SCH ×4 (08:30→21:00)
--- NOTE | 2016-06-09 08:44 | PD.ONC.PN ---
Subjective Subjective Remarks Mrs. Jim is sleeping during my visit today I talked with both her night RN and Her believes that she was more painful last night because other family members do not want her to have as much PRN Dilaudid so he believes that they were "playing catch up" all night. He states that he is going to talk to the other family members about the importance of keeping her pain under control and allowing the PRN Dilaudid whenever Linda needs it. I agreed. Otherwise Mr. Jim is very thankful for the care that Linda is receiving. Objective Data Date Time Temp Pulse Resp B/P Pulse Ox O2 Delivery O2 Flow Rate FiO2 06/09/16 07:55 97.8 103 10 94/51 99 06/08/16 20:00 97.7 97 16 112/58 98 Administered Medications Medications (Trade) Dose Ordered Sig/Perry Route PRN Reason Start Time Stop Time Status Last Admin Dose Admin IV Flush (NS Flush) 2 ml UNSCH PRN FLUSH FLUSH AFTER USING IV ACCESS 04/28/16 14:30 06/04/16 06:15 IV Flush (NS Flush) 2 ml BID FLUSH 04/28/16 21:00 06/09/16 08:30 Acetaminophen (Tylenol) 650 mg Q4H PRN PO TEMP > 100.4 or pain 04/28/16 14:30 05/16/16 23:10 Albuterol Sulfate (Proair Hfa Inh) 1 puff Q4H PRN INH SHORTNESS OF BREATH 04/28/16 14:30 06/02/16 20:39 Fentanyl (Duragesic 100 Mcg Patch.72 Hr) 1 patch Q3D TD 04/28/16 18:00 06/06/16 17:32 Miscellaneous Information 1 Q3D TD 05/01/16 18:00 06/06/16 17:32 Lidocaine HCl (Xylocaine 2% Jelly) 1 applic Q2HR PRN TOPICAL SEE LABEL COMMENTS 04/29/16 13:00 05/03/16 22:00 Acetaminophen (Ofirmev Inj) 1,000 mg Q6H PRN IV fever > 100.4 04/30/16 01:30 06/02/16 04:01 Albuterol Sulfate (Ventolin Hfa Inh) 2 puff QID INH 04/30/16 18:00 06/09/16 08:30 Al Hydrox/Mg Hydrox/Simethicone (Mag-Al Plus Susp Liq) 30 ml Q6H PRN PO indigestion/ reflux 05/05/16 14:30 05/12/16 11:55 Alprazolam (Xanax) 0.5 mg Q6H PRN PO ANXIETY 05/08/16 15:15 05/29/16 11:04 Furosemide (Lasix Inj) 20 mg Q6H PRN IV Pulmonary Congestion 05/30/16 18:45 06/01/16 05:36 Dextrose (D50w (Syr) Inj) 50 ml UNSCH PRN IV BS < 70 05/30/16 23:00 06/04/16 17:45 Padimate O (Chapstick) 1 applic UNSCH PRN TOPICAL CHAPPED LIPS 06/04/16 03:30 06/04/16 03:44 Hydromorphone HCl 1.5 mg 1.5 mg Q1HR PRN IV severe pain 7-10 / sob 06/04/16 15:00 06/09/16 08:30 Ondansetron HCl/ Dextrose (Zofran Inj/D5W Inj) 54 ml @ 216 mls/hr Q6H PRN IV NAUSEA 06/05/16 11:11 06/06/16 09:55 Methadone HCl (Dolophine Inj) 5 mg Q8H IV 06/06/16 15:00 06/09/16 06:05 Objective Remarks GENERAL: ill and frail SKIN: cool and dry. HEAD: Normocephalic. PSYCHIATRIC: sleeping Assessment/Plan Problem List: (1) Ovarian metastasis Status: Chronic Plan: Mrs. Jim is on comfort measures and is now DNR/DNI...family has declined Hospice and wants her to stay in the hospital until her . she is receiving PRN Dilaudid scheduled Methadone scheduled Fentanyl patches Palliative Care is following and management of her pain medication. Attending Statement Dr. Pires is in agreement with this plan. Problem Qualifiers (1) Ovarian metastasis: Qualified Code: C79.60 - Malignant neoplasm metastatic to ovary, unspecified laterality Briseida Marquez Jun 09, 2016 08:44
--- NOTE | 2016-06-09 13:53 | HHI.HCPN ---
Reason for visit a. To assist with evaluation and management of symptoms including: abdominal /pelvic/back pain, dyspnea, confusion. b. To assist medical decision maker(s) with: better understanding of current medical conditions; weighing benefits/burdens of medical treatment options; making medical treatment decisions. . Subjective/Interval History No acute events overnight. Patient seen in oncology floor. at bedside. Patient awake and alert during my visit. Verbal but not always able to communicate her needs secondary to lethargy and intermittent confusion. Endorsing abdominal pain rated at 8/10 but unable to elaborate further. Feels that IV PRN Dilaudid is helping with pain. Reporting feeling nauseous with poor appetite. Taking sips and bites of foods. Methadone IV dose was increased on 06/06. Has not affected much PRN Dilaudid usage. Used 7 doses of 1.5mg and 6 doses thus far today. Discussed with that as disease progresses, it is expected that symptom burden also increases. Suggested that based on MEDD usage (10.5mg of IV Dilaudid in 24h + Fentanyl 100mcg patch = 410mg of oral Morphine), patient could benefit from increase in Methadone from 5mg q8h to 7.5mg q8h. to discuss with family. No evidence of myoclonic jerking, hyperalgesia, allodynia on the current opiate regimen to suggest opiate toxicity. No need for PRN benzo since 05/29/16. No need for prn albuterol since 06/02/16. Last PRN Lasix given 06/01/16. Patient afebrile. BP stable. No new imaging. . Family/friend interactions See interval note. . Advance Directives Living Will: Never completed Health Care Surrogate: Never completed Durable Power of Packaging Assembler: Never completed Advance Directive Specifics Health Care Surrogate(s): No written advance directives. According to [place] statutes health care proxy decision-making falls to her spouse. She indicates she would want her spouse to make medical decisions should she become incapacitated. . Documented care wishes: No AD/LW completed. Significant change in goals: Remain unchanged. NO CODE -DNR/DNI. Allow a natural . Family declined hospice involvement and request that patient is to be kept in hospital until her . . Objective Vital Signs Date Time Temp Pulse Resp B/P Pulse Ox O2 Delivery O2 Flow Rate FiO2 06/09/16 07:55 97.8 103 10 94/51 99 06/08/16 20:00 97.7 97 16 112/58 98 Intake & Output 06/09/16 06/09/16 07:00 19:00 Intake Total 480 ml Balance 480 ml Intake Oral 480 ml # Voids 3 # Bowel Movements 2 Physical Exam CONSTITUTIONAL/GENERAL: This is a frail, chronically ill patient, who appears older than her actual age. Awake. Moaning with some grimacing noted. TUBES/LINES/DRAINS: Mediport. SKIN: Pale. Diffuse erythema and scaling in both extremities. Skin appropriately warm without diaphoresis. CARDIOVASCULAR: regular rhythm. No murmurs auscultated. RESPIRATORY/CHEST: Symmetric, clear ,shallow unlabored respirations. no rhonchi or crackles noted. GASTROINTESTINAL: Abdomen with areas of hardening -tumor progression, distended with prominent abdominal venous pattern with dilated veins noted on abdominal wall. Diffuse tenderness to palpation. Bowel sounds hypoactive. GENITOURINARY: Without palpable bladder distension. MUSCULOSKELETAL: 1+ edema RLE; 2+ LLE. Lower extremities uncomfortable with movement. NEUROLOGICAL: Awake. Answers simple questions appropriately. Moves all extremities. No myoclonic jerking. PSYCHIATRIC: Calm with no evidence of depression/anxiety or psychotic process. . 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 Hg had fallen as low as 7.0. Last Hg level on 05/28/16 was 9.2 . (3) COPD (chronic obstructive pulmonary disease) (4) Thromboembolic disorder Comment: Ultrasound of 05/16/16 showed partial left brachial DVT. Ultrasound of 04/28/16 shoed occlusive and non-occlusive deep venous thrombosis in left lower extremity. . Symptom Scale: (1) Intractable pain 0-10 Scale: 8 Comment: Secondary to burden of disease. (2) Dyspnea 0-10 Scale: Unable to quantify Comment: Mets to lung, CHF, COPD. On oxygen support via [place]. Dilaudid PRN as needed. (3) Edema 0-10 Scale: 2 Comment: Edema mostly in lower extremities left worse than right. Has known DVT on left. . (4) Nausea 0-10 Scale: Unable to quantify Comment: Currently with rare need of odansetron. Nausea is probably multi- factorial including tumor pressure and meds. . Pertinent Non-Medical Issues Psychosocial: . Supported by her 2 daughters, Shey and Zelda. Also supported by her sister, Yoli. Lives in [place]. Spiritual: Member [employer]. Declines what job titles mean visits at this time. Legal:No written advance directives. According to [facility] health care proxy decision-making falls to her spouse. She indicates she would want her spouse to make medical decisions should she become incapacitated. Ethical issues impacting care: no known concerns at this time. . Important Contacts * Kevin Jim, spouse/HCP: [phone] (cell) or [phone] (home) * Shey Jim, daughter: [phone] cell or [phone] work * Zelda Fuentes, daughter: [phone] cell or [phone] work * Yoli Rosario, sister: [phone] cell or [phone] home . Prognosis Mrs. Jim has recurrent Ovarian cancer with Mets to liver and lung disease progression despite recent palliative chemotherapy admitted with abdominal and vaginal pain. Patient has had ovarian cancer undergoing treatment for the last 10 years, she is certainly hospice appropriate should she elect comfort focused care. Patient is currently transition to end of life with a life expectancy of hours to days if illness runs it natural course. . Code Status: No Code Plan * NO CODE * No written advance directives. According to [facility] health care proxy decision-making falls to her spouse. She indicates she would want her spouse to make medical decisions should she become incapacitated. * Goals of care: NO CODE -DNR/DNI. Allow a natural . Family declined hospice involvement and request that patient is to be kept in hospital until her . Patient actively dying with life expectancy of hours to days if illness runs its natural course. * Pain: secondary to burden of disease. Remains on fentanyl patch 100mcg q72h. Methadone increased 06/06 from 5mg q12h to 5mg q8h. Dilaudid IV PRN increased 06/04 to 1mg for moderate pain and 1.5mg for severe pain. Has required 7 doses of PRN Morphine 1.5mg yesterday and 6 doses thus far today. Discussed with that as disease progresses, it is expected that symptom burden also increases. Suggested that based on MEDD usage (10.5mg of IV Dilaudid in 24h + Fentanyl 100mcg patch = 410mg of oral Morphine), patient could benefit from increase in Methadone from 5mg q8h to 7.5mg q8h. to discuss with family. -We will hopefully begin to see less need for the PRN hydromorphone as we up-titrate methadone. Anticipated decline in renal function as disease progresses and she drinks less. Opiate duration of action should increase. Will continue to monitor for signs of opiate toxicity, such as delirium, myoclonic jerking, hyperalgesia, allodynia. None of these observed thus far. * Nausea/vomiting: PRN Zofran available. Last PRN dose given 06/06/16. * Edema: Most edema is in LLE. Likely secondary to DVT noted on last imaging and/or great vein compression in the abdomen from tumor mass. Doubt diuretic would provide any benefit. Recommend elevation if uncomfortable. * Active listening and ongoing emotional support provided to family. Anticipatory guidance provided re signs and symptoms of EOL. * Palliative care will continue to follow throughout hospital course for symptom management at EOL. . Time Spent Total Floor Time (mins): 33 Face to Face Time (mins): 25 >50% Counseling/Coord of Care: Yes Attestation To help prompt me to consider important information that might be impacting today's encounter and assessment, information from prior notes written by myself or my colleagues may have been "brought forward" into today's note. My signature on this note, however, is an attestation that I personally performed the exam, history, and/or decision-making noted today, and, unless otherwise indicated, the interactions with patient, family, and staff as well as the review of records all occurred today. I also attest that the listed assessment and stated plan reflect my best clinical judgment today based on the combination of historical information, prior notes, and today's exam/ interactions. When time spent is documented, it refers only to time spent today by the signer, or if indicated, combined time spent today by collaborating physician/nurse practitioner. Ingrid Lehman Jun 09, 2016 13:53
[2016-06-09] MEDS: fentaNYL 100 MCG/HR PATCH TD SCH (17:50)
[2016-06-09] MEDS: REMOVE OLD DURAGESIC (FENTANYL) PATCH TD SCH (17:50)
[2016-06-09 19:15] VITALS: BP 102/53; PULSE 106; RESP 15; TEMP 98; O2SAT 99
[2016-06-10] MEDS: HYDROmorphone HCL PF 1 MG/ML VIAL IV PRN ×7 (02:52→21:49)
[2016-06-10] MEDS: METHADONE 10 MG/ML VIAL IV SCH ×3 (06:15→23:31)
[2016-06-10] MEDS: ALBUTEROL SULFATE 90 MCG/ACT HFA 18 GM INHALER INH SCH ×4 (09:00→21:38)
[2016-06-10 10:58] VITALS: BP 102/58; PULSE 103; RESP 18; TEMP 98.4; O2SAT 100
[2016-06-10] MEDS: SODIUM CHLORIDE 0.9% FLUSH 5 ML FLUSH FLUSH SCH ×2 (11:00→21:39)
--- NOTE | 2016-06-10 13:05 | HHI.HCPN ---
Reason for visit a. To assist with evaluation and management of symptoms including: abdominal /pelvic/back pain, dyspnea, confusion. b. To assist medical decision maker(s) with: better understanding of current medical conditions; weighing benefits/burdens of medical treatment options; making medical treatment decisions. . Subjective/Interval History No acute events overnight. Patient seen in oncology floor. Sister Anastacia at bedside. Patient awake and alert during my visit. Verbal, grimacing and endorsing abdominal pain rated at 10/10. Unable to elaborate on complaint. feels that PRN Dilaudid is helping but is short lived. Has required 11 does of PRN Dilaudid yesterday and 3 doses today thus far. Family reported that pt had a rough night last night secondary to abdominal pain. No evidence of myoclonic jerking, hyperalgesia, allodynia on the current opiate regimen to suggest opiate toxicity. Patient afebrile, stable BP. No new imaging or labs. Methadone IV dose was increased on 06/06 without affecting much daily PRN Dilaudid requirement. Discussed with sister Anastacia that as disease progresses, it is expected that symptom burden also increases. Suggested that based on MEDD usage (11mg of IV Dilaudid in 24h + Fentanyl 100mcg patch = 420mg of oral Morphine), patient could benefit from increase in Methadone from 5mg q8h to 7.5mg q8h. Family had a chance to discussed it in length and are in agreement with plan of care. Anticipatory guidance provided to sister Anastacia. Reviewed that based on liver involvement (hx of liver mets) with noticeable increase in tumor size and presence of prominent abdominal venous pattern with dilated veins noted on abdominal wall, that liver-related complication could occur at end of life to include ascites and acute bleeding. Informed sister that in the event of these complications, patient is to be medicated for comfort. Sister verbalized understanding. Case discussed with Dr. Mcmillan. . Family/friend interactions See interval note. . Advance Directives Living Will: Never completed Health Care Surrogate: Never completed Durable Power of Registrar [employer]: Never completed Advance Directive Specifics Health Care Surrogate(s): No written advance directives. According to [place] statutes health care proxy decision-making falls to her spouse. She indicates she would want her spouse to make medical decisions should she become incapacitated. . Documented care wishes: No AD/LW completed. Significant change in goals: Remains unchanged. NO CODE -DNR/DNI. Allow a natural . Family declined hospice involvement and request that patient is to be kept in hospital until her . . Objective Vital Signs Date Time Temp Pulse Resp B/P Pulse Ox O2 Delivery O2 Flow Rate FiO2 06/10/16 10:58 98.4 103 18 102/58 100 06/09/16 19:15 98.0 106 15 102/53 99 Physical Exam CONSTITUTIONAL/GENERAL: This is a frail, chronically ill patient, who appears older than her actual age. Awake. Moaning with some grimacing noted. TUBES/LINES/DRAINS: Mediport. SKIN: Pale. Diffuse erythema and scaling in both extremities. Skin appropriately warm without diaphoresis. CARDIOVASCULAR: regular rhythm. No murmurs auscultated. RESPIRATORY/CHEST: Symmetric, clear ,shallow unlabored respirations. no rhonchi or crackles noted. GASTROINTESTINAL: Abdomen with areas of hardening -tumor progression, distended with prominent abdominal venous pattern with dilated veins noted on abdominal wall. Diffuse tenderness to palpation. Bowel sounds hypoactive. GENITOURINARY: Without palpable bladder distension. MUSCULOSKELETAL: 1+ edema BLE. Lower extremities uncomfortable with movement. NEUROLOGICAL: Awake. Answers simple questions appropriately. Moves all extremities. No myoclonic jerking. PSYCHIATRIC: Calm with no evidence of depression/anxiety or psychotic process. . 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 Hg had fallen as low as 7.0. Last Hg level on 05/28/16 was 9.2 . (3) COPD (chronic obstructive pulmonary disease) (4) Thromboembolic disorder Comment: Ultrasound of 05/16/16 showed partial left brachial DVT. Ultrasound of 04/28/16 shoed occlusive and non-occlusive deep venous thrombosis in left lower extremity. . Symptom Scale: (1) Intractable pain 0-10 Scale: 8 Comment: Secondary to burden of disease. (2) Dyspnea 0-10 Scale: Unable to quantify Comment: Mets to lung, CHF, COPD. On oxygen support via [place]. Dilaudid PRN as needed. (3) Edema 0-10 Scale: 2 Comment: Edema mostly in lower extremities left worse than right. Has known DVT on left. . (4) Nausea 0-10 Scale: Unable to quantify Comment: Currently with rare need of odansetron. Nausea is probably multi- factorial including tumor pressure and meds. . Pertinent Non-Medical Issues Psychosocial: . Supported by her 2 daughters, Shey and Zelda. Also supported by her sister, Yoli. Lives in [place]. Spiritual: Member [employer]. Declines network management specialist visits at this time. Legal:No written advance directives. [facility] [place] [facility] proxy decision-making falls to her spouse. She indicates she would want her spouse to make medical decisions should she become incapacitated. Ethical issues impacting care: no known concerns at this time. . Important Contacts * Kevin Jim, spouse/HCP: [phone] (cell) or [phone] (home) * Shey Jim, daughter: [phone] cell or [phone] work * Zelda Fuentes, daughter: [phone] cell or [phone] work * Yoli Rosario, sister: [phone] cell or [phone] home . Prognosis Mrs. Jim has recurrent Ovarian cancer with Mets to liver and lung disease progression despite recent palliative chemotherapy admitted with abdominal and vaginal pain. Patient has had ovarian cancer undergoing treatment for the last 10 years, she is certainly hospice appropriate should she elect comfort focused care. Patient is currently transition to end of life with a life expectancy of hours to days if illness runs it natural course. . Code Status: No Code Plan * NO CODE * No written advance directives. According to [facility] health care proxy decision-making falls to her spouse. She indicates she would want her spouse to make medical decisions should she become incapacitated. * Goals of care: NO CODE -DNR/DNI. Allow a natural . Family declined hospice involvement and request that patient is to be kept in hospital until her . Patient actively dying with life expectancy of hours to days if illness runs its natural course. * Pain: secondary to burden of disease. Remains on fentanyl patch 100mcg q72h. Methadone increased 06/06 from 5mg q12h to 5mg q8h without affecting much daily PRN Dilaudid requirement. Dilaudid IV PRN available, Has required 11 doses of 1.5mg yesterday and 3 today thus far. Suggested that based on MEDD usage (11mg of IV Dilaudid in 24h + Fentanyl 100mcg patch = 420mg of oral Morphine), patient could benefit from increase in Methadone from 5mg q8h to 7.5mg q8h. Family in agreement with adjustment. Anticipated decline in renal function as disease progresses and she drinks less. Opiate duration of action should increase. Will continue to monitor for signs of opiate toxicity, such as delirium, myoclonic jerking, hyperalgesia, allodynia. None of these observed thus far. * Nausea/vomiting: PRN Zofran available. Last PRN dose given 06/06/16. * Edema: Most edema is in LLE. Likely secondary to DVT noted on last imaging and/or great vein compression in the abdomen from tumor mass. Doubt diuretic would provide any benefit. Recommend elevation if uncomfortable. * Active listening and ongoing emotional support provided to family. Anticipatory guidance provided re signs and symptoms of EOL. * Palliative care will continue to follow throughout hospital course for symptom management at EOL. . Time Spent Total Floor Time (mins): 38 (Total time to include review and summarization of medical records and case discussion with Dr. Mcmillan. ) Face to Face Time (mins): 25 >50% Counseling/Coord of Care: Yes Attestation To help prompt me to consider important information that might be impacting today's encounter and assessment, information from prior notes written by myself or my colleagues may have been "brought forward" into today's note. My signature on this note, however, is an attestation that I personally performed the exam, history, and/or decision-making noted today, and, unless otherwise indicated, the interactions with patient, family, and staff as well as the review of records all occurred today. I also attest that the listed assessment and stated plan reflect my best clinical judgment today based on the combination of historical information, prior notes, and today's exam/ interactions. When time spent is documented, it refers only to time spent today by the signer, or if indicated, combined time spent today by collaborating physician/nurse practitioner. Ingrid Lehman Jun 10, 2016 13:04
[2016-06-10] MEDS: ACETAMINOPHEN 325 MG TAB PO PRN (18:09)
[2016-06-10 20:00] VITALS: BP 97/48; PULSE 100; RESP 16; TEMP 98; O2SAT 98
[2016-06-10 22:00] VITALS: BP 98/53; PULSE 93; RESP 16; TEMP 97.8; O2SAT 100
[2016-06-11] VITALS: BP 95/51; PULSE 93; RESP 16; TEMP 97.4; O2SAT 100
[2016-06-11] MEDS: HYDROmorphone HCL PF 1 MG/ML VIAL IV PRN ×6 (03:27→20:50)
[2016-06-11] MEDS: METHADONE 10 MG/ML VIAL IV SCH ×3 (06:30→23:35)
--- NOTE | 2016-06-11 08:07 | PD.ONC.PN ---
Subjective Subjective Remarks pt awake confused and mumbling, she does recognize me and says my name she will answer some questions at bedside and states she had an ok night last night and is doing better with Methadone increase. Objective Data Date Time Temp Pulse Resp B/P Pulse Ox O2 Delivery O2 Flow Rate FiO2 06/11/16 03:58 11 06/11/16 00:42 11 06/11/16 00:00 97.4 93 16 95/51 100 06/10/16 22:00 97.8 93 16 98/53 100 06/10/16 20:00 98.0 100 16 97/48 98 06/10/16 10:58 98.4 103 18 102/58 100 06/11/16 06/11/16 06/11/16 07:00 15:00 23:00 Intake Total 200 ml Balance 200 ml Administered Medications Medications (Trade) Dose Ordered Sig/Perry Route PRN Reason Start Time Stop Time Status Last Admin Dose Admin IV Flush (NS Flush) 2 ml UNSCH PRN FLUSH FLUSH AFTER USING IV ACCESS 04/28/16 14:30 06/04/16 06:15 IV Flush (NS Flush) 2 ml BID FLUSH 04/28/16 21:00 06/10/16 21:39 Acetaminophen (Tylenol) 650 mg Q4H PRN PO TEMP > 100.4 or pain 04/28/16 14:30 06/10/16 18:09 Albuterol Sulfate (Proair Hfa Inh) 1 puff Q4H PRN INH SHORTNESS OF BREATH 04/28/16 14:30 06/02/16 20:39 Fentanyl (Duragesic 100 Mcg Patch.72 Hr) 1 patch Q3D TD 04/28/16 18:00 06/09/16 17:50 Miscellaneous Information 1 Q3D TD 05/01/16 18:00 06/09/16 17:50 Lidocaine HCl (Xylocaine 2% Jelly) 1 applic Q2HR PRN TOPICAL SEE LABEL COMMENTS 04/29/16 13:00 05/03/16 22:00 Acetaminophen (Ofirmev Inj) 1,000 mg Q6H PRN IV fever > 100.4 04/30/16 01:30 06/02/16 04:01 Albuterol Sulfate (Ventolin Hfa Inh) 2 puff QID INH 04/30/16 18:00 06/10/16 18:08 Al Hydrox/Mg Hydrox/Simethicone (Mag-Al Plus Susp Liq) 30 ml Q6H PRN PO indigestion/ reflux 05/05/16 14:30 05/12/16 11:55 Alprazolam (Xanax) 0.5 mg Q6H PRN PO ANXIETY 05/08/16 15:15 05/29/16 11:04 Furosemide (Lasix Inj) 20 mg Q6H PRN IV Pulmonary Congestion 05/30/16 18:45 06/01/16 05:36 Dextrose (D50w (Syr) Inj) 50 ml UNSCH PRN IV BS < 70 05/30/16 23:00 06/04/16 17:45 Padimate O (Chapstick) 1 applic UNSCH PRN TOPICAL CHAPPED LIPS 06/04/16 03:30 06/04/16 03:44 Hydromorphone HCl 1.5 mg 1.5 mg Q1HR PRN IV severe pain 7-10 / sob 06/04/16 15:00 06/11/16 05:17 Ondansetron HCl/ Dextrose (Zofran Inj/D5W Inj) 54 ml @ 216 mls/hr Q6H PRN IV NAUSEA 06/05/16 11:11 06/06/16 09:55 Methadone HCl (Dolophine Inj) 7.5 mg Q8H IV 06/10/16 15:00 06/11/16 06:30 Objective Remarks GENERAL: sick and frail SKIN: cool and dry. HEAD: Normocephalic. EYES: No scleral icterus. No injection or drainage. NEUROLOGICAL: awake and confused PSYCHIATRIC: confused Assessment/Plan Problem List: (1) Ovarian metastasis Status: Chronic Plan: Mrs. Jim is on comfort measures and is now DNR/DNI...family has declined Hospice and wants her to stay in the hospital until her . she is receiving PRN Dilaudid scheduled Methadone 7.5mg every 8 hours scheduled Fentanyl patches 100mcg every 3 days Palliative Care is following and management of her pain medication and supportive care to patient and family. Attending Statement Dr. Pires is in agreement with this plan. Problem Qualifiers (1) Ovarian metastasis: Qualified Code: C79.60 - Malignant neoplasm metastatic to ovary, unspecified laterality Briseida Marquez Jun 11, 2016 08:07
[2016-06-11 09:00] VITALS: BP 105/49; PULSE 94; RESP 20; TEMP 97.8; O2SAT 97
[2016-06-11] MEDS: fentaNYL 100 MCG/HR PATCH TD SCH (10:44)
[2016-06-11] MEDS: SODIUM CHLORIDE 0.9% FLUSH 5 ML FLUSH FLUSH SCH ×2 (10:44→20:50)
[2016-06-11] MEDS: ALBUTEROL SULFATE 90 MCG/ACT HFA 18 GM INHALER INH SCH ×4 (10:44→20:50)
--- NOTE | 2016-06-11 10:58 | HHI.HCPN ---
Reason for visit a. To assist with evaluation and management of symptoms including: abdominal /pelvic/back pain, anxiety. b. To assist medical decision maker(s) with: better understanding of current medical conditions; weighing benefits/burdens of medical treatment options; making medical treatment decisions. . Subjective/Interval History Patient seen and examined in room. at bedside. Patient is awake, she recognizes me. She appears painful, moaning, holding her abdomen. Rates 7/10 in her abdomen and backside. Pain comes in waves. She was medicated with Dilaudid 1.5 mg about 30 minutes prior to my visit. reports she went a long period of time overnight and now we are chasing the pain away. Mr. Jim feels she need PRN Dilaudid every 2 hours. She has had 8 doses of PRN Dilaudid in the past 24 hours. He understands Methadone has not yet taken full effect, will need to monitor for another 48 hours. No evidence of myoclonic jerking, hyperalgesia, allodynia on the current opiate regimen to suggest opiate toxicity. Discussed the use of Xanax to reduce anxiety and help her relax which will likely reduce pain. Afebrile, stable BP. No new imaging or labs. . Family/friend interactions See interval note. . Advance Directives Living Will: Never completed Health Care Surrogate: Never completed Durable Power of Assistant Chief Train Dispatcher: Never completed Advance Directive Specifics Health Care Surrogate(s): No written advance directives. According to [place] statutes health care proxy decision-making falls to her spouse. She indicates she would want her spouse to make medical decisions should she become incapacitated. . Documented care wishes: No AD/LW completed. Significant change in goals: NO CODE. Continue comfort focused care. Family does not want hospice services. Family wants her to stay in hospital until she dies. . Objective Vital Signs Date Time Temp Pulse Resp B/P Pulse Ox O2 Delivery O2 Flow Rate FiO2 06/11/16 09:00 97.8 94 20 105/49 97 06/11/16 03:58 11 06/11/16 00:42 11 06/11/16 00:00 97.4 93 16 95/51 100 06/10/16 22:00 97.8 93 16 98/53 100 06/10/16 20:00 98.0 100 16 97/48 98 06/10/16 10:58 98.4 103 18 102/58 100 Intake & Output 06/11/16 06/11/16 07:00 19:00 Intake Total 680 ml Balance 680 ml Intake Oral 680 ml # Voids 1 # Bowel Movements 1 Physical Exam CONSTITUTIONAL/GENERAL: This is a frail, chronically ill patient, who appears older than her actual age. Awake. Moaning with some grimacing noted. TUBES/LINES/DRAINS: Mediport. SKIN: Pale. Diffuse erythema and scaling in both extremities. Skin appropriately warm without diaphoresis. CARDIOVASCULAR: regular rhythm. No murmurs auscultated. RESPIRATORY/CHEST: Symmetric, clear ,shallow unlabored respirations. no rhonchi or crackles noted. GASTROINTESTINAL: Abdomen with areas of hardening -tumor progression, distended with prominent abdominal venous pattern with dilated veins noted on abdominal wall. Diffuse tenderness to palpation. Bowel sounds hypoactive. GENITOURINARY: Without palpable bladder distension. MUSCULOSKELETAL: 1+ edema BLE. Lower extremities uncomfortable with movement. NEUROLOGICAL: Awake, confused. Answers some simple questions appropriately. Moves all extremities. No myoclonic jerking. PSYCHIATRIC: Calm with no evidence of depression/anxiety or psychotic process. . 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 Hg had fallen as low as 7.0. Last Hg level on 05/28/16 was 9.2 . (3) COPD (chronic obstructive pulmonary disease) (4) Thromboembolic disorder Comment: Ultrasound of 05/16/16 showed partial left brachial DVT. Ultrasound of 04/28/16 shoed occlusive and non-occlusive deep venous thrombosis in left lower extremity. . Symptom Scale: (1) Intractable pain 0-10 Scale: 8 Comment: Secondary to burden of disease. (2) Dyspnea 0-10 Scale: Unable to quantify Comment: Mets to lung, CHF, COPD. On oxygen support via [place]. Dilaudid PRN as needed. (3) Edema 0-10 Scale: 2 Comment: Edema mostly in lower extremities left worse than right. Has known DVT on left. . (4) Nausea 0-10 Scale: Unable to quantify Comment: Currently with rare need of odansetron. Nausea is probably multi- factorial including tumor pressure and meds. . Pertinent Non-Medical Issues Psychosocial: . Supported by her 2 daughters, Shey and Zelda. Also supported by her sister, Yoli. Lives in [place]. Spiritual: Member [employer]. 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 Legal:No written advance directives. According to [facility] health care proxy decision-making falls to her spouse. She indicates she would want her spouse to make medical decisions should she become incapacitated. Ethical issues impacting care: no known concerns at this time. . Important Contacts * Kevin Jim, spouse/HCP: [phone] (cell) or [phone] (home) * Shey Jim, daughter: [phone] cell or [phone] work * Zelda Fuentes, daughter: [phone] cell or [phone] work * Yoli Rosario, sister: [phone] cell or [phone] home . Prognosis Mrs. Jim has recurrent Ovarian cancer with Mets to liver and lung disease progression despite recent palliative chemotherapy admitted with abdominal and vaginal pain. Patient has had ovarian cancer undergoing treatment for the last 10 years, she is certainly hospice appropriate should she elect comfort focused care. Patient is currently transition to end of life with a life expectancy of hours to days if illness runs it natural course. . Code Status: No Code Plan * NO CODE * No written advance directives. According to [facility] health care proxy decision-making falls to her spouse. She indicates she would want her spouse to make medical decisions should she become incapacitated. * Goals of care: NO CODE -DNR/DNI. Allow a natural . Family declined hospice involvement and request that patient is to be kept in hospital until her . Patient actively dying with life expectancy of hours to days if illness runs its natural course. * Pain: secondary to burden of disease. Remains on fentanyl patch 100mcg q72h. Methadone increased 06/10 from 7.5mg q 8h. Dilaudid IV PRN available, Has required 8 doses of 1.5mg in the past 24 hours. feels she needs PRN Dilaudid every 2 hours. Anticipate decline in renal function as disease progresses and she drinks less. Opiate duration of action should increase. Will continue to monitor for signs of opiate toxicity, such as delirium, myoclonic jerking, hyperalgesia, allodynia. None of these observed thus far. * Nausea/vomiting: PRN Zofran available. Last PRN dose given 06/06/16. * Anxiety: PRN Xanax available. Last dose 0.5mg IV on 05/29/17. Encouraged use PRN to control anxiety and pain control. * Edema: Most edema is in LLE. Likely secondary to DVT noted on last imaging and/or great vein compression in the abdomen from tumor mass. Doubt diuretic would provide any benefit. Recommend elevation if uncomfortable. * Active listening and ongoing emotional support provided to family. Anticipatory guidance provided re signs and symptoms of EOL. * Palliative care will continue to follow throughout hospital course for symptom management at EOL. . Attestation To help prompt me to consider important information that might be impacting today's encounter and assessment, information from prior notes written by myself or my colleagues may have been "brought forward" into today's note. My signature on this note, however, is an attestation that I personally performed the exam, history, and/or decision-making noted today, and, unless otherwise indicated, the interactions with patient, family, and staff as well as the review of records all occurred today. I also attest that the listed assessment and stated plan reflect my best clinical judgment today based on the combination of historical information, prior notes, and today's exam/ interactions. When time spent is documented, it refers only to time spent today by the signer, or if indicated, combined time spent today by collaborating physician/nurse practitioner. NIEVES URRUTIA Jun 11, 2016 10:58
[2016-06-11 20:00] VITALS: BP 99/60; PULSE 113; RESP 16; TEMP 98.2; O2SAT 93
[2016-06-11] MEDS: ONDANSETRON INJ 8 MG in DEXTROSE 5% IN WATER INJ 50 ML IV PRN ×2 (23:30)
[2016-06-12] VITALS: BP 140/64; PULSE 125; RESP 16; TEMP 98.7; O2SAT 98
[2016-06-12] MEDS: METHADONE 10 MG/ML VIAL IV SCH ×3 (06:18→23:12)
[2016-06-12 07:30] VITALS: BP 99/56; PULSE 102; RESP 8; TEMP 98; O2SAT 97
[2016-06-12] MEDS: ALBUTEROL SULFATE 90 MCG/ACT HFA 18 GM INHALER INH SCH ×4 (07:52→21:48)
[2016-06-12] MEDS: HYDROmorphone HCL PF 1 MG/ML VIAL IV PRN ×9 (07:52→21:47)
[2016-06-12] MEDS: SODIUM CHLORIDE 0.9% FLUSH 5 ML FLUSH FLUSH SCH ×2 (07:52→21:48)
--- NOTE | 2016-06-12 14:28 | HHI.HCPN ---
Reason for visit a. To assist with evaluation and management of symptoms including: abdominal /pelvic/back pain, anxiety. b. To assist medical decision maker(s) with: better understanding of current medical conditions; weighing benefits/burdens of medical treatment options; making medical treatment decisions. . Subjective/Interval History Patient seen and examined in room. Daughter at bedside. Patient is awake, more lethargic today. Difficulty answering questions today. She appears painful, moaning, holding her abdomen. Rates 10/10 in her abdomen. Daughter reports intermittent pain, she says PRN Dilaudid provides some relief. Waiting for nurse to bring meds during my visit. She has had 7 doses of PRN Dilaudid in the past 24 hours. Remains on Methadone 7.5mg IV every 8 hours ATC (increased on 03/17) and Fentanyl 100mcg patch. No evidence of myoclonic jerking, hyperalgesia , allodynia on the current opiate regimen to suggest opiate toxicity. Discussed the use of Xanax to reduce anxiety and help her relax which will likely reduce pain on 06/11/16, she has not had any Xanax since that conversation. Some nausea / dry heaves reported overnight relieved with Zofran. Afebrile, stable BP. No new imaging or labs. . Family/friend interactions Spoke with daughter at bedside, no verbalized questions or concerns today. Encouraged family to call if needed. . Advance Directives Living Will: Never completed Health Care Surrogate: Never completed Durable Power of Pan Devulcanizer Helper: Never completed Advance Directive Specifics Health Care Surrogate(s): No written advance directives. According to [place] statutes health care proxy decision-making falls to her spouse. She indicates she would want her spouse to make medical decisions should she become incapacitated. . Documented care wishes: No AD/LW completed. Significant change in goals: NO CODE. Comfort measures only. Declines hospice support. . Objective Vital Signs Date Time Temp Pulse Resp B/P Pulse Ox O2 Delivery O2 Flow Rate FiO2 06/12/16 07:30 98.0 102 8 99/56 97 06/12/16 07:20 11 06/12/16 00:00 98.7 125 16 140/64 98 06/11/16 21:32 11 06/11/16 20:00 98.2 113 16 99/60 93 Physical Exam CONSTITUTIONAL/GENERAL: This is a frail, chronically ill patient, who appears older than her actual age. Awake. Moaning with some grimacing noted. TUBES/LINES/DRAINS: Mediport. SKIN: Pale. Diffuse erythema and scaling in both extremities. Skin appropriately warm without diaphoresis. CARDIOVASCULAR: regular rhythm. No murmurs auscultated. RESPIRATORY/CHEST: Symmetric, clear ,shallow unlabored respirations. no rhonchi or crackles noted. GASTROINTESTINAL: Abdomen with areas of hardening -tumor progression, distended with prominent abdominal venous pattern with dilated veins noted on abdominal wall. Diffuse tenderness to palpation. Bowel sounds hypoactive. GENITOURINARY: Without palpable bladder distension. MUSCULOSKELETAL: 1+ edema BLE. Lower extremities uncomfortable with movement. NEUROLOGICAL: Awake, confused. Answers some simple questions appropriately. Moves all extremities. No myoclonic jerking. PSYCHIATRIC: Calm with no evidence of depression/anxiety or psychotic process. . 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 Hg had fallen as low as 7.0. Last Hg level on 05/28/16 was 9.2 . (3) COPD (chronic obstructive pulmonary disease) (4) Thromboembolic disorder Comment: Ultrasound of 05/16/16 showed partial left brachial DVT. Ultrasound of 04/28/16 shoed occlusive and non-occlusive deep venous thrombosis in left lower extremity. . Symptom Scale: (1) Intractable pain 0-10 Scale: 10 Comment: Secondary to burden of disease. (2) Dyspnea 0-10 Scale: Unable to quantify Comment: Mets to lung, CHF, COPD. On oxygen support via [place]. Dilaudid PRN as needed. (3) Edema 0-10 Scale: 2 Comment: Edema mostly in lower extremities left worse than right. Has known DVT on left. . (4) Nausea 0-10 Scale: Unable to quantify Comment: Currently with rare need of odansetron. Nausea is probably multi- factorial including tumor pressure and meds. . Pertinent Non-Medical Issues Psychosocial: . Supported by her 2 daughters, Shey and Zelda. Also supported by her sister, Yoli. Lives in [place]. Spiritual: Member [employer]. Declines hospice plan administrator visits at this time. Legal:No written advance directives. According to [place] statutes health care proxy decision-making falls to her spouse. She indicates she would want her spouse to make medical decisions should she become incapacitated. Ethical issues impacting care: no known concerns at this time. . Important Contacts * Kevin Jim, spouse/HCP: [phone] (cell) or [phone] (home) * Shey Jim, daughter: [phone] cell or [phone] work * Zelda Fuentes, daughter: [phone] cell or [phone] work * Yoli Rosario, sister: [phone] cell or [phone] home . Prognosis Mrs. Jim has recurrent Ovarian cancer with Mets to liver and lung disease progression despite recent palliative chemotherapy admitted with abdominal and vaginal pain. Patient has had ovarian cancer undergoing treatment for the last 10 years, she is certainly hospice appropriate should she elect comfort focused care. Patient is currently transition to end of life with a life expectancy of hours to days if illness runs it natural course. . Code Status: No Code Plan * NO CODE * No written advance directives. According to [facility] health care proxy decision-making falls to her spouse. She indicates she would want her spouse to make medical decisions should she become incapacitated. * Goals of care: NO CODE -DNR/DNI. Allow natural . Family declined hospice involvement and request that patient is to be kept in hospital until her . Patient actively dying with life expectancy of hours to days if illness runs its natural course. * Pain: secondary to burden of disease. Remains on fentanyl patch 100mcg q72h. Methadone increased 06/10 from 7.5mg q 8h. Dilaudid IV PRN available, Has required 7 doses of 1.5mg in the past 24 hours. feels she needs PRN Dilaudid every 2 hours. Anticipate decline in renal function as disease progresses and she drinks less. Opiate duration of action should increase. Will continue to monitor for signs of opiate toxicity, such as delirium, myoclonic jerking, hyperalgesia, allodynia. None of these observed thus far. * Nausea/vomiting: PRN Zofran available. Last PRN dose given 06/11/16. * Anxiety: PRN Xanax available. Last dose 0.5mg IV on 05/29/17. Encouraged use PRN to control anxiety and pain control. * Edema: Most edema is in LLE. Likely secondary to DVT noted on last imaging and/or great vein compression in the abdomen from tumor mass. Doubt diuretic would provide any benefit. Recommend elevation if uncomfortable. * Active listening and ongoing emotional support provided to family. Anticipatory guidance provided re signs and symptoms of EOL. * Palliative care will continue to follow throughout hospital course for symptom management at EOL. . Attestation To help prompt me to consider important information that might be impacting today's encounter and assessment, information from prior notes written by myself or my colleagues may have been "brought forward" into today's note. My signature on this note, however, is an attestation that I personally performed the exam, history, and/or decision-making noted today, and, unless otherwise indicated, the interactions with patient, family, and staff as well as the review of records all occurred today. I also attest that the listed assessment and stated plan reflect my best clinical judgment today based on the combination of historical information, prior notes, and today's exam/ interactions. When time spent is documented, it refers only to time spent today by the signer, or if indicated, combined time spent today by collaborating physician/nurse practitioner. NIEVES URRUTIA Jun 12, 2016 14:28
[2016-06-12 20:00] VITALS: BP 103/51; PULSE 106; RESP 17; RESP 7; TEMP 97.6; O2SAT 96
[2016-06-12] MEDS: DEXTROSE 50% IN WATER 50 ML SYRINGE IV PRN (23:12)
[2016-06-13] MEDS: HYDROmorphone HCL PF 1 MG/ML VIAL IV PRN ×5 (00:35→14:47)
[2016-06-13] MEDS: DEXTROSE 50% IN WATER 50 ML SYRINGE IV PRN (06:19)
--- NOTE | 2016-06-13 06:48 | PD.ONC.PN ---
Subjective Subjective Remarks Pt lethargic and confused at times her Methadone has been increased to 7.5mg q 8 hours and still has Fentanyl patch 100mcg and Dilaudid for breakthrough pain Palliative care is encouraging use of Xanax PRN to help decrease her anxiety and improve pain control. Objective Data Date Time Temp Pulse Resp B/P Pulse Ox O2 Delivery O2 Flow Rate FiO2 06/12/16 20:00 97.6 106 7 103/51 96 06/12/16 07:30 98.0 102 8 99/56 97 06/12/16 07:20 11 Administered Medications Medications (Trade) Dose Ordered Sig/Perry Route PRN Reason Start Time Stop Time Status Last Admin Dose Admin IV Flush (NS Flush) 2 ml UNSCH PRN FLUSH FLUSH AFTER USING IV ACCESS 04/28/16 14:30 06/04/16 06:15 IV Flush (NS Flush) 2 ml BID FLUSH 04/28/16 21:00 06/12/16 21:48 Acetaminophen (Tylenol) 650 mg Q4H PRN PO TEMP > 100.4 or pain 04/28/16 14:30 06/10/16 18:09 Albuterol Sulfate (Proair Hfa Inh) 1 puff Q4H PRN INH SHORTNESS OF BREATH 04/28/16 14:30 06/02/16 20:39 Lidocaine HCl (Xylocaine 2% Jelly) 1 applic Q2HR PRN TOPICAL SEE LABEL COMMENTS 04/29/16 13:00 05/03/16 22:00 Acetaminophen (Ofirmev Inj) 1,000 mg Q6H PRN IV fever > 100.4 04/30/16 01:30 06/02/16 04:01 Albuterol Sulfate (Ventolin Hfa Inh) 2 puff QID INH 04/30/16 18:00 06/12/16 21:48 Al Hydrox/Mg Hydrox/Simethicone (Mag-Al Plus Susp Liq) 30 ml Q6H PRN PO indigestion/ reflux 05/05/16 14:30 05/12/16 11:55 Alprazolam (Xanax) 0.5 mg Q6H PRN PO ANXIETY 05/08/16 15:15 05/29/16 11:04 Furosemide (Lasix Inj) 20 mg Q6H PRN IV Pulmonary Congestion 05/30/16 18:45 06/01/16 05:36 Dextrose (D50w (Syr) Inj) 50 ml UNSCH PRN IV BS < 70 05/30/16 23:00 06/13/16 06:19 Padimate O (Chapstick) 1 applic UNSCH PRN TOPICAL CHAPPED LIPS 06/04/16 03:30 06/04/16 03:44 Hydromorphone HCl 1.5 mg 1.5 mg Q1HR PRN IV severe pain 7-10 / sob 06/04/16 15:00 06/13/16 05:56 Ondansetron HCl/ Dextrose (Zofran Inj/D5W Inj) 54 ml @ 216 mls/hr Q6H PRN IV NAUSEA 06/05/16 11:11 06/11/16 23:30 Methadone HCl (Dolophine Inj) 7.5 mg Q8H IV 06/10/16 15:00 06/12/16 23:12 Objective Remarks GENERAL: sick frail SKIN: cool and dry. HEAD: Normocephalic. NEUROLOGICAL: No obvious focal deficit. lethargic PSYCHIATRIC: confused at times Assessment/Plan Problem List: (1) Ovarian metastasis Status: Chronic Plan: Mrs. Jim is on comfort measures and is now DNR/DNI...family has declined Hospice and wants her to stay in the hospital until her . she is receiving PRN Dilaudid scheduled Methadone 7.5mg every 8 hours scheduled Fentanyl patches 100mcg every 3 days encourage use of Xanax PRN to help increase pain control and decrease anxiety Palliative Care is following and management of her pain medication and supportive care to patient and family. Attending Statement Dr. Pires saw and examined pt with me today and is in agreement with this plan of care. Problem Qualifiers (1) Ovarian metastasis: Qualified Code: C79.60 - Malignant neoplasm metastatic to ovary, unspecified laterality Briseida Marquez Jun 13, 2016 06:48
[2016-06-13] MEDS: METHADONE 10 MG/ML VIAL IV SCH ×2 (07:23→16:59)
[2016-06-13 08:00] VITALS: BP 109/62; PULSE 80; RESP 16; TEMP 99.3; O2SAT 95
[2016-06-13] MEDS: SODIUM CHLORIDE 0.9% FLUSH 5 ML FLUSH FLUSH SCH ×2 (09:21→22:52)
[2016-06-13] MEDS: ALBUTEROL SULFATE 90 MCG/ACT HFA 18 GM INHALER INH SCH ×4 (09:24→21:00)
[2016-06-13 12:00] VITALS: BP 105/70; PULSE 88; RESP 14; TEMP 98.6; O2SAT 94
[2016-06-13 16:00] VITALS: BP 110/68; PULSE 75; RESP 14; TEMP 99; O2SAT 94
[2016-06-13] MEDS ORDERED: METHADONE 10 MG/ML VIAL IV SCH (16:00)
--- NOTE | 2016-06-13 16:22 | HHI.HCPN ---
Reason for visit a. To assist with evaluation and management of symptoms including: abdominal /pelvic/back pain, anxiety. b. To assist medical decision maker(s) with: better understanding of current medical conditions; weighing benefits/burdens of medical treatment options; making medical treatment decisions. . Subjective/Interval History Patient seen and examined in room. Sister, Yoli at bedside. Patient is lethargic and confused. She is crying in pain, reports abdominal pain. She is unable to quantify to pain. Waiting for nurse to bring meds during my visit. Nursing pain scales recorded as 4/10 this morning. She remains on Methadone 7.5mg IV every 8 hours ATC and Fentanyl 100mcg every 72 hours. She has not been medicated since 9:30am with PRN Dilaudid. She has had 8 doses of PRN Dilaudid 1.5mg (total dose 12mg) in the past 24 hours (= 240mg oral Morphine equivalent) . No evidence of myoclonic jerking, hyperalgesia, allodynia on the current opiate regimen to suggest opiate toxicity. Tmax 99.3. Stable BP. Continues to have intermittent low blood sugar and has had 2 amps of d50 in the past 24 hours. Spoke with Mr. Jim to update on Methadone increase based on PRN Dilaudid need in the past 24 hours. Hopefully this will assist to decrease the PRN Dilaudid need. He appreciates assistance in pain control and agrees with plan of care. He verbalizes significant decline he notices in the past 24-48 hours. We talked about likely trajectory of decline and possibly in the coming days. He asks me to make sure she is comfortable. We talked about likelihood she will become more lethargic, less responsive and eventually unable to take in fluids and that at that time we need to stop checking blood sugars. He agrees. Questions answered. Mr. Jim will be leaving for work again late tonight. . Family/friend interactions See interval note. . Advance Directives Living Will: Never completed Health Care Surrogate: Never completed Durable Power of Jewelry Drilling Machine Operator: Never completed Advance Directive Specifics Health Care Surrogate(s): No written advance directives. According to [place] statutes health care proxy decision-making falls to her spouse. She indicates she would want her spouse to make medical decisions should she become incapacitated. . Documented care wishes: No AD/LW completed. Significant change in goals: NO CODE. Comfort measures. Family DOES NOT want hospice. . Objective Vital Signs Date Time Temp Pulse Resp B/P Pulse Ox O2 Delivery O2 Flow Rate FiO2 06/13/16 08:00 99.3 80 16 109/62 95 06/12/16 20:00 97.6 106 7 103/51 96 Intake & Output 06/13/16 06/13/16 07:00 19:00 Intake Total 0 ml Balance 0 ml Intake Oral 0 ml # Voids 4 1 # Bowel Movements 4 1 Physical Exam CONSTITUTIONAL/GENERAL: This is a frail, chronically ill patient, who appears older than her actual age. Awake. Moaning with some grimacing noted. TUBES/LINES/DRAINS: Mediport. SKIN: Pale. Diffuse erythema and scaling in both extremities. Skin appropriately warm without diaphoresis. CARDIOVASCULAR: regular rhythm. No murmurs auscultated. RESPIRATORY/CHEST: Symmetric, clear ,shallow unlabored respirations. no rhonchi or crackles noted. GASTROINTESTINAL: Abdomen with areas of hardening -tumor progression, distended with prominent abdominal venous pattern with dilated veins noted on abdominal wall. Diffuse tenderness to palpation. Bowel sounds hypoactive. GENITOURINARY: Without palpable bladder distension. MUSCULOSKELETAL: Lower extremities uncomfortable with movement. NEUROLOGICAL: Lethargic, confused. Not answering questions for me today. Moves all extremities. No myoclonic jerking. PSYCHIATRIC: Calm. . 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 Hg had fallen as low as 7.0. Last Hg level on 05/28/16 was 9.2 . (3) COPD (chronic obstructive pulmonary disease) (4) Thromboembolic disorder Comment: Ultrasound of 05/16/16 showed partial left brachial DVT. Ultrasound of 04/28/16 shoed occlusive and non-occlusive deep venous thrombosis in left lower extremity. . Symptom Scale: (1) Intractable pain 0-10 Scale: 4 Comment: Secondary to burden of disease. (2) Dyspnea 0-10 Scale: Unable to quantify Comment: Mets to lung, CHF, COPD. On oxygen support via [place]. Dilaudid PRN as needed. (3) Nausea 0-10 Scale: 0 Comment: Currently with rare need of odansetron. Nausea is probably multi- factorial including tumor pressure and meds. . Pertinent Non-Medical Issues Psychosocial: . Supported by her 2 daughters, Shey and Zelda. Also supported by her sister, Yoli. Lives in [place]. Spiritual: Member [employer]. Declines labor mediator visits at this time. Legal:No written advance directives. According to [place] statutes health care proxy decision-making falls to her spouse. She indicates she would want her spouse to make medical decisions should she become incapacitated. Ethical issues impacting care: no known concerns at this time. . Important Contacts * Kevin Jim, spouse/HCP: [phone] (cell) or [phone] (home) * Shey Jim, daughter: [phone] cell or [phone] work * Zelda Fuentes, daughter: [phone] cell or [phone] work * Yoli Rosario, sister: [phone] cell or [phone] home . Prognosis Mrs. Jim has recurrent Ovarian cancer with Mets to liver and lung disease progression despite recent palliative chemotherapy admitted with abdominal and vaginal pain. Patient has had ovarian cancer undergoing treatment for the last 10 years, she is certainly hospice appropriate should she elect comfort focused care. Patient is currently transition to end of life with a life expectancy of hours to days if illness runs it natural course. . Code Status: No Code Plan * No written advance directives. According to [place] statutes health care proxy decision-making falls to her spouse. She indicates she would want her spouse to make medical decisions should she become incapacitated. * NO CODE * Goals of care: NO CODE -DNR/DNI. Allow natural . Family declined hospice involvement and request that patient is to be kept in hospital until her . Patient actively dying with life expectancy of hours to days if illness runs its natural course. * Pain: secondary to burden of disease. Remains on fentanyl patch 100mcg q72h. Methadone increased to 12.5mg q 8h. Dilaudid IV PRN available, Has required 8 doses of 1.5mg in the past 24 hours. agrees with plan to increase Methadone based on past 24 hour need of Dilaudid. Continue Dilaudid 1.5mg IV every 1 hour PRN pain. Anticipate continued rapid decline. Continue to monitor for signs of opiate toxicity, such as delirium, myoclonic jerking, hyperalgesia , allodynia. None of these observed thus far. * Nausea/vomiting: PRN Zofran available. Last PRN dose given 06/11/16. * Anxiety: PRN Xanax and Ativan available. Last dose Xanax 0.5mg IV on . Encouraged use PRN to control anxiety and pain control. * Edema: Most edema is in LLE. Likely secondary to DVT noted on last imaging and/or great vein compression in the abdomen from tumor mass. Recommend elevation if uncomfortable. * Active listening and ongoing emotional support provided to family. Anticipatory guidance provided re signs and symptoms of EOL. * Palliative care will continue to follow throughout hospital course for symptom management at EOL. . Attestation To help prompt me to consider important information that might be impacting today's encounter and assessment, information from prior notes written by myself or my colleagues may have been "brought forward" into today's note. My signature on this note, however, is an attestation that I personally performed the exam, history, and/or decision-making noted today, and, unless otherwise indicated, the interactions with patient, family, and staff as well as the review of records all occurred today. I also attest that the listed assessment and stated plan reflect my best clinical judgment today based on the combination of historical information, prior notes, and today's exam/ interactions. When time spent is documented, it refers only to time spent today by the signer, or if indicated, combined time spent today by collaborating physician/nurse practitioner. NIEVES URRUTIA Jun 13, 2016 16:22
[2016-06-13] MEDS: ACETAMINOPHEN 1000 MG/100 ML VIAL IV PRN (22:53)
[2016-06-14] VITALS: BP 111/56; PULSE 114; RESP 17; TEMP 100.1; O2SAT 98
[2016-06-14] MEDS: METHADONE 10 MG/ML VIAL IV SCH ×3 (00:36→18:00)
[2016-06-14] MEDS: HYDROmorphone HCL PF 1 MG/ML VIAL IV PRN ×7 (01:50→21:32)
[2016-06-14 08:00] VITALS: BP 99/53; PULSE 101; RESP 12; TEMP 98.3; O2SAT 96
[2016-06-14] MEDS: SODIUM CHLORIDE 0.9% FLUSH 5 ML FLUSH FLUSH SCH ×2 (08:16→21:32)
[2016-06-14] MEDS: ALBUTEROL SULFATE 90 MCG/ACT HFA 18 GM INHALER INH SCH ×4 (08:16→21:31)
[2016-06-14] MEDS: REMOVE OLD DURAGESIC (FENTANYL) PATCH TD SCH (11:00)
[2016-06-14] MEDS: fentaNYL 100 MCG/HR PATCH TD SCH (11:29)
[2016-06-14] MEDS: ONDANSETRON INJ 8 MG in DEXTROSE 5% IN WATER INJ 50 ML IV PRN ×2 (15:07)
--- NOTE | 2016-06-14 18:01 | HHI.HCPN ---
Reason for visit a. To assist with evaluation and management of symptoms including: abdominal /pelvic/back pain, N/V. b. To assist medical decision maker(s) with: better understanding of current medical conditions; weighing benefits/burdens of medical treatment options; making medical treatment decisions. . Subjective/Interval History Patient seen and examined in room. Daughter, Shey at bedside. Patient is more lethargic and confused. She had an episode on nausea and vomiting earlier today , family attributes N/V to recent Methadone increase and request Methadone be decreased to 10mg IV every 8 hours (orders already written). When awake she moans with pain in abdomen. She is unable to quantify to pain today. Nursing pain scales recorded pain as 4 -9/10 today. Remains Fentanyl 100mcg every 72 hours. She has had 6 doses of PRN Dilaudid 1.5mg (total dose 9mg) in the past 24 hours. No evidence of myoclonic jerking, hyperalgesia, allodynia on the current opiate regimen to suggest opiate toxicity. Tmax 100.1, decreased with Tylenol. BP 99/53. Bowels moving, LBM 06/14 x 3. Abdomen firm, distended with palpable tumor and vascular changes. Nurse indicates good oral intake this morning and has not been checking blood sugar. This will need to be discontinued in the coming days as pt is declining and oral intake is expected to continue to decrease. Discussed with nurse. Daughter is concerned about aspiration, I explained this cannot be prevented and we will mange secretions with medications as needed. Encouraged HOB to remain elevated. While family verbalizes understanding patient is dying they still seem to have unrealistic expectations at times. We will continue to educate and support. . Family/friend interactions Call from Mr. Jim via telephone is on the road to [place] (for work). He called to request Methadone dose be decreased to 10mg IV every 8 hours ATC as family was "reading about Methadone and read it can cause N/V. In case the recent Methadone increase caused N/V they would like dose decreased. Order written per family request. to update on Methadone increase based on PRN Dilaudid need in the past 24 hours. Hopefully this will assist to decrease the PRN Dilaudid need. He appreciates assistance in pain control and agrees with plan of care. He verbalizes significant decline he notices in the past 24-48 hours. We talked about likely trajectory of decline and possibly in the coming days. He asks me to make sure she is comfortable. We talked about likelihood she will become more lethargic, less responsive and eventually unable to take in fluids and that at that time we need to stop checking blood sugars. He agrees. Questions answered. Mr. Jim will be leaving for work again late tonight. Advance Directives Living Will: Never completed Health Care Surrogate: Never completed Durable Power of Quality Control Auditor: Never completed Advance Directive Specifics Health Care Surrogate(s): No written advance directives. According to [place] statutes health care proxy decision-making falls to her spouse. She indicates she would want her spouse to make medical decisions should she become incapacitated. . Documented care wishes: No AD/LW completed. Significant change in goals: NO CODE (DNR/DNI). Comfort measures only. Family declines hospice support. . Objective Vital Signs Date Time Temp Pulse Resp B/P Pulse Ox O2 Delivery O2 Flow Rate FiO2 06/14/16 08:00 98.3 101 12 99/53 96 06/14/16 07:19 8 06/14/16 01:36 10 06/14/16 00:00 100.1 114 17 111/56 98 Intake & Output 06/14/16 06/14/16 07:00 19:00 Intake Total 120 ml 0 ml Balance 120 ml 0 ml Intake Oral 120 ml 0 ml # Voids 2 2 # Bowel Movements 1 3 Physical Exam CONSTITUTIONAL/GENERAL: This is a frail, chronically ill, cachectic patient, who appears older than her actual age. Moaning with some grimacing noted. TUBES/LINES/DRAINS: Right port. SKIN: Pale. Diffuse erythema and scaling in both extremities. Skin appropriately warm without diaphoresis. CARDIOVASCULAR: regular rhythm. No murmurs auscultated. RESPIRATORY/CHEST: Symmetric, clear ,shallow unlabored respirations. no rhonchi or crackles noted. GASTROINTESTINAL: Abdomen with areas of hardening -tumor progression, distended with prominent abdominal venous pattern with dilated veins noted on abdominal wall. Diffuse tenderness to palpation. Bowel sounds hypoactive. GENITOURINARY: Without palpable bladder distension. MUSCULOSKELETAL: Lower extremities uncomfortable with movement. NEUROLOGICAL: Less responsive. confused. Answers a few simple questions for me today. Moves all extremities. No myoclonic jerking. PSYCHIATRIC: Moaning and grimacing when awake. . 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 Hg had fallen as low as 7.0. Last Hg level on 05/28/16 was 9.2 . (3) COPD (chronic obstructive pulmonary disease) (4) Thromboembolic disorder Comment: Ultrasound of 05/16/16 showed partial left brachial DVT. Ultrasound of 04/28/16 shoed occlusive and non-occlusive deep venous thrombosis in left lower extremity. . Symptom Scale: (1) Intractable pain 0-10 Scale: 7 Comment: Secondary to burden of disease. (2) Dyspnea 0-10 Scale: Unable to quantify Comment: Mets to lung, CHF, COPD. On oxygen support via [place]. Dilaudid PRN as needed. (3) Nausea 0-10 Scale: 0 Comment: Currently with rare need of odansetron. Nausea is probably multi- factorial including tumor pressure and meds. . (4) Fever 0-10 Scale: Unable to quantify Pertinent Non-Medical Issues Psychosocial: . Supported by her 2 daughters, Shey and Zelda. Also supported by her sister, Yoli. Lives in [place]. Spiritual: Member [employer]. Declines metal drawer visits at this time. Legal:No written advance directives. According to [place] statutes health care proxy decision-making falls to her spouse. She indicates she would want her spouse to make medical decisions should she become incapacitated. Ethical issues impacting care: no known concerns at this time. . Important Contacts * Kevin Jim, spouse/HCP: [phone] (cell) or [phone] (home) * Shey Jim, daughter: [phone] cell or [phone] work * Zelda Housererd, daughter: [phone] cell or [phone] work * Yoli Rosario, sister: [phone] cell or [phone] home . Prognosis Mrs. Jim has recurrent Ovarian cancer with Mets to liver and lung disease progression despite recent palliative chemotherapy admitted with abdominal and vaginal pain. Patient has had ovarian cancer undergoing treatment for the last 10 years, she is certainly hospice appropriate should she elect comfort focused care. Patient is currently transition to end of life with a life expectancy of hours to days if illness runs it natural course. . Code Status: No Code Plan * No written advance directives. According to [place] statutes health care proxy decision-making falls to her spouse. She indicates she would want her spouse to make medical decisions should she become incapacitated. * NO CODE * Goals of care: NO CODE -DNR/DNI. Allow natural . Family declined hospice involvement and request that patient is to be kept in hospital until her . Patient actively dying with life expectancy of hours to days if illness runs its natural course. * Pain: secondary to burden of disease. Remains on fentanyl patch 100mcg q72h. Methadone decreased to 10mg q 8h on 06/14/15 per family request as they feel it is the cause of N/V episode today. Dilaudid IV PRN available, Has required 6 doses of 1.5mg in the past 24 hours. desires Methadone to be decreased. Continue Dilaudid 1.5mg IV every 1 hour PRN pain. Anticipate continued rapid decline. Continue to monitor for signs of opiate toxicity, such as delirium, myoclonic jerking, hyperalgesia, allodynia. None of these observed thus far. * Nausea/vomiting: PRN Zofran available. Last PRN dose given 06/14/16. * Anxiety: PRN Xanax and Ativan available. Last dose Xanax 0.5mg IV on . Encouraged use PRN to control anxiety and pain control. May also help with control of nausea if Zofran is not effective. * Edema: Most edema is in LLE. Likely secondary to DVT noted on last imaging and/or great vein compression in the abdomen from tumor mass. Recommend elevation if uncomfortable. * Active listening and ongoing emotional support provided to family. Anticipatory guidance provided re: signs and symptoms of EOL. * Palliative care will continue to follow throughout hospital course for symptom management at EOL. . Attestation To help prompt me to consider important information that might be impacting today's encounter and assessment, information from prior notes written by myself or my colleagues may have been "brought forward" into today's note. My signature on this note, however, is an attestation that I personally performed the exam, history, and/or decision-making noted today, and, unless otherwise indicated, the interactions with patient, family, and staff as well as the review of records all occurred today. I also attest that the listed assessment and stated plan reflect my best clinical judgment today based on the combination of historical information, prior notes, and today's exam/ interactions. When time spent is documented, it refers only to time spent today by the signer, or if indicated, combined time spent today by collaborating physician/nurse practitioner. NIEVES URRUTIA Jun 14, 2016 18:01
[2016-06-14 22:00] VITALS: BP 105/55; PULSE 117; RESP 18; TEMP 99.5; O2SAT 94
[2016-06-14] MEDS: ACETAMINOPHEN 1000 MG/100 ML VIAL IV PRN (22:03)
[2016-06-14] MEDS: DEXTROSE 50% IN WATER 50 ML SYRINGE IV PRN (22:08)
[2016-06-15] MEDS: METHADONE 10 MG/ML VIAL IV SCH ×3 (01:10→16:30)
[2016-06-15] MEDS: HYDROmorphone HCL PF 1 MG/ML VIAL IV PRN ×3 (05:54→20:33)
[2016-06-15 08:00] VITALS: BP 102/50; PULSE 110; RESP 12; TEMP 98.6; O2SAT 93
[2016-06-15] MEDS: ALBUTEROL SULFATE 90 MCG/ACT HFA 18 GM INHALER INH SCH ×4 (09:19→20:33)
[2016-06-15] MEDS: SODIUM CHLORIDE 0.9% FLUSH 5 ML FLUSH FLUSH SCH ×2 (09:19→20:33)
[2016-06-15] MEDS: DEXTROSE 50% IN WATER 50 ML SYRINGE IV PRN ×2 (09:37→22:01)
--- NOTE | 2016-06-15 17:01 | HHI.HCPN ---
Reason for visit a. To assist with evaluation and management of symptoms including: abdominal /pelvic/back pain, N/V. b. To assist medical decision maker(s) with: better understanding of current medical conditions; weighing benefits/burdens of medical treatment options; making medical treatment decisions. . Subjective/Interval History Patient seen and examined in room. Daughter Zelda at bedside. Patient awake but lethargic, confused. Endorsing abdominal pain, unable to elaborate on complaint. Facial grimacing and moaning noted. Has received 7 doses of Dilaudid PRN Yesterday and 2 doses today. Dysphagia noted by daughter. No episodes of nausea or vomiting today. No evidence of myoclonic jerking, hyperalgesia, allodynia on the current opiate regimen to suggest opiate toxicity. Afebrile with stable BP today. Spoke with daughter Zelda. Reviewed that as patient's oral intake continued to decline, it is anticipated that her blood glucose also decreases. Reviewed progression of disease and life expectancy of hours to days if illness runs its natural course. Family in agreement of changing scheduled blood glucose checks to BID as needed. Anticipatory guidance provided to daughter in regards to signs and symptoms of EOL, including possible complications such as upper GI bleed in the setting of liver metastasis. Discussed case with bedside RN. . Family/friend interactions See interval note. . Advance Directives Living Will: Never completed Health Care Surrogate: Never completed Durable Power of Rubbish Collector: Never completed Advance Directive Specifics Health Care Surrogate(s): No written advance directives. According to [place] statutes health care proxy decision-making falls to her spouse. She indicates she would want her spouse to make medical decisions should she become incapacitated. . Documented care wishes: No AD/LW completed. Significant change in goals: NO CODE -DNR/DNI. Allow natural . Family declined hospice involvement and request that patient is to be kept in hospital until her . Patient actively dying with life expectancy of hours to days if illness runs its natural course. Objective Vital Signs Date Time Temp Pulse Resp B/P Pulse Ox O2 Delivery O2 Flow Rate FiO2 06/15/16 08:00 98.6 110 12 102/50 93 06/15/16 06:25 10 06/15/16 02:19 11 06/14/16 22:00 99.5 117 18 105/55 94 Intake & Output 06/15/16 06/15/16 07:00 19:00 Intake Total 110 ml 0 ml Balance 110 ml 0 ml Intake Oral 0 ml IV Total 110 ml # Voids 2 3 # Bowel Movements 2 3 Physical Exam CONSTITUTIONAL/GENERAL: This is a frail, chronically ill, cachectic patient, who appears older than her actual age. Moaning with some grimacing noted. TUBES/LINES/DRAINS: Right port. SKIN: Pale. Diffuse erythema and scaling in both extremities. Skin appropriately warm without diaphoresis. CARDIOVASCULAR: regular rhythm. No murmurs auscultated. RESPIRATORY/CHEST: Symmetric, clear ,shallow unlabored respirations. no rhonchi or crackles noted. GASTROINTESTINAL: Abdomen with areas of hardening -tumor progression, distended with prominent abdominal venous pattern with dilated veins noted on abdominal wall. Diffuse tenderness to palpation. Bowel sounds hypoactive. GENITOURINARY: Without palpable bladder distension. MUSCULOSKELETAL: Lower extremities uncomfortable with movement. NEUROLOGICAL: Less responsive. confused. Moves all extremities. No myoclonic jerking. PSYCHIATRIC: Moaning and grimacing when awake. . 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 Hg had fallen as low as 7.0. Last Hg level on 05/28/16 was 9.2 . (3) COPD (chronic obstructive pulmonary disease) (4) Thromboembolic disorder Comment: Ultrasound of 05/16/16 showed partial left brachial DVT. Ultrasound of 04/28/16 shoed occlusive and non-occlusive deep venous thrombosis in left lower extremity. . Symptom Scale: (1) Intractable pain 0-10 Scale: 7 Comment: Secondary to burden of disease. (2) Dyspnea 0-10 Scale: Unable to quantify Comment: Mets to lung, CHF, COPD. On oxygen support via NC. Dilaudid PRN as needed. (3) Nausea 0-10 Scale: 0 Comment: Nausea is probably multi-factorial including tumor pressure and meds. . (4) Fever 0-10 Scale: Unable to quantify Pertinent Non-Medical Issues Psychosocial: . Supported by her 2 daughters, Shey and Zelda. Also supported by her sister, Yoli. Lives in [place]. Spiritual: Member [employer]. 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 Legal:No written advance directives. According to [facility] health care proxy decision-making falls to her spouse. She indicates she would want her spouse to make medical decisions should she become incapacitated. Ethical issues impacting care: no known concerns at this time. . Important Contacts * Kevin Jim, spouse/HCP: [phone] (cell) or [phone] (home) * Shey Jim, daughter: [phone] cell or [phone] work * Zelda Fuentes, daughter: [phone] cell or [phone] work * Yoli Rosario, sister: [phone] cell or [phone] home . Prognosis Mrs. Jim has recurrent Ovarian cancer with Mets to liver and lung disease progression despite recent palliative chemotherapy admitted with abdominal and vaginal pain. Patient has had ovarian cancer undergoing treatment for the last 10 years, she is certainly hospice appropriate should she elect comfort focused care. Patient is currently transition to end of life with a life expectancy of hours to days if illness runs it natural course. . Code Status: No Code Plan * No written advance directives. According to [facility] health care proxy decision-making falls to her spouse. She indicates she would want her spouse to make medical decisions should she become incapacitated. * NO CODE * Goals of care: NO CODE -DNR/DNI. Allow natural . Family declined hospice involvement and request that patient is to be kept in hospital until her . Patient actively dying with life expectancy of hours to days if illness runs its natural course. * Pain: secondary to burden of disease. Remains on fentanyl patch 100mcg q72h. Methadone decreased to 10mg q 8h on 06/14/15 per family request as they feel it is the cause episodes of N/V yesterday. Dilaudid IV 1.5mg PRN Q1H available, has required 7 doses of 1.5mg in the past 24 hours. Anticipate continued rapid decline. Continue to monitor for signs of opiate toxicity, such as delirium, myoclonic jerking, hyperalgesia, allodynia. None of these observed thus far. * Nausea/vomiting: PRN Zofran available. Last PRN dose given 06/14/16. * Oropharyngeal secretions: adding PRN Levsin. * Anxiety: PRN Xanax and Ativan available. Encouraged use PRN to control anxiety and pain control. May also help with control of nausea if Zofran is not effective. * Edema: Most edema is in LLE. Likely secondary to DVT noted on last imaging and/or great vein compression in the abdomen from tumor mass. Recommend elevation if uncomfortable. * Active listening and ongoing emotional support provided to family. Anticipatory guidance provided re: signs and symptoms of EOL. * Palliative care will continue to follow throughout hospital course for symptom management at EOL. . Time Spent Total Floor Time (mins): 32 (Total time to include review of medical records, physical exam, bedside conversation with daughter and case discussion with bedside RN. ) Face to Face Time (mins): 25 >50% Counseling/Coord of Care: Yes Attestation To help prompt me to consider important information that might be impacting today's encounter and assessment, information from prior notes written by myself or my colleagues may have been "brought forward" into today's note. My signature on this note, however, is an attestation that I personally performed the exam, history, and/or decision-making noted today, and, unless otherwise indicated, the interactions with patient, family, and staff as well as the review of records all occurred today. I also attest that the listed assessment and stated plan reflect my best clinical judgment today based on the combination of historical information, prior notes, and today's exam/ interactions. When time spent is documented, it refers only to time spent today by the signer, or if indicated, combined time spent today by collaborating physician/nurse practitioner. Ingrid Lehman Jun 15, 2016 17:01
[2016-06-15 21:45] VITALS: BP 103/53; PULSE 118; RESP 17; TEMP 101.7; O2SAT 95
[2016-06-15] MEDS: ACETAMINOPHEN 1000 MG/100 ML VIAL IV PRN (22:02)
[2016-06-16] MEDS: METHADONE 10 MG/ML VIAL IV SCH ×3 (01:15→17:41)
[2016-06-16] MEDS: HYDROmorphone HCL PF 1 MG/ML VIAL IV PRN ×6 (04:48→23:16)
--- NOTE | 2016-06-16 07:30 | PD.ONC.PN ---
Subjective Subjective Remarks Mrs. Jim is awake in bed moaning and grimacing she will say my name but otherwise mumbles sister is at bedside states she feels that Linda is doing well on the pain medication only took in a little oj this am Objective Data Date Time Temp Pulse Resp B/P Pulse Ox O2 Delivery O2 Flow Rate FiO2 06/16/16 05:20 10 06/16/16 02:20 10 06/15/16 21:45 101.7 118 17 103/53 95 06/15/16 08:00 98.6 110 12 102/50 93 Administered Medications Medications (Trade) Dose Ordered Sig/Perry Route PRN Reason Start Time Stop Time Status Last Admin Dose Admin IV Flush (NS Flush) 2 ml UNSCH PRN FLUSH FLUSH AFTER USING IV ACCESS 04/28/16 14:30 06/04/16 06:15 IV Flush (NS Flush) 2 ml BID FLUSH 04/28/16 21:00 06/15/16 20:33 Acetaminophen (Tylenol) 650 mg Q4H PRN PO TEMP > 100.4 or pain 04/28/16 14:30 06/10/16 18:09 Albuterol Sulfate (Proair Hfa Inh) 1 puff Q4H PRN INH SHORTNESS OF BREATH 04/28/16 14:30 06/02/16 20:39 Lidocaine HCl (Xylocaine 2% Jelly) 1 applic Q2HR PRN TOPICAL SEE LABEL COMMENTS 04/29/16 13:00 05/03/16 22:00 Acetaminophen (Ofirmev Inj) 1,000 mg Q6H PRN IV fever > 100.4 04/30/16 01:30 06/15/16 22:02 Albuterol Sulfate (Ventolin Hfa Inh) 2 puff QID INH 04/30/16 18:00 06/15/16 16:35 Al Hydrox/Mg Hydrox/Simethicone (Mag-Al Plus Susp Liq) 30 ml Q6H PRN PO indigestion/ reflux 05/05/16 14:30 05/12/16 11:55 Alprazolam (Xanax) 0.5 mg Q6H PRN PO ANXIETY 05/08/16 15:15 05/29/16 11:04 Furosemide (Lasix Inj) 20 mg Q6H PRN IV Pulmonary Congestion 05/30/16 18:45 06/01/16 05:36 Dextrose (D50w (Syr) Inj) 50 ml UNSCH PRN IV BS < 70 05/30/16 23:00 06/15/16 22:01 Padimate O (Chapstick) 1 applic UNSCH PRN TOPICAL CHAPPED LIPS 06/04/16 03:30 06/04/16 03:44 Hydromorphone HCl 1.5 mg 1.5 mg Q1HR PRN IV severe pain 7-10 / sob 06/04/16 15:00 06/16/16 04:48 Ondansetron HCl/ Dextrose (Zofran Inj/D5W Inj) 54 ml @ 216 mls/hr Q6H PRN IV NAUSEA 06/05/16 11:11 06/14/16 15:07 Fentanyl (Duragesic 100 Mcg Patch.72 Hr) 1 patch Q3D TD 06/14/16 11:00 06/14/16 11:29 Miscellaneous Information 1 Q3D TD 06/14/16 11:00 06/14/16 11:00 Methadone HCl (Dolophine Inj) 10 mg Q8H IV 06/14/16 17:00 06/16/16 01:15 Objective Remarks GENERAL: frail and ill, pt moaning and grimacing SKIN: Warm and dry. HEAD: Normocephalic. EYES: No scleral icterus. No injection or drainage. PSYCHIATRIC: mumbles and confused Assessment/Plan Problem List: (1) Ovarian metastasis Status: Chronic Plan: Mrs. Jim is on comfort measures and is now DNR/DNI...family has declined Hospice and wants her to stay in the hospital until her . she is receiving PRN Dilaudid every hour scheduled Methadone 10 mg every 8 hours scheduled Fentanyl patches 100mcg every 3 days encourage use of Xanax PRN to help increase pain control and decrease anxiety Palliative Care is following and management of her pain medication and supportive care to patient and family. Problem Qualifiers (1) Ovarian metastasis: Qualified Code: C79.60 - Malignant neoplasm metastatic to ovary, unspecified laterality Briseida Marquez Jun 16, 2016 07:30
[2016-06-16 08:00] VITALS: BP 95/50; PULSE 112; RESP 10; RESP 16; TEMP 99; O2SAT 96
[2016-06-16] MEDS: ALBUTEROL SULFATE 90 MCG/ACT HFA 18 GM INHALER INH SCH ×4 (08:30→21:00)
[2016-06-16] MEDS: SODIUM CHLORIDE 0.9% FLUSH 5 ML FLUSH FLUSH SCH ×2 (08:31→21:07)
--- NOTE | 2016-06-16 11:14 | HHI.HCPN ---
Reason for visit a. To assist with evaluation and management of symptoms including: abdominal /pelvic/back pain, N/V. b. To assist medical decision maker(s) with: better understanding of current medical conditions; weighing benefits/burdens of medical treatment options; making medical treatment decisions. . (Ingrid Lehman) Subjective/Interval History Patient seen and examined in room. Sister Anastacia at bedside. Patient awake, moaning and grimacing. Holding on to her abdomen with both hands. Tracking with eyes but not answering questions or following commands during my visit. Shallow unlabored respirations. Sister reports that pt slept most of the night. Family has noted some dysphagia/delayed swallowing for the past few days. Temp max 101.7 this AM, received acetaminophen. Stable BP. No evidence of myoclonic jerking, hyperalgesia, allodynia on the current opiate regimen to suggest opiate toxicity. Patient has received 3 doses of PRN Dilaudid 1.5mg IV and 1 dose thus far today. This is a sharp decline from pt's previous usage of approximately 7-8 PRN doses daily. Spoke with sister Anastacia. Reviewed continued progression of disease and signs/symptoms of EOL. Encouraged sister to call RN for IV Dilaudid for signs of pain such as restlessness, moaning and facial grimacing. Reviewed with sister that Xanax and Ativan is available as needed and encouraged in the setting of increased pain and restlessness. Sister reports that pt's pain has been better controlled since adjustment of Methadone IV 2 days ago. Reviewed with sister that N/V may be present secondary to abdominal tumor burden, reviewed PRN medications available to include Zofran and Ativan. Anticipatory guidance provided to sister in regards to signs and symptoms of EOL, including increased sleepiness which will likely progress to unresponsiveness, progressive dysphagia and oropharyngeal secretions. Sister verbalized understanding. Emotional support and active listening provided. Sister agreed to call RN for PRN Dilaudid dose during my visit. . Family/friend interactions See interval note. . (Ingrid Lehman) Advance Directives Living Will: Never completed Health Care Surrogate: Never completed Durable Power of Derrick Builder: Never completed (Ingrid Lehman) Advance Directive Specifics Health Care Surrogate(s): No written advance directives. According to [place] statutes health care proxy decision-making falls to her spouse. She indicates she would want her spouse to make medical decisions should she become incapacitated. . Documented care wishes: No AD/LW completed. Significant change in goals: NO CODE -DNR/DNI. Allow natural . Family declined hospice involvement and request that patient is to be kept in hospital until her . Patient actively dying with life expectancy of hours to days if illness runs its natural course. . (Ingrid Lehman) Objective Vital Signs Date Time Temp Pulse Resp B/P Pulse Ox O2 Delivery O2 Flow Rate FiO2 06/16/16 08:00 99.0 112 16 95/50 96 06/16/16 05:20 10 06/16/16 02:20 10 06/15/16 21:45 101.7 118 17 103/53 95 Intake & Output 06/16/16 06/16/16 07:00 19:00 Intake Total 120 ml Balance 120 ml Intake Oral 120 ml # Voids 2 # Bowel Movements 2 Physical Exam CONSTITUTIONAL/GENERAL: This is a frail, chronically ill, cachectic patient, who appears older than her actual age. Moaning and facial grimacing noted. TUBES/LINES/DRAINS: Right port. SKIN: Pale. Diffuse erythema and scaling in both extremities. Skin appropriately warm without diaphoresis. CARDIOVASCULAR: Tachycardic. regular rhythm. No murmurs auscultated. RESPIRATORY/CHEST: Symmetric, clear ,shallow unlabored respirations. no rhonchi or crackles noted. GASTROINTESTINAL: Abdomen with areas of hardening -tumor progression, distended with prominent abdominal venous pattern with dilated veins noted on abdominal wall. Diffuse tenderness to palpation. Bowel sounds active. GENITOURINARY: Without palpable bladder distension. MUSCULOSKELETAL: Lower extremities uncomfortable with movement. Edema +2 to BLE. NEUROLOGICAL: Awake, tracking with eyes. Non-verbal and very lethargic during my visit. PSYCHIATRIC: Moaning and grimacing when awake. . (Ingrid Lehman) Assessment and Plan Disease Oriented Problem List: (1) Ovarian cancer with mets to liver and lung (2) Anemia Comment: Received two units of blood during this admission -- 05/15/16 and . Hg had fallen as low as 7.0. Last Hg level on 05/28/16 was 9.2 . (3) COPD (chronic obstructive pulmonary disease) (4) Thromboembolic disorder Comment: Ultrasound of 05/16/16 showed partial left brachial DVT. Ultrasound of 04/28/16 shoed occlusive and non-occlusive deep venous thrombosis in left lower extremity. . Symptom Scale: (1) Intractable pain 0-10 Scale: 7 Comment: Secondary to burden of disease. (2) Dyspnea 0-10 Scale: Unable to quantify Comment: Mets to lung, CHF, COPD. On oxygen support via NC. Dilaudid PRN as needed. (3) Nausea 0-10 Scale: 0 Comment: Nausea is probably multi-factorial including tumor pressure and meds. . (4) Fever 0-10 Scale: Unable to quantify Pertinent Non-Medical Issues Psychosocial: . Supported by her 2 daughters, Shey and Zelda. Also supported by her sister, Yoli. Lives in [place]. Spiritual: Member [employer]. Declines forming roll operator visits at this time. Legal:No written advance directives. [facility] to [place] [facility] health care proxy decision-making falls to her spouse. She indicates she would want her spouse to make medical decisions should she become incapacitated. Ethical issues impacting care: no known concerns at this time. . Important Contacts * Kevin Jim, spouse/HCP: [phone] (cell) or [phone] (home) * Shey Jim, daughter: [phone] cell or [phone] work * Zelda Fuentes, daughter: [phone] cell or [phone] work * Yoli , sister: [phone] cell or [phone] home . Prognosis Mrs. Jim has recurrent Ovarian cancer with Mets to liver and lung disease progression despite recent palliative chemotherapy admitted with abdominal and vaginal pain. Patient has had ovarian cancer undergoing treatment for the last 10 years, she is certainly hospice appropriate should she elect comfort focused care. Patient is currently transition to end of life with a life expectancy of hours to days if illness runs it natural course. . Code Status: No Code Plan * No written advance directives. According to [place] [facility] health care proxy decision-making falls to her spouse. She indicates she would want her spouse to make medical decisions should she become incapacitated. * NO CODE * Goals of care: NO CODE -DNR/DNI. Allow natural . Family declined hospice involvement and request that patient is to be kept in hospital until her . Patient actively dying with life expectancy of hours to days if illness runs its natural course. * Pain: secondary to burden of disease. Remains on fentanyl patch 100mcg q72h. Methadone decreased to 10mg q 8h on 06/14/15 secondary to N/V. Dilaudid IV 1.5mg PRN Q1H available, has required 3 doses of 1.5mg in the past 24 hours. Anticipate continued rapid decline. Continue to monitor for signs of opiate toxicity, such as delirium, myoclonic jerking, hyperalgesia, allodynia. None of these observed thus far. Family encouraged to request PRN Dilaudid for signs of pain such as moaning and facial grimacing. -Ongoing family education on pain regimen/management required. * Nausea/vomiting, likely secondary to tumor burden: PRN Zofran available. Last PRN dose given 06/14/16. * Oropharyngeal secretions: PRN Levsin available. * Anxiety: PRN Xanax and Ativan available. Encouraged use PRN to control anxiety and pain control. May also help with control of nausea if Zofran is not effective. * Edema: Most edema is in LLE. Likely secondary to DVT noted on last imaging and/or great vein compression in the abdomen from tumor mass. Recommend elevation if uncomfortable. * Active listening and ongoing emotional support provided to family. Anticipatory guidance provided re: signs and symptoms of EOL. * Palliative care will continue to follow throughout hospital course for symptom management at EOL. . (Ingrid Lehman) Time Spent Total Floor Time (mins): 35 (Total time to include review of medical records, physical exam and bedside conversation with sister Anastacia. ) Face to Face Time (mins): 30 >50% Counseling/Coord of Care: Yes (Ingrid Lehman) Attestation To help prompt me to consider important information that might be impacting today's encounter and assessment, information from prior notes written by myself or my colleagues may have been "brought forward" into today's note. My signature on this note, however, is an attestation that I personally performed the exam, history, and/or decision-making noted today, and, unless otherwise indicated, the interactions with patient, family, and staff as well as the review of records all occurred today. I also attest that the listed assessment and stated plan reflect my best clinical judgment today based on the combination of historical information, prior notes, and today's exam/ interactions. When time spent is documented, it refers only to time spent today by the signer, or if indicated, combined time spent today by collaborating physician/nurse practitioner. (Ingrid Lehman) Collaborating MD Comments Chart reviewed. Case discussed with palliative care HEALTH CARE ATTORNEY. Above YOLI note reviewed and I concur. . (Anthony Crain MD) Ingrid Lehman Jun 16, 2016 11:14 Anthony Crain MD Jul 19, 2016 14:53
[2016-06-16] MEDS: DEXTROSE 50% IN WATER 50 ML SYRINGE IV PRN (17:45)
[2016-06-17] VITALS: BP 100/53; PULSE 98; RESP 10; TEMP 98; O2SAT 94
[2016-06-17] MEDS: METHADONE 10 MG/ML VIAL IV SCH ×3 (01:20→17:25)
[2016-06-17] MEDS: HYDROmorphone HCL PF 1 MG/ML VIAL IV PRN ×7 (03:08→23:49)
[2016-06-17] MEDS: SODIUM CHLORIDE 0.9% FLUSH 5 ML FLUSH FLUSH SCH ×2 (08:29→21:00)
[2016-06-17] MEDS: ALBUTEROL SULFATE 90 MCG/ACT HFA 18 GM INHALER INH SCH ×4 (08:31→21:00)
[2016-06-17 08:46] VITALS: BP 98/62; PULSE 126; RESP 10; TEMP 99.9; O2SAT 96
[2016-06-17] MEDS: REMOVE OLD DURAGESIC (FENTANYL) PATCH TD SCH (11:00)
[2016-06-17] MEDS: fentaNYL 100 MCG/HR PATCH TD SCH (11:19)
[2016-06-17] MEDS: DEXTROSE 50% IN WATER 50 ML SYRINGE IV PRN (12:03)
[2016-06-17] MEDS: ACETAMINOPHEN 1000 MG/100 ML VIAL IV PRN (12:06)
--- NOTE | 2016-06-17 13:54 | HHI.HCPN ---
Reason for visit a. To assist with evaluation and management of symptoms including: abdominal /pelvic/back pain, N/V and agitation/restlessness. b. To assist medical decision maker(s) with: better understanding of current medical conditions; weighing benefits/burdens of medical treatment options; making medical treatment decisions. . (Ingrid Lehman) Subjective/Interval History Patient seen and examined in room. Daughter Shey at bedside. Patient awake, restless. Holding on to her abdomen with both hands. Tracking with eyes but not answering questions or following commands during my visit. Shallow unlabored respirations. Daughter reports that patient had a rough night secondary to restlessness/agitation. Has required 6 doses of PRN Dilaudid IV 1.5mg and 5 doses today thus far. Max temp 99.9 this morning, stable BP. No nausea or vomiting reported. No evidence of myoclonic jerking, hyperalgesia, allodynia on the current opiate regimen to suggest opiate toxicity. Spoke with daughter Shey at bedside, reviewed increased restlessness/agitation likely secondary to terminal restlessness. Recommended to give PRN Ativan, however, family hesitant of giving patient a benzodiazepine. Family reports that patient had a panic attack last time Ativan was give. Discussed that patient has been taking Xanax for a long time at home and that both medications are from the same class. Reviewed alternative options, introduced Haldol for management of terminal restlessness. reviewed that Haldol may cause pt to be sleepy or sedated. Family in agreement of adding Haldol PRN. Anticipatory guidance provided to daughter in regards to signs and symptoms of EOL, including increased sleepiness which will likely progress to unresponsiveness, progressive dysphagia and oropharyngeal secretions. Daughter verbalized understanding. Emotional support and active listening provided. Discussed with bedside RN. . Family/friend interactions See interval note. . (Ingrid Lehman) Advance Directives Living Will: Never completed Health Care Surrogate: Never completed Durable Power of Fashion Editor: Never completed (Ingrid Lehman) Advance Directive Specifics Health Care Surrogate(s): No written advance directives. According to [place] statutes health care proxy decision-making falls to her spouse. She indicates she would want her spouse to make medical decisions should she become incapacitated. . Documented care wishes: No AD/LW completed. Significant change in goals: NO CODE -DNR/DNI. Allow natural . Family declined hospice involvement and request that patient is to be kept in hospital until her . Patient actively dying with life expectancy of hours to days if illness runs its natural course. . (Ingrid Lehman) Objective Vital Signs Date Time Temp Pulse Resp B/P Pulse Ox O2 Delivery O2 Flow Rate FiO2 06/17/16 08:46 99.9 126 10 98/62 96 06/17/16 00:00 98.0 98 10 100/53 94 Intake & Output 06/17/16 06/17/16 07:00 19:00 # Bowel Movements 3 Physical Exam CONSTITUTIONAL/GENERAL: This is a frail, chronically ill, cachectic patient, who appears older than her actual age. Restless in bed. TUBES/LINES/DRAINS: Right port. SKIN: Pale. Diffuse erythema and scaling in both extremities. Skin appropriately warm without diaphoresis. CARDIOVASCULAR: Tachycardic. regular rhythm. No murmurs auscultated. RESPIRATORY/CHEST: Symmetric, clear ,shallow unlabored respirations. no rhonchi or crackles noted. GASTROINTESTINAL: Abdomen with areas of hardening -tumor progression, distended with prominent abdominal venous pattern with dilated veins noted on abdominal wall. Diffuse tenderness to palpation. Bowel sounds active. GENITOURINARY: Without palpable bladder distension. MUSCULOSKELETAL: Lower extremities uncomfortable with movement. Edema +2 to BLE. NEUROLOGICAL: Awake, tracking with eyes. Non-verbal and very lethargic during my visit. PSYCHIATRIC: Moaning and grimacing when awake. . (Ingrid Lehman) Assessment and Plan Disease Oriented Problem List: (1) Ovarian cancer with mets to liver and lung (2) Anemia Comment: Received two units of blood during this admission -- 05/15/16 and . Hg had fallen as low as 7.0. Last Hg level on 05/28/16 was 9.2 . (3) COPD (chronic obstructive pulmonary disease) (4) Thromboembolic disorder Comment: Ultrasound of 05/16/16 showed partial left brachial DVT. Ultrasound of 04/28/16 shoed occlusive and non-occlusive deep venous thrombosis in left lower extremity. . Symptom Scale: (1) Intractable pain 0-10 Scale: 7 Comment: Secondary to burden of disease. (2) Dyspnea 0-10 Scale: Unable to quantify Comment: Mets to lung, CHF, COPD. On oxygen support via [place]. Dilaudid PRN as needed. (3) Nausea 0-10 Scale: 0 Comment: Nausea is probably multi-factorial including tumor pressure and meds. . (4) Fever 0-10 Scale: Unable to quantify (5) Restless 0-10 Scale: 6 Comment: Terminal restlessness. Pertinent Non-Medical Issues Psychosocial: . Supported by her 2 daughters, Shey and Zelda. Also supported by her sister, Yoli. Lives in [place]. Spiritual: Member [employer]. Declines entry clerk visits at this time. Legal:No written advance directives. According to [place] statutes health care proxy decision-making falls to her spouse. She indicates she would want her spouse to make medical decisions should she become incapacitated. Ethical issues impacting care: no known concerns at this time. . Important Contacts * Kevin Jim, spouse/HCP: [phone] (cell) or [phone] (home) * Shey Jim, daughter: [phone] cell or [phone] work * Zelda Fuentes, daughter: [phone] cell or [phone] work * Yoli Rosario, sister: [phone] cell or [phone] home . Prognosis Mrs. Jim has recurrent Ovarian cancer with Mets to liver and lung disease progression despite recent palliative chemotherapy admitted with abdominal and vaginal pain. Patient has had ovarian cancer undergoing treatment for the last 10 years, she is certainly hospice appropriate should she elect comfort focused care. Patient is currently transition to end of life with a life expectancy of hours to days if illness runs it natural course. . Code Status: No Code Plan * No written advance directives. According to [place] statutes health care proxy decision-making falls to her spouse. She indicates she would want her spouse to make medical decisions should she become incapacitated. * NO CODE * Goals of care: NO CODE -DNR/DNI. Allow natural . Family declined hospice involvement and request that patient is to be kept in hospital until her . Patient actively dying with life expectancy of hours to days if illness runs its natural course. * Pain: secondary to burden of disease. Remains on fentanyl patch 100mcg q72h. Methadone decreased to 10mg q 8h on 06/14/15 secondary to N/V. Dilaudid IV 1.5mg PRN Q1H available, has required 3 doses of 1.5mg in the past 24 hours. Anticipate continued rapid decline. Continue to monitor for signs of opiate toxicity, such as delirium, myoclonic jerking, hyperalgesia, allodynia. None of these observed thus far. Family encouraged to request PRN Dilaudid for signs of pain such as moaning and facial grimacing. -Ongoing family education on pain regimen/management required. Family has declined adjustment of PRN Dilaudid dose at this time. * Nausea/vomiting, likely secondary to tumor burden: PRN Zofran available. Last PRN dose given 06/14/16. * Oropharyngeal secretions: PRN Levsin available. * Anxiety: PRN Xanax and Ativan available. Encouraged use PRN to control anxiety and pain control. May also help with control of nausea if Zofran is not effective. * Restlessness/agitation: likely secondary to terminal restlessness. Adding Haldol 1mg IV q6h PRN. * Edema: Most edema is in LLE. Likely secondary to DVT noted on last imaging and/or great vein compression in the abdomen from tumor mass. Recommend elevation if uncomfortable. * Active listening and ongoing emotional support provided to family. Anticipatory guidance provided re: signs and symptoms of EOL. * Palliative care will continue to follow throughout hospital course for symptom management at EOL. . (Ingrid Lehman) Attestation To help prompt me to consider important information that might be impacting today's encounter and assessment, information from prior notes written by myself or my colleagues may have been "brought forward" into today's note. My signature on this note, however, is an attestation that I personally performed the exam, history, and/or decision-making noted today, and, unless otherwise indicated, the interactions with patient, family, and staff as well as the review of records all occurred today. I also attest that the listed assessment and stated plan reflect my best clinical judgment today based on the combination of historical information, prior notes, and today's exam/ interactions. When time spent is documented, it refers only to time spent today by the signer, or if indicated, combined time spent today by collaborating physician/nurse practitioner. . (Ingrid Lehman) Collaborating MD Comments Chart reviewed. Case discussed with palliative care RESERVATION AGENT. Above RESERVATION AGENT note reviewed and I concur. . (Anthony Crain MD) Ingrid Lehman Jun 17, 2016 13:53 Anthony Crain MD Jul 20, 2016 07:40
[2016-06-17] MEDS ORDERED: HALOPERIDOL LACTATE 5 MG/ML AMP IV PUSH PRN (14:00)
[2016-06-17 22:00] VITALS: BP 89/56; PULSE 117; RESP 10; TEMP 99.8; O2SAT 97
[2016-06-18] MEDS: METHADONE 10 MG/ML VIAL IV SCH ×2 (01:32→09:29)
[2016-06-18 06:25] VITALS: TEMP 101.7
[2016-06-18] MEDS: ACETAMINOPHEN 1000 MG/100 ML VIAL IV PRN ×2 (06:33→15:57)
[2016-06-18] MEDS: HYDROmorphone HCL PF 1 MG/ML VIAL IV PRN ×2 (07:16→12:20)
[2016-06-18 08:00] VITALS: BP 84/53; PULSE 134; RESP 20; TEMP 102.3
[2016-06-18] MEDS: HYOSCYAMINE 0.125 MG TAB PO/SL PRN ×2 (09:28→15:31)
[2016-06-18] MEDS: ALBUTEROL SULFATE 90 MCG/ACT HFA 18 GM INHALER INH SCH ×2 (09:34→13:53)
[2016-06-18] MEDS: SODIUM CHLORIDE 0.9% FLUSH 5 ML FLUSH FLUSH SCH (09:35)
--- NOTE | 2016-06-18 11:15 | HHI.HCPN ---
Reason for visit a. To assist with evaluation and management of symptoms including: abdominal /pelvic/back pain, secretions, tachypnea. b. To assist medical decision maker(s) with: better understanding of current medical conditions; weighing benefits/burdens of medical treatment options; making medical treatment decisions. . (NIEVES URRUTIA) Subjective/Interval History Patient seen and examined in room. Yoli Huffman at bedside. Discussed with nurse, residential door unit installer and Dr. Crain. Patient is now unresponsive. She is imminently dying. Respirations are labored using accessory muscles to breath, tachypneic rate in the 30s. Orotracheal secretions noted despite recent Levsin. Course breath sounds bilaterally. Not taking any PO now, oral care only. No restlessness noted this morning. Max temp 102.3 this morning. Hypotensive, tachycardic. Vomited dark overnight. Remains on Methadone and Fentanyl. Has required 5 doses of PRN Dilaudid IV 1.5mg and 1 dose of 1mg in the past 24 hours. No evidence of myoclonic jerking, hyperalgesia, allodynia on the current opiate regimen to suggest opiate toxicity. . Family/friend interactions Spoke with Yoli huffman at bedside, reviewed patient appears to be actively dying. I am not sure she will make it until Kevin returns home. Other family ( daughters, grandchildren and nieces are on their way). Family remains resistant to use of Ativan, willing to give Xanax SL requested nurse medicate patient. Reminded family and staff Haldol can also be used if N/V persists. Family in agreement of adding Haldol PRN. Anticipatory guidance provided in regards to signs and symptoms of EOL, including unresponsiveness, progressive dysphagia and oropharyngeal secretions, respiratory and vital sign changes and plan of care to manage symptoms. Provided time for life review and reflection. . (NIEVES URRUTIA) Advance Directives Living Will: Never completed Health Care Surrogate: Never completed Durable Power of Submarine Element Coordinator: Never completed (NIEVES URRUTIA) Advance Directive Specifics Health Care Surrogate(s): No written advance directives. According to [place] statutes health care proxy decision-making falls to her spouse. She indicates she would want her spouse to make medical decisions should she become incapacitated. . Documented care wishes: No AD/LW completed. Significant change in goals: NO CODE. Comfort measures only. Declines hospice support. . (NIEVES URRUTIA) Objective Vital Signs Date Time Temp Pulse Resp B/P Pulse Ox O2 Delivery O2 Flow Rate FiO2 06/18/16 08:00 102.3 134 20 84/53 06/18/16 06:25 101.7 06/17/16 22:00 99.8 117 10 89/56 97 Physical Exam CONSTITUTIONAL/GENERAL: This is a frail, chronically ill, cachectic patient, who appears older than her actual age. Restless in bed. TUBES/LINES/DRAINS: Right port. SKIN: Pale. Diffuse erythema and scaling in both extremities. Diaphoretic. CARDIOVASCULAR: Tachycardic. RESPIRATORY/CHEST: Tachypneic, rate 30s. Labored respirations using accessory muscles. Bilateral course breath sounds. Orotracheal secretions noted. GASTROINTESTINAL: Abdomen with areas of hardening -tumor progression, distended with prominent abdominal venous pattern with dilated veins noted on abdominal wall. Diffuse tenderness to palpation. Bowel sounds active. GENITOURINARY: Without palpable bladder distension. MUSCULOSKELETAL: Lower extremities uncomfortable with movement. Edema BLE. NEUROLOGICAL: Unresponsive. PSYCHIATRIC: Moaning intermittently. . (NIEVES URRUTIA) Assessment and Plan Disease Oriented Problem List: (1) Ovarian cancer with mets to liver and lung (2) COPD (chronic obstructive pulmonary disease) (3) Thromboembolic disorder Comment: Ultrasound of 05/16/16 showed partial left brachial DVT. Ultrasound of 04/28/16 shoed occlusive and non-occlusive deep venous thrombosis in left lower extremity. . (4) Rectovaginal fistula (5) Clostridium difficile colitis Comment: resolved Symptom Scale: (1) Intractable pain 0-10 Scale: Unable to quantify Comment: Secondary to burden of disease. (2) Dyspnea 0-10 Scale: Unable to quantify Comment: Mets to lung, CHF, COPD. On oxygen support via [place]. Dilaudid PRN as needed. Encouraged PRN Xanax for tachypnea. (3) Nausea 0-10 Scale: 0 Comment: Nausea is probably multi-factorial including tumor pressure and meds. . (4) Fever 0-10 Scale: Unable to quantify Comment: Tmax 102.3. (5) Restless 0-10 Scale: 0 Comment: Terminal restlessness. Pertinent Non-Medical Issues Psychosocial: . Supported by her 2 daughters, Shey and Zelda. Also supported by her sister, Yoli. Lives in [place]. Spiritual: Member [employer]. Declines lard maker visits at this time. Legal:No written advance directives. [facility] [place] [facility] proxy decision-making falls to her spouse. She indicates she would want her spouse to make medical decisions should she become incapacitated. Ethical issues impacting care: no known concerns at this time. . Important Contacts * Kevin Jim, spouse/HCP: [phone] (cell) or [phone] (home) * Shey Jim, daughter: [phone] cell or [phone] work * Zelda Fuentes, daughter: [phone] cell or [phone] work * Yoli Rosario, sister: [phone] cell or [phone] home . Prognosis Mrs. Jim has recurrent Ovarian cancer with Mets to liver and lung disease progression despite recent palliative chemotherapy admitted with abdominal and vaginal pain. Patient has had ovarian cancer undergoing treatment for the last 10 years, she is certainly hospice appropriate should she elect comfort focused care. Patient is currently transition to end of life with a life expectancy of hours to days if illness runs it natural course. . Code Status: No Code Plan * No written advance directives. [place] [facility] proxy decision-making falls to her spouse. She indicates she would want her spouse to make medical decisions should she become incapacitated. * NO CODE * Goals of care: NO CODE -DNR/DNI. Allow natural . Family declined hospice involvement and request that patient is to be kept in hospital until her . Patient actively dying. PPS 10. * Pain: secondary to burden of disease. Remains on fentanyl patch 100mcg q72h. Methadone decreased to 10mg q 8h on 06/14/15 secondary to N/V. Dilaudid IV 1.5mg PRN Q1H available, has required 6 doses of 1.5mg in the past 24 hours. * Nausea/vomiting, likely secondary to tumor burden: PRN Zofran and Haldol and Ativan available. * Oropharyngeal secretions: PRN Levsin available. * Anxiety: PRN Xanax and Ativan available. Encouraged use PRN to control anxiety and pain control. May also help with control of nausea if Zofran is not effective. Family agrees to PRN Xanax. * Restlessness/agitation: likely secondary to terminal restlessness. Haldol 1mg IV q6h PRN available, None given. * Tachypnea: due to imminent ,aspiration. PRN Dilaudid, Xanax, Ativan available. * Edema: Most edema is in LLE. Likely secondary to DVT noted on last imaging and/or great vein compression in the abdomen from tumor mass. Recommend elevation if uncomfortable. * Active listening, time for life review. Anticipatory guidance provided re: signs and symptoms of EOL. * Palliative care will continue to follow throughout hospital course for symptom management at EOL. . (NIEVES URRUTIA) Attestation To help prompt me to consider important information that might be impacting today's encounter and assessment, information from prior notes written by myself or my colleagues may have been "brought forward" into today's note. My signature on this note, however, is an attestation that I personally performed the exam, history, and/or decision-making noted today, and, unless otherwise indicated, the interactions with patient, family, and staff as well as the review of records all occurred today. I also attest that the listed assessment and stated plan reflect my best clinical judgment today based on the combination of historical information, prior notes, and today's exam/ interactions. When time spent is documented, it refers only to time spent today by the signer, or if indicated, combined time spent today by collaborating physician/nurse practitioner. (NIEVES URRUTIA) Collaborating MD Comments Chart reviewed. Case discussed with palliative care MIGRATORY FARM HAND. Above MIGRATORY FARM HAND note reviewed and I concur. . (Anthony Crain MD) NIEVES URRUTIA Jun 18, 2016 11:15 Anthony Crain MD Jul 20, 2016 07:46
[2016-06-18] MEDS: ALPRAZolam 0.5 MG TAB PO PRN (11:31)
[2016-06-18] MEDS: LORazepam 2 MG/ML VIAL IV PRN ×2 (12:20→13:47)
[2016-06-18 13:53] VITALS: RESP 28
[2016-06-18 15:58] VITALS: TEMP 103
[2016-06-18] MEDS ORDERED: MORPHINE SULFATE 8 MG/ML INJ IV PUSH PRN ×2 (16:45)
--- NOTE | 2016-06-18 22:53 | HHI.DS ---
Summary Note Date of : Jun 18, 2016 Time Of : 1645 Admission Date Apr 29, 2016 at 12:10 Admitting Diagnosis intractable abdominal pain, metastatic disease Diagnosis at Time of : (1) Ovarian cancer with mets to liver and lung Diagnosis: Principal (2) COPD (chronic obstructive pulmonary disease) ICD Code: J44.9 Diagnosis: Secondary (3) Fever ICD Code: R50.9 Diagnosis: Secondary (4) Clostridium difficile colitis ICD Code: A04.7 Diagnosis: Secondary (5) Intractable abdominal pain ICD Code: R10.9 Diagnosis: Secondary (6) Rectovaginal fistula ICD Code: N82.3 Diagnosis: Secondary Procedures None Brief History Mrs. Jim is a 61 year old female with long history of recurrent ovarian cancer Stage IIIC diagnosed in 2005. She was admitted to [place] in November 2015 with bowel obstruction secondary to tumor invading the colon, she underwent colonic stent. She has metastatic disease to liver and lung. She was admitted again in December 2015 with sepsis and C. diff colitis. Since the last admission she has been on weekly Taxol (Line 9) with completion of 3 cycles of this treatment under the direction of Dr. Pires. Review of oncology notes indicates the patient has had developed a rectovaginal fistula. She has also had left lower extremity edema diagnosed with vasculitis/cellulitis for which she was treated with vancomycin. She has had increasing fatigue which she attributed to her pain medication, though I suspect this was related to disease progression. She has also had significant pain in the vaginal/rectal area. Patient presented to [facility] emergency department on 04/29/16 with intractable abdominal/ pelvic pain. CT scan abdomen pelvis revealed worsening hepatic metastatic disease with disease increased from 5.1cm to 9.9cm , increased in mets lung nodule to 9mm from 4mm, increased pelvic mass to 9.4cm x 12cm increased from 6.9cm, moderate hydronephrosis with left stent in place, anasarca and increased biliary ductal dilatation. Ultrasound LE pending. Patient seen and examined in ER with daughters and sisters at bedside. Patient is screaming and writhing in pain. She reports pain as a sharp, stabbing pain deep in her pelvis. She reports pain to be constant over the past few days. Some relief with PRN Dilaudid, but only last 45 minutes. She screams when attempting to urinate. She leaks fecal content vaginally. Palliative care was consulted to assist with pain control and further clarification of treatment goals. . Significant Findings No recent labs as patient has been receiving comfort measures only. . Imaging Last Impressions Abdomen Ultrasound 05/20/16 1443 Signed Impressions: Service Date/Time: Friday, May 20, 2016 15:19 - CONCLUSION: Negative for ascites. Moshe Nam MD FACR Chest X-Ray 05/19/16 0000 Signed Impressions: Service Date/Time: Thursday, May 19, 2016 18:19 - CONCLUSION: 1. Right [id number] in superior vena cava. Mild basilar airspace disease. No pneumothorax. Edgardo Lockhart MD Upper Extremity Ultrasound 05/16/16 0000 Signed Impressions: Service Date/Time: Monday, May 16, 2016 15:23 - CONCLUSION: Partial left brachial vein DVT. Simeon Hart MD Abdomen/Pelvis CT 04/28/16 1047 Signed Impressions: Service Date/Time: Thursday, April 28, 2016 12:16 - CONCLUSION: 1. Worsening of hepatic metastatic disease since January 21. 2. Increasing size of right middle lobe metastatic lung nodule. 3. Increasing size of pelvic mass just below the expandable sigmoid stent. 4. Development of moderate left hydronephrosis with left ureteral stent remaining in place. 5. Development of anasarca. 6. Slight increase in biliary ductal dilatation. Edgardo Lockhart MD Lower Extremity Ultrasound 04/28/16 0000 Signed Impressions: Service Date/Time: Thursday, April 28, 2016 15:49 - CONCLUSION: 1. Occlusive and nonocclusive deep venous thrombosis in the left lower extremity as above. Popliteal cyst also present. Edgardo Lockhart MD . Hospital Course Patent has had a complicated hospital course with intractable pain abdominal and back pain, nausea/vomiting, C. Diff, rectovaginal fistula and CHF. She was found to have disease progression despite chemo prior to admission and was not a candidate for additional chemotherapy. .She has been in and out of ICU many times.Despite aggressive care she continued to decline. Family elected NO CODE and comfort measures only. Declined hospice services per patient previously stated wishes. End of life care was provided by palliative care team in hospital oer family request. .She peacefully with family at bedside. . NIEVES URRUTIA Jun 18, 2016 22:53 Anthony Crain MD Jul 20, 2016 07:52
== END 2016-06-18 21:47 | disposition expired | DRG 947 ==
LOC: NEPC 10:25 → NEDA 13:33 → NEPGCP 15:31 → OBSVTOIN 04-29 12:10 → HOCA 04-29 16:55 → N03A 05-05 16:03 → N04A 05-10 22:13 → N03B 05-19 18:33 → HOCB 05-31 17:06 → HOCA 06-05 14:45
PROVIDERS: ADMIT Family Medicine Hospice and Palliative Medicine; ATTEND Family Medicine Hospice and Palliative Medicine
PROC: 30233N1 Transfusion of Nonautologous Red Blood Cells into Peripheral Vein, Percutaneous Approach (ICD-10-PCS; principal; 2016-05-15)
DX: G89.3 Neoplasm related pain (acute) (chronic) (principal); I50.31 Acute diastolic (congestive) heart failure; Z51.5 Encounter for palliative care; K56.60 Unspecified intestinal obstruction; A04.7 Enterocolitis due to Clostridium difficile; I82.412 Acute embolism and thrombosis of left femoral vein; C78.7 Secondary malignant neoplasm of liver and intrahepatic bile duct; C78.01 Secondary malignant neoplasm of right lung; C78.6 Secondary malignant neoplasm of retroperitoneum and peritoneum; K92.2 Gastrointestinal hemorrhage, unspecified; N13.39 Other hydronephrosis; L03.116 Cellulitis of left lower limb; N82.3 Fistula of vagina to large intestine; I82.622 Acute embolism and thrombosis of deep veins of left upper extremity; N13.30 Unspecified hydronephrosis; I82.422 Acute embolism and thrombosis of left iliac vein; I82.812 Embolism and thrombosis of superficial veins of left lower extremity; I87.1 Compression of vein; I50.9 Heart failure, unspecified; G62.0 Drug-induced polyneuropathy; R30.0 Dysuria; R62.7 Adult failure to thrive; R60.0 Localized edema; J44.9 Chronic obstructive pulmonary disease, unspecified; E87.6 Hypokalemia; Z85.43 Personal history of malignant neoplasm of ovary; J45.909 Unspecified asthma, uncomplicated; I10 Essential (primary) hypertension; E03.9 Hypothyroidism, unspecified; N13.5 Crossing vessel and stricture of ureter without hydronephrosis; F06.4 Anxiety disorder due to known physiological condition; D63.8 Anemia in other chronic diseases classified elsewhere; K21.0 Gastro-esophageal reflux disease with esophagitis; I95.9 Hypotension, unspecified; E16.2 Hypoglycemia, unspecified; R13.10 Dysphagia, unspecified; R45.1 Restlessness and agitation; T45.1X5A Adverse effect of antineoplastic and immunosuppressive drugs, initial encounter; Z66 Do not resuscitate; Z80.1 Family history of malignant neoplasm of trachea, bronchus and lung; Z80.3 Family history of malignant neoplasm of breast; Z86.14 Personal history of Methicillin resistant Staphylococcus aureus infection; Z87.891 Personal history of nicotine dependence; Z88.0 Allergy status to penicillin
CPT/HCPCS: 36430; 36600; 71010; 74177; 76705; 80048; 80053; 82805; 82948; 83605; 83690; 83735; 83880; 84132; 84155; 84484; 85014; 85018; 85025; 85027; 85610; 85730; 86850; 86900; 86901; 86920; 87493; 87641; 93005; 93306; 93971; 94002; 94003; 96361; 96374; G0378; J0131; J0696; J1170; J1230; J1650; J1885; J1940; J1956; J2060; J2270; J2405; J2765; J3480; J7030; J7040; J7050; P9016; P9047; Q9967